=== PATIENT | male | born 1975 | race Two or more races ===

== ENCOUNTER 2020-03-19 12:18 | Emergency (ER) | payer MEDICAID, SELFPAY ==
[2020-03-19 14:01] VITALS: BP 108/83; PULSE 63; RESP 18; TEMP 36.8; O2SAT 96; BMI 20.9
--- NOTE | 2020-03-19 14:01 | ED_ITS ---
HPI - General Adult General Stated complaint: swollen legs Time Seen by Provider: 03/19/20 14:01 Related Data Allergies Allergy/AdvReac Type Severity Reaction Status Date / Time No Known Allergies Allergy Unverified 10/31/19 16:54 [No Known Allergies*] [facility] Past Medical History Medical History (Updated 03/19/20 @ 14:02 by Christa Hough, SARAHI) H/O opioid abuse Course Course Course Narrative: 1400-This is a rapid medical exam. 44 yo male with past medical history hepatitis C, IVDA, asthma here with bilateral lower leg swelling x 2 days. No SOB, cough, or CP, abdominal pain. Will need labs, UA. Deferred additional HPI, PE and ROS to primary provider.
== END 2020-03-19 20:22 | disposition left against medical advice (07) ==
PROVIDERS: Emergency Provider Internal Medicine
DX: R60.0 Localized edema (principal)
CPT/HCPCS: 99281; 99282

== ENCOUNTER 2020-06-24 14:15 | Emergency (ER) | payer MEDICAID, SELFPAY ==
[2020-06-24 14:25] VITALS: BP 106/69; PULSE 76; RESP 18; TEMP 36.1; O2SAT 96; BMI 22.3
--- NOTE | 2020-06-24 18:19 | ED.GENADULT ---
HPI - General Adult General Chief complaint: General Medical Stated complaint: SWELLING IN LEGS Time Seen by Provider: 06/24/20 18:19 Source: patient Mode of arrival: ambulatory Limitations: no limitations History of Present Illness HPI narrative: Patient with significant cardiac or hepatic disease notice bilateral lower leg swelling for last 2 weeks no shortness of breath no chest pain no abdominal distension patient does complain of mild epigastric pain Related Data Previous Rx's Medication Instructions Recorded spironolactone 50 mg PO QAM #30 tab 06/24/20 Allergies Allergy/AdvReac Type Severity Reaction Status Date / Time No Known Allergies Allergy Verified 03/19/20 14:05 [No Known Allergies*] Review of Systems Review of Systems: Yes all other systems are reviewed and are negative [facility] Past Medical History Medical History H/O opioid abuse Hepatitis C Social History Social History Advance Directives: No Advance Directives Information Provided: No Physical Exam Vital Signs: Vital Signs: Last Vital Signs Temp 98.8 F 06/24/20 18:44 Pulse 61 06/24/20 18:44 Resp 18 06/24/20 18:44 BP 105/61 06/24/20 18:44 Pulse Ox 98 06/24/20 18:44 Body Mass Index 22.3 Appearance: Alert. Oriented X3. No acute distress. Eyes: PERRLA, No Nystagmus ENT: Pharynx normal. Oral Mucosa moist Neck: Normal inspection. Neck supple. CVS: Normal heart rate and rhythm. Pulses normal. Respiratory: No respiratory distress. Equal air entry bilateral, no wheezing/rales/rhonchi Abdomen: Soft and nontender. Bowel sounds are present, no mass palpable, no CVA tenderness Skin: Skin warm and dry. Normal skin color. Normal skin turgor. Extremities: 1+ lower extremity edema. No calf tenderness Neuro: Oriented X 3. No motor deficit. No sensory deficit.No cerebellar signs , cranial nerves II-XII intact Medical Decision Making Lab Data Result diagrams: 06/24/20 19:32 06/24/20 19:32 Labs: Lab Results 06/24/20 06/24/20 06/24/20 Range/Units 19:32 19:32 19:32 WBC 6.8 (4.8-10.8) X10*3/uL RBC 4.49 L (4.60-5.80) X10*6/uL Hgb 13.6 L (14.0-18.0) g/dl Hct 42.1 (42-52) % MCV 93.8 (80-98) fL MCH 30.3 (27.0-33.0) pg MCHC 32.3 (31.0-36.0) g/dl RDW 11.7 (11.0-16.0) % Plt Count 142 L (160-400) X10*3/uL MPV 11.0 (9.4-12.4) fL Immature Gran % (Auto) 0.4 (0.0-0.4) % Neut % (Auto) 45.2 (45-73) % Lymph % (Auto) 39.5 (20-40) % [place] % (Auto) 10.2 (2-11) % Eos % (Auto) 4.3 H (0-4) % Baso % (Auto) 0.4 (0-2) % Lymph # (Auto) 2.7 (1.2-4.9) X10*3/uL [place] # (Auto) 0.7 (0.1-1.2) X10*3/uL Eos # (Auto) 0.3 (0.0-0.4) X10*3/uL Baso # (Auto) 0.0 (0.0-0.2) X10*3/uL Abs Immat Gran (auto) 0.03 (0.00-0.03) X10*3/uL Absolute Neuts (auto) 3.1 (2.0-8.3) X10*3/uL Absolute Nucleated RBC 0.000 (0.0-0.012) X10*3/uL Nucleated RBC % (auto) 0.0 (0.0-0.2) /100WBC Sodium 137 (135-145) mmol/L Potassium 4.5 (3.3-5.1) mmol/L Chloride 104 (96-108) mmol/L Carbon Dioxide 25 (22-29) mmol/L Anion Gap 13 (12-20) BUN 16 (9-16) mg/dL Creatinine 0.70 (0.5-1.4) mg/dL Estim Creat Clear Calc 138.2 Estimated GFR > 60 Random Glucose 100 (60-115) mg/dL Calcium 9.0 (8.4-10.2) mg/dL Total Bilirubin 0.4 (0.0-1.0) mg/dL Direct Bilirubin 0.2 (0.0-0.5) mg/dL AST 47 H (5-37) U/L ALT 45 H (0-40) U/L Alkaline Phosphatase 123 H (39-117) U/L B-Natriuretic Peptide 18 (<100) pg/mL Total Protein 7.2 (6.5-8.0) g/dL Albumin 3.6 (3.5-5.0) g/dL Discharge Plan Discharge Clinical Impression: Leg edema Patient Disposition: Home, Self-Care Instructions: Edema (ED) Additional Instructions: Keep leg elevated. Take medication for increased swelling. Follow-up with energy efficiency specialist for elevated liver enzymes Prescriptions: New spironolactone 50 mg tablet 50 mg PO QAM Qty: 30 RF: 0 Referrals: Ysabel Ahn MD [Physician] - 1 week Interventions: ED Discharge Assessment Last Done: 06/24/20 21:06 Discharge Date/Time: 06/24/20 21:07
[2020-06-24 18:44] VITALS: BP 105/61; PULSE 61; RESP 18; TEMP 37.1; O2SAT 98
--- NOTE | 2020-06-24 19:03 | PC.NURSE ---
This rn unable to obtain lab work, difficult stick r/t IVDA. Meryl at bedside to attempt labs.
[2020-06-24 19:38] LABS: MANUAL DIFF FLAG NO
[2020-06-24 19:47] LABS: Basophils Percent Auto 0.4 % (0-2); Eosinophils Absolute Auto 0.3 X10*3/uL (0.0-0.4); Eosinophils Percent Auto 4.3 % (0-4); Hematocrit 42.1 % (42-52); Hemoglobin 13.6 g/dl (14.0-18.0); Imm Gran Abs Auto 0.03 X10*3/uL (0.00-0.03); Imm Gran Pct Auto 0.4 % (0.0-0.4); Lymphocytes Absolute Auto 2.7 X10*3/uL (1.2-4.9); Lymphocytes Percent Auto 39.5 % (20-40); Mean Corpuscular HGB Conc 32.3 g/dl (31.0-36.0); Mean Corpuscular Hemoglobin 30.3 pg (27.0-33.0); Mean Corpuscular Volume 93.8 fL (80-98); Monocytes Absolute Auto 0.7 X10*3/uL (0.1-1.2); Monocytes Percent Auto 10.2 % (2-11); Neutrophils Absolute Auto 3.1 X10*3/uL (2.0-8.3); Neutrophils Percent Auto 45.2 % (45-73); Platelet Count 142 X10*3/uL (160-400); Red Blood Count 4.49 X10*6/uL (4.60-5.80); Red Cell Distribution Width 11.7 % (11.0-16.0); White Blood Count 6.8 X10*3/uL (4.8-10.8)
[2020-06-24 20:04] LABS: Alanine Aminotransferase 45 U/L (0-40); Albumin Level 3.6 g/dL (3.5-5.0); Alkaline Phosphatase 123 U/L (39-117); Anion Gap 13 (12-20); Aspartate Amino Transferase 47 U/L (5-37); Bilirubin Direct 0.2 mg/dL (0.0-0.5); Bilirubin Total 0.4 mg/dL (0.0-1.0); Blood Urea Nitrogen 16 mg/dL (9-16); Carbon Dioxide 25 mmol/L (22-29); Chloride 104 mmol/L (96-108); Creatinine Clr Calc Pharmacy 138.2; Estimated Glomerular Filt Rate > 60; Glucose Random 100 mg/dL (60-115); Potassium 4.5 mmol/L (3.3-5.1); Sodium 137 mmol/L (135-145); Total Protein 7.2 g/dL (6.5-8.0)
[2020-06-24 20:10] LABS: B Type Natriuretic Peptide 18 pg/mL (<100)
== END 2020-06-24 21:07 | disposition home or self-care (01) ==
PROVIDERS: Emergency Provider Internal Medicine
DX: R60.0 Localized edema (principal); R10.13 Epigastric pain
CPT/HCPCS: 36415; 80048; 80076; 83880; 85025; 99284

== ENCOUNTER 2023-06-17 20:35 | Emergency (ER) | payer MEDICAID, SELFPAY ==
--- NOTE | 2023-06-17 | ECG_ITS ---
Test Reason : MENTAL STATUS Blood Pressure : / mmHG Vent. Rate : 082 BPM Atrial Rate : 082 BPM P-R Int : 156 ms QRS Dur : 100 ms QT Int : 440 ms P-R-T Axes : 065 031 026 degrees QTc Int : 514 ms Normal sinus rhythm Prolonged QT Abnormal ECG When compared with ECG of 06-JAN-2018 13:42, QT has lengthened Referred By: Generic ED Physician Electronically Signed By:CARLOS ELLSWORTH
--- NOTE | ~2023-06-17 | XR_ITS ---
EXAMINATION: XR FOREARM, RIGHT XR FOREARM, LEFT CLINICAL INFORMATION: Wound COMPARISON: None TECHNIQUE: AP and lateral views of each forearm. FINDINGS: RIGHT FOREARM: Soft tissues are swollen with a dorsal lunate the mid forearm. No subcutaneous gas. No fracture or malalignment. Joints are normal in appearance at the wrist and elbow. LEFT FOREARM: Soft tissues are swollen in the forearm with dorsal skin wound proximally. No radiodense foreign bodies are identified. Bone mineralization is normal. No fracture or malalignment. Joints appear normal. XR/XR forearm RT 2V IMPRESSION: Soft tissue swelling in the forearms with a dorsal skin wounds proximally. No radiodense foreign bodies. No acute osseous findings.
--- NOTE | ~2023-06-17 | XR_ITS ---
EXAMINATION: XR FOREARM, RIGHT XR FOREARM, LEFT CLINICAL INFORMATION: Wound COMPARISON: None TECHNIQUE: AP and lateral views of each forearm. FINDINGS: RIGHT FOREARM: Soft tissues are swollen with a dorsal lunate the mid forearm. No subcutaneous gas. No fracture or malalignment. Joints are normal in appearance at the wrist and elbow. LEFT FOREARM: Soft tissues are swollen in the forearm with dorsal skin wound proximally. No radiodense foreign bodies are identified. Bone mineralization is normal. No fracture or malalignment. Joints appear normal. XR/XR forearm LT 2V IMPRESSION: Soft tissue swelling in the forearms with a dorsal skin wounds proximally. No radiodense foreign bodies. No acute osseous findings.
[2023-06-17 20:43] VITALS: BP 152/80; PULSE 80; O2SAT 99
[2023-06-17 20:44] VITALS: BP 131/77; PULSE 82; RESP 15; TEMP 37.3; O2SAT 98; BMI 25.5
[2023-06-17 20:52] VITALS: BP 131/77; PULSE 79; RESP 16; TEMP 37.3; O2SAT 98
[2023-06-17 21:14] LABS: Appearance Urine Clear; Color Urine Yellow; Glucose Urine UA Negative (Negative); Leukocyte Esterase Urine Negative (Negative); Nitrite Urine Negative (Negative); Specific Gravity - Urine <= 1.005 (1.005-1.025); Urine Blood Negative (Negative); Urine Ketones Negative (Negative); Urine Protein Negative (Neg-Trace)
[2023-06-17 21:19] LABS: MANUAL DIFF FLAG NO
[2023-06-17 21:21] LABS: Basophils Percent Auto 0.6 % (0-2); Eosinophils Absolute Auto 0.1 X10*3/uL (0.0-0.4); Eosinophils Percent Auto 2.5 % (0-4); Hematocrit 33.5 % (42.0-52.0); Hemoglobin 11.2 g/dl (14.0-18.0); Imm Gran Abs Auto 0.01 X10*3/uL (0.00-0.03); Imm Gran Pct Auto 0.2 % (0.0-0.4); Lymphocytes Absolute Auto 1.5 X10*3/uL (1.2-4.9); Mean Corpuscular HGB Conc 33.4 g/dl (31.0-36.0); Mean Corpuscular Hemoglobin 32.5 pg (27.0-33.0); Mean Corpuscular Volume 97.1 fL (80.0-98.0); Mean Platelet Volume 11.6 fL (9.4-12.4); Monocytes Absolute Auto 0.5 X10*3/uL (0.1-1.2); Monocytes Percent Auto 10.9 % (2-11); Neutrophils Absolute Auto 2.6 x10*3/uL (2.0-8.3); Neutrophils Percent Auto 54.8 % (45-73); Platelet Count 100 X10*3/uL (160-400); Red Blood Count 3.45 X10*6/uL (4.60-5.80); Red Cell Distribution Width 14.1 % (11.0-16.0); White Blood Count 4.8 X10*3/uL (4.8-10.8)
[2023-06-17 21:33] LABS: Lactic Acid 1.5 mmol/L (0.5-2.0)
--- NOTE | 2023-06-17 21:38 | ED_ITS ---
HPI - General Adult General Chief complaint: Altered Mental Status Stated complaint: AMS IVDA, abscess, fever Time Seen by Provider: 06/17/23 21:36 Source: patient and family Mode of arrival: ambulatory Limitations: no limitations History of Present Illness HPI narrative: Patient with history of IVDA user uses cocaine and heroin been shooting left forearm for a while along with taking methadone comes here for wounds in the left forearm and decreased sensorium after using drugs last night patient has been shooting in the left forearm wounds no cough no shortness of breath Related Data Previous Rx's ?Medication ?Instructions ?Recorded spironolactone 50 mg tablet 50 mg PO QAM #30 tabs 06/24/20 cephalexin 500 mg capsule 500 mg PO QID 10 days #40 caps 06/17/23 citalopram 20 mg tablet (Celexa) 20 mg PO DAILY #30 tabs 06/17/23 doxycycline hyclate 100 mg tablet 100 mg PO BID #20 tabs 06/17/23 olanzapine 10 mg tablet (Zyprexa) 10 mg PO BEDTIME #30 tabs 06/17/23 trazodone 50 mg tablet 50 mg PO BEDTIME PRN sleep #30 tabs 06/17/23 Allergies Allergy/AdvReac Type Severity Reaction Status Date / Time No Known Allergies Allergy Verified 06/17/23 20:48 [No Known Allergies*] Review of Systems 2 Review of Systems: Yes all other systems are reviewed and are negative PMFSH Past Medical History Medical History Hepatitis C H/O opioid abuse Social History Social History Smoked in Last 30 Days: Yes Use of substances other than those prescribed or required for medical reasons: Yes Substance Use Type: Crack/Cocaine, Heroin and IV Drugs Substance Use Frequency: Chronic Longstanding Advance Directives: No Advance Directives Information Provided: No Do you have a plan to hurt others: No Plan Physical Exam ED Vital Signs: Vital Signs - 24 hr 06/17/23 20:44 06/17/23 20:52 06/17/23 22:00 Temperature 99.1 F 99.2 F Pulse Rate 82 79 80 Respiratory Rate 15 16 15 Blood Pressure 131/77 131/77 118/67 Pulse Oximetry 98 98 95 Oxygen Delivery Method Room Air Room Air Room Air 06/17/23 23:44 Temperature 98.7 F Pulse Rate 78 Respiratory Rate 16 Blood Pressure 122/72 Pulse Oximetry 96 Oxygen Delivery Method Room Air BMI result Body Mass Index 25.5 Appearance: Alert. Oriented X3. No acute distress. Eyes: PERRLA, No Nystagmus ENT: Pharynx normal. Oral Mucosa moist Neck: Normal inspection. Neck supple. CVS: Normal heart rate and rhythm. Pulses normal. Respiratory: No respiratory distress. Equal air entry bilateral, no wheezing/rales/rhonchi Abdomen: Soft and nontender. Bowel sounds are present, no mass palpable, no CVA tenderness Skin: Skin warm and dry. Normal skin color. Normal skin turgor. Extremities: yrace lower extremity edema. No calf tenderness left forearm IVDA patel with open wounds and surrounding cellulitis, right forearm chronic inflammatory change Neuro: Oriented X 3. No motor deficit. No sensory deficit.No cerebellar signs , cranial nerves II-XII intact Medications Administered Discontinued Medications Generic Name Dose Route Start Last Admin Trade Name Freq PRN Reason Stop Dose Admin Doxycycline Monohydrate 100 mg 06/17/23 21:57 06/17/23 22:27 Doxycycline Monohydrate 100 Mg Capsule PO 06/17/23 21:58 100 mg ONCE ONE Administration Piperacillin Sod/Tazobactam 50 mls @ 100 mls/hr 06/17/23 21:57 06/17/23 22:58 Sod 3.375 gm/ Sodium Chloride IV 06/17/23 22:26 Infused ONCE ONE Infusion Medical Decision Making Medical Decision Making [facility] Narrative: Patient with chronic forearm wounds injecting cocaine and heroin in the wounds to get have on methadone does not want to go to detox patient advised to follow with psychiatrist and detox team. Patient used to take Zyprexa trazodone and Celexa in 2017 after that could not get the prescription feel requesting dose medication at that keep him calm and will follow with psychiatrist get the refills. Will give doxycycline cephalexin for chronic wounds forearm, x-ray negative for any bone involvement Lab Data [facility] Lab Attestation statement: I reviewed the patient's lab results. 06/17/23 21:09 06/17/23 21:09 Labs: Lab Results 06/17/23 06/17/23 Range/Units 21:05 21:09 WBC 4.8 (4.8-10.8) X10*3/uL RBC 3.45 L (4.60-5.80) X10*6/uL Hgb 11.2 L (14.0-18.0) g/dl Hct 33.5 L (42.0-52.0) % MCV 97.1 (80.0-98.0) fL MCH 32.5 (27.0-33.0) pg MCHC 33.4 (31.0-36.0) g/dl RDW 14.1 (11.0-16.0) % Plt Count 100 L (160-400) X10*3/uL MPV 11.6 (9.4-12.4) fL Immature Gran % (Auto) 0.2 (0.0-0.4) % Neut % (Auto) 54.8 (45-73) % Lymph % (Auto) 31.0 (20-40) % [place] % (Auto) 10.9 (2-11) % Eos % (Auto) 2.5 (0-4) % Baso % (Auto) 0.6 (0-2) % Lymph # (Auto) 1.5 (1.2-4.9) X10*3/uL [place] # (Auto) 0.5 (0.1-1.2) X10*3/uL Eos # (Auto) 0.1 (0.0-0.4) X10*3/uL Baso # (Auto) 0.0 (0.0-0.2) X10*3/uL Abs Immat Gran (auto) 0.01 (0.00-0.03) X10*3/uL Absolute Neuts (auto) 2.6 (2.0-8.3) x10*3/uL Absolute Nucleated RBC 0.000 (0.0-0.012) X10*3/uL Nucleated RBC % (auto) 0.0 (0.0-0.2) /100WBC ESR 87 H (0-15) MM/HR Sodium 139 (135-145) mmol/L Potassium 3.5 (3.3-5.1) mmol/L Chloride 104 (96-108) mmol/L Carbon Dioxide 24 (22-29) mmol/L Anion Gap 15 (12-20) BUN 7 L (9-16) mg/dL Creatinine 0.71 (0.5-1.4) mg/dL Estim Creat Clear Calc 132.8 Estimated GFR > 60 Random Glucose 116 H (60-115) mg/dL Lactic Acid 1.5 (0.5-2.0) mmol/L Calcium 9.3 (8.4-10.2) mg/dL Magnesium 1.8 (1.6-2.6) mg/dL Total Bilirubin 3.8 H (0.0-1.0) mg/dL AST 157 H (5-37) U/L ALT 85 H (0-40) U/L Alkaline Phosphatase 153 H (39-117) U/L C-Reactive Protein 0.89 H (< or = 0.50) mg/dL B-Natriuretic Peptide 56 (<100) pg/mL Total Protein 8.2 H (6.5-8.0) g/dL Albumin 2.5 L (3.5-5.0) g/dL Urine Color Yellow Urine Appearance Clear Urine pH 6.0 (5.0-9.0) Ur Specific [place] <= 1.005 (1.005-1.025) Urine Protein Negative (Neg-Trace) mg/dL Urine Glucose (UA) Negative (Negative) mg/dL Urine Ketones Negative (Negative) mg/dL Urine Blood Negative (Negative) Urine Nitrite Negative (Negative) Ur Leukocyte Esterase Negative (Negative) Urine Opiates Screen Not Detected (Not Detect) Ur Buprenorphine Scrn Not Detected (Not Detect) ng/mL Ur Oxycodone Screen Not Detected (Not Detect) ng/mL Urine Methadone Screen Not Detected (Not Detect) ng/mL Urine Fentanyl Screen Not Detected (Not Detect) Ur Barbiturates Screen Not Detected (Not Detect) Ur Phencyclidine Scrn Not Detected (Not Detect) Ur Amphetamines Screen Not Detected (Not Detect) U Benzodiazepines Scrn Not Detected (Not Detect) Urine Cocaine Screen Not Detected (Not Detect) U Marijuana (THC) Screen POSITIVE H (Not Detect) Ethyl Alcohol < 10 mg/dL Influenza Type A (PCR) NEGATIVE (Negative) Influenza Type B (PCR) NEGATIVE (Negative) RSV RNA Qual (PCR) NEGATIVE (Negative) SARS-CoV-2 RNA (RT-PCR) NEGATIVE (Negative) Independent Interpretation I performed an independent interpretation of an: Plain X-Ray Radiology Impression Discussion of test interpretation with radiology: I have reviewed the radiologist's reading. Discharge Plan Discharge Clinical Impression: Polysubstance abuse, Chronic wound Patient Disposition: Home, Self-Care Instructions: Polysubstance Abuse (ED), Chronic Wounds (ED) Additional Instructions: Take antibiotic as prescribed for infection your forearm Stop using cocaine and heroin Take your methadone as prescribed Medication for your depression and psychotic disorder as prescribed Follow up with Psychiatry Prescriptions: New olanzapine [Zyprexa] 10 mg tablet 10 mg PO BEDTIME Qty: 30 0RF citalopram [Celexa] 20 mg tablet 20 mg PO DAILY Qty: 30 0RF trazodone 50 mg tablet 50 mg PO BEDTIME PRN (Reason: sleep) Qty: 30 0RF cephalexin 500 mg capsule 500 mg PO QID 10 Days Qty: 40 0RF doxycycline hyclate 100 mg tablet 100 mg PO BID Qty: 20 0RF No Action spironolactone 50 mg tablet 50 mg PO QAM Qty: 30 0RF Referrals: Francisco Swan MD [Physician] - 2 weeks Mary Jensen CNP [Nurse Practitioner] - 2 weeks Interventions: ED Discharge Assessment Last Done: 06/17/23 23:44 Discharge Date/Time: 06/17/23 23:45 Print Language: Hungarian
[2023-06-17 21:42] LABS: Amphetamine Screen Urine Not Detected (Not Detect); Barbiturates, Urine Not Detected (Not Detect); Benzodiazepines Screen Urine Not Detected (Not Detect); Buprenorphine Scr Not Detected (Not Detect); Cannabinoid Screen Urine POSITIVE (Not Detect); Cocaine Screen Urine Not Detected (Not Detect); Fentanyl, urine Not Detected (Not Detect); Methadone Screen, Urine Not Detected (Not Detect); Opiate Screen Urine Not Detected (Not Detect); Oxycodone Screen Urine Not Detected (Not Detect); Phencyclidine Screen Urine Not Detected (Not Detect)
[2023-06-17 21:49] LABS: B Type Natriuretic Peptide 56 pg/mL (<100)
[2023-06-17 21:49] LABS: Influenza A PCR NEGATIVE (Negative); Influenza B PCR NEGATIVE (Negative); Resp Syncy Virus RNA Qual PCR NEGATIVE (Negative); SARS COV2 PCR INHOUSE NEGATIVE (Negative)
[2023-06-17 22:00] VITALS: BP 118/67; PULSE 80; RESP 15; O2SAT 95
[2023-06-17 22:02] LABS: Erythrocyte Sedimentation Rate 87 MM/HR (0-15)
[2023-06-17 22:16] LABS: Alanine Aminotransferase 85 U/L (0-40); Albumin Level 2.5 g/dL (3.5-5.0); Alkaline Phosphatase 153 U/L (39-117); Anion Gap 15 (12-20); Aspartate Amino Transferase 157 U/L (5-37); Bilirubin Total 3.8 mg/dL (0.0-1.0); Blood Urea Nitrogen 7 mg/dL (9-16); C Reactive Protein 0.89 mg/dL (< or = 0.50); Calcium 9.3 mg/dL (8.4-10.2); Carbon Dioxide 24 mmol/L (22-29); Chloride 104 mmol/L (96-108); Creatinine Clr Calc Pharmacy 132.8; Estimated Glomerular Filt Rate > 60; Ethanol < 10 mg/dL; Glucose Random 116 mg/dL (60-115); Magnesium 1.8 mg/dL (1.6-2.6); Potassium 3.5 mmol/L (3.3-5.1); Sodium 139 mmol/L (135-145); Total Protein 8.2 g/dL (6.5-8.0)
[2023-06-17] MEDS: Doxycycline Monohydrate 100 MG CAPSULE PO (22:27)
[2023-06-17] MEDS: Piperacillin Sodium/Tazobactam 3.375 GM in 0.9 % Sodium Chloride 50 ML IV (22:27)
--- NOTE | 2023-06-17 23:31 | PC.NURSE ---
BUE wrapped with 4x4 and gauze wrap. Family present educated on application of dressings and care of wounds.
[2023-06-17 23:44] VITALS: BP 122/72; PULSE 78; RESP 16; TEMP 37.1; O2SAT 96
== END 2023-06-17 23:45 | disposition home or self-care (01) ==
PROVIDERS: Physician Assistant Medical; Emergency Provider Internal Medicine
DX: L98.499 Non-pressure chronic ulcer of skin of other sites with unspecified severity (principal); L03.114 Cellulitis of left upper limb; L03.113 Cellulitis of right upper limb; F19.10 Other psychoactive substance abuse, uncomplicated; F11.20 Opioid dependence, uncomplicated; B19.20 Unspecified viral hepatitis C without hepatic coma; Z79.899 Other long term (current) drug therapy; Z03.818 Encounter for observation for suspected exposure to other biological agents ruled out
CPT/HCPCS: 0241U; 73090; 80053; 80307; 81003; 83605; 83735; 83880; 85025; 85652; 86140; 87040; 93005; 96365; 99284; 99285; J2543

== ENCOUNTER → 2023-06-17 20:45 | Outpatient (BNV) | payer MEDICAID, SELFPAY | PROVIDERS: Emergency Provider Internal Medicine; Visit Provider Internal Medicine | DX: I45.81 Long QT syndrome (principal) | CPT/HCPCS: 93010 ==

== ENCOUNTER 2023-10-25 11:31 | Inpatient (IN) | payer MEDICAID, SELFPAY ==
[2023-10-25] VITALS (8 sets, daily range): BP systolic 102–124; BP diastolic 63–80; PULSE 62–84; RESP 11–18; TEMP 36.7–37.4; O2SAT 96–100; BMI 29.3
--- NOTE | ~2023-10-25 | XR_ITS ---
EXAMINATION: XR CHEST CLINICAL INFORMATION: Anasarca. COMPARISON: Chest x-ray January 01, 2018 TECHNIQUE: 2 views of the chest were obtained. FINDINGS: No significant abnormality is noted involving the heart, lungs, mediastinum, bony thorax or soft tissues. XR/XR chest 2V IMPRESSION: Unremarkable examination. Electronically signed by: Roe Hernandez MD 10/25/2023 03:10 PM EDT RP
--- NOTE | ~2023-10-25 | US_ITS ---
EXAMINATION: US ABDOMEN LIMITED CLINICAL INFORMATION: Diffuse edema, suspected cirrhosis. Liver/ascites check only per . COMPARISON: CT abdomen and pelvis 01/01/2018. TECHNIQUE: Real-time imaging of the liver region. FINDINGS: LIVER: Liver demonstrates a nodular contour with coarsened hepatic echotexture suggesting cirrhotic morphology. No focal hepatic lesion identified. No intrahepatic ductal dilatation. Main portal vein demonstrates hepatopedal flow. Trace amount of perihepatic fluid noted. GALLBLADDER: Gallbladder is physiologically distended with borderline wall thickening. Pericholecystic fluid evaluation is limited in the setting of ascites. No cholelithiasis. Sonographic Key sign is negative. COMMON BILE DUCT: Common bile duct is normal in diameter measuring 0.5 cm. US/US abdomen limited IMPRESSION: 1. Liver demonstrates a nodular contour with coarsened hepatic echotexture suggesting cirrhotic morphology. No focal hepatic lesion identified. 2. Main portal vein demonstrates hepatopedal flow. 3. Trace amount of perihepatic fluid noted. 4. Gallbladder is physiologically distended with borderline wall thickening. Pericholecystic fluid evaluation is limited in the setting of ascites. No cholelithiasis. Sonographic Key sign is negative. Electronically signed by: Eun Martinez MD 10/26/2023 09:21 AM EDT
--- NOTE | ~2023-10-25 | XR_ITS ---
EXAMINATION: XR CHEST CLINICAL INFORMATION: Central line placement COMPARISON: Chest radiograph performed earlier on the same date TECHNIQUE: Frontal view of the chest was obtained. FINDINGS: Right IJ central venous catheter with its tip projecting over the expected location of the cavoatrial junction. The lungs are mildly hypoexpanded. Mild interstitial prominence bilaterally. No pleural effusions or pneumothorax. The cardiac silhouette is within normal limits for technique. No acute osseous abnormality. XR/XR chest 1V IMPRESSION: Right IJ central venous catheter its tip projecting over the expected location of the cavoatrial junction. Mild bilateral interstitial prominence may reflect mild edema. Electronically signed by: Tony Reynaga MD 10/25/2023 05:06 PM EDT
--- NOTE | 2023-10-25 12:02 | ED.GENADULT ---
HPI - General Adult General Chief complaint: Extremity Injury, Lower Stated complaint: LEG/ABD SWELLING,ABD PAIN,IVDA PER EMS Time Seen by Provider: 10/25/23 12:01 History of Present Illness ED Provider: Artur QUIROS narrative: The patient is a 48-year-old male with a history of substance use disorder. He is on methadone although he still sometimes uses intravenous drugs. He says that he has had hepatitis-C in the past although he says he has been treated for this. The patient says he has had problems with swelling of his legs for a long time. He feels that his swelling has gotten worse over the last several weeks and for the 1st time today he noticed that his scrotum and penis were also swollen. He was concerned about this and called an ambulance and was brought to the hospital. The patient has several wounds on his upper extremities. He says that he used IV drugs few weeks ago and that this is why he has these wounds. He says he has not had any fevers, sweats, chills. No chest pain or shortness of breath. He says that he has limited ability to walk. He says he gets transportation to his methadone clinic every day. For other purposes he has to contact his daughter or brother for a ride. He says he is able to walk a little bit but not much. He says that he lives in a rented room. Related Data Home Medications ?Medication ?Instructions ?Recorded ?Confirmed olanzapine 10 mg tablet (Zyprexa) 5 mg PO BEDTIME 10/25/23 10/25/23 prazosin 1 mg capsule 1 mg PO BEDTIME 10/25/23 10/25/23 sertraline 50 mg tablet 50 mg PO DAILY 10/25/23 10/25/23 Previous Rx's ?Medication ?Instructions ?Recorded citalopram 20 mg tablet (Celexa) 20 mg PO DAILY #30 tabs 06/17/23 trazodone 50 mg tablet 50 mg PO BEDTIME PRN sleep #30 tabs 06/17/23 Allergies Allergy/AdvReac Type Severity Reaction Status Date / Time No Known Allergies Allergy Verified 10/25/23 11:47 [No Known Allergies*] Review of Systems Review of Systems: Yes all other systems are reviewed and are negative PMFSH Past Medical History Medical History Hepatitis C H/O opioid abuse Social History Social History Smoked in Last 30 Days: Yes Use of substances other than those prescribed or required for medical reasons: No Substance Use Type: Crack/Cocaine, Heroin and IV Drugs Advance Directives: No Do you have a plan to hurt others: No Plan Physical Exam ED Vital Signs: Vital Signs - 24 hr 10/25/23 11:45 10/25/23 11:49 10/25/23 12:15 Temperature 98.2 F 98.2 F 98.1 F Pulse Rate 76 76 73 Respiratory Rate 16 16 18 Blood Pressure 118/68 118/68 102/63 Pulse Oximetry 98 98 Oxygen Delivery Method Room Air Room Air Room Air 10/25/23 14:00 10/25/23 16:00 10/25/23 17:15 Temperature 99.4 F Pulse Rate 62 68 Respiratory Rate 18 16 Blood Pressure 111/78 119/78 124/80 Pulse Oximetry 98 100 Oxygen Delivery Method Room Air 10/25/23 17:15 Temperature Pulse Rate Respiratory Rate Blood Pressure 124/80 Pulse Oximetry Oxygen Delivery Method BMI result Body Mass Index 29.3 Const Other: The patient is a chronically ill-appearing 48-year-old. He looks older than his age. He does not seem in acute distress however. HENMT Other: Face is symmetrical. The patient has poor dentition. Mucous membranes are moist. Eyes Other: Pupils are round equal, conjunctivae are clear, no scleral icterus. Neck Other: No apparent JVD Resp Effort & Inspection: normal respiratory effort and prolonged expiratory phase Cardio Other: The patient has a regular rate and rhythm. There may be a subtle murmur. GI Other: The abdomen is mildly protuberant but not tense. Other: The patient has moderate scrotal and penile edema. Back/Spine/Pelvis Other: There is some mild pitting edema in the sacral area. Skin Other: The patient has 3 to 4+ edema of the lower extremities. He has what looks like subacute wounds to his forearms. Neuro Other: The patient is awake and alert. He speaks very quietly. He is primarily Latvian speaking and was interviewed with a dialysis technician. His face seems symmetrical. His speech seems clear. He seems to be generally deconditioned but has no focal findings. Extrem Other: The patient has 3 to 4+ edema of the lower extremities. This is pitting edema. Both legs are warm and seem well-perfused. Medications Administered Generic Name Dose Route Start Last Admin Trade Name Talon PRN Reason Stop Dose Admin Spironolactone 25 mg 10/25/23 18:00 10/25/23 17:15 Spironolactone 25 Mg Tablet PO 25 mg BID@0900,1800 SHILOH Administration Protocol Discontinued Medications Generic Name Dose Route Start Last Admin Trade Name Talon PRN Reason Stop Dose Admin Furosemide 40 mg 10/25/23 16:46 10/25/23 17:15 Furosemide 40 Mg/4 Ml Vial IVPUSH 10/25/23 16:47 40 mg ONCE ONE Administration Protocol Phytonadione 10 mg 10/25/23 17:19 10/25/23 18:00 Phytonadione (Vit K1) Oral 10 Mg/Ml Ampul PO 10/25/23 17:20 10 mg ONCE ONE Administration Procedures Central Line Placement Right IJ: Time Out Performed: Yes Patient Placed on Monitor/Pulse Ox: Yes MD Prep: mask, gown and gloves Central Line Prep: Chlorhexidine scrub Local Anesthetic: lidocaine 1% Amount of anesthesia used (mL): 10 Ultrasound Used for Placement: Yes Central Line Lumen Inserted: triple Post Procedure: sutured in place, good blood return, all ports aspirated, flushed, capped and sterile dressing applied Post Procedure X-Ray: tip of catheter in good position and no pneumothorax seen Patient Tolerated Procedure: well Complications: none Additional Comments: For reasons that were not entirely clear I had difficulty passing the wire through the needle and therefore I made several passes with the needle before being able to successfully pass the wire through the needle. Medical Decision Making Medical Decision Making [facility] Narrative: The patient is a 48-year-old male with a history of long-term substance abuse. He is on methadone and also uses IV drugs. He presents with worsening edema of his lower legs as well as his scrotum and penis and also has sacral edema. Bedside ultrasound shows no significant ascites. He has a history of chronic liver disease. The patient's primary complaint today seems to be his edema. I think it would be reasonable to describe him as having anasarca. The patient has very poor peripheral veins which made peripheral phlebotomy and peripheral IV access impossible. I attempted an external jugular vein IV but was unsuccessful. Ultimately I explained to the patient that he would need a central line. He consented to the central line. The central line was placed in the right internal jugular vein. Procedure was more difficult than I anticipated because of difficulty passing the wire for unclear reasons. However ultimately the procedure was completed and the x-ray showed good placement. He was then given IV furosemide. He will be admitted to the hospitalist service for further care. Lab Data 10/25/23 16:09 10/25/23 16:09 Labs: Lab Results 10/25/23 Range/Units 16:09 WBC 3.7 L (4.8-10.8) X10*3/uL RBC 2.57 L D (4.60-5.80) X10*6/uL Hgb 8.7 L D (14.0-18.0) g/dl Hct 25.6 L D (42.0-52.0) % MCV 99.6 H (80.0-98.0) fL MCH 33.9 H (27.0-33.0) pg MCHC 34.0 (31.0-36.0) g/dl RDW 14.9 (11.0-16.0) % Plt Count 70 L D (160-400) X10*3/uL MPV 11.1 (9.4-12.4) fL Immature Gran % (Auto) 0.3 (0.0-0.4) % Neut % (Auto) 46.7 (45-73) % Lymph % (Auto) 37.6 (20-40) % [place] % (Auto) 11.9 H (2-11) % Eos % (Auto) 2.7 (0-4) % Baso % (Auto) 0.8 (0-2) % Lymph # (Auto) 1.4 (1.2-4.9) X10*3/uL [place] # (Auto) 0.4 (0.1-1.2) X10*3/uL Eos # (Auto) 0.1 (0.0-0.4) X10*3/uL Baso # (Auto) 0.0 (0.0-0.2) X10*3/uL Abs Immat Gran (auto) 0.01 (0.00-0.03) X10*3/uL Absolute Neuts (auto) 1.7 L (2.0-8.3) x10*3/uL Absolute Nucleated RBC 0.000 (0.0-0.012) X10*3/uL Nucleated RBC % (auto) 0.0 (0.0-0.2) /100WBC PT 24.8 H (11.1-13.3) SEC INR 2.0 H (0.9-1.1) Sodium 136 (135-145) mmol/L Potassium 3.7 (3.3-5.1) mmol/L Chloride 107 (96-108) mmol/L Carbon Dioxide 29 (22-29) mmol/L Anion Gap 4 L (12-20) BUN 7 L (9-16) mg/dL Creatinine 0.72 (0.5-1.4) mg/dL Estim Creat Clear Calc 139.1 Estimated GFR > 60 Random Glucose 100 (60-115) mg/dL Calcium 7.9 L D (8.4-10.2) mg/dL Magnesium 1.7 (1.6-2.6) mg/dL Total Bilirubin 3.9 H (0.0-1.0) mg/dL Direct Bilirubin 2.6 H (0.0-0.5) mg/dL AST 111 H (5-37) U/L ALT 52 H (0-40) U/L Alkaline Phosphatase 183 H (39-117) U/L Troponin I High Sens 2.9 (<3.5-35.0) ng/L C-Reactive Protein 0.96 H (< or = 0.50) mg/dL B-Natriuretic Peptide 302 H (<100) pg/mL Total Protein 7.0 (6.5-8.0) g/dL Albumin 1.7 L (3.5-5.0) g/dL Urine Color Dark Yellow Urine Appearance Clear Urine pH 6.0 (5.0-9.0) Ur Specific [place] 1.015 (1.005-1.025) Urine Protein Negative (Neg-Trace) mg/dL Urine Glucose (UA) Negative (Negative) mg/dL Urine Ketones Negative (Negative) mg/dL Urine Blood Negative (Negative) Urine Nitrite Negative (Negative) Ur Leukocyte Esterase Negative (Negative) Urine Opiates Screen Not Detected (Not Detect) Ur Buprenorphine Scrn Not Detected (Not Detect) ng/mL Ur Oxycodone Screen Not Detected (Not Detect) ng/mL Urine Methadone Screen Positive H (Not Detect) ng/mL Urine Fentanyl Screen POSITIVE H (Not Detect) Ur Barbiturates Screen Not Detected (Not Detect) Ur Phencyclidine Scrn Not Detected (Not Detect) Ur Amphetamines Screen Not Detected (Not Detect) U Benzodiazepines Scrn Not Detected (Not Detect) Urine Cocaine Screen POSITIVE H (Not Detect) U Marijuana (THC) Screen Not Detected (Not Detect) Ethyl Alcohol < 10 mg/dL Discharge Plan Discharge Clinical Impression: Anasarca Patient Disposition: Admitted As Inpatient
--- NOTE | 2023-10-25 12:15 | ECG_ITS ---
Test Reason : weakness Blood Pressure : / mmHG Vent. Rate : 069 BPM Atrial Rate : 069 BPM P-R Int : 174 ms QRS Dur : 096 ms QT Int : 460 ms P-R-T Axes : 051 029 023 degrees QTc Int : 492 ms Normal sinus rhythm Prolonged QT Abnormal ECG When compared with ECG of 17-JUN-2023 20:45, No significant change was found Referred By: Anthony Siddiqui Electronically Signed By:HUBERT GODINEZ
--- NOTE | 2023-10-25 14:50 | PC.NURSE ---
Multiple attempts made for IV access including EJ x 2 by provider, unsuccessful. Plan for central line placement, awaiting medical illustrator to discuss with pt.
--- NOTE | 2023-10-25 15:45 | PC.NURSE ---
Dr Siddiqui to bedside completing central line placement
[2023-10-25 16:15] LABS: MANUAL DIFF FLAG NO
[2023-10-25 16:16] LABS: Basophils Percent Auto 0.8 % (0-2); Eosinophils Absolute Auto 0.1 X10*3/uL (0.0-0.4); Eosinophils Percent Auto 2.7 % (0-4); Hematocrit 25.6 % (42.0-52.0); Hemoglobin 8.7 g/dl (14.0-18.0); Imm Gran Abs Auto 0.01 X10*3/uL (0.00-0.03); Imm Gran Pct Auto 0.3 % (0.0-0.4); Lymphocytes Absolute Auto 1.4 X10*3/uL (1.2-4.9); Lymphocytes Percent Auto 37.6 % (20-40); Mean Corpuscular Hemoglobin 33.9 pg (27.0-33.0); Mean Corpuscular Volume 99.6 fL (80.0-98.0); Monocytes Absolute Auto 0.4 X10*3/uL (0.1-1.2); Monocytes Percent Auto 11.9 % (2-11); Neutrophils Absolute Auto 1.7 x10*3/uL (2.0-8.3); Neutrophils Percent Auto 46.7 % (45-73); Red Blood Count 2.57 X10*6/uL (4.60-5.80); Red Cell Distribution Width 14.9 % (11.0-16.0); White Blood Count 3.7 X10*3/uL (4.8-10.8)
--- NOTE | 2023-10-25 16:21 | PC.NURSE ---
Provider at bed side for central line placement. Right IJ placed; CXR confirmed placement, and blood labs drawn from line. All ports with good blood return and flushed without complication.
[2023-10-25 16:23] LABS: Appearance Urine Clear; Color Urine Dark Yellow; Glucose Urine UA Negative (Negative); Leukocyte Esterase Urine Negative (Negative); Nitrite Urine Negative (Negative); Specific Gravity - Urine 1.015 (1.005-1.025); Urine Blood Negative (Negative); Urine Ketones Negative (Negative); Urine Protein Negative (Neg-Trace)
[2023-10-25 16:24] LABS: Prothrombin Time 24.8 SEC (11.1-13.3)
[2023-10-25 16:29] LABS: Amphetamine Screen Urine Not Detected (Not Detect); Barbiturates, Urine Not Detected (Not Detect); Benzodiazepines Screen Urine Not Detected (Not Detect); Buprenorphine Scr Not Detected (Not Detect); Cannabinoid Screen Urine Not Detected (Not Detect); Cocaine Screen Urine POSITIVE (Not Detect); Fentanyl, urine POSITIVE (Not Detect); Methadone Screen, Urine Positive (Not Detect); Opiate Screen Urine Not Detected (Not Detect); Oxycodone Screen Urine Not Detected (Not Detect); Phencyclidine Screen Urine Not Detected (Not Detect)
[2023-10-25 16:32] LABS: Mean Platelet Volume 11.1 fL (9.4-12.4); Platelet Count 70 X10*3/uL (160-400)
[2023-10-25 16:38] LABS: Alanine Aminotransferase 52 U/L (0-40); Albumin Level 1.7 g/dL (3.5-5.0); Alkaline Phosphatase 183 U/L (39-117); Anion Gap 4 (12-20); Aspartate Amino Transferase 111 U/L (5-37); Bilirubin Direct 2.6 mg/dL (0.0-0.5); Bilirubin Total 3.9 mg/dL (0.0-1.0); Blood Urea Nitrogen 7 mg/dL (9-16); C Reactive Protein 0.96 mg/dL (< or = 0.50); Calcium 7.9 mg/dL (8.4-10.2); Carbon Dioxide 29 mmol/L (22-29); Chloride 107 mmol/L (96-108); Creatinine Clr Calc Pharmacy 139.1; Estimated Glomerular Filt Rate > 60; Glucose Random 100 mg/dL (60-115); Magnesium 1.7 mg/dL (1.6-2.6); Potassium 3.7 mmol/L (3.3-5.1); Sodium 136 mmol/L (135-145)
[2023-10-25 16:40] LABS: Ethanol < 10 mg/dL
[2023-10-25 16:42] LABS: B Type Natriuretic Peptide 302 pg/mL (<100)
[2023-10-25 16:44] LABS: Troponin-I High Sensitivity 2.9 ng/L (<3.5-35.0)
[2023-10-25] MEDS: Spironolactone 25 MG TABLET PO (17:15)
[2023-10-25] MEDS: Furosemide 40 MG/4 ML VIAL IVPUSH (17:15)
--- NOTE | 2023-10-25 17:20 | P.HPHOSP_ITS ---
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, and depression who presents with at least 1 week of worsening generalized edema of the legs, arms, and scrotum. No abdominal discomfort. No known history of cirrhosis. No hematemesis, hematochezia, or melena. No primary care doctor. He came in by ambulance due to difficulty ambulating from the edema. He has extremely difficult venous access with multiple needle tracks on his arms, so the ED physician placed a left IJ CVC for venous access. He was given 40 mg of IV furosemide. He was noted to have coagulopathy, pancytopenia, and liver disease with AST 111/ALT 52 and total bilirubin of 3.9. No fever or chills. No dyspnea. No chest pain. This history was taken in Eritrean from the patient. Review of Systems 2 Review of Systems: Yes all other systems are reviewed and are negative [facility] Medical History Hepatitis C H/O opioid abuse Social History Smoked in Last 30 Days: Yes Use of substances other than those prescribed or required for medical reasons: No Substance Use Type: Crack/Cocaine, Heroin and IV Drugs Advance Directives: No Do you have a plan to hurt others: No Plan Meds Allergies Allergy/AdvReac Type Severity Reaction Status Date / Time No Known Allergies Allergy Verified 10/25/23 11:47 [No Known Allergies*] Active Medications: Current Medications Furosemide (Furosemide 20 Mg/2 Ml Vial) 20 mg IVPUSH BID@0900,1800 SHILOH; Protocol Spironolactone (Spironolactone 25 Mg Tablet) 25 mg PO BID@0900,1800 SHILOH; Protocol Last Admin: 10/25/23 17:15 Dose: 25 mg Physical Exam 2 Vital Signs and Narrative: Vital Signs: Last Vital Signs Temp 99.4 F 10/25/23 14:00 Pulse 68 10/25/23 16:00 Resp 16 10/25/23 16:00 BP 124/80 10/25/23 17:15 Pulse Ox 100 10/25/23 16:00 O2 Del Method Room Air 10/25/23 14:00 BMI result Body Mass Index 29.3 Gen: chronically ill-appearing HEENT: sclera icteric, moist mucus membranes Neck: supple, RIJ CVC Lungs: clear to auscultation bilaterally Heart: regular rate and rhythm, no murmurs Abd: soft, non-tender, non-distended Ext: generalized 3+ edema of legs, arms, scrotum Skin: warm/well-perfused, multiple track patel Neuro: alert and oriented x3, no focal findings Psych: appropriate affect Results Labs 10/25/23 16:09 10/25/23 16:09 Labs: Laboratory Results - last 24 hr 10/25/23 16:09 MCV 99.6 H MCH 33.9 H MCHC 34.0 RDW 14.9 Plt Count 70 L D MPV 11.1 Immature Gran % (Auto) 0.3 Neut % (Auto) 46.7 Lymph % (Auto) 37.6 [place] % (Auto) 11.9 H Eos % (Auto) 2.7 Baso % (Auto) 0.8 Lymph # (Auto) 1.4 [place] # (Auto) 0.4 Eos # (Auto) 0.1 Baso # (Auto) 0.0 Abs Immat Gran (auto) 0.01 Absolute Neuts (auto) 1.7 L Absolute Nucleated RBC 0.000 Nucleated RBC % (auto) 0.0 PT 24.8 H INR 2.0 H Anion Gap 4 L Estim Creat Clear Calc 139.1 Estimated GFR > 60 Random Glucose 100 Calcium 7.9 L D Magnesium 1.7 Total Bilirubin 3.9 H Direct Bilirubin 2.6 H AST 111 H ALT 52 H Alkaline Phosphatase 183 H Troponin I High Sens 2.9 C-Reactive Protein 0.96 H B-Natriuretic Peptide 302 H Total Protein 7.0 Albumin 1.7 L Urine Color Dark Yellow Urine Appearance Clear Urine pH 6.0 Ur Specific [place] 1.015 Urine Protein Negative Urine Glucose (UA) Negative Urine Ketones Negative Urine Blood Negative Urine Nitrite Negative Ur Leukocyte Esterase Negative Urine Opiates Screen Not Detected Ur Buprenorphine Scrn Not Detected Ur Oxycodone Screen Not Detected Urine Methadone Screen Positive H Urine Fentanyl Screen POSITIVE H Ur Barbiturates Screen Not Detected Ur Phencyclidine Scrn Not Detected Ur Amphetamines Screen Not Detected U Benzodiazepines Scrn Not Detected Urine Cocaine Screen POSITIVE H U Marijuana (THC) Screen Not Detected Ethyl Alcohol < 10 Imaging Radiologist's Impressions: Impressions Chest X-Ray 10/25/23 12:15 IMPRESSION: Unremarkable examination. Electronically signed by: Roe Hernandez MD 10/25/2023 03:10 PM EDT RP Chest X-Ray 10/25/23 15:50 IMPRESSION: Right IJ central venous catheter its tip projecting over the expected location of the cavoatrial junction. Mild bilateral interstitial prominence may reflect mild edema. Electronically signed by: Tony Reynaga MD 10/25/2023 05:06 PM EDT RP Assessment and Plan (1) Anasarca: Status: Acute Plan 48yo M with hx HCV polysubstance injection drug abuse and depression presenting with progressive edema/ansarca to the point where he cannot ambulate. Found to have pancytopenia and coagulopathy. Suspect decompensated cirrhosis. anasarca, likely due to cirrhosis - admit to medical-surgical unit and give IV furosemide + PO spironolactone; check electrolytes daily; low-Na diet with protein supplementation; abd US to check liver contour and check for ascites. pancytopenia - likely due to cirrhosis; monitor CBC; check FOBT, B12, folate. if H+H drop and/or FOBT positive, may need GI consultation to check for varices by EGD. coagulopathy - also likely due to cirrhosis; give PO vitamin K and recheck INR in AM polysubstance injection drug abuse - addiction medicine consultation; confirm methadone dose; check HCV viral load and screen for HIV [he is HBV immune from prior infection per prior serologies] mood disorder - resume psychiatric medications at home doses once confirmed VTE ppx - SCDs; avoid heparin given thrombocytopenia dispo - TBD code status - full I anticipate that the patient will stay at least 2 midnights as an inpatient in the hospital due to the above reasons. It is neither reasonable nor safe to care for them in a less acute setting. Quality Stroke Does the patient have a stroke diagnosis?: No VTE Prior VTE?: No VTE Risk Level:: Medical - moderate - high VTE Device Contraindication: N/A - Device Ordered VTE Drug Contraindication: Treatment Not Tolerated
[2023-10-25] MEDS: Phytonadione (Vit K1) Oral 10 MG/ML AMPUL PO (18:00)
--- NOTE | 2023-10-25 18:01 | MHC.EDTECH ---
Empty patient urinal he had 2 of them, out put one had 900 and the other had 600
--- NOTE | 2023-10-25 18:49 | MHC.EDTECH ---
I empty his urinal his out put was 800
--- NOTE | 2023-10-25 19:21 | PHA.MEDREC ---
Addendum entered by Miky Zhang RPh 10/25/23 19:41: Med rec was reviewed by [facility]. Tried to call patient's sister but the voicemail greeting was of another person. Original Note: Pharmacy Consult ? Medication Reconciliation Pharmacy has completed the medication reconciliation. Spoke to patient through roofer helper service (Toni) to confirm medications. Patient was a poor historian. Patient said yes to every medications, however he doesn't know when the last time he took his medication. Trazodone 50 mg last filled 09/13/23 for 30 days, Parzosin 1 mg last filled 09/13/23 for 60 days, Olanzapine 5 mg last filled 09/13/23 for 30 days, Sertraline 50 mg last filled 09/13/23 for 30 days, Citalopram 20 mg last filled 06/18/23 for 30 days.
[2023-10-26] VITALS (7 sets, daily range): BP systolic 104–134; BP diastolic 59–84; PULSE 72–81; RESP 16–20; TEMP 36.4–37.1; O2SAT 95–98; BMI 27.4
[2023-10-26 04:53] LABS: Hematocrit 26.3 % (42.0-52.0); Hemoglobin 8.7 g/dl (14.0-18.0); Mean Corpuscular HGB Conc 33.1 g/dl (31.0-36.0); Mean Corpuscular Hemoglobin 33.2 pg (27.0-33.0); Mean Corpuscular Volume 100.4 fL (80.0-98.0); Mean Platelet Volume 11.4 fL (9.4-12.4); Red Blood Count 2.62 X10*6/uL (4.60-5.80); Red Cell Distribution Width 14.9 % (11.0-16.0); White Blood Count 3.8 X10*3/uL (4.8-10.8)
[2023-10-26 04:57] LABS: Platelet Count 71 X10*3/uL (160-400)
[2023-10-26 05:02] LABS: Ammonia 60 umol/L (13-55)
[2023-10-26 05:13] LABS: Alanine Aminotransferase 47 U/L (0-40); Albumin Level 1.6 g/dL (3.5-5.0); Alkaline Phosphatase 168 U/L (39-117); Anion Gap 9 (12-20); Aspartate Amino Transferase 107 U/L (5-37); Bilirubin Total 4.1 mg/dL (0.0-1.0); Blood Urea Nitrogen 8 mg/dL (9-16); Carbon Dioxide 26 mmol/L (22-29); Chloride 109 mmol/L (96-108); Estimated Glomerular Filt Rate > 60; Glucose Random 84 mg/dL (60-115); Magnesium 1.7 mg/dL (1.6-2.6); Potassium 3.6 mmol/L (3.3-5.1); Sodium 140 mmol/L (135-145); Total Protein 6.8 g/dL (6.5-8.0)
[2023-10-26 05:31] LABS: HIV AB/AG Nonreactive (Nonreactive); HIV Num 1 0.07 S/CO (0.00-0.99)
[2023-10-26 05:39] LABS: Prothrombin Time 24.2 SEC (11.1-13.3)
[2023-10-26 05:46] LABS: Folate 9.3 ng/mL (> or = 4.0); Vitamin B12 1932 pg/mL (200-900)
--- NOTE | 2023-10-26 08:16 | PC.NURSE ---
Methadone verification: Anita Mendez, FLIP 65mg given at window on at 0623 along w take home bottles for 10/20-10/25. verification for faxed to pharmacy.
--- NOTE | 2023-10-26 08:57 | HE.PHANOTE ---
RE: methadone Received verification form; last dose 65mg at [facility] on 10/19 @0623 with take home bottles for 10/20-10/25
--- NOTE | 2023-10-26 09:10 | HO.PM.IMPN ---
Subjective Subjective Date of Service: 10/26/23 Interval History: generalized swelling No hematemesis, hematochezia, or melena. This history was taken in [place] from the patient. Review of Systems Review of Systems: Yes all other systems are reviewed and are negative Physical Exam Vital Signs: Vital Signs: Last Vital Signs Temp 98.8 F 10/26/23 06:33 Pulse 81 10/26/23 06:33 Resp 17 10/26/23 06:33 BP 112/76 10/26/23 06:33 Pulse Ox 95 10/26/23 06:33 O2 Del Method Room Air 10/26/23 06:33 BMI result Body Mass Index 29.3 Gen: chronically ill-appearing HEENT: sclera icteric, moist mucus membranes Neck: supple, RIJ CVC Lungs: clear to auscultation bilaterally Heart: regular rate and rhythm, no murmurs Abd: soft, non-tender, non-distended Ext: generalized 3+ edema of legs, arms, scrotum Skin: warm/well-perfused, multiple track patel Neuro: alert and oriented x3, asterixis present Psych: appropriate affect Objective Data Active Medications Acetaminophen (Acetaminophen 325 Mg Tablet) 650 mg PO Q6H PRN PRN Reason: Pain, Mild (Pain Scale 1-3), fever or headache Calcium Carbonate (Calcium Carbonate 750 Mg Tab.Chew) 750 mg PO Q4H PRN PRN Reason: Heartburn Furosemide (Furosemide 20 Mg/2 Ml Vial) 20 mg IVPUSH BID@0900,1800 [facility]; Protocol Magnesium Hydroxide (Milk Of Magnesia 30 Ml Oral.Susp) 30 ml PO DAILY PRN PRN Reason: Constipation Melatonin (Melatonin 3 Mg Tablet) 6 mg PO BEDTIME PRN PRN Reason: Insomnia Olanzapine (Olanzapine 5 Mg Tablet) 5 mg PO BEDTIME [facility] Ondansetron HCl (Ondansetron Hcl 4 Mg/2 Ml Vial) 4 mg IVPUSH Q8H PRN PRN Reason: Nausea and Vomiting Prazosin HCl (Prazosin Hcl 1 Mg Capsule) 1 mg PO BEDTIME [facility]; Protocol Sertraline HCl (Sertraline Hcl 50 Mg Tablet) 50 mg PO DAILY [facility] Sodium Chloride (0.9 % Sodium Chloride Flush 3 Ml Syringe) 3 ml IVFLUSH QSHIFT [facility] Last Admin: 10/26/23 00:49 Dose: Not Given Documented By: ERIK Non-Admin Reason: Previously Administered Spironolactone (Spironolactone 25 Mg Tablet) 25 mg PO BID@0900,1800 [facility]; Protocol Last Admin: 10/25/23 17:15 Dose: 25 mg Documented By: MOY Trazodone HCl (Trazodone Hcl 50 Mg Tablet) 50 mg PO BEDTIME PRN PRN Reason: sleep Labs 10/26/23 04:36 10/26/23 04:36 Labs: Laboratory Results - last 24 hr 10/25/23 10/26/23 16:09 04:36 MCV 99.6 H 100.4 H MCH 33.9 H 33.2 H MCHC 34.0 33.1 RDW 14.9 14.9 Plt Count 70 L D 71 L MPV 11.1 11.4 Immature Gran % (Auto) 0.3 Neut % (Auto) 46.7 Lymph % (Auto) 37.6 [place] % (Auto) 11.9 H Eos % (Auto) 2.7 Baso % (Auto) 0.8 Lymph # (Auto) 1.4 [place] # (Auto) 0.4 Eos # (Auto) 0.1 Baso # (Auto) 0.0 Abs Immat Gran (auto) 0.01 Absolute Neuts (auto) 1.7 L Absolute Nucleated RBC 0.000 0.000 Nucleated RBC % (auto) 0.0 0.0 PT 24.8 H 24.2 H INR 2.0 H 2.0 H Anion Gap 4 L 9 L Estim Creat Clear Calc 139.1 143.0 Estimated GFR > 60 > 60 Random Glucose 100 84 Calcium 7.9 L D 8.0 L Magnesium 1.7 1.7 Total Bilirubin 3.9 H 4.1 H Direct Bilirubin 2.6 H AST 111 H 107 H ALT 52 H 47 H Alkaline Phosphatase 183 H 168 H Ammonia 60 H Troponin I High Sens 2.9 C-Reactive Protein 0.96 H B-Natriuretic Peptide 302 H Total Protein 7.0 6.8 Albumin 1.7 L 1.6 L Vitamin B12 1932 H Folate 9.3 Urine Color Dark Yellow Urine Appearance Clear Urine pH 6.0 Ur Specific [place] 1.015 Urine Protein Negative Urine Glucose (UA) Negative Urine Ketones Negative Urine Blood Negative Urine Nitrite Negative Ur Leukocyte Esterase Negative Urine Opiates Screen Not Detected Ur Buprenorphine Scrn Not Detected Ur Oxycodone Screen Not Detected Urine Methadone Screen Positive H Urine Fentanyl Screen POSITIVE H Ur Barbiturates Screen Not Detected Ur Phencyclidine Scrn Not Detected Ur Amphetamines Screen Not Detected U Benzodiazepines Scrn Not Detected Urine Cocaine Screen POSITIVE H U Marijuana (THC) Screen Not Detected Ethyl Alcohol < 10 HIV 1&2 Ab/P24 Ag 4thGn Nonreactive Assessment and Plan (1) Anasarca: Status: Acute Plan d2 48yo M with hx HCV polysubstance injection drug abuse and depression presenting with progressive edema/ansarca to the point where he cannot ambulate. Found to have pancytopenia and coagulopathy. Suspect decompensated cirrhosis. anasarca, likely due to cirrhosis - continue e IV furosemide + PO spironolactone; check electrolytes daily; low-Na diet with protein supplementation; abd US to check liver contour and check for ascites pending hepatic encephalopathy - start lactulose pancytopenia - likely due to cirrhosis; monitor CBC; check FOBT; f H+H drops and/or FOBT positive, may need GI consultation to check for varices by EGD. coagulopathy - also likely due to cirrhosis and uncorrectable by vitamin K polysubstance injection drug abuse - addiction medicine consultation pending; confirm methadone dose; HIV negative, HCV viral load pending [he is HBV immune from prior infection per prior serologies] mood disorder - resume sertraline, trazodone, olanzapine, prazosin VTE ppx - SCDs; avoid heparin given thrombocytopenia dispo - PT eval pending In my clinical judgment, the patient requires continued inpatient hospitalization for the following reasons: decompensated cirrhosis, IV diuresis, PT eval Total time managing care of this patient today: 40 minutes. Quality Stroke Does the patient have a stroke diagnosis?: No VTE Prior VTE?: No VTE Risk Level:: Medical - moderate - high VTE Device Contraindication: N/A - Device Ordered VTE Drug Contraindication: Treatment Not Tolerated
[2023-10-26] MEDS: Spironolactone 25 MG TABLET PO ×2 (10:17→16:39)
[2023-10-26] MEDS: Sertraline HCL 50 MG TABLET PO (10:17)
[2023-10-26] MEDS: Furosemide 20 MG/2 ML VIAL IVPUSH ×2 (10:18→16:39)
[2023-10-26] MEDS: Lactulose 20 GM/30 ML SOLUTION PO ×2 (10:18→20:04)
[2023-10-26] MEDS: 0.9 % Sodium Chloride Flush 3 ML SYRINGE IVFLUSH ×3 (10:24→23:28)
[2023-10-26] MEDS: methADONE HCl 20 MG/2 ML ORAL.CONC 65 MG PO (10:38)
--- NOTE | 2023-10-26 14:56 | HO.ADDICT_ITS ---
History of Present Illness Date of Service: 10/26/23 Chief Complaint: Anasarca,pancytopenia Reason for Consult: substance use Sources of Information: patient interviewed and chart reviewed HPI Narrative: Patient is a 48 year old Belgian speaking male medically admitted with anasarca At time of admission reported occasional susbtance use so consult was requested Patient seen in room 467. He was awake, alert, pleasant and engaged in interview. He reports he has been engaged in treatment for OUD for about 3 years via [facility] and current methadone dose is 65mg. He feels current dose is effective and proudly shares that he gets weeks take home bottles. He states that he does not use cocaine or fentanyl very often, but his birthday was one week ago and he used a bit more than normal to celebrate He denies any alcohol use He states that he uses new supplies and is aware of where to obtain them --then again stresses that he does not use very often Review of Systems Constitutional: Reports as per HPI and Reports no additional constitutional complaints Diagnostics Vital Signs (24Hr): Vital Signs - 24 hr 10/25/23 16:00 10/25/23 17:15 10/25/23 17:15 Temperature Pulse Rate 68 Respiratory Rate 16 Blood Pressure 119/78 124/80 124/80 Pulse Oximetry 100 Oxygen Delivery Method 10/25/23 17:59 10/25/23 20:07 10/26/23 06:33 Temperature 98.3 F 98.8 F Pulse Rate 64 70 81 Respiratory Rate 11 L 17 17 Blood Pressure 120/79 119/72 112/76 Pulse Oximetry 96 98 95 Oxygen Delivery Method Room Air Room Air Room Air 10/26/23 10:18 10/26/23 12:14 10/26/23 14:10 Temperature 98.3 F Pulse Rate 72 75 Respiratory Rate 16 16 Blood Pressure 134/84 124/82 124/71 Pulse Oximetry 97 98 Oxygen Delivery Method Room Air Room Air BMI result Body Mass Index 27.4 Labs 10/26/23 04:36 10/26/23 04:36 Labs: Laboratory Results - last 48 hr 10/25/23 10/26/23 16:09 04:36 WBC 3.7 L 3.8 L RBC 2.57 L D 2.62 L Hgb 8.7 L D 8.7 L Hct 25.6 L D 26.3 L MCV 99.6 H 100.4 H MCH 33.9 H 33.2 H MCHC 34.0 33.1 RDW 14.9 14.9 Plt Count 70 L D 71 L MPV 11.1 11.4 Immature Gran % (Auto) 0.3 Neut % (Auto) 46.7 Lymph % (Auto) 37.6 [place] % (Auto) 11.9 H Eos % (Auto) 2.7 Baso % (Auto) 0.8 Lymph # (Auto) 1.4 [place] # (Auto) 0.4 Eos # (Auto) 0.1 Baso # (Auto) 0.0 Abs Immat Gran (auto) 0.01 Absolute Neuts (auto) 1.7 L Absolute Nucleated RBC 0.000 0.000 Nucleated RBC % (auto) 0.0 0.0 PT 24.8 H 24.2 H INR 2.0 H 2.0 H Sodium 136 140 Potassium 3.7 3.6 Chloride 107 109 H Carbon Dioxide 29 26 Anion Gap 4 L 9 L BUN 7 L 8 L Creatinine 0.72 0.70 Estim Creat Clear Calc 139.1 143.0 Estimated GFR > 60 > 60 Random Glucose 100 84 Calcium 7.9 L D 8.0 L Magnesium 1.7 1.7 Total Bilirubin 3.9 H 4.1 H Direct Bilirubin 2.6 H AST 111 H 107 H ALT 52 H 47 H Alkaline Phosphatase 183 H 168 H Ammonia 60 H Troponin I High Sens 2.9 C-Reactive Protein 0.96 H B-Natriuretic Peptide 302 H Total Protein 7.0 6.8 Albumin 1.7 L 1.6 L Vitamin B12 1932 H Folate 9.3 Urine Color Dark Yellow Urine Appearance Clear Urine pH 6.0 Ur Specific [place] 1.015 Urine Protein Negative Urine Glucose (UA) Negative Urine Ketones Negative Urine Blood Negative Urine Nitrite Negative Ur Leukocyte Esterase Negative Urine Opiates Screen Not Detected Ur Buprenorphine Scrn Not Detected Ur Oxycodone Screen Not Detected Urine Methadone Screen Positive H Urine Fentanyl Screen POSITIVE H Ur Barbiturates Screen Not Detected Ur Phencyclidine Scrn Not Detected Ur Amphetamines Screen Not Detected U Benzodiazepines Scrn Not Detected Urine Cocaine Screen POSITIVE H U Marijuana (THC) Screen Not Detected Ethyl Alcohol < 10 HIV 1&2 Ab/P24 Ag 4thGn Nonreactive Imaging Radiology Impressions: ITS Impressions Chest X-Ray 10/25/23 12:15 IMPRESSION: Unremarkable examination. Electronically signed by: Roe Hernandez MD 10/25/2023 03:10 PM EDT RP Abdomen Ultrasound 10/25/23 15:21 IMPRESSION: 1. Liver demonstrates a nodular contour with coarsened hepatic echotexture suggesting cirrhotic morphology. No focal hepatic lesion identified. 2. Main portal vein demonstrates hepatopedal flow. 3. Trace amount of perihepatic fluid noted. 4. Gallbladder is physiologically distended with borderline wall thickening. Pericholecystic fluid evaluation is limited in the setting of ascites. No cholelithiasis. Sonographic Key sign is negative. Electronically signed by: Eun Martinez MD 10/26/2023 09:21 AM EDT RP Chest X-Ray 10/25/23 15:50 IMPRESSION: Right IJ central venous catheter its tip projecting over the expected location of the cavoatrial junction. Mild bilateral interstitial prominence may reflect mild edema. Electronically signed by: Tony Reynaga MD 10/25/2023 05:06 PM EDT RP Mental Status Exam Mental Status Exam Patient Appearance: Well Grooomed and Appropriate Level of Consciousness: Awake, Appropriate and Alert Patient Behavior: Appropriate and Talkative Mood Description: Calm and Cheerful Medications Medications Current Medications Acetaminophen (Acetaminophen 325 Mg Tablet) 650 mg PO Q6H PRN PRN Reason: Pain, Mild (Pain Scale 1-3), fever or headache Calcium Carbonate (Calcium Carbonate 750 Mg Tab.Chew) 750 mg PO Q4H PRN PRN Reason: Heartburn Furosemide (Furosemide 20 Mg/2 Ml Vial) 20 mg IVPUSH BID@0900,1800 [facility]; Protocol Last Admin: 10/26/23 10:18 Dose: 20 mg Lactulose (Lactulose 20 Gm/30 Ml Solution) 20 gm PO BID [facility] Last Admin: 10/26/23 10:18 Dose: 20 gm Magnesium Hydroxide (Milk Of Magnesia 30 Ml Oral.Susp) 30 ml PO DAILY PRN PRN Reason: Constipation Melatonin (Melatonin 3 Mg Tablet) 6 mg PO BEDTIME PRN PRN Reason: Insomnia Methadone HCl (Methadone Hcl 20 Mg/2 Ml Oral.Conc) 65 mg PO DAILY [facility] Last Admin: 10/26/23 10:38 Dose: 65 mg Olanzapine (Olanzapine 5 Mg Tablet) 5 mg PO BEDTIME [facility] Ondansetron HCl (Ondansetron Hcl 4 Mg/2 Ml Vial) 4 mg IVPUSH Q8H PRN PRN Reason: Nausea and Vomiting Prazosin HCl (Prazosin Hcl 1 Mg Capsule) 1 mg PO BEDTIME [facility]; Protocol Sertraline HCl (Sertraline Hcl 50 Mg Tablet) 50 mg PO DAILY [facility] Last Admin: 10/26/23 10:17 Dose: 50 mg Sodium Chloride (0.9 % Sodium Chloride Flush 3 Ml Syringe) 3 ml IVFLUSH QSHIFT [facility] Last Admin: 10/26/23 10:24 Dose: 3 ml Spironolactone (Spironolactone 25 Mg Tablet) 25 mg PO BID@0900,1800 [facility]; Protocol Last Admin: 10/26/23 10:17 Dose: 25 mg Trazodone HCl (Trazodone Hcl 50 Mg Tablet) 50 mg PO BEDTIME PRN PRN Reason: sleep Allergies Allergies Allergy/AdvReac Type Severity Reaction Status Date / Time No Known Allergies Allergy Verified 10/25/23 11:47 [No Known Allergies*] Assessment & Plan Assessment & Plan (1) Opioid use disorder: Status: Acute Code(s): F11.90 - Opioid use, unspecified, uncomplicated Assessment and Plan: * methadone dose already ordered * risk reduction discussion * take home narcan at time of discharge * no additional follow up necessary unless requested by patient Total time managing care of this patient today __25__ minutes. PMFSH Past Medical History Medical History Hepatitis C H/O opioid abuse Social History Social History Household Members: Other Household Members Other:: friend's hose Housing: House Do you presently have visiting nurse or other home services: No Patient Tobacco Use Status: Tobacco use Unknown Tobacco use type: Cigarette Cigarette Packs Per Day: 0.5 Cigarettes Per Day: 10.0 e-Cigarette/Vaping Use: Currently Using Substance Use Type: Heroin and IV Drugs
--- NOTE | 2023-10-26 16:16 | MHC.CM.PN ---
CM ATTEMPTED TO MEET WITH PT WHO WAS SLEEPING AND DID NOT WAKE TO CM ATTEMPTS CM TO REVISIT
[2023-10-26] MEDS: OLANZapine 5 MG TABLET PO (20:05)
[2023-10-26] MEDS: Prazosin HCL 1 MG CAPSULE PO (20:05)
[2023-10-27 03:57] VITALS: BP 151/67; PULSE 96; RESP 16; TEMP 36.7; O2SAT 93
[2023-10-27 06:23] LABS: Hematocrit 27.1 % (42.0-52.0); Hemoglobin 9.1 g/dl (14.0-18.0); Mean Corpuscular HGB Conc 33.6 g/dl (31.0-36.0); Mean Corpuscular Hemoglobin 33.8 pg (27.0-33.0); Mean Corpuscular Volume 100.7 fL (80.0-98.0); Mean Platelet Volume 10.8 fL (9.4-12.4); Red Blood Count 2.69 X10*6/uL (4.60-5.80); White Blood Count 4.1 X10*3/uL (4.8-10.8)
[2023-10-27 06:24] LABS: Platelet Count 85 X10*3/uL (160-400)
[2023-10-27 06:31] LABS: INTERNATIONAL NORM RATIO 1.7 (0.9-1.1); Prothrombin Time 20.8 SEC (11.1-13.3)
[2023-10-27 06:38] LABS: Alanine Aminotransferase 48 U/L (0-40); Albumin Level 1.6 g/dL (3.5-5.0); Alkaline Phosphatase 163 U/L (39-117); Anion Gap 9 (12-20); Aspartate Amino Transferase 110 U/L (5-37); Bilirubin Total 3.8 mg/dL (0.0-1.0); Blood Urea Nitrogen 10 mg/dL (9-16); Calcium 7.9 mg/dL (8.4-10.2); Carbon Dioxide 27 mmol/L (22-29); Chloride 108 mmol/L (96-108); Creatinine Clr Calc Pharmacy 114.3; Estimated Glomerular Filt Rate > 60; Glucose Random 94 mg/dL (60-115); Magnesium 1.6 mg/dL (1.6-2.6); Potassium 3.3 mmol/L (3.3-5.1); Sodium 141 mmol/L (135-145); Total Protein 7.1 g/dL (6.5-8.0)
[2023-10-27 07:04] VITALS: BP 137/75; PULSE 98; RESP 20; TEMP 37.1; O2SAT 94
[2023-10-27] MEDS: methADONE HCl 20 MG/2 ML ORAL.CONC 65 MG PO (08:28)
[2023-10-27] MEDS: Lactulose 20 GM/30 ML SOLUTION PO ×2 (08:29→23:11)
[2023-10-27] MEDS: Spironolactone 25 MG TABLET PO ×2 (08:29→18:16)
[2023-10-27] MEDS: 0.9 % Sodium Chloride Flush 3 ML SYRINGE IVFLUSH ×3 (08:29→23:11)
[2023-10-27] MEDS: Sertraline HCL 50 MG TABLET PO (08:29)
[2023-10-27] MEDS: Furosemide 20 MG/2 ML VIAL IVPUSH ×2 (08:29→18:16)
--- NOTE | 2023-10-27 10:49 | MHC.CM.PN ---
EMR REVIEWED, PT W/ANASARCA/PANCYTOPENIA, PER HOSPITALIST PLAN FOR DC TODAY AND MADE AWARE HE WILL NEED CENTRAL/JUGULAR LINE REMOVED PRIOR TO DC, CM MET W/PT VIA SPORTS TEACHER, PT GEMA REPORTS HE IS STAYING W/A FRIEND AND WILL RETURN THERE, PT IS INDEP W/ALL CARE, DNIES USE OF DME/SERVICES AND HAS BEEN SEEN BY RECOVERY TEAM, CM OFFERED PT C SHUTTLE/LYFT/BUS PASSES AND PT REPORTS HE PREFERS A BUS PASS WHICH HAS BEEN PROVIDED. PT DOES NOT HAVE PCP AND CM HAS INSTRUCTED PT TO PRESENT TO [facility] AND THEY WILL SET HIM UP W/ONE HOWEVER PT'S MH INSURANCE IS NOT ACTIVE AND REFERRAL PLACED TO . PT EDUCATED ON AND COMPLETED A HCP NAMING HIS DTR [place] [phone] HIS [facility] AND HIS SISTER MADDY [phone] HIS ALTERNATE, PT PROVIDED W/[employer]GI[employer] EDUCATIONAL HANDOUT, ORIGINAL AND COPY UPLOADED TO [employer] AND PLACED IN CHART. ANTIC PT WILL DC LATER TODAT ONCE CENTRAL LINE REMOVED
[2023-10-27 11:00] VITALS: BP 138/77; PULSE 101; RESP 20; TEMP 37.1; O2SAT 95
--- NOTE | 2023-10-27 12:04 | P.DS_ITS ---
DS: Providers Provider Date of Service: 10/27/23 Date of admission: 10/25/23 17:17 Date of discharge: 10/27/23 Primary care physician: Aury Physician Consults: 10/25/23 17:00 Addiction Medicine Routine Consulting Provider: Addiction Covering Reason for consultation: polysubstance abuse DS: Diagnosis Discharge Diagnosis (1) Opioid use disorder: Status: Acute (2) Anasarca: Status: Acute (3) Decompensated cirrhosis: Status: Acute (4) Hepatic encephalopathy: Status: Acute (5) Pancytopenia: Status: Acute (6) Coagulopathy: Status: Acute DS: Summary Hospital Course Hospital Course: from my admission H+P, 10/25/23: 48yo M with hx HCV [unsure if treated], polysubstance injection drug abuse [fentanyl + cocaine] on maintenance methadone 65 mg/d at [facility], and depression who presents with at least 1 week of worsening generalized edema of the legs, arms, and scrotum. No abdominal discomfort. No known history of cirrhosis. No hematemesis, hematochezia, or melena. No primary care doctor. He came in by ambulance due to difficulty ambulating from the edema. He has extremely difficult venous access with multiple needle tracks on his arms, so the ED physician placed a left IJ CVC for venous access. He was given 40 mg of IV furosemide. He was noted to have coagulopathy, pancytopenia, and liver disease with AST 111/ALT 52 and total bilirubin of 3.9. No fever or chills. No dyspnea. No chest pain. This history was taken in Frisian from the patient. 48yo M with hx HCV polysubstance injection drug abuse and depression presenting with progressive edema/ansarca to the point where he cannot ambulate. Found to have pancytopenia and coagulopathy. Suspect decompensated cirrhosis and indeed abd US showed nodular liver, though with a minimum amount of ascites too little to tap. He was admitted to the hospitalist service and given IV furosemide and PO spironolactone with improvement in his swelling. He was found to have asterixis and thus started on lactulose for hepatic encephalopathy. He had pancytopenia and coagulopathy due to cirrhosis. He was discharged on PO furosemide, spironolactone, and lactulose and referred to [facility] for cirrhosis care to include screening for esophageal varices, screening for hepatocellular carcinoma, and evaluation for transplant. Hepatitis C viral load is pending at the time of discharge. The importance of abstinence from substance abuse was counseled. Methadone was continued as per prior dosing in consultation with Addiction Medicine. Time Attestation Discharge Coordination Time (in mins): 45 Quality: Safe Use of Opioids Does Pt have an Active Cancer Diagnosis on the Problem List?: No Quality: Stroke Does the patient have a stroke diagnosis?: No Physical Exam Vital Signs: Vital Signs: Last Vital Signs Temp 98.7 F 10/27/23 11:00 Pulse 101 H 10/27/23 11:00 Resp 20 10/27/23 11:00 BP 138/77 10/27/23 11:00 Pulse Ox 95 10/27/23 11:00 O2 Del Method Room Air 10/27/23 11:00 BMI result Body Mass Index 27.4 Gen: in no acute distress HEENT: sclera icteric, moist mucus membranes Neck: supple Lungs: clear to auscultation bilaterally Heart: regular rate and rhythm, no murmurs Abd: soft, non-tender, non-distended Ext: 1+ diffuse edema Skin: warm/well-perfused, mild jaundice, spider angiomata Neuro: alert and oriented x3, no focal findings Psych: appropriate affect DS: Data Data Completed and Pending Labs on day of discharge: Laboratory Results - last 24 hr 10/27/23 06:12 WBC 4.1 L RBC 2.69 L Hgb 9.1 L Hct 27.1 L MCV 100.7 H MCH 33.8 H MCHC 33.6 RDW 15.0 Plt Count 85 L MPV 10.8 Absolute Nucleated RBC 0.000 Nucleated RBC % (auto) 0.0 PT 20.8 H INR 1.7 H Sodium 141 Potassium 3.3 Chloride 108 Carbon Dioxide 27 Anion Gap 9 L BUN 10 Creatinine 0.79 Estim Creat Clear Calc 114.3 Estimated GFR > 60 Random Glucose 94 Calcium 7.9 L Magnesium 1.6 Total Bilirubin 3.8 H AST 110 H ALT 48 H Alkaline Phosphatase 163 H Total Protein 7.1 Albumin 1.6 L Discharge Plan Discharge Anticipated Discharge Date/Time: 10/27/23 11:50 Patient Disposition: Home, Self-Care Discharge Diagnosis: decompensated cirrhosis hepatic encephalopathy opioid use disorder Referrals: [facility] [Provider Group] - 1 Week Christianne Clark MD [Physician] - 2 Weeks Physician,None [Primary Care Provider] - 1 Week Discharge Medications: New lactulose 20 gram/30 mL Solution 20 g PO BID Qty: 1800 0RF spironolactone 50 mg tablet 50 mg PO DAILY Qty: 30 0RF furosemide 20 mg tablet 20 mg PO DAILY Qty: 30 0RF Continued trazodone 50 mg tablet 50 mg PO BEDTIME PRN (Reason: sleep) Qty: 30 0RF prazosin 1 mg capsule 1 mg PO BEDTIME sertraline 50 mg tablet 50 mg PO DAILY olanzapine [Zyprexa] 10 mg tablet 5 mg PO BEDTIME methadone [Methadone Intensol] 10 mg/mL Concentrate 65 mg PO DAILY Discontinued citalopram [Celexa] 20 mg tablet 20 mg PO DAILY Qty: 30 0RF Discharge Orders: Discharge Order (Routine); Ordered 10/27/23 Ordered By: Joe Shaw Diet: Low salt diet Activity on Discharge: As tolerated Stand Alone Forms: Patient Portal Discharge page Print Language: Frisian Other Ambulatory Orders: Complete Blood Count Auto Diff (Routine) Timeframe: 1 Week Facility: [facility] - Location: Laboratory Ordered By: Joe Shaw Comprehensive Met. Panel (Routine) Timeframe: 1 Week Facility: [facility] - Location: Laboratory Ordered By: Joe Shaw Magnesium (Routine) Timeframe: 1 Week Facility: [facility] - Location: Laboratory Ordered By: Joe Shaw Prothrombin Time INR (Routine) Timeframe: 1 Week Facility: [facility] - Location: Laboratory Ordered By: Joe Shaw Care Plan Goals: liver health sobriety Health Concerns: decompensated cirrhosis hepatic encephalopathy opioid use disorder Plan of Treatment: take furosemide 20 mg daily PLUS spironolactone 50 mg daily limit sodium to 1500 mg/d take lactulose 30 mL twice daily referral to [facility] avoid all substance of abuse including alcohol, fentanyl, and cocaine repeat labs in 1 week: CBCd, CMP, magnesium, PT/INR establish primary care as soon as possible Return to the hospital if you experience recurrent or worsening symptoms. Assessment: See Discharge Summary.
--- NOTE | 2023-10-27 13:58 | P.PNIM_ITS ---
Subjective Subjective Date of Service: 10/27/23 Interval History: This history was taken in [place] from the patient. Developed sharp abd pain, had large watery diarrhea + vomiting without blood Review of Systems Review of Systems: Yes all other systems are reviewed and are negative Physical Exam 2 Vital Signs: Vital Signs: Last Vital Signs Temp 98.7 F 10/27/23 11:00 Pulse 101 H 10/27/23 11:00 Resp 20 10/27/23 11:00 BP 138/77 10/27/23 11:00 Pulse Ox 95 10/27/23 11:00 O2 Del Method Room Air 10/27/23 11:00 BMI result Body Mass Index 27.4 Gen: in no acute distress HEENT: sclera icteric, moist mucus membranes Neck: supple Lungs: clear to auscultation bilaterally Heart: regular rate and rhythm, no murmurs Abd: soft, diffuse tenderness, non-distended Ext: 1+ diffuse edema Skin: warm/well-perfused, mild jaundice, spider angiomata Neuro: alert and oriented x3, no focal findings Psych: appropriate affect Objective Data Active Medications Acetaminophen (Acetaminophen 325 Mg Tablet) 650 mg PO Q6H PRN PRN Reason: Pain, Mild (Pain Scale 1-3), fever or headache Calcium Carbonate (Calcium Carbonate 750 Mg Tab.Chew) 750 mg PO Q4H PRN PRN Reason: Heartburn Furosemide (Furosemide 20 Mg/2 Ml Vial) 20 mg IVPUSH BID@0900,1800 [facility]; Protocol Last Admin: 10/27/23 08:29 Dose: 20 mg Documented By: MARILEE Lactulose (Lactulose 20 Gm/30 Ml Solution) 20 gm PO BID [facility] Last Admin: 10/27/23 08:29 Dose: 20 gm Documented By: MARILEE Magnesium Hydroxide (Milk Of Magnesia 30 Ml Oral.Susp) 30 ml PO DAILY PRN PRN Reason: Constipation Melatonin (Melatonin 3 Mg Tablet) 6 mg PO BEDTIME PRN PRN Reason: Insomnia Methadone HCl (Methadone Hcl 20 Mg/2 Ml Oral.Conc) 65 mg PO DAILY [facility] Last Admin: 10/27/23 08:28 Dose: 65 mg Documented By: MARILEE Co-signed By: NIKKI Olanzapine (Olanzapine 5 Mg Tablet) 5 mg PO BEDTIME [facility] Last Admin: 10/26/23 20:05 Dose: 5 mg Documented By: DEJAN Ondansetron HCl (Ondansetron Hcl 4 Mg/2 Ml Vial) 4 mg IVPUSH Q8H PRN PRN Reason: Nausea and Vomiting Prazosin HCl (Prazosin Hcl 1 Mg Capsule) 1 mg PO BEDTIME [facility]; Protocol Last Admin: 10/26/23 20:05 Dose: 1 mg Documented By: DEJAN Sertraline HCl (Sertraline Hcl 50 Mg Tablet) 50 mg PO DAILY [facility] Last Admin: 10/27/23 08:29 Dose: 50 mg Documented By: MARILEE Sodium Chloride (0.9 % Sodium Chloride Flush 3 Ml Syringe) 3 ml IVFLUSH QSHIFT [facility] Last Admin: 10/27/23 08:29 Dose: 3 ml Documented By: MARILEE Spironolactone (Spironolactone 25 Mg Tablet) 25 mg PO BID@0900,1800 [facility]; Protocol Last Admin: 10/27/23 08:29 Dose: 25 mg Documented By: MARILEE Trazodone HCl (Trazodone Hcl 50 Mg Tablet) 50 mg PO BEDTIME PRN PRN Reason: sleep Labs 10/27/23 06:12 10/27/23 06:12 Labs: Laboratory Results - last 24 hr 10/27/23 06:12 MCV 100.7 H MCH 33.8 H MCHC 33.6 RDW 15.0 Plt Count 85 L MPV 10.8 Absolute Nucleated RBC 0.000 Nucleated RBC % (auto) 0.0 PT 20.8 H INR 1.7 H Anion Gap 9 L Estim Creat Clear Calc 114.3 Estimated GFR > 60 Random Glucose 94 Calcium 7.9 L Magnesium 1.6 Total Bilirubin 3.8 H AST 110 H ALT 48 H Alkaline Phosphatase 163 H Total Protein 7.1 Albumin 1.6 L Assessment and Plan (1) Anasarca: Status: Acute Plan d3 48yo M with hx HCV polysubstance injection drug abuse and depression presenting with progressive edema/ansarca to the point where he cannot ambulate. Found to have pancytopenia and coagulopathy. found to have cirrhosis vomiting - prn Zofran; gastric occult blood decompensated cirrhosis - continue furosemide + spironolactone; check electrolytes daily; low-Na diet with protein supplementation hepatic encephalopathy - lactulose pancytopenia - likely due to cirrhosis; monitor CBC; check FOBT; f H+H drops and/or FOBT positive, may need GI consultation to check for varices by EGD. coagulopathy - also likely due to cirrhosis polysubstance injection drug abuse - addiction medicine consulted; confirm methadone dose; HIV negative, HCV viral load pending [he is HBV immune from prior infection per prior serologies] mood disorder - resumed sertraline, trazodone, olanzapine, prazosin VTE ppx - SCDs; avoid heparin given thrombocytopenia dispo - eventual home; no services needed In my clinical judgment, the patient requires continued inpatient hospitalization for the following reasons: decompensated cirrhosis, IV diuresis Total time managing care of this patient today: 40 minutes. Quality Stroke Does the patient have a stroke diagnosis?: No VTE Prior VTE?: No VTE Risk Level:: Medical - moderate - high VTE Device Contraindication: N/A - Device Ordered VTE Drug Contraindication: Treatment Not Tolerated
[2023-10-27] MEDS: ondansetron HCL 4 MG/2 ML VIAL IVPUSH (14:03)
[2023-10-27] MEDS: Acetaminophen 325 MG TABLET 650 MG PO (14:03)
[2023-10-27] MEDS: Pantoprazole Sodium 40 MG/10 ML VIAL IVPUSH (15:02)
[2023-10-27 16:00] VITALS: BP 133/63; PULSE 80; RESP 20; TEMP 37; O2SAT 96
[2023-10-27 19:39] VITALS: BP 122/71; PULSE 80; RESP 20; TEMP 37.1; O2SAT 96
[2023-10-27] MEDS: Prazosin HCL 1 MG CAPSULE PO (23:10)
[2023-10-27] MEDS: traZODone HCL 50 MG TABLET PO (23:11)
[2023-10-27] MEDS: OLANZapine 5 MG TABLET PO (23:11)
[2023-10-27 23:59] VITALS: BP 135/85; PULSE 81; RESP 20; TEMP 36.9; O2SAT 95
[2023-10-28] VITALS (13 sets, daily range): BP systolic 129–162; BP diastolic 71–92; PULSE 52–104; RESP 12–20; TEMP 36.4–37.7; O2SAT 93–96
--- NOTE | 2023-10-28 06:00 | PC.NURSE ---
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
[2023-10-28] MEDS: Pantoprazole Sodium 40 MG/10 ML VIAL IVPUSH ×2 (06:32→16:50)
[2023-10-28] MEDS: Lactulose 20 GM/30 ML SOLUTION PO ×2 (07:57→21:50)
[2023-10-28] MEDS: methADONE HCl 20 MG/2 ML ORAL.CONC 65 MG PO (07:57)
[2023-10-28] MEDS: Sertraline HCL 50 MG TABLET PO (07:57)
[2023-10-28] MEDS: Spironolactone 25 MG TABLET PO ×2 (07:57→16:51)
[2023-10-28] MEDS: Furosemide 20 MG/2 ML VIAL IVPUSH ×2 (07:58→16:51)
[2023-10-28] MEDS: 0.9 % Sodium Chloride Flush 3 ML SYRINGE IVFLUSH ×3 (07:58→21:51)
[2023-10-28] MEDS: Phytonadione (Vit K1) 10 MG in 0.9 % Sodium Chloride 50 ML 51 MG IV (08:20)
[2023-10-28 08:34] LABS: Hemoglobin 9.5 g/dl (14.0-18.0); Mean Corpuscular HGB Conc 32.8 g/dl (31.0-36.0); Mean Corpuscular Hemoglobin 33.3 pg (27.0-33.0); Mean Corpuscular Volume 101.8 fL (80.0-98.0); Mean Platelet Volume 11.4 fL (9.4-12.4); Red Blood Count 2.85 X10*6/uL (4.60-5.80); Red Cell Distribution Width 15.2 % (11.0-16.0); White Blood Count 3.9 X10*3/uL (4.8-10.8)
[2023-10-28 08:38] LABS: Platelet Count 74 X10*3/uL (160-400)
[2023-10-28 08:42] LABS: INTERNATIONAL NORM RATIO 1.6 (0.9-1.1); Prothrombin Time 19.8 SEC (11.1-13.3)
[2023-10-28 08:48] LABS: Alanine Aminotransferase 49 U/L (0-40); Albumin Level 1.7 g/dL (3.5-5.0); Alkaline Phosphatase 171 U/L (39-117); Anion Gap 10 (12-20); Aspartate Amino Transferase 112 U/L (5-37); Bilirubin Total 4.2 mg/dL (0.0-1.0); Blood Urea Nitrogen 10 mg/dL (9-16); Carbon Dioxide 26 mmol/L (22-29); Chloride 108 mmol/L (96-108); Creatinine Clr Calc Pharmacy 118.8; Estimated Glomerular Filt Rate > 60; Glucose Random 104 mg/dL (60-115); Potassium 3.1 mmol/L (3.3-5.1); Sodium 141 mmol/L (135-145); Total Protein 7.6 g/dL (6.5-8.0)
[2023-10-28 10:06] LABS: MANUAL DIFF FLAG NO
[2023-10-28 10:18] LABS: Basophils Percent Auto 0.5 % (0-2); Eosinophils Percent Auto 1.9 % (0-4); Imm Gran Pct Auto 0.3 % (0.0-0.4); Lymphocytes Percent Auto 29.6 % (20-40); Monocytes Percent Auto 10.2 % (2-11); Neutrophils Absolute Auto 2.1 x10*3/uL (2.0-8.3); Neutrophils Percent Auto 57.5 % (45-73)
[2023-10-28 10:19] LABS: Eosinophils Absolute Auto 0.1 X10*3/uL (0.0-0.4); Imm Gran Abs Auto 0.01 X10*3/uL (0.00-0.03); Lymphocytes Absolute Auto 1.1 X10*3/uL (1.2-4.9); Monocytes Absolute Auto 0.4 X10*3/uL (0.1-1.2)
[2023-10-28 14:13] LABS: HCV Log PCR 4.92 Log IU/mL (NOT DETECTED); HepC Viral Load 82400 IU/mL (NOT DETECTED)
--- NOTE | 2023-10-28 14:16 | PC.NURSE ---
received report that patient was active blleding from triple ij site, was notoified, vitamin k was notified and administered, 2 units fpp admininistered, dressing reinforced but not replaced, bleeding manged by abd pads but persists.
[2023-10-28 15:10] LABS: Magnesium 1.8 mg/dL (1.6-2.6)
--- NOTE | 2023-10-28 15:37 | HO.PM.IMPN ---
Subjective Subjective Date of Service: 10/28/23 Interval History: Noted to have bleeding from IJ site overnight. Clots noted around insertion site. Patient asymptomatic Review of Systems Denies chest pain Denies shortness of breath Denies fever chills Denies nausea vomiting diarrhea Physical Exam Vital Signs: Vital Signs: Last Vital Signs Temp 98.3 F 10/28/23 14:15 Pulse 90 10/28/23 14:15 Resp 15 10/28/23 14:15 BP 141/83 H 10/28/23 14:15 Pulse Ox 95 10/28/23 12:00 O2 Del Method Room Air 10/28/23 12:00 BMI result Body Mass Index 27.4 Const: Other: Awake alert no acute distress Neck: Other: Right IJ site oozing; clots noted Resp: Other: Clear to auscultation bilaterally no rales rhonchi or wheezes Cardio: Other: No S4; positive S1-S2; no S3 murmurs rubs or gallops GI: Other: Soft nontender nondistended normoactive bowel sounds Extrem: Other: No edema bilaterally Objective Data Active Medications Acetaminophen (Acetaminophen 325 Mg Tablet) 650 mg PO Q6H PRN PRN Reason: Pain, Mild (Pain Scale 1-3), fever or headache Last Admin: 10/27/23 14:03 Dose: 650 mg Documented By: MARILEE Calcium Carbonate (Calcium Carbonate 750 Mg Tab.Chew) 750 mg PO Q4H PRN PRN Reason: Heartburn Furosemide (Furosemide 20 Mg/2 Ml Vial) 20 mg IVPUSH BID@0900,1800 [facility]; Protocol Last Admin: 10/28/23 07:58 Dose: 20 mg Documented By: ROB Lactulose (Lactulose 20 Gm/30 Ml Solution) 20 gm PO BID [facility] Last Admin: 10/28/23 07:57 Dose: 20 gm Documented By: ROB Magnesium Hydroxide (Milk Of Magnesia 30 Ml Oral.Susp) 30 ml PO DAILY PRN PRN Reason: Constipation Melatonin (Melatonin 3 Mg Tablet) 6 mg PO BEDTIME PRN PRN Reason: Insomnia Methadone HCl (Methadone Hcl 20 Mg/2 Ml Oral.Conc) 65 mg PO DAILY [facility] Last Admin: 10/28/23 07:57 Dose: 65 mg Documented By: ROB Co-signed By: HELGA Olanzapine (Olanzapine 5 Mg Tablet) 5 mg PO BEDTIME [facility] Last Admin: 10/27/23 23:11 Dose: 5 mg Documented By: RADHA Ondansetron HCl (Ondansetron Hcl 4 Mg/2 Ml Vial) 4 mg IVPUSH Q8H PRN PRN Reason: Nausea and Vomiting Last Admin: 10/27/23 14:03 Dose: 4 mg Documented By: MARILEE Pantoprazole Sodium (Pantoprazole Sodium 40 Mg/10 Ml Vial) 40 mg IVPUSH BID@0630,1630 [facility] Last Admin: 10/28/23 06:32 Dose: 40 mg Documented By: YELENA Prazosin HCl (Prazosin Hcl 1 Mg Capsule) 1 mg PO BEDTIME [facility]; Protocol Last Admin: 10/27/23 23:10 Dose: 1 mg Documented By: RADHA Sertraline HCl (Sertraline Hcl 50 Mg Tablet) 50 mg PO DAILY [facility] Last Admin: 10/28/23 07:57 Dose: 50 mg Documented By: ROB Sodium Chloride (0.9 % Sodium Chloride Flush 3 Ml [facility]) [facility] Last Admin: 10/28/23 07:58 Dose: 3 ml Documented By: ROB Spironolactone (Spironolactone 25 Mg Tablet) 25 mg PO BID@0900,1800 [facility]; Protocol Last Admin: 10/28/23 07:57 Dose: 25 mg Documented By: ROB Trazodone HCl (Trazodone Hcl 50 Mg Tablet) 50 mg PO BEDTIME PRN PRN Reason: sleep Last Admin: 10/27/23 23:11 Dose: 50 mg Documented By: RADAH Labs 10/28/23 08:16 10/28/23 08:13 Labs: Laboratory Results - last 24 hr 10/26/23 10/28/23 10/28/23 04:36 08:13 08:13 MCV MCH MCHC RDW Plt Count MPV Immature Gran % (Auto) Neut % (Auto) Lymph % (Auto) [place] % (Auto) Eos % (Auto) Baso % (Auto) Lymph # (Auto) [place] # (Auto) Eos # (Auto) Baso # (Auto) Abs Immat Gran (auto) Absolute Neuts (auto) Absolute Nucleated RBC Nucleated RBC % (auto) PT Cancelled 19.8 H INR Cancelled Anion Gap Estim Creat Clear Calc Estimated GFR Random Glucose Calcium Magnesium Total Bilirubin AST ALT Alkaline Phosphatase Total Protein Albumin Hep C Viral Load 46430 H Hep C Viral Load Log 4.92 H Blood Type Antibody Screen 10/28/23 10/28/23 10/28/23 08:13 08:16 08:22 MCV 101.8 H MCH 33.3 H MCHC 32.8 RDW 15.2 Plt Count 74 L MPV 11.4 Immature Gran % (Auto) 0.3 Neut % (Auto) 57.5 Lymph % (Auto) 29.6 [place] % (Auto) 10.2 Eos % (Auto) 1.9 Baso % (Auto) 0.5 Lymph # (Auto) 1.1 L [place] # (Auto) 0.4 Eos # (Auto) 0.1 Baso # (Auto) 0.0 Abs Immat Gran (auto) 0.01 Absolute Neuts (auto) 2.1 Absolute Nucleated RBC 0.000 Nucleated RBC % (auto) 0.0 PT INR 1.6 H Anion Gap 10 L Estim Creat Clear Calc 118.8 Estimated GFR > 60 Random Glucose 104 Calcium 8.0 L Magnesium 1.8 Total Bilirubin 4.2 H AST 112 H ALT 49 H Alkaline Phosphatase 171 H Total Protein 7.6 Albumin 1.7 L Hep C Viral Load Hep C Viral Load Log Blood Type B Positive Antibody Screen NEGATIVE Assessment and Plan (1) Decompensated cirrhosis: Status: Acute (2) Coagulopathy: Status: Acute Plan d3 48yo M with hx HCV polysubstance injection drug abuse and depression presenting with progressive edema/ansarca to the point where he cannot ambulate. Found to have pancytopenia and coagulopathy in backdrop of hepatitis-C 1.Decompensated cirrhosis with encephalopathy -furosemide/spironolactone.. Lactulose -coagulopathic; follow hepatic synthetic function -vitamin K given 2. Right IJ site bleeding -repeat CBC pending -vitamin K 10 mg IV given x1; FFP x2 units -Surgicel and sandbag to site -discussed with vascular; no indication to pull triple-lumen 1.Polysubstance injection drug abuse -addiction medicine consulted -methadone as ordered SCDs Full code Requires ongoing hospitalization to treat decompensated liver cirrhosis with IV diuresis and right IJ bleeding secondary to coagulopathy Quality Stroke Does the patient have a stroke diagnosis?: No VTE Prior VTE?: No VTE Risk Level:: Medical - moderate - high VTE Device Contraindication: N/A - Device Ordered VTE Drug Contraindication: Treatment Not Tolerated
[2023-10-28 15:40] LABS: MANUAL DIFF FLAG NO
[2023-10-28 15:43] LABS: Basophils Percent Auto 0.7 % (0-2); Eosinophils Absolute Auto 0.1 X10*3/uL (0.0-0.4); Eosinophils Percent Auto 2.3 % (0-4); Hematocrit 25.5 % (42.0-52.0); Hemoglobin 8.5 g/dl (14.0-18.0); Imm Gran Abs Auto 0.02 X10*3/uL (0.00-0.03); Imm Gran Pct Auto 0.5 % (0.0-0.4); Lymphocytes Absolute Auto 1.3 X10*3/uL (1.2-4.9); Lymphocytes Percent Auto 30.4 % (20-40); Mean Corpuscular HGB Conc 33.3 g/dl (31.0-36.0); Mean Corpuscular Hemoglobin 33.9 pg (27.0-33.0); Mean Corpuscular Volume 101.6 fL (80.0-98.0); Mean Platelet Volume 10.7 fL (9.4-12.4); Monocytes Absolute Auto 0.3 X10*3/uL (0.1-1.2); Monocytes Percent Auto 7.7 % (2-11); Neutrophils Absolute Auto 2.5 x10*3/uL (2.0-8.3); Neutrophils Percent Auto 58.4 % (45-73); Red Blood Count 2.51 X10*6/uL (4.60-5.80); Red Cell Distribution Width 15.4 % (11.0-16.0); White Blood Count 4.3 X10*3/uL (4.8-10.8)
[2023-10-28 15:45] LABS: Platelet Count 78 X10*3/uL (160-400)
[2023-10-28] MEDS: Potassium Chloride Packet 20 MEQ PACKET 40 MEQ PO (18:13)
--- NOTE | 2023-10-28 19:15 | HO.SKINPHOTO ---
Location: left forearm Location: right forearm
[2023-10-28] MEDS: traZODone HCL 50 MG TABLET PO (21:50)
[2023-10-28] MEDS: Prazosin HCL 1 MG CAPSULE PO (21:50)
[2023-10-28] MEDS: OLANZapine 5 MG TABLET PO (21:50)
[2023-10-29] VITALS: BP 138/72; PULSE 100; RESP 20; TEMP 37.3; O2SAT 93
[2023-10-29 03:18] VITALS: BP 144/69; PULSE 99; RESP 20; TEMP 36.6; O2SAT 91
[2023-10-29] MEDS: Pantoprazole Sodium 40 MG/10 ML VIAL IVPUSH ×2 (05:45→17:31)
[2023-10-29 07:22] LABS: MANUAL DIFF FLAG NO
[2023-10-29 07:40] LABS: INTERNATIONAL NORM RATIO 1.5 (0.9-1.1); Prothrombin Time 17.8 SEC (11.1-13.3)
[2023-10-29 07:47] LABS: Eosinophils Absolute Auto 0.1 X10*3/uL (0.0-0.4); Eosinophils Percent Auto 3.2 % (0-4); Hemoglobin 8.3 g/dl (14.0-18.0); Imm Gran Abs Auto 0.02 X10*3/uL (0.00-0.03); Imm Gran Pct Auto 0.5 % (0.0-0.4); PLT CLUMP 1; Red Cell Distribution Width 15.3 % (11.0-16.0); SCAN SMEAR FLAG 1
[2023-10-29 07:49] LABS: Basophils Percent Auto 0.5 % (0-2); Hematocrit 24.9 % (42.0-52.0); Lymphocytes Absolute Auto 1.5 X10*3/uL (1.2-4.9); Lymphocytes Percent Auto 36.8 % (20-40); Mean Corpuscular HGB Conc 33.3 g/dl (31.0-36.0); Mean Corpuscular Hemoglobin 34.2 pg (27.0-33.0); Mean Corpuscular Volume 102.5 fL (80.0-98.0); Mean Platelet Volume 11.1 fL (9.4-12.4); Monocytes Absolute Auto 0.4 X10*3/uL (0.1-1.2); Neutrophils Absolute Auto 2.1 x10*3/uL (2.0-8.3); Red Blood Count 2.43 X10*6/uL (4.60-5.80)
[2023-10-29 08:00] VITALS: BP 125/69; PULSE 94; RESP 20; TEMP 36.5; O2SAT 93
[2023-10-29 08:00] LABS: White Blood Count 4.1 X10*3/uL (4.8-10.8)
[2023-10-29 08:01] LABS: Platelet Count 79 X10*3/uL (160-400)
[2023-10-29 08:09] LABS: Alanine Aminotransferase 43 U/L (0-40); Albumin Level 1.9 g/dL (3.5-5.0); Alkaline Phosphatase 149 U/L (39-117); Anion Gap 11 (12-20); Aspartate Amino Transferase 97 U/L (5-37); Bilirubin Total 4.3 mg/dL (0.0-1.0); Blood Urea Nitrogen 7 mg/dL (9-16); Carbon Dioxide 26 mmol/L (22-29); Chloride 109 mmol/L (96-108); Creatinine Clr Calc Pharmacy 134.8; Estimated Glomerular Filt Rate > 60; Glucose Fasting 77 mg/dL (60-99); Potassium 3.7 mmol/L (3.3-5.1); Sodium 142 mmol/L (135-145); Total Protein 7.4 g/dL (6.5-8.0)
[2023-10-29] MEDS: Spironolactone 25 MG TABLET PO ×2 (08:50→17:30)
[2023-10-29] MEDS: Lactulose 20 GM/30 ML SOLUTION PO ×2 (08:50→21:10)
[2023-10-29] MEDS: Sertraline HCL 50 MG TABLET PO (08:50)
[2023-10-29] MEDS: methADONE HCl 20 MG/2 ML ORAL.CONC 65 MG PO (08:50)
[2023-10-29] MEDS: Furosemide 20 MG/2 ML VIAL IVPUSH ×2 (08:51→17:30)
[2023-10-29] MEDS: 0.9 % Sodium Chloride Flush 3 ML SYRINGE IVFLUSH ×3 (08:56→21:11)
[2023-10-29 12:00] VITALS: BP 140/79; PULSE 91; RESP 20; TEMP 36.1; O2SAT 94
--- NOTE | 2023-10-29 12:57 | P.PNIM_ITS ---
Subjective Subjective Date of Service: 10/29/23 Interval History: Bleeding controlled at right IJ site. Patient resting comfortably. INR still elevated Review of Systems Denies chest pain Denies shortness of breath Denies fever chills Denies nausea vomiting diarrhea Physical Exam 2 Vital Signs: Vital Signs: Last Vital Signs Temp 97.0 F 10/29/23 12:00 Pulse 91 10/29/23 12:00 Resp 20 10/29/23 12:00 BP 140/79 H 10/29/23 12:00 Pulse Ox 94 10/29/23 12:00 O2 Del Method Room Air 10/29/23 12:00 BMI result Body Mass Index 27.4 Const: Other: Awake alert no acute distress Neck: Other: Right IJ site oozing; clots noted Resp: Other: Clear to auscultation bilaterally no rales rhonchi or wheezes Cardio: Other: No S4; positive S1-S2; no S3 murmurs rubs or gallops GI: Other: Soft nontender nondistended normoactive bowel sounds Extrem: Other: No edema bilaterally Objective Data Active Medications Acetaminophen (Acetaminophen 325 Mg Tablet) 650 mg PO Q6H PRN PRN Reason: Pain, Mild (Pain Scale 1-3), fever or headache Last Admin: 10/27/23 14:03 Dose: 650 mg Documented By: MARILEE Calcium Carbonate (Calcium Carbonate 750 Mg Tab.Chew) 750 mg PO Q4H PRN PRN Reason: Heartburn Furosemide (Furosemide 20 Mg/2 Ml Vial) 20 mg IVPUSH BID@0900,1800 [facility]; Protocol Last Admin: 10/29/23 08:51 Dose: 20 mg Documented By: AGUSTO Lactulose (Lactulose 20 Gm/30 Ml Solution) 20 gm PO BID [facility] Last Admin: 10/29/23 08:50 Dose: 20 gm Documented By: AGUSTO Magnesium Hydroxide (Milk Of Magnesia 30 Ml Oral.Susp) 30 ml PO DAILY PRN PRN Reason: Constipation Melatonin (Melatonin 3 Mg Tablet) 6 mg PO BEDTIME PRN PRN Reason: Insomnia Methadone HCl (Methadone Hcl 20 Mg/2 Ml Oral.Conc) 65 mg PO DAILY [facility] Last Admin: 10/29/23 08:50 Dose: 65 mg Documented By: AGUSTO Co-signed By: NIKKI Comments: Olanzapine (Olanzapine 5 Mg Tablet) 5 mg PO BEDTIME [facility] Last Admin: 10/28/23 21:50 Dose: 5 mg Documented By: RADHA Ondansetron HCl (Ondansetron Hcl 4 Mg/2 Ml Vial) 4 mg IVPUSH Q8H PRN PRN Reason: Nausea and Vomiting Last Admin: 10/27/23 14:03 Dose: 4 mg Documented By: MARILEE Pantoprazole Sodium (Pantoprazole Sodium 40 Mg/10 Ml Vial) 40 mg IVPUSH BID@0630,1630 [facility] Last Admin: 10/29/23 05:45 Dose: 40 mg Documented By: RADHA Prazosin HCl (Prazosin Hcl 1 Mg Capsule) 1 mg PO BEDTIME [facility]; Protocol Last Admin: 10/28/23 21:50 Dose: 1 mg Documented By: RADHA Sertraline HCl (Sertraline Hcl 50 Mg Tablet) 50 mg PO DAILY [facility] Last Admin: 10/29/23 08:50 Dose: 50 mg Documented By: AGUSTO Sodium Chloride (0.9 % Sodium Chloride Flush 3 Ml Syringe) [facility] Last Admin: 10/29/23 08:56 Dose: 3 ml Documented By: AGUSTO Spironolactone (Spironolactone 25 Mg Tablet) 25 mg PO BID@0900,1800 [facility]; Protocol Last Admin: 10/29/23 08:50 Dose: 25 mg Documented By: AGUSTO Trazodone HCl (Trazodone Hcl 50 Mg Tablet) 50 mg PO BEDTIME PRN PRN Reason: sleep Last Admin: 10/28/23 21:50 Dose: 50 mg Documented By: RADHA Labs 10/29/23 06:35 10/29/23 06:35 Labs: Laboratory Results - last 24 hr 10/26/23 10/28/23 10/28/23 04:36 08:13 08:22 MCV MCH MCHC RDW Plt Count MPV Immature Gran % (Auto) Neut % (Auto) Lymph % (Auto) [place] % (Auto) Eos % (Auto) Baso % (Auto) Lymph # (Auto) [place] # (Auto) Eos # (Auto) Baso # (Auto) Abs Immat Gran (auto) Absolute Neuts (auto) Absolute Nucleated RBC Nucleated RBC % (auto) PT INR Anion Gap Estim Creat Clear Calc Estimated GFR Fasting Glucose Calcium Magnesium 1.8 Total Bilirubin AST ALT Alkaline Phosphatase Total Protein Albumin Hep C Viral Load 47340 H Hep C Viral Load Log 4.92 H Blood Type B Positive Antibody Screen NEGATIVE 10/28/23 10/29/23 15:32 06:35 MCV 101.6 H 102.5 H MCH 33.9 H 34.2 H MCHC 33.3 33.3 RDW 15.4 15.3 Plt Count 78 L 79 L MPV 10.7 11.1 Immature Gran % (Auto) 0.5 H 0.5 H Neut % (Auto) 58.4 50.0 Lymph % (Auto) 30.4 36.8 [place] % (Auto) 7.7 9.0 Eos % (Auto) 2.3 3.2 Baso % (Auto) 0.7 0.5 Lymph # (Auto) 1.3 1.5 [place] # (Auto) 0.3 0.4 Eos # (Auto) 0.1 0.1 Baso # (Auto) 0.0 0.0 Abs Immat Gran (auto) 0.02 0.02 Absolute Neuts (auto) 2.5 2.1 Absolute Nucleated RBC 0.000 0.000 Nucleated RBC % (auto) 0.0 0.0 PT 17.8 H INR 1.5 H Anion Gap 11 L Estim Creat Clear Calc 134.8 Estimated GFR > 60 Fasting Glucose 77 Calcium 8.0 L Magnesium Total Bilirubin 4.3 H AST 97 H ALT 43 H Alkaline Phosphatase 149 H Total Protein 7.4 Albumin 1.9 L Hep C Viral Load Hep C Viral Load Log Blood Type Antibody Screen Assessment and Plan (1) Decompensated cirrhosis: Status: Acute (2) Hepatic encephalopathy: Status: Acute Plan d3 48yo M with hx HCV polysubstance injection drug abuse and depression presenting with progressive edema/ansarca to the point where he cannot ambulate. Found to have pancytopenia and coagulopathy in backdrop of hepatitis-C 1.Decompensated cirrhosis with encephalopathy -furosemide/spironolactone.. Lactulose -coagulopathy improved with vitamin K; will give additional 10 mg today and check INR in a.m. -hypoalbuminemic. . . We will replete 2. Right IJ site bleeding -resolved -repeat CBC stable -vitamin K 10 mg IV today -discussed with vascular; no indication to pull triple-lumen; will consult in a.m. 3.Polysubstance injection drug abuse -addiction medicine consulted -methadone as ordered SCDs Full code Requires ongoing hospitalization to treat decompensated liver cirrhosis with IV diuresis and right IJ bleeding secondary to coagulopathy Quality Stroke Does the patient have a stroke diagnosis?: No VTE Prior VTE?: No VTE Risk Level:: Medical - moderate - high VTE Device Contraindication: N/A - Device Ordered VTE Drug Contraindication: Treatment Not Tolerated
[2023-10-29] MEDS: Albumin Human 25 % 100 ML IV ×2 (13:36→17:31)
[2023-10-29] MEDS: Phytonadione (Vit K1) 10 MG in 0.9 % Sodium Chloride 50 ML 51 MG IV (13:59)
[2023-10-29 16:00] VITALS: BP 136/80; PULSE 92; RESP 18; TEMP 37.3; O2SAT 96
[2023-10-29 19:41] VITALS: BP 139/72; PULSE 90; RESP 20; TEMP 37.2; O2SAT 96
[2023-10-29] MEDS: traZODone HCL 50 MG TABLET PO (21:10)
[2023-10-29] MEDS: Prazosin HCL 1 MG CAPSULE PO (21:11)
[2023-10-29] MEDS: OLANZapine 5 MG TABLET PO (21:11)
[2023-10-30] VITALS (13 sets, daily range): BP systolic 123–142; BP diastolic 68–80; PULSE 73–97; RESP 16–18; TEMP 36.7–37.4; O2SAT 93–96
[2023-10-30] MEDS: Albumin Human 25 % 100 ML IV ×2 (00:57→05:55)
[2023-10-30] MEDS: Pantoprazole Sodium 40 MG/10 ML VIAL IVPUSH (05:51)
[2023-10-30 06:27] LABS: MANUAL DIFF FLAG NO
[2023-10-30 06:35] LABS: Basophils Percent Auto 0.5 % (0-2); Eosinophils Absolute Auto 0.1 X10*3/uL (0.0-0.4); Eosinophils Percent Auto 3.1 % (0-4); Hematocrit 23.2 % (42.0-52.0); Hemoglobin 7.6 g/dl (14.0-18.0); Imm Gran Abs Auto 0.03 X10*3/uL (0.00-0.03); Imm Gran Pct Auto 0.8 % (0.0-0.4); Lymphocytes Absolute Auto 1.6 X10*3/uL (1.2-4.9); Lymphocytes Percent Auto 40.2 % (20-40); Mean Corpuscular HGB Conc 32.8 g/dl (31.0-36.0); Mean Corpuscular Hemoglobin 34.1 pg (27.0-33.0); Monocytes Absolute Auto 0.3 X10*3/uL (0.1-1.2); Monocytes Percent Auto 8.1 % (2-11); Neutrophils Absolute Auto 1.9 x10*3/uL (2.0-8.3); Neutrophils Percent Auto 47.3 % (45-73); Platelet Count 70 X10*3/uL (160-400); Red Blood Count 2.23 X10*6/uL (4.60-5.80); Red Cell Distribution Width 15.1 % (11.0-16.0); White Blood Count 3.9 X10*3/uL (4.8-10.8)
[2023-10-30 06:40] LABS: INTERNATIONAL NORM RATIO 1.7 (0.9-1.1); Prothrombin Time 20.2 SEC (11.1-13.3)
[2023-10-30 06:52] LABS: Alanine Aminotransferase 36 U/L (0-40); Albumin Level 2.5 g/dL (3.5-5.0); Alkaline Phosphatase 129 U/L (39-117); Anion Gap 9 (12-20); Aspartate Amino Transferase 71 U/L (5-37); Blood Urea Nitrogen 6 mg/dL (9-16); Calcium 8.6 mg/dL (8.4-10.2); Carbon Dioxide 29 mmol/L (22-29); Chloride 107 mmol/L (96-108); Creatinine Clr Calc Pharmacy 120.4; Estimated Glomerular Filt Rate > 60; Glucose Fasting 82 mg/dL (60-99); Potassium 3.5 mmol/L (3.3-5.1); Sodium 141 mmol/L (135-145); Total Protein 7.1 g/dL (6.5-8.0)
[2023-10-30] MEDS: Sertraline HCL 50 MG TABLET PO (08:38)
[2023-10-30] MEDS: 0.9 % Sodium Chloride Flush 3 ML SYRINGE IVFLUSH ×2 (08:38→17:35)
[2023-10-30] MEDS: Spironolactone 25 MG TABLET PO ×2 (08:38→17:35)
[2023-10-30] MEDS: methADONE HCl 20 MG/2 ML ORAL.CONC 65 MG PO (08:38)
[2023-10-30] MEDS: Furosemide 20 MG/2 ML VIAL IVPUSH ×2 (08:38→17:35)
[2023-10-30 08:40] LABS: Ammonia 57 umol/L (13-55)
[2023-10-30] MEDS: Lactulose 20 GM/30 ML SOLUTION PO ×2 (08:40→19:27)
[2023-10-30] MEDS: Phytonadione (Vit K1) 10 MG in 0.9 % Sodium Chloride 50 ML 51 MG IV (09:40)
--- NOTE | 2023-10-30 13:44 | HO.PM.IMPN ---
Subjective Subjective Date of Service: 10/30/23 Interval History: No further bleeding from IJ site. Hemoglobin drifting downward. Review of Systems Denies chest pain Denies shortness of breath Denies fever chills Denies nausea vomiting diarrhea Physical Exam Vital Signs: Vital Signs: Last Vital Signs Temp 98.4 F 10/30/23 12:00 Pulse 85 10/30/23 12:00 Resp 18 10/30/23 12:00 BP 132/79 10/30/23 12:00 Pulse Ox 95 10/30/23 12:00 O2 Del Method Room Air 10/30/23 12:00 BMI result Body Mass Index 27.4 Const: Other: Awake alert no acute distress Neck: Other: Right IJ site oozing; clots noted Resp: Other: Clear to auscultation bilaterally no rales rhonchi or wheezes Cardio: Other: No S4; positive S1-S2; no S3 murmurs rubs or gallops GI: Other: Soft nontender nondistended normoactive bowel sounds Extrem: Other: No edema bilaterally Objective Data Active Medications Acetaminophen (Acetaminophen 325 Mg Tablet) 650 mg PO Q6H PRN PRN Reason: Pain, Mild (Pain Scale 1-3), fever or headache Last Admin: 10/27/23 14:03 Dose: 650 mg Documented By: MARILEE Calcium Carbonate (Calcium Carbonate 750 Mg Tab.Chew) 750 mg PO Q4H PRN PRN Reason: Heartburn Furosemide (Furosemide 20 Mg/2 Ml Vial) 20 mg IVPUSH BID@0900,1800 [facility]; Protocol Last Admin: 10/30/23 08:38 Dose: 20 mg Documented By: HENNY Lactulose (Lactulose 20 Gm/30 Ml Solution) 20 gm PO BID [facility] Last Admin: 10/30/23 08:40 Dose: 20 gm Documented By: HENNY Magnesium Hydroxide (Milk Of Magnesia 30 Ml Oral.Susp) 30 ml PO DAILY PRN PRN Reason: Constipation Melatonin (Melatonin 3 Mg Tablet) 6 mg PO BEDTIME PRN PRN Reason: Insomnia Methadone HCl (Methadone Hcl 20 Mg/2 Ml Oral.Conc) 65 mg PO DAILY [facility] Last Admin: 10/30/23 08:38 Dose: 65 mg Documented By: HENNY Co-signed By: KATELIN Olanzapine (Olanzapine 5 Mg Tablet) 5 mg PO BEDTIME [facility] Last Admin: 10/29/23 21:11 Dose: 5 mg Documented By: ALVINO Ondansetron HCl (Ondansetron Hcl 4 Mg/2 Ml Vial) 4 mg IVPUSH Q8H PRN PRN Reason: Nausea and Vomiting Last Admin: 10/27/23 14:03 Dose: 4 mg Documented By: MARILEE Pantoprazole Sodium (Pantoprazole Sodium 40 Mg/10 Ml Vial) 40 mg IVPUSH BID@0630,1630 [facility] Last Admin: 10/30/23 05:51 Dose: 40 mg Documented By: ALVINO Prazosin HCl (Prazosin Hcl 1 Mg Capsule) 1 mg PO BEDTIME [facility]; Protocol Last Admin: 10/29/23 21:11 Dose: 1 mg Documented By: ALVINO Sertraline HCl (Sertraline Hcl 50 Mg Tablet) 50 mg PO DAILY [facility] Last Admin: 10/30/23 08:38 Dose: 50 mg Documented By: HENNY Sodium Chloride (0.9 % Sodium Chloride Flush 3 Ml Syringe) 3 ml IVFLUSH QSHIFT [facility] Last Admin: 10/30/23 08:38 Dose: 3 ml Documented By: HENNY Spironolactone (Spironolactone 25 Mg Tablet) 25 mg PO BID@0900,1800 [facility]; Protocol Last Admin: 10/30/23 08:38 Dose: 25 mg Documented By: HENNY Trazodone HCl (Trazodone Hcl 50 Mg Tablet) 50 mg PO BEDTIME PRN PRN Reason: sleep Last Admin: 10/29/23 21:10 Dose: 50 mg Documented By: ALVINO Labs 10/30/23 05:49 10/30/23 05:49 Labs: Laboratory Results - last 24 hr 10/28/23 10/30/23 10/30/23 08:22 05:49 08:24 MCV 104.0 H MCH 34.1 H MCHC 32.8 RDW 15.1 Plt Count 70 L MPV 11.0 Immature Gran % (Auto) 0.8 H Neut % (Auto) 47.3 Lymph % (Auto) 40.2 H [place] % (Auto) 8.1 Eos % (Auto) 3.1 Baso % (Auto) 0.5 Lymph # (Auto) 1.6 [place] # (Auto) 0.3 Eos # (Auto) 0.1 Baso # (Auto) 0.0 Abs Immat Gran (auto) 0.03 Absolute Neuts (auto) 1.9 L Absolute Nucleated RBC 0.000 Nucleated RBC % (auto) 0.0 PT 20.2 H INR 1.7 H Anion Gap 9 L Estim Creat Clear Calc 120.4 Estimated GFR > 60 Fasting Glucose 82 Calcium 8.6 D Total Bilirubin 5.0 H AST 71 H ALT 36 Alkaline Phosphatase 129 H Ammonia 57 H Total Protein 7.1 Albumin 2.5 L Blood Type B Positive Antibody Screen NEGATIVE Crossmatch See Detail Assessment and Plan (1) Decompensated cirrhosis: Status: Acute Plan d3 48yo M with hx HCV polysubstance injection drug abuse and depression presenting with progressive edema/ansarca to the point where he cannot ambulate. Found to have pancytopenia and coagulopathy in backdrop of hepatitis-C 1.Decompensated cirrhosis with encephalopathy -furosemide/spironolactone.. Lactulose -coagulopathy improved with vitamin K; will give additional 10 mg today and check INR in a.m. -good response to albumin -transfuse 1 unit of cells today... Follow CBC in a.m. -remove IJ in a.m. 2. Right IJ site bleeding -resolved -1 unit PRBC today -vitamin K 10 mg IV today -discussed with vascular; check INR in pull line in a.m. 3.Polysubstance injection drug abuse -addiction medicine consulted -methadone as ordered SCDs Full code Requires ongoing hospitalization to treat decompensated liver cirrhosis with IV diuresis and right IJ bleeding secondary to coagulopathy Quality Stroke Does the patient have a stroke diagnosis?: No VTE Prior VTE?: No VTE Risk Level:: Medical - moderate - high VTE Device Contraindication: N/A - Device Ordered VTE Drug Contraindication: Treatment Not Tolerated
--- NOTE | 2023-10-30 13:54 | HO.WOUND ---
Wound Consult: Initial 48yr old?Male admitted to [facility] on 10/25/23 - See progress notes and H&P for detailed history.? Wound consult placed for Left Forearm and Right forearm wounds.? Patient agreeable to assessment and photo documentation.? Right Forearm Left forearm Etiology: ??Secondary to injection sites per patient statements Wound Bed: Right forearm: red pink moist wound bed with full thickness tissue loss Left Forearm : black soft necrotic tissue with adherent yellow hester slough noted - full thickness tissue loss Drainage / Odor: hester drainage noted on both dressings when removed - no odor noted Edges: ? irregular and unattached Daniella wound: ? Macerated to the left forearm - dark hyperpigmentation noted - No Induration, Fluctuance or Warmth noted Pain: pain reported by patient Goals of Treatment: ? Left forearm santly for enzymatic debridement and right forearm autolytic debridement with Durafiber AG Recommendations: 1. Provide adequate and supplemental nutrition.? 2. When applicable maintain blood glucose levels per Providers order. 3. Right Forearm - Cleanse and irrigate with NS, Pat dry.? Apply barrier to periwound, lightly pack with Durafiber AG, be sure to leave a wick to easy removal.? Cover with Foam dressing.? Change every 3 days. 4. Left Forearm - Cleanse with normal saline, pat dry. ?Apply barrier to the immediate daniella wound, apply thick layer of Santyl to entire wound bed, cover with saline moist gauze, secure foam dressing, change Daily. Recommend follow up out patient Wound Clinic at [address] [place] [address] and to call for an appointment at time of discharge. [phone].? Re-consult wound care Nurse for wound deterioration or wound changes.
--- NOTE | 2023-10-30 16:13 | P.CDIM_ITS ---
PROVIDER RESPONSE TEXT: To clarify, the appropriate diagnosis supported by the clinical indicators: Hypoalbuminemia: suspected QUERY TEXT: PHYSICIAN'S DOCUMENTATION REQUEST Date of Query: 10/30/2023 11:59 AM EDT Patient Name: DAYDAY VORA Admit Date: 10/25/2023 Dear Teddy Butler DO, A review of the medical record indicates additional documentation may be needed. Please review below and update the documentation accordingly. Clinical Indicators: LABS: albumin 1.6 IV Albumin Human Based on the above, is there a diagnosis that correlates with these lab findings? Hypoalbuminemia possible, probable, suspected Labs indicate a diagnosis of (please specify) Other (explain) Clinically unable to determine (explain) Thank you, Amada Quiroz, CCS, CDIS Use of terms such as suspected, likely, concern for, or probable (associated with a specific diagnosi s that is being evaluated, monitored, or treated as if it exists) are acceptable and can be coded in the inpatient se tting, when documented at the time of discharge. Please use your independent medical judgment in providing your response. THIS QUERY IS PART OF THE PERMANENT MEDICAL RECORD
[2023-10-30] MEDS: Prazosin HCL 1 MG CAPSULE PO (19:27)
[2023-10-30] MEDS: OLANZapine 5 MG TABLET PO (19:27)
[2023-10-31 03:47] VITALS: BP 131/66; PULSE 92; RESP 16; TEMP 37.1; O2SAT 94
[2023-10-31 07:02] LABS: Hemoglobin 9.5 g/dl (14.0-18.0); Red Cell Distribution Width 15.5 % (11.0-16.0)
[2023-10-31 07:05] LABS: INTERNATIONAL NORM RATIO 1.7 (0.9-1.1); Prothrombin Time 20.4 SEC (11.1-13.3)
[2023-10-31 07:07] LABS: Eosinophils Absolute Auto 0.2 X10*3/uL (0.0-0.4); Mean Corpuscular Volume 101.4 fL (80.0-98.0)
[2023-10-31 07:08] LABS: Basophils Percent Auto 0.4 % (0-2); Eosinophils Percent Auto 3.1 % (0-4); Hematocrit 28.1 % (42.0-52.0); Imm Gran Abs Auto 0.02 X10*3/uL (0.00-0.03); Imm Gran Pct Auto 0.4 % (0.0-0.4); Lymphocytes Absolute Auto 1.7 X10*3/uL (1.2-4.9); Mean Corpuscular HGB Conc 33.8 g/dl (31.0-36.0); Mean Corpuscular Hemoglobin 34.3 pg (27.0-33.0); Monocytes Absolute Auto 0.3 X10*3/uL (0.1-1.2); Neutrophils Absolute Auto 2.7 x10*3/uL (2.0-8.3); Neutrophils Percent Auto 54.1 % (45-73); Red Blood Count 2.77 X10*6/uL (4.60-5.80)
[2023-10-31 07:10] LABS: Platelet Count 73 X10*3/uL (160-400); White Blood Count 4.9 X10*3/uL (4.8-10.8)
[2023-10-31 07:29] VITALS: BP 130/69; PULSE 83; RESP 16; TEMP 36.9; O2SAT 95
[2023-10-31 07:48] LABS: Alanine Aminotransferase 36 U/L (0-40); Albumin Level 2.8 g/dL (3.5-5.0); Alkaline Phosphatase 132 U/L (39-117); Anion Gap 11 (12-20); Aspartate Amino Transferase 74 U/L (5-37); Bilirubin Total 5.4 mg/dL (0.0-1.0); Blood Urea Nitrogen 8 mg/dL (9-16); Calcium 9.1 mg/dL (8.4-10.2); Carbon Dioxide 27 mmol/L (22-29); Chloride 105 mmol/L (96-108); Creatinine Clr Calc Pharmacy 123.7; Estimated Glomerular Filt Rate > 60; Glucose Fasting 113 mg/dL (60-99); Potassium 3.9 mmol/L (3.3-5.1); Sodium 139 mmol/L (135-145); Total Protein 8.3 g/dL (6.5-8.0)
--- NOTE | 2023-10-31 08:33 | P.CNGI_ITS ---
History of Present Illness Data of Consult Service Date: 10/31/23 Requesting physician: Teddy Butler Primary Care Provider: None Physician HPI Reason for consult: cirrhosis 48yo M with hx HCV (known since 1999, treated unsuccessfully with interferon and ribavarin in past) , polysubstance injection drug abuse [fentanyl + cocaine] on maintenance methadone 65 mg/d at [facility], and depression who I am seeing for assessement for cirrhosis, new diagnosis. Patient initially presented with generalized edema of the legs, arms, and scrotum for few weeks. He was noted to have coagulopathy, pancytopenia, and liver disease with AST 111/ALT 52 and total bilirubin of 3.9. he denied fever or chills. No dyspnea. No chest pain or abdominal pain. Denies melena, or rectal bleeding. He has been commenced on lasix 20 mg and aldactone 50 mg daily and feels this has helped a lot with offloading fluid. US with cirrhotic liver- no major ascites or liver mass Review of Systems 2 Review of Systems: Constitutional : No Weight loss, No Fever, No Chills ENT/Mouth : No sore throat, No Rhinorrhea Eyes: No Swelling, No Redness Cardiovascular : No Chest Pain, No SOB, No Edema Respiratory : No Cough, No Sputum, No Wheezing Gastrointestinal : see HPI Genitourinary : NO Dysuria, No Urinary Frequency, No Hematuria, No Urgency Musculoskeletal : no joint pain, No Myalgias, No Joint Swelling Skin : No Skin Lesions, No rash Neuro : No Weakness, No Numbness, No Dizziness, No Headache Psych : No Anxiety/Panic, No Depression Heme/Lymph: No Bruising, No Lymphadenopathy Endocrine : No Polyuria, No Polydipsia All other systems reviewed and are negative. [facility] Past Medical History Medical History Hepatitis C H/O opioid abuse Social History Social History Household Members: Other Household Members Other:: friend's hose Housing: House Do you presently have visiting nurse or other home services: No Comment: Low fall risk Patient Tobacco Use Status: Tobacco use Unknown Tobacco use type: Cigarette Cigarette Packs Per Day: 0.5 Cigarettes Per Day: 10.0 e-Cigarette/Vaping Use: Currently Using Substance Use Type: Heroin and IV Drugs service: No Meds Allergies Allergy/AdvReac Type Severity Reaction Status Date / Time No Known Allergies Allergy Verified 10/25/23 11:47 [No Known Allergies*] Active Medications: Current Medications Acetaminophen (Acetaminophen 325 Mg Tablet) 650 mg PO Q6H PRN PRN Reason: Pain, Mild (Pain Scale 1-3), fever or headache Last Admin: 10/27/23 14:03 Dose: 650 mg Calcium Carbonate (Calcium Carbonate 750 Mg Tab.Chew) 750 mg PO Q4H PRN PRN Reason: Heartburn Furosemide (Furosemide 20 Mg/2 Ml Vial) 20 mg IVPUSH BID@0900,1800 [facility]; Protocol Last Admin: 10/30/23 17:35 Dose: 20 mg Lactulose (Lactulose 20 Gm/30 Ml Solution) 20 gm PO BID [facility] Last Admin: 10/30/23 19:27 Dose: 20 gm Magnesium Hydroxide (Milk Of Magnesia 30 Ml Oral.Susp) 30 ml PO DAILY PRN PRN Reason: Constipation Melatonin (Melatonin 3 Mg Tablet) 6 mg PO BEDTIME PRN PRN Reason: Insomnia Methadone HCl (Methadone Hcl 20 Mg/2 Ml Oral.Conc) 65 mg PO DAILY [facility] Last Admin: 10/30/23 08:38 Dose: 65 mg Olanzapine (Olanzapine 5 Mg Tablet) 5 mg PO BEDTIME [facility] Last Admin: 10/30/23 19:27 Dose: 5 mg Ondansetron HCl (Ondansetron Hcl 4 Mg/2 Ml Vial) 4 mg IVPUSH Q8H PRN PRN Reason: Nausea and Vomiting Last Admin: 10/27/23 14:03 Dose: 4 mg Prazosin HCl (Prazosin Hcl 1 Mg Capsule) 1 mg PO BEDTIME [facility]; Protocol Last Admin: 10/30/23 19:27 Dose: 1 mg Sertraline HCl (Sertraline Hcl 50 Mg Tablet) 50 mg PO DAILY [facility] Last Admin: 10/30/23 08:38 Dose: 50 mg Sodium Chloride (0.9 % Sodium Chloride Flush 3 Ml Syringe) [facility] Last Admin: 10/31/23 05:23 Dose: Not Given Spironolactone (Spironolactone 25 Mg Tablet) 25 mg PO BID@0900,1800 [facility]; Protocol Last Admin: 10/30/23 17:35 Dose: 25 mg Trazodone HCl (Trazodone Hcl 50 Mg Tablet) 50 mg PO BEDTIME PRN PRN Reason: sleep Last Admin: 10/29/23 21:10 Dose: 50 mg Home Medications ?Medication ?Instructions ?Recorded ?Confirmed ?Last Taken ?Type olanzapine 10 mg tablet (Zyprexa) 5 mg PO BEDTIME 10/25/23 10/25/23 Unknown History prazosin 1 mg capsule 1 mg PO BEDTIME 10/25/23 10/25/23 Unknown History sertraline 50 mg tablet 50 mg PO DAILY 10/25/23 10/25/23 Unknown History methadone 10 mg/mL oral 65 mg PO DAILY 10/26/23 10/26/23 10/25/23 History concentrate (Methadone Intensol) Physical Exam 2 Vital Signs: Vital Signs: Last Vital Signs Temp 98.5 F 10/31/23 07:29 Pulse 83 10/31/23 07:29 Resp 16 10/31/23 07:29 BP 130/69 10/31/23 07:29 Pulse Ox 95 10/31/23 07:29 O2 Del Method Room Air 10/31/23 07:29 BMI result Body Mass Index 27.4 EXAM: GENERAL: The patient is relaxed VITAL SIGNS:see workflow HEENT: Nonicteric sclerae, PERRLA, EOMI. Oropharynx clear. Moist mucous membranes. Conjunctivae appear pale. No thyroid mass. CHEST: Chest wall is nontender. HEART: Regular rate and rhythm without murmurs. LUNGS: Clear to auscultation bilaterally. ABDOMEN: Soft, positive bowel sounds, nontender, no organomegaly.no flank tenderness SKIN: No rash, no excessive bruising, petechiae, or purpura. pitting edema NEUROLOGIC: Cranial nerves II-XII intact without motor/sensory deficit. Psych: normal affect Results Labs 10/31/23 06:43 10/31/23 06:43 Labs: Short CBC 10/31/23 Range/Units 06:43 WBC 4.9 (4.8-10.8) X10*3/uL Hgb 9.5 L D (14.0-18.0) g/dl Hct 28.1 L D (42.0-52.0) % Plt Count 73 L (160-400) X10*3/uL BMP 10/31/23 06:43 Sodium 139 Potassium 3.9 Chloride 105 Carbon Dioxide 27 BUN 8 L Creatinine 0.73 Calcium 9.1 Liver Function 10/31/23 Range/Units 06:43 Total Bilirubin 5.4 H (0.0-1.0) mg/dL AST 74 H (5-37) U/L ALT 36 (0-40) U/L Alkaline Phosphatase 132 H (39-117) U/L Albumin 2.8 L (3.5-5.0) g/dL Assessment and Plan (1) Cirrhosis: Status: Acute Plan 1/ Cirrhosis 2/2 HCV with low albumin and fluid overload, better with diuretics. No major decompensation at this time, MELD 3.0- 20 PLAN: 1/ Cont with aldactone, lasix and monitor weight loss 2/ low salt diet <2 g day 3/ lactulose for 2-3 soft stools/day 4/ o/p EGD for variceal assessment 5/ High protein diet, 1.1.g/kg/day 6/ can consider o/p rx for HCV vs referral to liver center for transplant Procedures Date of Service Date of Service: 10/31/23
[2023-10-31 09:21] VITALS: BP 130/69
[2023-10-31] MEDS: Spironolactone 25 MG TABLET PO (09:21)
[2023-10-31] MEDS: Furosemide 20 MG/2 ML VIAL IVPUSH (09:21)
[2023-10-31] MEDS: Lactulose 20 GM/30 ML SOLUTION PO (09:21)
[2023-10-31] MEDS: 0.9 % Sodium Chloride Flush 3 ML SYRINGE IVFLUSH (09:22)
[2023-10-31] MEDS: methADONE HCl 20 MG/2 ML ORAL.CONC 65 MG PO (09:22)
[2023-10-31] MEDS: Sertraline HCL 50 MG TABLET PO (09:22)
[2023-10-31 11:50] VITALS: BP 137/79; PULSE 89; RESP 17; TEMP 36.8; O2SAT 96
--- NOTE | 2023-10-31 14:34 | PM.DS ---
DS: Providers Provider Date of Service: 10/31/23 Date of admission: 10/25/23 17:17 Date of discharge: 10/31/23 Primary care physician: Aury Physician Consults: 10/25/23 17:00 Addiction Medicine Routine Consulting Provider: Addiction Covering Reason for consultation: polysubstance abuse 10/28/23 01:05 Consult to Wound Care Routine Reason for consultation: abraison to left arm 10/29/23 22:48 Consult to Wound Care Routine Reason for consultation: wound left arm, necrotic parts 10/31/23 07:39 Consult to Gastroenterology Routine Consulting Provider: Christianne Clark Reason for consultation: decompensated cirrhosis Has provider been notified: Yes DS: Diagnosis Discharge Diagnosis (1) Decompensated cirrhosis: Status: Acute DS: Summary Hospital Course Hospital Course: from my admission H+P, 10/25/23: 48yo M with hx HCV [unsure if treated], polysubstance injection drug abuse [fentanyl + cocaine] on maintenance methadone 65 mg/d at [facility], and depression who presents with at least 1 week of worsening generalized edema of the legs, arms, and scrotum. No abdominal discomfort. No known history of cirrhosis. No hematemesis, hematochezia, or melena. No primary care doctor. He came in by ambulance due to difficulty ambulating from the edema. He has extremely difficult venous access with multiple needle tracks on his arms, so the ED physician placed a left IJ CVC for venous access. He was given 40 mg of IV furosemide. He was noted to have coagulopathy, pancytopenia, and liver disease with AST 111/ALT 52 and total bilirubin of 3.9. No fever or chills. No dyspnea. No chest pain. This history was taken in [place]alan from the patient. 48yo M with hx HCV polysubstance injection drug abuse and depression presenting with progressive edema/ansarca to the point where he cannot ambulate. Found to have pancytopenia and coagulopathy. Suspect decompensated cirrhosis and indeed abd US showed nodular liver, though with a minimum amount of ascites too little to tap. He was admitted to the hospitalist service and given IV furosemide and PO spironolactone with improvement in his swelling. He was found to have asterixis and thus started on lactulose for hepatic encephalopathy. He had pancytopenia and coagulopathy due to cirrhosis. He was discharged on PO furosemide, spironolactone, and lactulose and referred to [facility] for cirrhosis care to include screening for esophageal varices, screening for hepatocellular carcinoma, and evaluation for transplant. Hepatitis C viral load is pending at the time of discharge. The importance of abstinence from substance abuse was counseled. Methadone was continued as per prior dosing in consultation with Addiction Medicine. Time Attestation Discharge Coordination Time (in mins): 35 Quality: Safe Use of Opioids Does Pt have an Active Cancer Diagnosis on the Problem List?: No Quality: Stroke Does the patient have a stroke diagnosis?: No Physical Exam Vital Signs: Vital Signs: Last Vital Signs Temp 98.2 F 10/31/23 11:50 Pulse 89 10/31/23 11:50 Resp 17 10/31/23 11:50 BP 137/79 10/31/23 11:50 Pulse Ox 96 10/31/23 11:50 O2 Del Method Room Air 10/31/23 11:50 BMI result Body Mass Index 27.4 Const: Other: Awake alert no acute distress Neck: Other: Right IJ site oozing; clots noted Resp: Other: Clear to auscultation bilaterally no rales rhonchi or wheezes Cardio: Other: No S4; positive S1-S2; no S3 murmurs rubs or gallops GI: Other: Soft nontender nondistended normoactive bowel sounds Extrem: Other: No edema bilaterally DS: Data Data Completed and Pending Labs on day of discharge: Laboratory Results - last 24 hr 10/31/23 06:43 WBC 4.9 RBC 2.77 L D Hgb 9.5 L D Hct 28.1 L D MCV 101.4 H MCH 34.3 H MCHC 33.8 RDW 15.5 Plt Count 73 L MPV 11.0 Immature Gran % (Auto) 0.4 Neut % (Auto) 54.1 Lymph % (Auto) 35.0 [place] % (Auto) 7.0 Eos % (Auto) 3.1 Baso % (Auto) 0.4 Lymph # (Auto) 1.7 [place] # (Auto) 0.3 Eos # (Auto) 0.2 Baso # (Auto) 0.0 Abs Immat Gran (auto) 0.02 Absolute Neuts (auto) 2.7 Absolute Nucleated RBC 0.000 Nucleated RBC % (auto) 0.0 PT 20.4 H INR 1.7 H Sodium 139 Potassium 3.9 Chloride 105 Carbon Dioxide 27 Anion Gap 11 L BUN 8 L Creatinine 0.73 Estim Creat Clear Calc 123.7 Estimated GFR > 60 Fasting Glucose 113 H Calcium 9.1 Total Bilirubin 5.4 H AST 74 H ALT 36 Alkaline Phosphatase 132 H Total Protein 8.3 H Albumin 2.8 L Discharge Plan Discharge Anticipated Discharge Date/Time: 10/31/23 14:34 Patient Disposition: Home, Self-Care Discharge Diagnosis: decompensated cirrhosis hepatic encephalopathy opioid use disorder Referrals: [facility] [Other] - 1 Week (When you have your appointment on Thursday 11/02 at [facility] they will send a referral to the [facility] and they will call you to set up your first appt. ) Christianne Clark MD [Physician] - 2 Weeks Monica Ernst PA-C [Physician Aoc Director Combat Plans Officer] - 11/03/23 3:00 pm (YOU HAVE A HOSPITAL FOLLOW-UP APPT ON Monday AT 3PM AND THE PA WILL REF YOU TO [facility], YOU HAVE ANOTHER APPT ON AT 2PM TO SEE MONICA ERNST WHO WILL BE YOUR NEW PRIMARY CARE DOCTOR. ) Discharge Medications: New lactulose 20 gram/30 mL Solution 20 g PO BID Qty: 1800 0RF spironolactone 50 mg tablet 50 mg PO DAILY Qty: 30 0RF furosemide 20 mg tablet 20 mg PO DAILY Qty: 30 0RF Continued trazodone 50 mg tablet 50 mg PO BEDTIME PRN (Reason: sleep) Qty: 30 0RF prazosin 1 mg capsule 1 mg PO BEDTIME sertraline 50 mg tablet 50 mg PO DAILY olanzapine [Zyprexa] 10 mg tablet 5 mg PO BEDTIME methadone [Methadone Intensol] 10 mg/mL Concentrate 65 mg PO DAILY Discontinued citalopram [Celexa] 20 mg tablet 20 mg PO DAILY Qty: 30 0RF Discharge Orders: Discharge Order (Routine); Ordered 10/31/23 Ordered By: Teddy Butler Diet: Low salt diet Activity on Discharge: As tolerated Stand Alone Forms: Patient Portal Discharge page Print Language: Guatemalan Other Ambulatory Orders: Complete Blood Count Auto Diff (Routine) Timeframe: 1 Week Facility: [facility] - Location: Laboratory Ordered By: Joe Shaw Comprehensive Met. Panel (Routine) Timeframe: 1 Week Facility: [facility] - Location: Laboratory Ordered By: Joe Shaw Magnesium (Routine) Timeframe: 1 Week Facility: [facility] - Location: Laboratory Ordered By: Joe Shaw Prothrombin Time INR (Routine) Timeframe: 1 Week Facility: [facility] - Location: Laboratory Ordered By: Joe Shaw Activity Restrictions/Additional Instructions: Topical wound care recommendations: Right Forearm - Cleanse and irrigate with NS, Pat dry.? Apply barrier to periwound, lightly pack with Durafiber AG, be sure to leave a wick to easy removal.? Cover with Foam dressing.? Change every 3 days. Left Forearm - Cleanse with normal saline, pat dry. ?Apply barrier to the immediate daniella wound, apply thick layer of Santyl to entire wound bed, cover with saline moist gauze, secure foam dressing, change Daily. Recommend follow up out patient Wound Clinic at [address] [place] [id number] and to call for an appointment at time of discharge. [phone].? Care Plan Goals: liver health sobriety Health Concerns: decompensated cirrhosis hepatic encephalopathy opioid use disorder Plan of Treatment: take furosemide 20 mg daily PLUS spironolactone 50 mg daily limit sodium to 1500 mg/d take lactulose 30 mL twice daily referral to [facility] avoid all substance of abuse including alcohol, fentanyl, and cocaine repeat labs in 1 week: CBCd, CMP, magnesium, PT/INR establish primary care as soon as possible Return to the hospital if you experience recurrent or worsening symptoms. Assessment: See Discharge Summary.
--- NOTE | 2023-10-31 15:14 | MHC.CM.PN ---
PT MEDICALLY CLEARED FOR DC HOME SELF CARE W/NEW HOSPITAL FOLLOW-UP 11/02 AT 3PM AT [address] AND A NEW PT APPT ON 11/07 AT 2PM W/JESUSITA LAYTON., PT REPORTS HIS DTR WHO WORKS IN A ALF CAN ASSIST W/DRESSING, RN TO SEND HOME DRESSING SUPPLIES AND RN TO TEACH DTR/PT DRESSING CHANGE, ANTIC DTR WILL TRANSPORT NEW MEDS WILL BE FILLED AT [facility] PRIOR TO DC
[2023-10-31 16:00] VITALS: BP 136/84; PULSE 80; TEMP 37.2; O2SAT 96
== END 2023-10-31 16:46 | disposition home or self-care (01) ==
LOC: HO.ED 17:14 → HO.EDOVER 17:22 → HO.IMC 10-26 12:38
PROVIDERS: Admitting Provider Family Medicine; Emergency Provider Emergency Medicine; Visit Provider Hospitalist
DX: K74.60 Unspecified cirrhosis of liver (principal); D61.818 Other pancytopenia; D68.4 Acquired coagulation factor deficiency; E88.09 Other disorders of plasma-protein metabolism, not elsewhere classified; R18.8 Other ascites; F17.210 Nicotine dependence, cigarettes, uncomplicated; K76.82 Hepatic encephalopathy; F11.20 Opioid dependence, uncomplicated; Z86.19 Personal history of other infectious and parasitic diseases; F32.A Depression, unspecified; Z71.6 Tobacco abuse counseling; Z79.899 Other long term (current) drug therapy
CPT/HCPCS: 36415; 71045; 71046; 76705; 80048; 80053; 80076; 80307; 81003; 82140; 82607; 82746; 83735; 83880; 84484; 85025; 85027; 85610; 86140; 86850; 86900; 86901; 86923; 87389; 87522; 93005; 97161; 99285; J1940; J2405; J2470; J3430; P9016; P9017; P9047

== ENCOUNTER → 2023-10-25 17:17 | Outpatient (BNV) | payer OTHER, SELFPAY | PROVIDERS: Admitting Provider Family Medicine; Emergency Provider Emergency Medicine; Visit Provider Internal Medicine Gastroenterology | DX: K74.60 Unspecified cirrhosis of liver (principal) | CPT/HCPCS: 99223 ==

== ENCOUNTER → 2023-10-25 17:17 | Outpatient (BNV) | payer MEDICAID, SELFPAY | PROVIDERS: Admitting Provider Family Medicine; Emergency Provider Emergency Medicine; Visit Provider Nurse Practitioner Psychiatric/Mental Health | DX: F11.90 Opioid use, unspecified, uncomplicated (principal) | CPT/HCPCS: 99221 ==

== ENCOUNTER → 2023-10-25 17:17 | Outpatient (BNV) | payer MEDICAID, SELFPAY | PROVIDERS: Admitting Provider Family Medicine; Emergency Provider Emergency Medicine; Visit Provider Family Medicine | DX: K72.90 Hepatic failure, unspecified without coma (principal); K74.60 Unspecified cirrhosis of liver; D68.9 Coagulation defect, unspecified | CPT/HCPCS: 99223; 99232; 99239 ==

== ENCOUNTER 2023-11-03 14:57 | Outpatient (AMB) | payer MEDICAID, SELFPAY ==
--- NOTE | 2023-11-03 14:58 | A.OFFPC_ITS ---
Vital Signs 11/03/23 14:59 Height 5 ft 10 in Weight 160 lb BMI 23.0 BP 142/70 H Blood Pressure Location Lt brachial Position Sitting Pulse 89 Pulse Source Pulse Oximeter Pulse Oximetry (%) 96 Oxygen Delivery Method Room Air Intake Visit Reasons: [facility] 10/30 cirrhosis of the liver Fac Engineer Required: No Accompanied by: Self / Same As Patient Allergies No Known Allergies [No Known Allergies*] Allergy (Verified 11/03/23 15:24) Medication List - Last Reconciled 11/03/23 by Diann Ernst PA-C furosemide 20 mg PO DAILY lactulose 20 grams (30 mL) PO BID methadone (Methadone Intensol) 65 mg PO DAILY olanzapine (Zyprexa) 5 mg PO BEDTIME prazosin 1 mg PO BEDTIME sertraline 50 mg PO DAILY spironolactone 50 mg PO DAILY trazodone 50 mg PO BEDTIME PRN Tobacco use date assessed: 11/03/23 Dental Screening Dental Screen Date: 11/03/23 Did you have a dental visit in the last 12 months?: Yes Did you have a dental problem in the last 6 months where you did not have access to dental care?: No Was dental information given to patient?: Patient has dentist HPI [facility] 10/30 cirrhosis of the liver HPI Details 48-year-old male with past medical histo ry of HCV, polysubstance injection drug use on maintenance methadone, depression coming to the office for the 1st time. In review of the notes, patient was seen in [facility] ED 10/25/2023 with progressive edema/ansarca found to have pancytopenia and coagulopathy and ultrasound showing nodular liver patient was admitted for suspected decompensated cirrhosis. Patient was given IV furosemide and spironolactone with improvement in his swelling and given lactulose for suspected hepatic encephalopathy. Patient was discharged home 10/31/2023 on oral furosemide, spironolactone, and lactulose and referred to [facility] Gastroenterology for further management of cirrhosis and screening for esophageal varices. Also advised to repeat labs in 1 week. Patient states he is unsure of the medications he is taking but believes that he is taking the medications given to him by the ER. He has not yet reached out to GI and is unclear if they will be calling him or if he should call to schedule. He has no acute concerns today. [facility] Medical History Hepatitis C H/O opioid abuse Social History Household Members: Other Household Members Other:: friend's hose Housing: Apartment Do you presently have visiting nurse or other home services: No Comment: Low fall risk Patient Tobacco Use Status: Current everyday Tobacco user Tobacco use type: Cigarette Cigarette Packs Per Day: 0.5 Cigarettes Per Day: 2 e-Cigarette/Vaping Use: Never Used Substance Use Type: Heroin and IV Drugs service: No Current occupational status: unemployed Cognitive needs: No Hearing needs: No Vision needs: Yes Questionnaire PHQ-9 Over the last 2 weeks, how often have you been bothered by any of the following problems? 1. Little interest or pleasure in doing things: not at all 2. Feeling down, depressed, or hopeless: nearly every day 3. Trouble falling or staying asleep, or sleeping too much: nearly every day (Doesn't sleep at night because he feels scared) 4. Feeling tired or having little energy: more than half the days 5. Poor appetite or overeating: several days (Poor appetite) 6. Feeling bad about yourself - or that you are a failure or have let yourself or your family down: several days 7. Trouble concentrating on things, such as reading the newspaper or watching television: nearly every day 8. Moving or speaking so slowly that other people could have noticed. Or the opposite - being so fidgety or restless that you have been moving around a lot more than usual: several days 9. Thoughts that you would be better off or of hurting yourself in some way: several days (Has felt this way 2-3 times in the last 6 months) Total score: 15 Depression Screening Interpretation: Positive Depression Screening Done: Yes 88182 - PHQ-9 Billing: Yes Source: Developed by Drs. Joe Mata, Saima Johnson, Ephraim Armando and colleagues, with an educational kathryn from [employer]. Thrive Questionnaire Date Thrive assessed: 10/27/23 I am a: Patient What is your living situation today?: I do not have a steady places to live Are you currently unemployed and looking for a job?: Yes THRIVE Score: 1 ANTOINETTE-7 AMB Questionnaire ANTOINETTE-7 Date ANTOINETTE - 7 assessed: 11/03/23 Feeling nervous, anxious, or on edge: 3 = Nearly every day Not being able to stop or control worryin = Nearly every day (When the film color tester of apartment wakes up in a bad mood, will tell people to pack up immediately) Worrying too much about different things: 3 = Nearly every day Trouble relaxin = Several days Being so restless that it is hard to sit still: 3 = Nearly every day Becoming easily annoyed or irritable: 1 = Several days Feeling afraid as if something awful might happen: 3 = Nearly every day Total ANTOINETTE-7 score (0-4 normal; 5-9 mild; 10-14 moderate; 15-21 severe): 17 Source: Developed by Drs. Joe Mata, Saima Johnson, Ephraim Armando and colleagues, with an educational kathryn from [employer]. ANTOINETTE-7 Assessment Billing ANTOINETTE-7 Assessment Tool: ANTOINETTE-7 Assessment 05268 Review of Systems Const Denies body aches, Denies fatigue, Denies fever(s), Denies frequent falls, Denies headache(s) and Denies weakness Eyes Reports no additional complaints and Denies change in vision ENT Denies dysphagia, Denies dizziness, Denies facial pain, Denies headache(s), Denies nasal congestion and Denies odynophagia Card Denies chest pain, Denies syncope, Denies irregular heart rhythm, Denies leg edema, Denies lightheadedness and Denies dyspnea Resp Denies cough and Denies dyspnea GI Denies constipation, Denies dysphagia, Denies dyspepsia, Reports diarrhea (occasional), Denies nausea, Denies odynophagia and Denies vomiting Denies dysuria, Denies urinary frequency, Denies urinary hesitancy and Denies urinary urgency Musc Denies back pain and Denies myalgias Skin/Breast Reports system reviewed and no additional complaints, except as documented Neuro Denies dizziness, Denies syncope, Denies frequent falls, Denies headache(s) and Denies weakness Psych Reports no additional complaints Endo Denies fatigue Physical exam (Primary Care) Vital Signs: Last Vital Signs Pulse 89 11/03/23 14:59 BP 142/70 H 11/03/23 14:59 Pulse Ox 96 11/03/23 14:59 Oxygen Delivery Method Room Air 11/03/23 14:59 BMI result Body Mass Index 23.0 Tobacco/Smoking Status: Tobacco use Status Tobacco use date assessed 11/03/23 11/03/23 15:16 Patient Tobacco Use Status Current everyday Tobacco 11/03/23 15:16 Tobacco use type Cigarette 11/03/23 15:16 e-Cigarette/Vaping Use Never Used 11/03/23 15:16 PHQ-9: PHQ-9 Score PHQ-9: Total score 15 11/03/23 15:17 Depression Screening Interpretation: Positive Thrive Assessment: Date of Thrive Assessment Date Thrive assessed 10/27/23 11/03/23 15:16 Const General: cooperative, healthy appearing, comfortable and no acute distress Orientation/consciousness: patient oriented x3 HENMT Head: Yes normocephalic Ears: hearing grossly normal bilaterally General nose exam: Normal external nose present Eyes General: appearance normal, both eyes and all related structures Conjunctivae: conjunctivae normal Neck Neck: Yes full ROM and Yes no lymphadenopathy Resp Effort & Inspection: normal respiratory effort Auscultation: clear to auscultation bilaterally, no crackles, no rales, no rhonchi and no wheezes Cardio Rate: regular rate Rhythm: regular rhythm GI Inspection: Yes normal to inspection Palpation (GI): Soft to palpation, not firm, nontender, no guarding and not rigid Skin General skin exam: no rashes or lesions noted Neuro General: patient oriented x3 Gait exam (Neuro): Normal gait present Extrem General: Yes normal to inspection, Yes full ROM and No edema Psych Affect: normal affect Attitude: cooperative Insight: Good insight present (Psych) Judgement: Good judgement present (Psych) Assessment and Plan Assessment & Plan (1) Cirrhosis: Code(s): K74.60 - Unspecified cirrhosis of liver Plan: Advised patient to take his medications as prescribed from the ER furosemide, lactulose, spironolactone. Patient will check his medications at home and get back to us if he has a medications and advised him to reach out if he does not so we can prescribe them to him. Reached out to GI office in regards to appointment and advised patient to follow up with GI as well. Patient denies any symptoms at this time and is feeling generally well. Advised patient to avoid hepatotoxic agents. (2) Coagulopathy: Code(s): D68.9 - Coagulation defect, unspecified Plan: Repeat blood work ordered and advised patient to have the blood work done today as recommended from the ER. (3) Pancytopenia: Code(s): D61.818 - Other pancytopenia Plan: Repeat blood work ordered and advised patient to have the blood work done today as recommended from the ER. (4) Hepatic encephalopathy: Code(s): K76.82 - Hepatic encephalopathy Plan: Continue on lactulose. No signs of confusion or memory impairment at this time. Patient denies any symptoms and is feeling generally well. (5) Opioid use disorder: Code(s): F11.90 - Opioid use, unspecified, uncomplicated Plan: Continue on methadone. Plan This note was constructed using voice recognition software. While every effort has been made to ensure accuracy and suspension cord tier, still areas may have been included sometimes these areas may affect the content or meeting of the given symptoms. Total time spent caring for the patient today was 30 minutes. This includes time spent before the visit reviewing the chart, time spent during the visit, and time spent after the visit and documentation. Coding Level of Care Code New Pt Level 4 (81933) Diagnoses Cirrhosis K74.60 Coagulopathy D68.9 Pancytopenia D61.818 Hepatic encephalopathy K76.82 Opioid use disorder F11.90 Additional Codes ANTOINETTE-7 Assessment Billing - ANTOINETTE-7 Assessment Tool: ANTOINETTE-7 Assessment 43270 ([id number])
[2023-11-03 14:59] VITALS: BP 142/70; PULSE 89; O2SAT 96; BMI 23.0
== END 2023-11-03 15:43 | disposition home or self-care (01) ==
DX: K74.60 Unspecified cirrhosis of liver (principal); D68.9 Coagulation defect, unspecified; D61.818 Other pancytopenia; K76.82 Hepatic encephalopathy; F11.90 Opioid use, unspecified, uncomplicated

== ENCOUNTER → 2023-11-03 14:57 | Outpatient (BNVA) | payer OTHER, SELFPAY | DX: K74.60 Unspecified cirrhosis of liver (principal); D68.9 Coagulation defect, unspecified; D61.818 Other pancytopenia; K76.82 Hepatic encephalopathy; F11.90 Opioid use, unspecified, uncomplicated | CPT/HCPCS: 96127; 99202 ==

== ENCOUNTER 2023-12-04 15:47 | Inpatient (IN) | payer OTHER, SELFPAY ==
--- NOTE | ~2023-12-04 | US_ITS ---
EXAMINATION: US ABDOMEN LIMITED CLINICAL INFORMATION: Rule out portal vein thrombosis. COMPARISON: CT scan obtained earlier the same day. TECHNIQUE: Real-time imaging of the right upper quadrant abdominal viscera. FINDINGS: Limited, directed ultrasound examination of the main portal vein was performed. No thrombus is identified within the main portal vein. Hepatopedal portal flow. Incidentally visualized heterogeneous hepatic echotexture and nodular contour, consistent with cirrhosis. Incidentally visualized ascites. US/US abdomen limited IMPRESSION: Findings as above. Electronically signed by: Robin Constantino MD 12/06/2023 04:42 PM EDT
--- NOTE | ~2023-12-04 | CT_ITS ---
EXAMINATION: CT ABDOMEN AND PELVIS WITHOUT CONTRAST CLINICAL INFORMATION: Elevated lipase. Concern for pancreatitis. COMPARISON: None available. TECHNIQUE: Multidetector volumetric imaging was performed from the superior aspect of the liver through the pubic symphysis. Sagittal and coronal reformatted images were obtained on the technologist's workstation. This CT examination was performed using dose optimization techniques as appropriate, variously including the following: *Automated exposure control *Adjustment of mA and/or kV according to patient size (this includes techniques or standardized protocols for targeted exams where dose is matched to indication/reason for exam; i.e. extremities or head) *Use of iterative reconstruction technique DLP: January 01, 2018 mGy-cm FINDINGS: LUNG BASES: There is bilateral basilar atelectatic change. LIVER, GALLBLADDER, AND BILIARY TREE: The liver is small and irregular in contour. No focal liver lesions are seen. There is no intrahepatic biliary duct dilatation The gallbladder is unremarkable with no evidence of radiopaque gallstones, gallbladder wall thickening, or obvious pericholecystic inflammatory changes. PANCREAS: Unremarkable. SPLEEN: The spleen is enlarged measuring up to 18 cm. ADRENAL GLANDS: Unremarkable. KIDNEYS AND URETERS: The kidneys are normal in size, shape, and attenuation. No hydronephrosis, hydroureter, or calculi seen. No perinephric stranding. BLADDER: Unremarkable. GASTROINTESTINAL TRACT: There is diffuse colonic thickening. The appendix is not identified. ABDOMINAL WALL: There is soft tissue anasarca. LYMPH NODES: Normal. VASCULAR: Unremarkable. PELVIC VISCERA: Unremarkable. OSSEOUS STRUCTURES: There is diffuse thoracolumbar degenerative change. CT/CT abdomen pelvis wo IV con IMPRESSION: 1. Diffuse colonic wall thickening consistent with colitis. Consider portal colopathy. 2. The pancreas is normal in appearance. 3. There is evidence of cirrhosis and portal hypertension with splenomegaly. 4. There is soft tissue anasarca. Fleischner guidelines were followed. Electronically signed by: Rudy Sousa MD 12/05/2023 03:49 AM EDT
--- NOTE | ~2023-12-04 | US_ITS ---
ULTRASOUND GUIDED DIAGNOSTIC PARACENTESIS HISTORY: Ascites. Acute kidney injury. Diagnostic. TECHNIQUE: Risks and benefits and possible complications were discussed with the patient and consent form was signed. A safe pocket of ascitic fluid was identified using ultrasound guidance, and the overlying skin was marked. The abdomen prepped and draped in sterile fashion. 1% lidocaine was used as a local anesthetic. Using ultrasound guidance, a 22-gauge spinal needle was placed into the ascitic pocket. 60 mL of yellow fluid was aspirated. The needle was removed and a dry sterile dressing was applied. A few customer assistance representative images from before and after the examination were obtained. The procedure was performed by Juan Dobbs PA-C and supervised by Dr. Polanco. US/US paracentesis abd w/image IMPRESSION: Ultrasound-guided diagnostic paracentesis as described above. No immediate complications Electronically signed by: Hussein Polanco MD 12/08/2023 01:49 PM EDT
--- NOTE | ~2023-12-04 | US_ITS ---
ULTRASOUND GUIDED PARACENTESIS HISTORY: Ascites. Therapeutic and diagnostic. TECHNIQUE: Risks and benefits and possible complications were discussed with the patient and consent form was signed. A safe pocket of ascitic fluid was identified using ultrasound guidance, and the overlying skin was marked. The abdomen prepped and draped in sterile fashion. 1% lidocaine was used as a local anesthetic. Using ultrasound guidance, a 5 fr catheter was placed into the ascitic pocket. 2.0 liters of yellow fluid was removed passively. The catheter was then removed. A few regional sales representative images from before and after the examination were obtained. The procedure was performed by Juan Dobbs PA-C and supervised by Dr. Polanco. US/US paracentesis abd w/image IMPRESSION: Ultrasound-guided paracentesis as described above. No immediate complications Electronically signed by: Hussein Polanco MD 12/11/2023 04:01 PM EDT
--- NOTE | ~2023-12-04 | XR_ITS ---
EXAMINATION: XR CHEST CLINICAL INFORMATION: Line placement. COMPARISON: October 25, 2023. TECHNIQUE: Frontal view of the chest was obtained. FINDINGS: The lung volumes are low. The cardiomediastinal silhouette is within normal limits. A right central line extends to the lower SVC/right atrial junction. There is a faint left lung base opacity. The lungs are otherwise clear. There are no significant pleural effusions. Bony structures and soft tissues are unremarkable XR/XR chest 1V IMPRESSION: 1. Right central line extending to the lower SVC/right atrial junction. 2. Low lung volumes. 3. Left lung base opacity, likely atelectasis. Electronically signed by: Rudy Sousa MD 12/05/2023 03:40 AM EDT
--- NOTE | ~2023-12-04 | US_ITS ---
EXAMINATION: US TRIPLEX LOWER EXTREMITY, LEFT CLINICAL INFORMATION: Left lower extremity swelling and pain COMPARISON: None available. TECHNIQUE: Color-flow triplex imaging with spectral analysis and compression Doppler were performed on the left lower extremity. FINDINGS: Respiratory variation, normal compression and augmented flow are noted throughout the left lower extremity. The visualized common femoral vein, superficial femoral vein, profunda femoral vein, popliteal vein and midcalf peroneal and posterior tibial venous segments show no evidence of deep venous thrombosis. There is no Maciel's cyst. US/US venous duplex LE LT IMPRESSION: No evidence of deep venous thrombosis involving the left lower extremity. Electronically signed by: Henry Parkinson MD 12/04/2023 09:42 PM EDT
--- NOTE | ~2023-12-04 | US_ITS ---
EXAMINATION: US ABDOMEN LIMITED CLINICAL INFORMATION: Elevated bilirubin. Abdominal pain. COMPARISON: CT scan of the abdomen and pelvis dated 12/05/2023. TECHNIQUE: Real-time imaging of the right upper quadrant abdominal viscera. FINDINGS: PANCREAS: The pancreatic body and portions of the head and tail are visualized and appear unremarkable. Remainder of the pancreas is obscured by overlying bowel gas. LIVER: Atrophic and nodular liver is seen with heterogeneous echotexture and surrounding small volume ascites. Findings are consistent with liver cirrhosis. No focal hepatic lesion. There is no intrahepatic biliary duct dilatation seen. GALLBLADDER: The gallbladder is hydropic as seen on the recent CT scan, measuring 11.5 cm longitudinally. There is diffuse gallbladder wall edema and thickening of up to 0.6 cm. Low level internal echoes are seen within the gallbladder, consistent with thickened bile or sludge. No formed gallstones are appreciated. No sonographic Key's sign is elicited while scanning over the gallbladder. COMMON BILE DUCT: Mildly dilated, measuring 0.8 cm in diameter. RIGHT KIDNEY: Normal. No hydronephrosis. No renal calculi or focal parenchymal lesions. The kidney measures 12.3 cm in maximum dimension. FREE FLUID: There is a moderate volume ascites seen throughout the right upper quadrant and right lower quadrant. US/US abdomen limited IMPRESSION: 1. Hydropic gallbladder with sludge or thickened bile seen. Findings may be related to gallbladder dyskinesia. The gallbladder wall edema and thickening seen is nonspecific in the setting of liver disease and ascites. Close clinical correlation is requested to exclude acute inflammation. 2. Common bile duct is mildly dilated. No choledocholithiasis in the visualized portions of the CBD. 3. Nodular cirrhotic liver with small volume ascites in the right side of the abdomen. 4. Incompletely visualized pancreas as discussed above. Electronically signed by: Macie Reese MD 12/05/2023 11:22 AM EDT
[2023-12-04 15:55] VITALS: BP 132/72; PULSE 101; O2SAT 96
[2023-12-04 16:08] VITALS: BP 134/67; PULSE 97; RESP 18; TEMP 37.1; O2SAT 99; BMI 27.1
--- NOTE | 2023-12-04 16:52 | PC.NURSE ---
difficult IV stick, attempted x2 - bilateral upper extremities covered in scars d/t iv drug use. states he last used Monday d/t the pain. did not take methadone today.
[2023-12-04 19:30] VITALS: BP 125/60; PULSE 94; RESP 20; TEMP 36.9; O2SAT 98
--- NOTE | 2023-12-04 19:58 | ED_ITS ---
HPI - General Adult General Chief complaint: General Medical Stated complaint: leg pain Time Seen by Provider: 12/04/23 19:31 Source: patient and EMS Mode of arrival: EMS Limitations: other History of Present Illness ED Provider: Dr. Effie Webster HPI narrative: patient comes to the emergency room via ambulance complaining of worsening lower extremity edema. Patient states that he was discharged from the hospital One month ago for anasarca. Patient states that he has noted that his left leg is gradually getting more swollen and now it is more painful. according to the patient, he lives with a roommate, states that his brother called 911, unclear why. However, I would suspect that they called because the patient looks weak, very jaundiced, patient's seems confused, difficult to get history from the patient Related Data Home Medications ?Medication ?Instructions ?Recorded ?Confirmed olanzapine 10 mg tablet (Zyprexa) 5 mg PO BEDTIME 10/25/23 11/03/23 prazosin 1 mg capsule 1 mg PO BEDTIME 10/25/23 11/03/23 sertraline 50 mg tablet 50 mg PO DAILY 10/25/23 11/03/23 methadone 10 mg/mL oral 65 mg PO DAILY 10/26/23 11/03/23 concentrate (Methadone Intensol) Previous Rx's ?Medication ?Instructions ?Recorded trazodone 50 mg tablet 50 mg PO BEDTIME PRN sleep #30 tabs 06/17/23 furosemide 20 mg tablet 20 mg PO DAILY #30 tabs 10/27/23 lactulose 20 gram/30 mL oral 20 g (30 mL) PO BID #1,800 mL 10/27/23 solution spironolactone 50 mg tablet 50 mg PO DAILY #30 tabs 10/27/23 Allergies Allergy/AdvReac Type Severity Reaction Status Date / Time No Known Allergies Allergy Verified 12/04/23 16:08 [No Known Allergies*] Review of Systems 2 Review of Systems: Yes Unobtainable due to mental status and Other PMFSH Past Medical History Medical History (Updated 12/05/23 @ 03:47 by Effie Webster MD) Hepatic encephalopathy Cirrhosis Hepatitis C H/O opioid abuse Social History Social History Household Members: Other Household Members Other:: friend's hose Housing: Apartment Do you presently have visiting nurse or other home services: No Comment: Low fall risk Patient Tobacco Use Status: Current everyday Tobacco user Tobacco use type: Cigarette Cigarette Packs Per Day: 0.5 Cigarettes Per Day: 2 e-Cigarette/Vaping Use: Never Used Substance Use Type: IV Drugs Last Used Substance: Days (ago) Advance Directives: No Advance Directives Information Provided: No Do you have a plan to hurt others: No Plan service: No Current occupational status: unemployed Cognitive needs: No Hearing needs: No Vision needs: Yes Physical Exam ED Vital Signs: Vital Signs - 24 hr 12/04/23 16:08 12/04/23 19:30 12/05/23 00:00 Temperature 98.7 F 98.4 F 98.0 F Pulse Rate 97 94 91 Respiratory Rate 18 20 15 Blood Pressure 134/67 125/60 128/65 Pulse Oximetry 99 98 95 Oxygen Delivery Method Room Air Room Air Room Air 12/05/23 02:26 Temperature Pulse Rate 93 Respiratory Rate 18 Blood Pressure Pulse Oximetry Oxygen Delivery Method BMI result Body Mass Index 27.1 Const Other: Appearance: Alert. confused, ill-appearing Eyes: Pupils equal, round and reactive to light. scleral icterus ENT: Pharynx normal. Neck: Normal inspection. Neck supple. No lymph nodes noted. No crepitus CVS: Normal heart rate and rhythm. Pulses normal. Normal S1 and S2 Respiratory: No respiratory distress. Breath sounds normal. No Wheezing. No rales Abdomen: Soft distended, nontender Skin: Skin warm and dry. diffusely jaundiced Extremities: left leg significantly more swollen than the right. Pain to palpation in the calf and upper thigh Neuro: patient is very confused, trying to follow commands. Psych: Calm, cooperative, confused Course Course Course Narrative: patient is ill-appearing - I was informed that multiple nurses attempted getting labs and inserting a line. However, patient is a very hard stick - a central line was inserted, right IJ Medications Administered Generic Name Dose Route Start Last Admin Trade Name Freq PRN Reason Stop Dose Admin Albumin Human 100 mls @ 100 mls/hr 12/05/23 02:00 12/05/23 02:40 Kedbumin 25 % IV 12/05/23 03:59 100 mls/hr Q1H SHILOH Administration Dextrose 250 mls @ 750 mls/hr 12/05/23 02:16 12/05/23 02:53 D10 IV 750 mls/hr Q15M PRN Administration per Hypoglycemia Standing Ord. Discontinued Medications Generic Name Dose Route Start Last Admin Trade Name Nickq PRN Reason Stop Dose Admin Albuterol Sulfate 7.5 mg/ 10 mg 12/05/23 02:05 12/05/23 02:25 Albuterol Sulfate 2.5 mg INHALE 12/05/23 02:06 10 mg ONCE ONE Administration Sodium Chloride 1,000 mls @ 999 mls/hr 12/05/23 01:50 12/05/23 02:40 Ns IVCONT 12/05/23 02:50 999 mls/hr .Q1H1M ONE Administration Insulin Human Regular 5 unit 12/05/23 02:16 12/05/23 03:11 Insulin Regular, Human 100 Unit/Ml 10 Ml Vial IVPUSH 12/05/23 02:17 Not Given ONCE ONE Lactulose 30 gm 12/05/23 02:08 12/05/23 02:50 Lactulose 20 Gm/30 Ml Solution PO 12/05/23 02:09 30 gm ONCE ONE Administration Sodium Bicarbonate 50 meq 12/05/23 02:05 12/05/23 02:41 Sodium Bicarbonate 8.4% 50 Meq/50 Ml Syringe IVPUSH 12/05/23 02:06 50 meq ONCE ONE Administration Sodium Bicarbonate 50 meq 12/05/23 02:16 12/05/23 02:50 Sodium Bicarbonate 8.4% 50 Meq/50 Ml Syringe IVPUSH 12/05/23 02:17 50 meq ONCE ONE Administration Procedures Central Line Placement Right IJ: Time Out Performed: Yes Patient Placed on Monitor/Pulse Ox: Yes MD Prep: mask, gown and gloves Central Line Prep: Chlorhexidine scrub Local Anesthetic: lidocaine 1% Amount of anesthesia used (mL): 5 Ultrasound Used for Placement: Yes Central Line Lumen Inserted: triple Post Procedure: sutured in place, good blood return, all ports aspirated, flushed, capped and sterile dressing applied Post Procedure X-Ray: tip of catheter in good position and no pneumothorax seen Patient Tolerated Procedure: well and no complications Complications: none Medical Decision Making Medical Decision Making MDM Narrative: - my interpretation of labs: Patient has an elevated white blood cell count which is unusual for the patient, chronic anemia. INR is significantly more elevated at patient's baseline, today 2.7. Patient is not on blood thinners. Patient has hyponatremia, hyperkalemia, acute renal failure, elevated LFTs. Overall, patient seems that he is in hepatorenal syndrome. Lipase 1481, indicating pancreatitis but patient has no abdominal pain.. Stool occult blood negative . Patient's blood gases show a pH of 7.4, pCO2 27, bicarb 19 - CT scan of the abdomen pending. My interpretation of CT scan: Moderate amount of ascites, cirrhotic liver. On physical exam, patient does not have significant abdominal pain, spontaneous bacterial peritonitis is not suspected. I discussed with Dr. Barragan the patient is altered, unreliable historian. There is enough fluid to do a paracentesis, however patient's platelets are low an INR is elevated. We agreed to treat the patient with cefepime and tomorrow if needed, IR can do a paracentesis. - Patient receiving IV fluids, D50 equivalent with 5 units of insulin, albuterol, bicarb to treat hyperkalemia. - patient also receiving p.o. lactulose for an elevated ammonia of 119 - IV fluids, tried to help with the MAI. Patient does not seem to be fluid overloaded actually, patient seems dehydrated, dry mucous membranes. Seems that patient has not been eating and drinking well in the last few days. - my interpretation of EKG: Normal sinus rhythm, heart rate 93, no ST segment depression or elevation, no T-wave inversion, QTC 499 - I discussed the patient with Dr. Barragan from the medicine team. At this time, patient is starting to received the above-mentioned medications. We will repeat labs. Then, if there is an improvement, patient may be able to go to the floor. unfortunately, patient is very sick, I also discussed the patient with JESUSITA Sanford as pt might eventually need ICU care, but at this time, he is not meeting criteria for intensive care unit, and patient's current level of care can be taking care of on the floor - Current blood pressure 128/65, heart rate 91, oxygen saturation 95% on room air. - my interpretation of chest x-ray after central line placement, in good place, no pneumothorax seen. - CT scan of the abdomen/ pelvis pending - I discussed the patient with Dr. Alberto. labs to be repeated at 4am, and then we will have a better idea if patient needs to go to the intensive care unit or the floor. Differential Diagnosis Differential Diagnoses: The differential diagnosis associated with the presentation includes ( hepatitis,hepatic and renal failure, hepatorenal syndrome, pancreatitis) Admission/Observation Consideration of admission/observation: Escalation of care including admission/observation considered Consult Healthcare Provider Management of the patient was discussed with: Hospitalist Lab Data 12/05/23 01:14 12/05/23 01:14 Labs: Lab Results 12/05/23 12/05/23 12/05/23 Range/Units 01:14 02:08 02:52 WBC 15.6 H (4.8-10.8) X10*3/uL RBC 2.50 L (4.60-5.80) X10*6/uL Hgb 8.9 L (14.0-18.0) g/dl Hct 24.8 L (42.0-52.0) % MCV 99.2 H (80.0-98.0) fL MCH 35.6 H (27.0-33.0) pg MCHC 35.9 (31.0-36.0) g/dl RDW 13.6 (11.0-16.0) % Plt Count 115 L D (160-400) X10*3/uL MPV 11.8 (9.4-12.4) fL Immature Gran % (Auto) 1.7 H (0.0-0.4) % Neut % (Auto) 84.3 H (45-73) % Lymph % (Auto) 6.4 L (20-40) % [place] % (Auto) 7.2 (2-11) % Eos % (Auto) 0.1 (0-4) % Baso % (Auto) 0.3 (0-2) % Lymph # (Auto) 1.0 L (1.2-4.9) X10*3/uL [place] # (Auto) 1.1 (0.1-1.2) X10*3/uL Eos # (Auto) 0.0 (0.0-0.4) X10*3/uL Baso # (Auto) 0.0 (0.0-0.2) X10*3/uL Abs Immat Gran (auto) 0.26 H (0.00-0.03) X10*3/uL Absolute Neuts (auto) 13.2 H (2.0-8.3) x10*3/uL Absolute Nucleated RBC 0.000 (0.0-0.012) X10*3/uL Nucleated RBC % (auto) 0.0 (0.0-0.2) /100WBC PT 31.6 H (10.9-12.4) SEC INR 2.7 H (0.9-1.1) VBG pH (7.32-7.43) VBG pCO2 mmHg VBG pO2 mmHg VBG HCO3 (22-26) mmol/L VBG O2 Saturation % VBG Base Excess mmol/L Sodium 129 L (135-145) mmol/L Potassium 6.0 H* D (3.3-5.1) mmol/L Chloride 102 (96-108) mmol/L Carbon Dioxide 15 L (22-29) mmol/L Anion Gap 18 (12-20) BUN 78 H (9-16) mg/dL Creatinine 6.59 H* (0.5-1.4) mg/dL Estim Creat Clear Calc 14.1 Estimated GFR 9 POC Glucose 53 L* (60-115) mg/dL Random Glucose 67 (60-115) mg/dL Calcium 7.8 L D (8.4-10.2) mg/dL Total Bilirubin 12.1 H (0.0-1.0) mg/dL Direct Bilirubin 9.3 H (0.0-0.5) mg/dL AST 156 H (5-37) U/L ALT 52 H (0-40) U/L Alkaline Phosphatase 134 H (39-117) U/L Ammonia 119 H (13-55) umol/L B-Natriuretic Peptide 103 H (<100) pg/mL Total Protein 7.4 (6.5-8.0) g/dL Albumin 1.7 L (3.5-5.0) g/dL Lipase 1481 H (8-78) U/L Stool Occult Blood NEGATIVE (NEGATIVE) Ethyl Alcohol < 10 mg/dL 12/05/23 Range/Units 03:09 WBC (4.8-10.8) X10*3/uL RBC (4.60-5.80) X10*6/uL Hgb (14.0-18.0) g/dl Hct (42.0-52.0) % MCV (80.0-98.0) fL MCH (27.0-33.0) pg MCHC (31.0-36.0) g/dl RDW (11.0-16.0) % Plt Count (160-400) X10*3/uL MPV (9.4-12.4) fL Immature Gran % (Auto) (0.0-0.4) % Neut % (Auto) (45-73) % Lymph % (Auto) (20-40) % Huntington % (Auto) (2-11) % Eos % (Auto) (0-4) % Baso % (Auto) (0-2) % Lymph # (Auto) (1.2-4.9) X10*3/uL Huntington # (Auto) (0.1-1.2) X10*3/uL Eos # (Auto) (0.0-0.4) X10*3/uL Baso # (Auto) (0.0-0.2) X10*3/uL Abs Immat Gran (auto) (0.00-0.03) X10*3/uL Absolute Neuts (auto) (2.0-8.3) x10*3/uL Absolute Nucleated RBC (0.0-0.012) X10*3/uL Nucleated RBC % (auto) (0.0-0.2) /100WBC PT (10.9-12.4) SEC INR (0.9-1.1) VBG pH 7.44 H (7.32-7.43) VBG pCO2 27 mmHg VBG pO2 94 mmHg VBG HCO3 19 L (22-26) mmol/L VBG O2 Saturation 98.0 % VBG Base Excess -4.0 mmol/L Sodium (135-145) mmol/L Potassium (3.3-5.1) mmol/L Chloride (96-108) mmol/L Carbon Dioxide (22-29) mmol/L Anion Gap (12-20) BUN (9-16) mg/dL Creatinine (0.5-1.4) mg/dL Estim Creat Clear Calc Estimated GFR POC Glucose (60-115) mg/dL Random Glucose (60-115) mg/dL Calcium (8.4-10.2) mg/dL Total Bilirubin (0.0-1.0) mg/dL Direct Bilirubin (0.0-0.5) mg/dL AST (5-37) U/L ALT (0-40) U/L Alkaline Phosphatase (39-117) U/L Ammonia (13-55) umol/L B-Natriuretic Peptide (<100) pg/mL Total Protein (6.5-8.0) g/dL Albumin (3.5-5.0) g/dL Lipase (8-78) U/L Stool Occult Blood (NEGATIVE) Ethyl Alcohol mg/dL Independent Interpretation I performed an independent interpretation of an: Ultrasound Radiology Impression Discussion of test interpretation with radiology: I have reviewed the radiologist's reading. Radiologist Impression: Respiratory variation, normal compression and augmented flow are noted throughout the left lower extremity. The visualized common femoral vein, superficial femoral vein, profunda femoral vein, popliteal vein and midcalf peroneal and posterior tibial venous segments show no evidence of deep venous thrombosis. There is no Maciel's cyst. US/US venous duplex LE LT IMPRESSION: No evidence of deep venous thrombosis involving the left lower extremity. Critical Care Time Critical Care Time Critical Care Time: Yes Total Critical Care Time: 120 Attestation: I have personally provided critical care time. Time includes review of lab data, radiology results, discussion with consultants, and monitoring for potential decompensation. Intervention performed as documented. Discharge Plan Discharge Clinical Impression: Hepatorenal syndrome, Acute hyponatremia, Acute hyperkalemia, Hypoglycemia, Pancreatitis, Acute hepatic encephalopathy Patient Disposition: Admitted As Inpatient Prescriptions: No Action trazodone 50 mg tablet 50 mg PO BEDTIME PRN (Reason: sleep) Qty: 30 0RF prazosin 1 mg capsule 1 mg PO BEDTIME sertraline 50 mg tablet 50 mg PO DAILY olanzapine [Zyprexa] 10 mg tablet 5 mg PO BEDTIME methadone [Methadone Intensol] 10 mg/mL Concentrate 65 mg PO DAILY lactulose 20 gram/30 mL Solution 20 g PO BID Qty: 1800 0RF spironolactone 50 mg tablet 50 mg PO DAILY Qty: 30 0RF furosemide 20 mg tablet 20 mg PO DAILY Qty: 30 0RF Print Language: Australian
[2023-12-05] VITALS (9 sets, daily range): BP systolic 112–129; BP diastolic 65–75; PULSE 83–93; RESP 11–20; TEMP 36–36.9; O2SAT 94–98; BMI 27.5; BMI 28.0
--- NOTE | 2023-12-05 01:20 | PC.NURSE ---
Dr. Webster at bedside, 7 Fr 16 cm central line inserted to R neck by .
[2023-12-05 01:21] LABS: Basophils Percent Auto 0.3 % (0-2); Eosinophils Percent Auto 0.1 % (0-4); Hematocrit 24.8 % (42.0-52.0); Hemoglobin 8.9 g/dl (14.0-18.0); Imm Gran Abs Auto 0.26 X10*3/uL (0.00-0.03); Imm Gran Pct Auto 1.7 % (0.0-0.4); Lymphocytes Percent Auto 6.4 % (20-40); MANUAL DIFF FLAG NO; Mean Corpuscular HGB Conc 35.9 g/dl (31.0-36.0); Mean Corpuscular Hemoglobin 35.6 pg (27.0-33.0); Mean Corpuscular Volume 99.2 fL (80.0-98.0); Mean Platelet Volume 11.8 fL (9.4-12.4); Monocytes Absolute Auto 1.1 X10*3/uL (0.1-1.2); Monocytes Percent Auto 7.2 % (2-11); Neutrophils Absolute Auto 13.2 x10*3/uL (2.0-8.3); Neutrophils Percent Auto 84.3 % (45-73); Platelet Count 115 X10*3/uL (160-400); Red Cell Distribution Width 13.6 % (11.0-16.0); White Blood Count 15.6 X10*3/uL (4.8-10.8)
[2023-12-05 01:32] LABS: INTERNATIONAL NORM RATIO 2.7 (0.9-1.1); Prothrombin Time 31.6 SEC (10.9-12.4)
[2023-12-05 01:43] LABS: Alanine Aminotransferase 52 U/L (0-40); Albumin Level 1.7 g/dL (3.5-5.0); Alkaline Phosphatase 134 U/L (39-117); Anion Gap 18 (12-20); Aspartate Amino Transferase 156 U/L (5-37); B Type Natriuretic Peptide 103 pg/mL (<100); Bilirubin Direct 9.3 mg/dL (0.0-0.5); Bilirubin Total 12.1 mg/dL (0.0-1.0); Blood Urea Nitrogen 78 mg/dL (9-16); Calcium 7.8 mg/dL (8.4-10.2); Carbon Dioxide 15 mmol/L (22-29); Chloride 102 mmol/L (96-108); Creatinine Clr Calc Pharmacy 14.1; Estimated Glomerular Filt Rate 9; Glucose Random 67 mg/dL (60-115); Sodium 129 mmol/L (135-145); Total Protein 7.4 g/dL (6.5-8.0)
--- NOTE | 2023-12-05 01:46 | ECG_ITS ---
Test Reason : CRITICAL K LEVEL Blood Pressure : / mmHG Vent. Rate : 093 BPM Atrial Rate : 093 BPM P-R Int : 172 ms QRS Dur : 120 ms QT Int : 402 ms P-R-T Axes : 062 026 041 degrees QTc Int : 499 ms Normal sinus rhythm Non-specific intra-ventricular conduction delay Borderline ECG When compared with ECG of 25-OCT-2023 12:25, QRS duration has increased T wave amplitude has increased in Anterior leads Referred By: Effie Webster Electronically Signed By:Raf Lang
[2023-12-05 01:50] LABS: Ammonia 119 umol/L (13-55)
[2023-12-05 01:52] LABS: Lipase 1481 U/L (8-78)
[2023-12-05 02:19] LABS: OBS Int Ctl Valid YES; OBS1 NEGATIVE (NEGATIVE)
[2023-12-05 02:25] LABS: Ethanol < 10 mg/dL
[2023-12-05] MEDS: Albuterol Sulfate 7.5 MG, Albuterol Sulfate (0.083%) 2.5 MG 10 MG INHALE (02:25)
[2023-12-05] MEDS: Albumin Human 25 % 100 ML IV ×5 (02:40→17:55)
[2023-12-05] MEDS: 0.9 % Sodium Chloride 1,000 ML 999 ML IVCONT (02:40)
[2023-12-05] MEDS: Sodium Bicarbonate 8.4% 50 MEQ/50 ML SYRINGE IVPUSH ×2 (02:41→02:50)
[2023-12-05] MEDS: Lactulose 20 GM/30 ML SOLUTION 30 GM PO ×4 (02:50→20:33)
[2023-12-05] MEDS: Dextrose 10 % 250 ML 750 ML IV (02:53)
[2023-12-05 03:05] LABS: Glucose, Whole Blood 53 mg/dL (60-115)
[2023-12-05 03:10] LABS: Venous Blood Gas Refer to POC result
--- NOTE | 2023-12-05 03:11 | PC.NURSE ---
POC 53, Dr. Webster made aware. D10 in 250 mL infusing, regular insulin 5 units IV push on hold per Dr. Webster order.
[2023-12-05 03:13] LABS: VBG HCO3 19 mmol/L (22-26); VBG pCO2 27 mmHg; VBG pH 7.44 (7.32-7.43); VBG pO2 94 mmHg
[2023-12-05 03:38] LABS: Appearance Urine Cloudy; Color Urine Dark Yellow; Glucose Urine UA Negative (Negative); Leukocyte Esterase Urine Small (1+) (Negative); Nitrite Urine Negative (Negative); Specific Gravity - Urine 1.015 (1.005-1.025); UMIC TRIGGER UACC YES; Urine Blood Large (3+) (Negative); Urine Ketones Trace mg/dL (Negative); Urine Protein 30 (1+) mg/dL (Neg-Trace)
[2023-12-05] MEDS: Calcium Gluconate/NaCl,Iso-Osm 2 GM/100 ML PLAST..BAG IV (03:44)
[2023-12-05 03:50] LABS: Glucose, Whole Blood 104 mg/dL (60-115)
[2023-12-05 03:57] LABS: Bacteria Urine Trace (None Seen); Granular Casts Urine Present; UACC Culture Trigger YES
[2023-12-05] MEDS: Dextrose 5 % and 0.9 % NaCl 1,000 ML 500 ML IVCONT (04:02)
[2023-12-05] MEDS: cefEPime HCl 1 GM in 0.9 % Sodium Chloride 50 ML IV (04:34)
[2023-12-05 04:38] LABS: Glucose, Whole Blood 110 mg/dL (60-115)
[2023-12-05 04:40] LABS: Anion Gap 17 (12-20); Blood Urea Nitrogen 76 mg/dL (9-16); Calcium 7.5 mg/dL (8.4-10.2); Carbon Dioxide 16 mmol/L (22-29); Chloride 103 mmol/L (96-108); Creatinine Clr Calc Pharmacy 14.8; Estimated Glomerular Filt Rate 10; Glucose Random 113 mg/dL (60-115); Potassium 5.1 mmol/L (3.3-5.1); Sodium 131 mmol/L (135-145)
--- NOTE | 2023-12-05 04:53 | PM.IMHP ---
History of Present Illness Date of Service: 12/05/23 Chief Complaint: Abdominal Pain This is a 48-year-old male with pertinent history of HCV, polysubstance use disorder on methadone, mood disorder, liver cirrhosis who presents to the emergency department for evaluation of abdominal pain and weakness. History was obtained with the help of high density talc coater operator. Patient is drowsy but awakens to verbal stimulus. Intermittently answering questions. States he has been having belly pain for the last few days. Also noticed pain and swelling of his lower extremities. Patient's brother called ambulance as he looked yellow and was weak. He was also noticed to be confused. Unable to obtain review of systems. In the emergency department, creatinine found to be 5.9, potassium 6, total bilirubin found to be 12.1 and imaging with anasarca. Patient was given IV crystalloids, IV antibiotics, calcium gluconate and IV serum bicarb in the ER. Review of Systems Review of Systems: Yes Unobtainable due to mental status [facility] Medical History Hepatic encephalopathy Cirrhosis Hepatitis C H/O opioid abuse Pertinent family history: Unable to obtain Social History Household Members: Other Household Members Other:: friend's hose Housing: Apartment Do you presently have visiting nurse or other home services: No Comment: Low fall risk Patient Tobacco Use Status: Current everyday Tobacco user Tobacco use type: Cigarette Cigarette Packs Per Day: 0.5 Cigarettes Per Day: 2 e-Cigarette/Vaping Use: Never Used Substance Use Type: IV Drugs Last Used Substance: Days (ago) Advance Directives: No Advance Directives Information Provided: No Do you have a plan to hurt others: No Plan service: No Current occupational status: unemployed Cognitive needs: No Hearing needs: No Vision needs: Yes Meds Allergies Allergy/AdvReac Type Severity Reaction Status Date / Time No Known Allergies Allergy Verified 12/04/23 16:08 [No Known Allergies*] Active Medications: Current Medications Dextrose (D10) 250 mls @ 750 mls/hr IV Q15M PRN PRN Reason: per Hypoglycemia Standing Ord. Last Infusion: 12/05/23 03:14 Dose: Infused Calcium Gluconate (Calcium Gluconate) 2 gm in 100 mls @ 50 mls/hr IV ONCE ONE Stop: 12/05/23 05:24 Last Admin: 12/05/23 03:44 Dose: 50 mls/hr Sodium Bicarbonate 150 meq/ (Dextrose) 1,000 mls @ 100 mls/hr IV .Q10H SHILOH Home Medications ?Medication ?Instructions ?Recorded ?Confirmed ?Last Taken ?Type olanzapine 10 mg tablet (Zyprexa) 5 mg PO BEDTIME 10/25/23 11/03/23 Unknown History prazosin 1 mg capsule 1 mg PO BEDTIME 10/25/23 11/03/23 Unknown History sertraline 50 mg tablet 50 mg PO DAILY 10/25/23 11/03/23 Unknown History methadone 10 mg/mL oral 65 mg PO DAILY 10/26/23 11/03/23 10/25/23 History concentrate (Methadone Intensol) Physical Exam Vital Signs and Narrative: Vital Signs: Last Vital Signs Temp 98.5 F 12/05/23 04:23 Pulse 90 12/05/23 04:23 Resp 11 L 12/05/23 04:23 BP 127/68 12/05/23 04:23 Pulse Ox 95 12/05/23 04:23 O2 Del Method Room Air 12/05/23 04:23 BMI result Body Mass Index 27.1 Middle-aged male lying in bed in no distress Neck supple, no JVD Regular rate and rhythm, S1-S2 heard Regular breath sounds bilaterally, no wheezing or crackles appreciated Abdomen with distention and mild tenderness Patient is lethargic and awakens to verbal stimulus, intermittently answering questions with one-word responses, falls back asleep mid conversation, not following commands Psych: Lethargic Pedal edema present Results Labs 12/05/23 01:14 12/05/23 03:56 Labs: Laboratory Results - last 24 hr 12/05/23 12/05/23 12/05/23 01:14 02:08 02:52 MCV 99.2 H MCH 35.6 H MCHC 35.9 RDW 13.6 Plt Count 115 L D MPV 11.8 Immature Gran % (Auto) 1.7 H Neut % (Auto) 84.3 H Lymph % (Auto) 6.4 L [place] % (Auto) 7.2 Eos % (Auto) 0.1 Baso % (Auto) 0.3 Lymph # (Auto) 1.0 L [place] # (Auto) 1.1 Eos # (Auto) 0.0 Baso # (Auto) 0.0 Abs Immat Gran (auto) 0.26 H Absolute Neuts (auto) 13.2 H Absolute Nucleated RBC 0.000 Nucleated RBC % (auto) 0.0 PT 31.6 H INR 2.7 H VBG pH VBG pCO2 VBG pO2 VBG HCO3 VBG O2 Saturation VBG Base Excess Anion Gap 18 Estim Creat Clear Calc 14.1 Estimated GFR 9 POC Glucose 53 L* Random Glucose 67 Lactic Acid Calcium 7.8 L D Total Bilirubin 12.1 H Direct Bilirubin 9.3 H AST 156 H ALT 52 H Alkaline Phosphatase 134 H Ammonia 119 H B-Natriuretic Peptide 103 H Total Protein 7.4 Albumin 1.7 L Lipase 1481 H Urine Color Urine Appearance Urine pH Ur Specific [place] Urine Protein Urine Glucose (UA) Urine Ketones Urine Blood Urine Nitrite Ur Leukocyte Esterase Urine RBC Urine WBC Ur Squamous Epith Cells Urine Bacteria Hyaline Casts Granular Casts Stool Occult Blood NEGATIVE Ethyl Alcohol < 10 12/05/23 12/05/23 12/05/23 03:09 03:29 03:45 MCV MCH MCHC RDW Plt Count MPV Immature Gran % (Auto) Neut % (Auto) Lymph % (Auto) [place] % (Auto) Eos % (Auto) Baso % (Auto) Lymph # (Auto) [place] # (Auto) Eos # (Auto) Baso # (Auto) Abs Immat Gran (auto) Absolute Neuts (auto) Absolute Nucleated RBC Nucleated RBC % (auto) PT INR VBG pH 7.44 H VBG pCO2 27 VBG pO2 94 VBG HCO3 19 L VBG O2 Saturation 98.0 VBG Base Excess -4.0 Anion Gap Estim Creat Clear Calc Estimated GFR POC Glucose 104 Random Glucose Lactic Acid Calcium Total Bilirubin Direct Bilirubin AST ALT Alkaline Phosphatase Ammonia B-Natriuretic Peptide Total Protein Albumin Lipase Urine Color Dark Yellow Urine Appearance Cloudy Urine pH 5.0 Ur Specific [place] 1.015 Urine Protein 30 (1+) H Urine Glucose (UA) Negative Urine Ketones Trace Urine Blood Large (3+) H Urine Nitrite Negative Ur Leukocyte Esterase Small (1+) H Urine RBC 3-5 H Urine WBC 6-10 Ur Squamous Epith Cells 6-10 Urine Bacteria Trace Hyaline Casts 6-10 Granular Casts Present Stool Occult Blood Ethyl Alcohol 12/05/23 12/05/23 12/05/23 03:56 04:18 04:32 MCV MCH MCHC RDW Plt Count MPV Immature Gran % (Auto) Neut % (Auto) Lymph % (Auto) [place] % (Auto) Eos % (Auto) Baso % (Auto) Lymph # (Auto) [place] # (Auto) Eos # (Auto) Baso # (Auto) Abs Immat Gran (auto) Absolute Neuts (auto) Absolute Nucleated RBC Nucleated RBC % (auto) PT INR VBG pH VBG pCO2 VBG pO2 VBG HCO3 VBG O2 Saturation VBG Base Excess Anion Gap 17 Estim Creat Clear Calc 14.8 Estimated GFR 10 POC Glucose 110 Random Glucose 113 Lactic Acid 3.0 H* Calcium 7.5 L Total Bilirubin Direct Bilirubin AST ALT Alkaline Phosphatase Ammonia B-Natriuretic Peptide Total Protein Albumin Lipase Urine Color Urine Appearance Urine pH Ur Specific [place] Urine Protein Urine Glucose (UA) Urine Ketones Urine Blood Urine Nitrite Ur Leukocyte Esterase Urine RBC Urine WBC Ur Squamous Epith Cells Urine Bacteria Hyaline Casts Granular Casts Stool Occult Blood Ethyl Alcohol Imaging Radiologist's Impressions: Impressions Venous Duplex 12/04/23 21:03 IMPRESSION: No evidence of deep venous thrombosis involving the left lower extremity. Electronically signed by: Henry Parkinson MD 12/04/2023 09:42 PM EDT RP Chest X-Ray 12/05/23 01:05 IMPRESSION: 1. Right central line extending to the lower SVC/right atrial junction. 2. Low lung volumes. 3. Left lung base opacity, likely atelectasis. Electronically signed by: Rudy Sousa MD 12/05/2023 03:40 AM EDT RP Abdomen/Pelvis CT 12/05/23 01:56 IMPRESSION: 1. Diffuse colonic wall thickening consistent with colitis. Consider portal colopathy. 2. The pancreas is normal in appearance. 3. There is evidence of cirrhosis and portal hypertension with splenomegaly. 4. There is soft tissue anasarca. Fleischner guidelines were followed. Electronically signed by: Rudy Sousa MD 12/05/2023 03:49 AM EDT RP Assessment and Plan (1) Acute renal failure: Status: Acute (2) Decompensated hepatic cirrhosis: Status: Acute (3) Acute hepatic encephalopathy: Status: Acute (4) Hypoglycemia: Status: Acute (5) Acute hyperkalemia: Status: Acute (6) Coagulopathy: Status: Acute Plan This is a 48-year-old male with pertinent history of HCV, polysubstance use disorder on methadone, mood disorder, liver cirrhosis who presents to the emergency department for evaluation of abdominal pain and weakness. #. Acute kidney injury stage III: -Monitor creatinine and urine output with colloid and crystalloid resuscitation. Monitor urine output. Hold spironolactone and furosemide. Avoid nephrotoxins. Consulting Nephrology #. Acute decompensated liver cirrhosis with hepatic encephalopathy and conjugated hyperbilirubinemia #. Abdominal pain in a patient with above and leukocytosis -Patient admits he is noncompliant with lactulose. Initiated lactulose and titrate to 2-3 bowel movements per day. -initiated empiric ceftriaxone to cover for SBP. Diagnostic paracentesis in a.m. -consulted Gastroenterology, appreciate assistance -abdominal ultrasound pending #. Acute lactic acidosis due to liver disease #. Metabolic acidosis and hyperkalemia in the setting of MAI -initiated on bicarb fluids. Hyperkalemia improved #. Coagulopathy in the setting of liver injury -defer prophylactic Lovenox for now #. Elevated lipase -likely in the setting of acute renal failure. Pancreas unremarkable on imaging #. Mood disorder -continue home mood stabilizers once able to take p.o. #. Polysubstance use disorder -resume methadone once more awake Med rec pending DVT prophylaxis: Mechanical Full code Admit as inpatient and will require two night minimum hospital stay for close monitoring of renal function, electrolytes, liver function (as above), which is not possible in a lesser acute setting. Specialist consult pending Quality Stroke Does the patient have a stroke diagnosis?: No VTE Prior VTE?: No VTE Risk Level:: Medical - moderate - high VTE Device Contraindication: N/A - Device Ordered VTE Drug Contraindication: Treatment Not Indicated
[2023-12-05 05:42] LABS: Total Protein 6.7 g/dL (6.5-8.0)
[2023-12-05] MEDS: cefTRIAXone sodium 2 GM VIAL IVPUSH (05:53)
[2023-12-05 06:00] LABS: Glucose, Whole Blood 156 mg/dL (60-115)
--- NOTE | 2023-12-05 06:06 | PC.NURSE ---
Delay in administration of Sodium Bicarb 8.4% 150 mEq in D5 1000 mL, pharmacy contacted and they will bring it down to ED.
[2023-12-05 06:25] LABS: Reflex Lactate? Lactic Acid Added
[2023-12-05 06:53] LABS: Glucose, Whole Blood 130 mg/dL (60-115)
[2023-12-05 07:29] LABS: ~Lactic Acid-LAB USE ONLY 2.7 mmol/L (0.5-2.0)
--- NOTE | 2023-12-05 07:32 | HO.SKINPHOTO ---
Location: R foot Category: Stage: Length: Width: Depth: cm Location: Category: Stage: Length: Width: Depth: cm Location: Category: Stage: Length: Width: Depth: cm Location: Category: Stage: Length: Width: Depth: cm Location: Category: Stage: Length: Width: Depth: cm Location: Category: Stage: Length: Width: Depth: cm
--- NOTE | 2023-12-05 07:33 | PC.NURSE ---
assumed care of pt at 0700 this am, noticed what appears to be petechiae on the bottom of his R foot. photo included in note and sent to [facility]
[2023-12-05] MEDS: Sodium Bicarbonate 8.4% 150 MEQ in Dextrose 5 % 850 ML 100 MEQ IV (07:51)
[2023-12-05] MEDS: 0.9 % Sodium Chloride Flush 3 ML SYRINGE IVFLUSH ×3 (07:55→20:36)
--- NOTE | 2023-12-05 07:56 | PC.NURSE ---
wrapped draining wound to R outer AC with non stick adherent and cling wrap. wrapped non draining wound to L forearm with non stick and cling wrap.
--- NOTE | 2023-12-05 08:01 | P.CNGI_ITS ---
History of Present Illness Data of Consult Service Date: 12/05/23 Requesting physician: Vaughn Barragan Primary Care Provider: Unknown Physician HPI Reason for consult: decomp cirrhosis, MAI This is a 48-year-old gentleman with past medical history of chronic hepatitis-C that has led to cirrhosis complicated by portal hypertension, depression, who was recently diagnosed with cirrhosis his last month. He presented to the hospital overnight for abdominal pain and altered mental status. He was found to have severe MAI and lactic acidosis. Patient is able to offer very limited history on bedside evaluation. Drowsy but awakens to verbal stimulus. Knows where he is, but unable to describe what led to his admission. Does report significant abdominal discomfort and chills. Review of Systems 2 Review of Systems: Yes Unobtainable due to mental status PMFSH Past Medical History Medical History Hepatic encephalopathy Cirrhosis Hepatitis C H/O opioid abuse Social History Social History Household Members: Other Household Members Other:: friend's hose Housing: Apartment Do you presently have visiting nurse or other home services: No Comment: Low fall risk Patient Tobacco Use Status: Tobacco use Unknown Tobacco use type: Cigarette Cigarette Packs Per Day: 0.5 Cigarettes Per Day: 2 e-Cigarette/Vaping Use: Never Used Substance Use Type: IV Drugs service: No Current occupational status: unemployed Cognitive needs: No Hearing needs: No Vision needs: Yes Meds Allergies Allergy/AdvReac Type Severity Reaction Status Date / Time No Known Allergies Allergy Verified 12/04/23 16:08 [No Known Allergies*] Active Medications: Current Medications Acetaminophen (Acetaminophen 325 Mg Tablet) 650 mg PO Q6H PRN PRN Reason: Pain, Mild (Pain Scale 1-3), fever or headache Calcium Carbonate (Calcium Carbonate 750 Mg Tab.Chew) 750 mg PO Q4H PRN PRN Reason: Heartburn Ceftriaxone Sodium (Ceftriaxone Sodium 2 Gm Vial) 2 gm IVPUSH Q24H [facility] Last Admin: 12/05/23 05:53 Dose: 2 gm Dextrose (D10) 250 mls @ 750 mls/hr IV Q15M PRN PRN Reason: per Hypoglycemia Standing Ord. Last Infusion: 12/05/23 03:14 Dose: Infused Sodium Bicarbonate 150 meq/ (Dextrose) 1,000 mls @ 100 mls/hr IV .Q10H [facility] Last Admin: 12/05/23 07:51 Dose: 100 mls/hr Albumin Human (Kedbumin 25 %) 100 mls @ 100 mls/hr IV Q6H [facility] Stop: 12/06/23 00:59 Last Infusion: 12/05/23 07:25 Dose: Infused Lactulose (Lactulose 20 Gm/30 Ml Solution) 30 gm PO TID [facility] Magnesium Hydroxide (Milk Of Magnesia 30 Ml Oral.Susp) 30 ml PO DAILY PRN PRN Reason: Constipation Melatonin (Melatonin 3 Mg Tablet) 6 mg PO BEDTIME PRN PRN Reason: Insomnia Ondansetron HCl (Ondansetron Hcl 4 Mg/2 Ml Vial) 4 mg IVPUSH Q8H PRN PRN Reason: Nausea and Vomiting Sodium Chloride (0.9 % Sodium Chloride Flush 3 Ml Syringe) 3 ml IVFLUSH QSHIFT [facility] Last Admin: 12/05/23 07:55 Dose: 3 ml Home Medications ?Medication ?Instructions ?Recorded ?Confirmed ?Last Taken ?Type methadone 10 mg/mL oral 65 mg PO DAILY 10/26/23 11/03/23 10/25/23 History concentrate (Methadone Intensol) Physical Exam 2 Vital Signs: Vital Signs: Last Vital Signs Temp 97.6 F 12/05/23 07:42 Pulse 83 12/05/23 07:42 Resp 14 12/05/23 07:42 BP 112/65 12/05/23 07:42 Pulse Ox 98 12/05/23 07:42 O2 Del Method Room Air 12/05/23 07:42 BMI result Body Mass Index 27.1 Grossly jaundiced malnourished drowsy, able to answer some questions abdomen grossly distended, tender, positive fluid thrill somnolent, oriented x2, asterixis +++ Results Labs 12/05/23 01:14 12/05/23 03:56 Labs: Short CBC 12/05/23 Range/Units 01:14 WBC 15.6 H (4.8-10.8) X10*3/uL Hgb 8.9 L (14.0-18.0) g/dl Hct 24.8 L (42.0-52.0) % Plt Count 115 L D (160-400) X10*3/uL BMP 12/05/23 12/05/23 01:14 03:56 Sodium 129 L 131 L Potassium 6.0 H* D 5.1 Chloride 102 103 Carbon Dioxide 15 L 16 L BUN 78 H 76 H Creatinine 6.59 H* 6.28 H* Calcium 7.8 L D 7.5 L Liver Function 12/05/23 Range/Units 01:14 Total Bilirubin 12.1 H (0.0-1.0) mg/dL Direct Bilirubin 9.3 H (0.0-0.5) mg/dL AST 156 H (5-37) U/L ALT 52 H (0-40) U/L Alkaline Phosphatase 134 H (39-117) U/L Albumin 1.7 L (3.5-5.0) g/dL Urine 12/05/23 Range/Units 03:29 Urine Color Dark Yellow Urine Appearance Cloudy Urine pH 5.0 (5.0-9.0) Ur Specific [place] 1.015 (1.005-1.025) Urine Protein 30 (1+) H (Neg-Trace) mg/dL Urine Glucose (UA) Negative (Negative) mg/dL Assessment and Plan (1) Acute renal failure: Status: Acute (2) Decompensated hepatic cirrhosis: Status: Acute (3) Acute hepatic encephalopathy: Status: Acute (4) Hepatorenal syndrome: Status: Acute (5) Opioid use disorder: Status: Acute (6) Chronic hepatitis C: Status: Acute Plan Overall presentation consistent with acute on chronic liver failure. MELD-Na 40. ACLF grade III with 6-m mortality calculated at 84% based on FLEX score. Will need to rule out underlying infection as a trigger especially SBP and bacteremia from skin source since pt is actively using based on UTox. Would also recommend renal consultation for acute renal failure. Prognosis is guarded at this time and driven by his renal function. Recommendations: -recheck MELD labs -Blood cultures, urine cultures, CXR -DIAGNOSTIC para (pls do not remove more than 500cc) to be sent for cell count, culture and cytology -check UA, urine sodium, potassium and creatinine -Albumin 25% 100 ml QID -Nephrology consultation -lactulose 30ml TID-QID for goal 2-3 BMs. Can utiliz NG tube if pt unable to swallow safely -Rifaximin 550 BID -Vit K 10mg IV once -US Abd with doppler to r/o PV thrombosis -EtOH use not reported by the pt previously, PETH ordered judy given sudden decompensation and AST:ALT -Active polysubstance use noted, but would recommend contacting [facility] transplant hep to check for eligibility for transfer for acute on chronic liver failure Thank you for allowing me to participate in his care. Will follow closely. Procedures Date of Service Date of Service: 12/05/23
[2023-12-05 08:05] LABS: Glucose, Whole Blood 123 mg/dL (60-115)
--- NOTE | 2023-12-05 08:36 | PHA.MEDREC ---
Addendum entered by Kia Dominguez RPh 12/05/23 08:40: Reviewed by [facility] Original Note: Pharmacy Consult ? Medication Reconciliation Pharmacy has completed the medication reconciliation. Patient is a poor historian. Utilized claims to confirm most recent medications. patient was discharge from [facility] [place] on 10/25/23 with medications he should be on.
--- NOTE | 2023-12-05 08:37 | PC.NURSE ---
pt off unit to paracentesis
[2023-12-05 08:49] LABS: Reflex Lactate? 2 Y
--- NOTE | 2023-12-05 09:08 | MHC.CM.PN ---
From chart review, Patient lives with a Friend, takes Methadone, and attends the [facility] W[facility]. Home/resume said services is the tentative plan and CM has initiated and will follow for dc planning. PCP/PA is Diann Ernst. HCP is Daughter/Jose. During recent admission, Patient requested/preferred a bus pass for transport to home.
--- NOTE | 2023-12-05 09:35 | P.CONNP_ITS ---
History of Present Illness Reason for Consult Consult date: 12/05/23 Chief Complaint Chief complaint: weakness History of Present Illness Narrative: 48 y/o male with a medical history of hep C virus, liver cirrhosis, polysubstance abuse on methadone, mood disorder. Came to ED evening of 12/03 with abdominal pain, weakness, altered mental status. Nephrology consulted for MAI. patient's ammonia level elevated at 119, creatinine 6.59, has trended down slightly to 6.28 this a.m. sodium is 129, repeat 131 K was 6.0 on arrival, treated and most recent 5.1 large amount of blood on urine dipstick, though only 6-10 urine RBCs on microscopy Pt had CT scan of his abdomen- no obstructoin, kidneys/ureters unremarkable. + cirrhosis, pHTN, anasarca and ?colitis. today at bedside pt is lethargic, opens eyes to voice but not following commands or responding verbally he has widespread edema and taut abdomen, tender to palpation pitting edema in lower extremities +[address] and had fair amount of dark yellow urine in bag. Had 150mL UOP recorded when tate initially placed. Review of Systems Review of Systems Yes Unobtainable due to mental status PMFSH Past Medical History Medical History Hepatic encephalopathy Cirrhosis Hepatitis C H/O opioid abuse Social History Social History Household Members: Other Household Members Other:: friend's hose Housing: Apartment Do you presently have visiting nurse or other home services: No Comment: Low fall risk Patient Tobacco Use Status: Tobacco use Unknown Tobacco use type: Cigarette Cigarette Packs Per Day: 0.5 Cigarettes Per Day: 2 e-Cigarette/Vaping Use: Never Used Substance Use Type: IV Drugs service: No Current occupational status: unemployed Cognitive needs: No Hearing needs: No Vision needs: Yes Meds Allergies Allergy/AdvReac Type Severity Reaction Status Date / Time No Known Allergies Allergy Verified 12/04/23 16:08 [No Known Allergies*] Active Medications: Current Medications Acetaminophen (Acetaminophen 325 Mg Tablet) 650 mg PO Q6H PRN PRN Reason: Pain, Mild (Pain Scale 1-3), fever or headache Calcium Carbonate (Calcium Carbonate 750 Mg Tab.Chew) 750 mg PO Q4H PRN PRN Reason: Heartburn Ceftriaxone Sodium (Ceftriaxone Sodium 2 Gm Vial) 2 gm IVPUSH Q24H [facility] Last Admin: 12/05/23 05:53 Dose: 2 gm Dextrose (D10) 250 mls @ 750 mls/hr IV Q15M PRN PRN Reason: per Hypoglycemia Standing Ord. Last Infusion: 12/05/23 03:14 Dose: Infused Sodium Bicarbonate 150 meq/ (Dextrose) 1,000 mls @ 100 mls/hr IV .Q10H [facility] Last Admin: 12/05/23 07:51 Dose: 100 mls/hr Albumin Human (Kedbumin 25 %) 100 mls @ 100 mls/hr IV Q6H [facility] Stop: 12/06/23 00:59 Last Infusion: 12/05/23 07:25 Dose: Infused Albumin Human (Kedbumin 25 %) 100 mls @ 100 mls/hr IV Q6H [facility] Stop: 12/06/23 04:29 Lactulose (Lactulose 20 Gm/30 Ml Solution) 30 gm PO TID [facility] Magnesium Hydroxide (Milk Of Magnesia 30 Ml Oral.Susp) 30 ml PO DAILY PRN PRN Reason: Constipation Melatonin (Melatonin 3 Mg Tablet) 6 mg PO BEDTIME PRN PRN Reason: Insomnia Ondansetron HCl (Ondansetron Hcl 4 Mg/2 Ml Vial) 4 mg IVPUSH Q8H PRN PRN Reason: Nausea and Vomiting Sodium Chloride (0.9 % Sodium Chloride Flush 3 Ml Syringe) 3 ml IVFLUSH QSHIFT [facility] Last Admin: 12/05/23 07:55 Dose: 3 ml Home Medications ?Medication ?Instructions ?Recorded ?Confirmed ?Last Taken ?Type methadone 10 mg/mL oral 65 mg PO DAILY 10/26/23 11/03/23 10/25/23 History concentrate (Methadone Intensol) Physical Exam Vital Signs: Last Vital Signs Temp 97.6 F 12/05/23 07:42 Pulse 83 12/05/23 07:42 Resp 14 12/05/23 07:42 BP 112/65 12/05/23 07:42 Pulse Ox 98 12/05/23 07:42 O2 Del Method Room Air 12/05/23 07:42 BMI result Body Mass Index 27.1 Const General: lethargic Nutritional Appearance: Edematous Orientation/consciousness: lethargic Limitations: altered mental status Neck Neck: Yes no JVD Resp Effort & Inspection: normal respiratory effort Auscultation: rhonchi Cardio Jugular venous distension: no JVD Rate: regular rate Rhythm: regular rhythm Heart sounds: S1 normal heart sound present and S2 normal heart sound present GI Inspection: Yes distended Palpation (GI): Tenderness to palpation present (GI) and Ascites present Skin General skin exam: jaundice Extrem General: Yes edema (bilateral lower extremities, pitting +2 ) Results Lab Results 12/05/23 01:14 12/05/23 03:56 Lab results: Chemistry 12/05/23 12/05/23 01:14 03:56 Sodium 129 L 131 L Potassium 6.0 H* D 5.1 Carbon Dioxide 15 L 16 L BUN 78 H 76 H Creatinine 6.59 H* 6.28 H* Calcium 7.8 L D 7.5 L Hematology 12/05/23 01:14 WBC 15.6 H Hgb 8.9 L Plt Count 115 L D Urinalysis 12/05/23 03:29 Urine Color Dark Yellow Urine Appearance Cloudy Urine pH 5.0 Ur Specific [place] 1.015 Urine Protein 30 (1+) H Urine Glucose (UA) Negative Urine Ketones Trace Urine Blood Large (3+) H Urine Nitrite Negative Ur Leukocyte Esterase Small (1+) H Urine RBC 3-5 H Urine WBC 6-10 Ur Squamous Epith Cells 6-10 Hyaline Casts 6-10 Assessment and Plan (1) Acute renal failure: Qualifiers: Acute renal failure type: unspecified Qualified Code(s): N17.9 - Acute kidney failure, unspecified Status: Acute (2) Decompensated hepatic cirrhosis: Status: Acute (3) Acute hepatic encephalopathy: Status: Acute (4) Chronic hepatitis C: Qualifiers: Hepatic coma status: without hepatic coma Qualified Code(s): B18.2 - Chronic viral hepatitis C Status: Acute Plan Acute renal failure most likely secondary to rubular injury from hypoperfusion, workup pending no obstruction seen on CT scan differential also includes hepC-related GN, thrombotic microangiopathy, should also consider abdominal compartment syndrome unlikely AIN given urine with minimal WBCs, no rash/fever will check urine sodium, creatinine, protein, and eosinophils will also check UPEP, SPEP, C3, C4, CPK and cryoglobin recommend d/c serum bicarb recommend close monitoring of intake and output and blood pressure recommend daily electrolyte and renal function labs Will continue to follow Discussed with Dr Contreras Procedures Date of Service Date of Service: 12/05/23
[2023-12-05 09:39] LABS: MN% 26.5 %; PMN% 73.5 %; WBC Peritoneal Fluid 1.086 X10*3/uL
[2023-12-05 09:41] LABS: RBC Peritoneal Fluid < 0.002 X10*6/uL
[2023-12-05] MEDS: Lidocaine HCl 1 % MPF 5 ML VIAL SUBCUT (09:41)
[2023-12-05 09:47] LABS: Amphetamine Screen Urine Not Detected (Not Detect); Barbiturates, Urine Not Detected (Not Detect); Benzodiazepines Screen Urine Not Detected (Not Detect); Buprenorphine Scr Not Detected (Not Detect); Cannabinoid Screen Urine Not Detected (Not Detect); Cocaine Screen Urine POSITIVE (Not Detect); Fentanyl, urine POSITIVE (Not Detect); Methadone Screen, Urine Positive (Not Detect); Opiate Screen Urine POSITIVE (Not Detect); Oxycodone Screen Urine Not Detected (Not Detect); Phencyclidine Screen Urine Not Detected (Not Detect)
[2023-12-05 10:25] LABS: BF Shift QC OK YES; Lymphocyte Peritoneal Fl 4 %; Monocytes Peritoneal Fl 7 %; Neutrophils Peritoneal Fluid 84 %; Other Peritioneal Fl 5 %
--- NOTE | 2023-12-05 10:25 | PM.EVENT ---
Event Note Date of Service: 12/05/23 Event Note: 48-year-old male with pertinent history of HCV, polysubstance use disorder on methadone, mood disorder, liver cirrhosis who presents to the emergency department for evaluation of abdominal pain and weakness. Acute kidney injury stage III Monitor creatinine and urine output s/p colloid and crystalloid resuscitation. Hold spironolactone and furosemide. Avoid nephrotoxins. Nephrology following>rec, Likely ATN, stop bicarb drip, C3, C4, cryo globin, electrophoresis, urine protein Acute decompensated liver cirrhosis with hepatic encephalopathy and conjugated hyperbilirubinemia Patient admits he is noncompliant with lactulose. ammonia 119 lactulose and titrate to 2-3 bowel movements per day. empiric ceftriaxone to cover for SBP Gastroenterology following >rec, albumin 100QID, s/p diagnostic paracentesis cx results pending Acute lactic acidosis due to liver disease Metabolic acidosis and hyperkalemia in the setting of MAI IV bicarb drip stopped as per nephro Hyperkalemia improved Coagulopathy INR 2.7 in the setting of liver injury defer prophylactic Lovenox for now no active bleeding Elevated lipase likely in the setting of acute renal failure. Pancreas unremarkable on imaging Mood disorder continue home mood stabilizers once able to take p.o. Polysubstance use disorder resume methadone once more awake DVT prophylaxis: Mechanical Attending Dr. Valentine Full code Admit as inpatient and will require two night minimum hospital stay for close monitoring of renal function, electrolytes, liver function (as above), which is not possible in a lesser acute setting. Specialist consult pending Time Spent With Patient Time: Total time managing care of this patient today ____ minutes.
[2023-12-05 10:47] LABS: ~Lactic Acid-LAB USE ONLY 1.9 mmol/L (0.5-2.0)
--- NOTE | 2023-12-05 11:42 | PM.PROC ---
Brief Operative Note Date of procedure: 12/05/23 Pre-op diagnosis: Ascites, cirrhosis Post-op diagnosis: same Procedure: US diagnostic paracentesis. 60 cc yellow fluid aspirated and sent for analysis. No immediate complications. Anesthesia: local
[2023-12-05] MEDS: Phytonadione (Vit K1) 10 MG in 0.9 % Sodium Chloride 50 ML 51 MG IV (17:55)
[2023-12-05 18:12] LABS: Creatinine Urine 98.32 mg/dL; Total Protein Urine Random 41 mg/dL (<12)
--- NOTE | 2023-12-05 18:14 | HO.SKINPHOTO ---
Location: right AC Location: left forearm
[2023-12-05] MEDS: vancomycin HCL 1,500 MG in 0.9 % Sodium Chloride 500 ML 333.33 MG IV (18:57)
[2023-12-05] MEDS: rifAXIMin 550 MG TABLET PO (20:33)
[2023-12-06] VITALS (9 sets, daily range): BP systolic 129–140; BP diastolic 64–77; PULSE 88–96; RESP 15–24; TEMP 36.3–36.6; O2SAT 94–98
[2023-12-06] MEDS: Albumin Human 25 % 100 ML IV (00:19)
[2023-12-06] MEDS: HYDROmorphone HCl 0.5 MG/0.5 ML SYRINGE IVPUSH ×5 (01:18→19:58)
[2023-12-06] MEDS: cefTRIAXone sodium 2 GM VIAL IVPUSH (05:17)
[2023-12-06 06:20] LABS: MANUAL DIFF FLAG NO
[2023-12-06 06:24] LABS: Basophils Percent Auto 0.3 % (0-2); Eosinophils Percent Auto 0.1 % (0-4); Hematocrit 21.7 % (42.0-52.0); Hemoglobin 7.5 g/dl (14.0-18.0); Imm Gran Abs Auto 0.18 X10*3/uL (0.00-0.03); Imm Gran Pct Auto 1.6 % (0.0-0.4); Lymphocytes Absolute Auto 0.6 X10*3/uL (1.2-4.9); Lymphocytes Percent Auto 5.1 % (20-40); Mean Corpuscular HGB Conc 34.6 g/dl (31.0-36.0); Mean Corpuscular Hemoglobin 34.6 pg (27.0-33.0); Mean Platelet Volume 11.2 fL (9.4-12.4); Monocytes Absolute Auto 0.7 X10*3/uL (0.1-1.2); Monocytes Percent Auto 6.4 % (2-11); NRBC Pct Auto 0.4 /100WBC (0.0-0.2); Neutrophils Absolute Auto 9.9 x10*3/uL (2.0-8.3); Neutrophils Percent Auto 86.5 % (45-73); Red Blood Count 2.17 X10*6/uL (4.60-5.80); Red Cell Distribution Width 13.7 % (11.0-16.0); White Blood Count 11.4 X10*3/uL (4.8-10.8)
[2023-12-06 06:27] LABS: Platelet Count 65 X10*3/uL (160-400)
[2023-12-06 06:38] LABS: Ammonia 91 umol/L (13-55)
[2023-12-06 06:51] LABS: Alanine Aminotransferase 34 U/L (0-40); Alkaline Phosphatase 101 U/L (39-117); Anion Gap 19 (12-20); Aspartate Amino Transferase 106 U/L (5-37); Bilirubin Direct 8.6 mg/dL (0.0-0.5); Bilirubin Total 12.7 mg/dL (0.0-1.0); Blood Urea Nitrogen 76 mg/dL (9-16); Calcium 8.9 mg/dL (8.4-10.2); Carbon Dioxide 17 mmol/L (22-29); Chloride 106 mmol/L (96-108); Creatinine Clr Calc Pharmacy 21.4; Estimated Glomerular Filt Rate 13; Glucose Random 82 mg/dL (60-115); Potassium 4.8 mmol/L (3.3-5.1); Sodium 137 mmol/L (135-145); Total Protein 7.1 g/dL (6.5-8.0)
--- NOTE | 2023-12-06 07:00 | CA_ITS ---
Transthoracic Echocardiogram Patient (Last, First, Middle): Pj Kay, Gender: Male Date of : 1975 Age: 48 Procedure Date: 12/06/2023 Procedure Type: Transthoracic Echocardiogram Location: [facility] [place] Height: 177.8 cm Weight: 88. kg BSA: 2.06 m2 Heart Rate: bpm BP: 140 / 76 mmHg Business Affairs Manager: JELANI Referring MD: Alix Arroyo NP Symptoms: GPC bacteremia Study Quality: Adequate ECG Rhythm: Sinus Conclusions: - Normal left ventricular size, thickness, systolic function, and wall motion. The visually estimated ejection fraction is between 55-60%. Diastolic function is normal for age. - Normal right ventricular cavity size and systolic function. - No obvious vegetation noted. - Moderate pulmonary hypertension is present. Findings Left Ventricle Normal left ventricular size, thickness, systolic function, and wall motion. The visually estimated ejection fraction is between 55-60%. Diastolic function is normal for age. Right Ventricle Normal right ventricular cavity size and systolic function. Atria The left atrium is normal in size. Aortic Valve Normal aortic valve structure and function. There is no aortic valve stenosis. There is no aortic valve regurgitation. Mitral Valve The mitral valve appears normal. There is trace mitral valve regurgitation. There is no mitral valve stenosis. Pulmonic Valve The pulmonic valve is likely normal. Tricuspid Valve Normal tricuspid valve structure. There is moderate tricuspid valve regurgitation. The right ventricular systolic pressure is 53 mmHg. Normal right atrial pressure. Moderate pulmonary hypertension is present. Great Vessels All visible segments of the aorta are normal in size. The visualized portions of the pulmonary artery and branches are normal. Venous The inferior vena cava is normal in size and collapses greater than 50% with inspiration. Pericardium/Pleural There is no evidence of pericardial effusion. Prior Study Comparison Changes noted compared to prior study dated: 01/02/2018. No obvious vegetation noted. mod TR. Measurements 2D Linear Measurements IVSd: 0.81 0.6-0.9/0.6-1.0 cm LVIDd: 5.05 3.9-5.3/4.2-5.9 cm LVIDd Index: 2.45 2.4-3.2/2.2-3.1 cm/m2 LVIDs: 2.73 2.0-3.6 cm LVPWd: 0.88 0.7-1.1 cm Ao Root: 2.20 2.1-3.5 cm LA Diam: 4.00 2.7-3.8/3.0-4.0 cm LAIDs Index: 1.94 1.5-2.3 cm/m2 LV Mass: 183.92 67-162/88-224 g LV Mass Index: 89.28 43-95/49-115 g/m2 LVOT Diam: 1.80 3.0+(-)1.3 cm Mitral Valve MV VTI: 0.37 MV Pk Wyatt: 1.32 MV Mn Wyatt: 0.94 MV Pk Grad: 7.00 MV Mn Grad: 4.00 MV Pk E: 1.18 MV PK A: 1.24 MV Decel Time: 121.00 E/A: 1.00 E'Lateral: 13.10 E'Medial: 11.90 E/E' Med: 9.90 E/E' Lat: 9.00 PHT: 36.00 MVA PHT: 6.11 MVA Continuity: 1.88 Decel [place]: 9.70 Aortic Valve AoV Pk Wyatt: 2.55 AoV Mn Wyatt: 1.66 AoV VTI: 0.53 AoV Pk Grad: 26.00 Aov Mn Grad: 14.00 ULYSSES Cont.VTI: 1.30 LVOT LVOT Pk Wyatt: 1.35 LVOT Mn Wyatt: 0.92 LVOT VTI: 0.27 LVOT Pk Grad: 7.00 LVOT Mn Grad: 4.00 LVOT Diam: 1.80 LVOT Area: 2.54 Diastolic Function MV Pk E: 1.18 MV Pk A: 1.24 E/A: 1.00 E'Medial: 11.90 E/E' Med: 9.90 E' Laterial: 13.10 E/E' Lat: 9.00 Right Ventricle TAPSE (mm): 47.00 TVS' Wyatt: 19.00 Tricuspid Valve TR Pk Wyatt: 3.54 TR Pk Grad: 50.00 RA Press: 3.00 RVSP: 53.00 Great Vessels Aorta Ao Root-2D: 2.20 2.0-3.7 cm Ao Asc: 2.50 2.1-3.4 cm Pulmonary Valve PV Pk Wyatt: 1.58 Peak PV Grad: 10.00 Updated in Other Vendor System with Status of Final Raf Lang MD electronically signed on 12/08/2023 11:13:38 AM with status of Final
[2023-12-06] MEDS: Lactulose 20 GM/30 ML SOLUTION 30 GM PO ×3 (09:26→19:58)
[2023-12-06] MEDS: Octreotide Acetate 100 MCG/ML AMPUL SUBCUT ×2 (09:26→15:38)
[2023-12-06] MEDS: rifAXIMin 550 MG TABLET PO ×2 (09:26→19:58)
[2023-12-06] MEDS: 0.9 % Sodium Chloride Flush 3 ML SYRINGE IVFLUSH ×3 (09:27→19:59)
[2023-12-06 11:23] LABS: EOS Counted 0 CELLS; EOS QC POS YES; EOS Stain Quality OK YES; WBC, Counted 100 CELLS
--- NOTE | 2023-12-06 11:54 | HO.WOUND ---
Wound Consult: Initial 48yr old? male admitted to [facility] [place] on 12/05/23 - See progress notes and H&P for detailed history.? Wound consult placed for Bilateral Arm IV Drug Use injection sites .? Patient agreeable to assessment and photo documentation.? Magnetic Testing Technician present throughout visit - pt was falling asleep during consultation - however he was able to provide the needed information. Left Forearm Rigt Forearm Etiology: ?IV Injection sites Wound Bed: Right wound bed with circumferential undermining and adherent yellow slough to wound bed with pink mild erythema noted - no induration no fluctauance noted no s/s of infection at these sites at this time Left wound bed with 2 intact stable scabbed wound beds central area with pink moist wound bed - no induration no fluctauance noted no s/s of infection at these sites at this time Drainage / Odor: scant no odor Edges: ?iregualr and unattached Sabhia wound: ? No Induration, Fluctuance or Warmth noted Pain: Denies Goals of Treatment: ? Durafiber ag for antimicrobial properties and moisture management Recommendations: 1. Provide adequate and supplemental nutrition.? 2. When applicable maintain blood glucose levels per Providers order. 3. Bilateral Arms - Cleanse with NS, pat day. Apply skin prep to the periwound. Pack wound bed with cut Durafiber AG cover with dry gauze, and wrap. Change every other day. Re-consult wound care Nurse for wound deterioration or wound changes.
--- NOTE | 2023-12-06 13:28 | HO.PM.IMPN ---
Subjective Subjective Date of Service: 12/06/23 Interval History: This history was taken in [place] from the patient. Knows self/place but not date C/o abd distension, leg swelling History limited by encephalopathy Review of Systems Review of Systems: Yes all other systems are reviewed and are negative Physical Exam Vital Signs: Vital Signs: Last Vital Signs Temp 97.5 F 12/06/23 10:56 Pulse 88 12/06/23 10:56 Resp 20 12/06/23 10:56 BP 130/65 12/06/23 10:56 Pulse Ox 94 12/06/23 10:56 O2 Del Method Room Air 12/06/23 10:56 BMI result Body Mass Index 28.0 Gen: chronically ill-appearing HEENT: sclera icteric, moist mucus membranes Neck: supple Lungs: clear to auscultation bilaterally Heart: regular rate and rhythm, no murmurs Abd: tense, ascites present Ext: 2+ bilateral leg edema Skin: warm/well-perfused Neuro: alert and oriented to self/place, asterixis present Psych: restricted affect Objective Data Active Medications Acetaminophen (Acetaminophen 325 Mg Tablet) 650 mg PO Q6H PRN PRN Reason: Pain, Mild (Pain Scale 1-3), fever or headache Calcium Carbonate (Calcium Carbonate 750 Mg Tab.Chew) 750 mg PO Q4H PRN PRN Reason: Heartburn Ceftriaxone Sodium (Ceftriaxone Sodium 2 Gm Vial) 2 gm IVPUSH Q24H SHILOH Last Admin: 12/06/23 05:17 Dose: 2 gm Documented By: ROHIT Hydromorphone HCl (Hydromorphone Hcl 0.5 Mg/0.5 Ml Syringe) 0.5 mg IVPUSH Q4H PRN; Protocol PRN Reason: Pain, Severe (Pain Scale 7-10) Last Admin: 12/06/23 09:27 Dose: 0.5 mg Documented By: ELISEO Dextrose (D10) 250 mls @ 750 mls/hr IV Q15M PRN PRN Reason: per Hypoglycemia Standing Ord. Last Infusion: 12/05/23 03:14 Dose: Infused Documented By: JACQUELINE Vancomycin HCl 500 mg/ Sodium (Chloride) 110 mls @ 110 mls/hr IV Q24H SHILOH Albumin Human (Kedbumin 25 %) 100 mls @ 100 mls/hr IV Q1H SHILOH Stop: 12/07/23 11:59 Lactulose (Lactulose 20 Gm/30 Ml Solution) 30 gm PO TID [facility] Last Admin: 12/06/23 09:26 Dose: 30 gm Documented By: ELISEO Magnesium Hydroxide (Milk Of Magnesia 30 Ml Oral.Susp) 30 ml PO DAILY PRN PRN Reason: Constipation Melatonin (Melatonin 3 Mg Tablet) 6 mg PO BEDTIME PRN PRN Reason: Insomnia Octreotide Acetate (Octreotide Acetate 100 Mcg/Ml Ampul) 100 mcg SUBCUT Q8H [facility] Last Admin: 12/06/23 09:26 Dose: 100 mcg Documented By: ELISEO Ondansetron HCl (Ondansetron Hcl 4 Mg/2 Ml Vial) 4 mg IVPUSH Q8H PRN PRN Reason: Nausea and Vomiting Pharmacy Consult (Consult Rx Vancomycin Dosing) 1 each MISCELLANE DAILY PRN PRN Reason: Consult order Rifaximin (Rifaximin 550 Mg Tablet) 550 mg PO BID [facility] Last Admin: 12/06/23 09:26 Dose: 550 mg Documented By: ELISEO Sodium Chloride (0.9 % Sodium Chloride Flush 3 Ml Syringe) 3 ml IVFLUSH QSHIFT [facility] Last Admin: 12/06/23 09:27 Dose: 3 ml Documented By: ELISEO Labs 12/06/23 06:13 12/06/23 06:13 Labs: Laboratory Results - last 24 hr 12/05/23 12/06/23 11:15 06:13 MCV 100.0 H MCH 34.6 H MCHC 34.6 RDW 13.7 Plt Count 65 L D MPV 11.2 Immature Gran % (Auto) 1.6 H Neut % (Auto) 86.5 H Lymph % (Auto) 5.1 L [place] % (Auto) 6.4 Eos % (Auto) 0.1 Baso % (Auto) 0.3 Lymph # (Auto) 0.6 L [place] # (Auto) 0.7 Eos # (Auto) 0.0 Baso # (Auto) 0.0 Abs Immat Gran (auto) 0.18 H Absolute Neuts (auto) 9.9 H Absolute Nucleated RBC 0.050 H Nucleated RBC % (auto) 0.4 H Anion Gap 19 Estim Creat Clear Calc 21.4 Estimated GFR 13 Random Glucose 82 Calcium 8.9 D Total Bilirubin 12.7 H Direct Bilirubin 8.6 H AST 106 H ALT 34 Alkaline Phosphatase 101 Ammonia 91 H Total Creatine Kinase 50 Total Protein 7.1 Albumin 3.0 L Urine Eosinophils % 0.0 U Random Total Protein 41 H Ur Random Sodium 32.0 Urine Creatinine 98.32 Microbiology Microbiology Results: Microbiology 12/05/23 04:18 Blood Culture - Preliminary Blood - Venous Staphylococcus aureus 12/05/23 04:18 Blood Culture - Preliminary Blood - Venous Staphylococcus aureus 12/05/23 Unknown Urine Culture - Preliminary Urine clean catch - Clean Catch Midstream Staphylococcus aureus 12/05/23 09:17 Gram Stain - Final Ascites Fluid Routine Culture - Preliminary No growth to date. Anaerobic Culture - Preliminary No growth to date. Assessment and Plan (1) Decompensated cirrhosis: Status: Acute Plan d2 for 48yo M with decompensated HCV cirrhosis, polysubstance abuse disorder on methadone, mood disorder presenting with abd pain/swelling, weakness, and leg swelling found to have SBP + Staph aureus bacteremia ascites/SBP - diagnostic paracentesis 12/04 with 60cc ascites aspirated; 912 PMNs; on ceftriaxone 12/04-; got albumin 12/04 and will give another round 12/06 Staph aureus bacteremia - vancomycin 12/04-, TTE, ID consult, repeat BCx 12/06 MAI - suspect hepatorenal; hold furosemide + spironolactone; albumin as above and will add midodrine and octreotide; Nephrology following; SCr improved hepatic encephalopathy - lactulose + rifaxmin decompensated cirrhosis - GI consulted, does not qualify for transplant due to ongoing substance abuse - abd US with Doppler to r/o PVT acute lactic acidosis - due to liver disease hyperK - due to MAI; K normalized thrombocytopenia - due to cirrhosis; monitor CBC daily anemia - due to cirrhosis; monitor CBC daily; check FOBT; check T+S coagulopathy - given vitamin K; monitor INR daily VTE ppx - SCDs; no heparin given coagulopathy + thrombocytopenia dispo - will need STR for IV ABX, duration TBD In my clinical judgment, the patient requires continued inpatient hospitalization for the following reasons: IV ABX, albumin Total time managing care of this patient today: 50 minutes. Quality Stroke Does the patient have a stroke diagnosis?: No VTE Prior VTE?: No VTE Risk Level:: Medical - moderate - high VTE Device Contraindication: N/A - Device Ordered VTE Drug Contraindication: Treatment Not Indicated
--- NOTE | 2023-12-06 13:56 | HE.PHANOTE ---
Addendum entered by Ely Matute sharad 12/06/23 13:58: WITH TAKE HOMES UNTIL 12/01/23 Original Note: RE METHADONE Patient recieved methadone verification form. [facility] [phone], confirmed with Jenn MCCLAIN that patient gets dosed with 50 mg and was last dosed 11/24/23.
--- NOTE | 2023-12-06 14:01 | PM.PNNEP ---
Subjective Subjective Date of Service: 12/06/23 Interval history: 48 y/o male with a medical history of hep C virus, liver cirrhosis, polysubstance abuse on methadone, mood disorder. Came to ED evening of 12/03 with abdominal pain, weakness, altered mental status. Nephrology consulted for MAI. patients creatinine level has been trending down, 6.59 12/04, today 12/05 is 4.71 electrolytes have normalized large amount of blood on urine dipstick, though only 6-10 urine RBCs on microscopy CK only [address] scan of his abdomen- no obstructoin, kidneys/ureters unremarkable. + cirrhosis, pHTN, anasarca and ?colitis. had diagnostic paracentesis, has SBP, receiving ceftriaxone and albumin for management Urine sodium is 32 blood cultures +staph aureau bacteremia today at bedside pt is lethargic, opens eyes to voice but not following commands, does respond verbally with one-word answers only intermittently pitting edema in lower extremities +[address] and had fair amount of dark yellow urine in bag. Had ~1550mL UOP over last 24 hours Physical Exam Vital Signs: Vital Signs: Last Vital Signs Temp 97.5 F 12/06/23 10:56 Pulse 88 12/06/23 10:56 Resp 20 12/06/23 10:56 BP 130/65 12/06/23 10:56 Pulse Ox 94 12/06/23 10:56 O2 Del Method Room Air 12/06/23 10:56 BMI result Body Mass Index 28.0 Const: General: lethargic Nutritional Appearance: Edematous Orientation/consciousness: lethargic Limitations: altered mental status Neck: Neck: Yes no JVD Resp: Effort & Inspection: normal respiratory effort Auscultation: rhonchi Cardio: Jugular venous distension: no JVD Rate: regular rate Rhythm: regular rhythm Heart sounds: S1 normal heart sound present and S2 normal heart sound present GI: Inspection: Yes distended Palpation (GI): Tenderness to palpation present (GI) and Ascites present Skin: General skin exam: jaundice Extrem: General: Yes edema (bilateral lower extremities, pitting +2 ) Objective Data Labs 12/06/23 06:13 12/06/23 06:13 Labs: Laboratory Results - last 24 hr 12/05/23 12/06/23 11:15 06:13 WBC 11.4 H RBC 2.17 L Hgb 7.5 L Hct 21.7 L MCV 100.0 H MCH 34.6 H MCHC 34.6 RDW 13.7 Plt Count 65 L D MPV 11.2 Immature Gran % (Auto) 1.6 H Neut % (Auto) 86.5 H Lymph % (Auto) 5.1 L [place] % (Auto) 6.4 Eos % (Auto) 0.1 Baso % (Auto) 0.3 Lymph # (Auto) 0.6 L [place] # (Auto) 0.7 Eos # (Auto) 0.0 Baso # (Auto) 0.0 Abs Immat Gran (auto) 0.18 H Absolute Neuts (auto) 9.9 H Absolute Nucleated RBC 0.050 H Nucleated RBC % (auto) 0.4 H Sodium 137 Potassium 4.8 Chloride 106 Carbon Dioxide 17 L Anion Gap 19 BUN 76 H Creatinine 4.71 H* Estim Creat Clear Calc 21.4 Estimated GFR 13 Random Glucose 82 Calcium 8.9 D Total Bilirubin 12.7 H Direct Bilirubin 8.6 H AST 106 H ALT 34 Alkaline Phosphatase 101 Ammonia 91 H Total Creatine Kinase 50 Total Protein 7.1 Albumin 3.0 L Urine Eosinophils % 0.0 U Random Total Protein 41 H Ur Random Sodium 32.0 Urine Creatinine 98.32 Microbiology Microbiology Results: Microbiology 12/05/23 04:18 Blood - Venous Blood Culture - Preliminary Staphylococcus aureus 12/05/23 04:18 Blood - Venous Blood Culture - Preliminary Staphylococcus aureus 12/05/23 Unknown Urine clean catch - Clean Catch Midstream Urine Culture - Preliminary Staphylococcus aureus 12/05/23 09:17 Ascites Fluid Gram Stain - Final 12/05/23 09:17 Ascites Fluid Routine Culture - Preliminary No growth to date. 12/05/23 09:17 Ascites Fluid Anaerobic Culture - Preliminary No growth to date. Procedures Date of Service Date of Service: 12/06/23 Assessment & Plan Assessment and plan (1) Acute renal failure: Status: Acute (2) Chronic hepatitis C: Status: Acute (3) Decompensated hepatic cirrhosis: Status: Acute Plan Acute renal failure most likely secondary to rubular injury from hypoperfusion, may also have component of cocaine-induced ATN differential also includes hepC-related GN, thrombotic microangiopathy, should also consider abdominal compartment syndrome no obstruction seen on CT scan unlikely AIN given urine with minimal WBCs, no rash/fever less likely hepatorenal syndrome given urine sodium level urine creatinine, and eosinophils pendign UPEP, SPEP, C3, C4, CPK and cryoglobin pending recommend close monitoring of intake and output and blood pressure recommend daily electrolyte and renal function labs Will continue to follow Discussed with Dr Contreras Time Spent With Patient Time: Total time managing care of this patient today ____ minutes. Progress Note: Quality Stroke Does the patient have a stroke diagnosis?: No
[2023-12-06 15:03] LABS: OBS Int Ctl Valid YES; OBS1 POSITIVE (NEGATIVE)
--- NOTE | 2023-12-06 16:35 | HO.ADDICTCON ---
History of Present Illness Date of Service: 12/06/2023 Chief Complaint: weakness Reason for Consult: substance use Sources of Information: chart reviewed HPI Narrative: Patient is a 48 year old male medically admitted with acute hepatic encephalopathy and bacteremia. Information obtained from chart review and patient was unable to keep eyes open long enough to participate in interview. He appears comfortable, no restlessness, piloerection, rhinorrhea, yawning, or diaphoreisis noted. Seen by t/w during most recent admission, at that time patient was awake, alert and appropriate. UDS +fentanyl, cocaine and methadone which he is prescribed RN verified methadone with OTP Since admission to [facility] [place] he has not received any methadone, but has been receiving Dilaudid PRN for pain Review of Systems Review of Systems Yes Unobtainable due to mental status Diagnostics Vital Signs (24Hr): Vital Signs - 24 hr 12/05/23 20:25 12/05/23 23:16 12/06/23 01:18 Temperature 98.0 F 97.5 F Pulse Rate 90 90 Respiratory Rate 20 20 20 Blood Pressure 123/73 125/75 Pulse Oximetry 95 95 Oxygen Delivery Method Room Air 12/06/23 01:47 12/06/23 04:00 12/06/23 05:18 Temperature 97.6 F Pulse Rate 90 Respiratory Rate 15 16 22 H Blood Pressure 131/77 Pulse Oximetry 95 Oxygen Delivery Method Room Air 12/06/23 07:08 12/06/23 10:56 12/06/23 15:58 Temperature 97.9 F 97.5 F 97.8 F Pulse Rate 90 88 96 Respiratory Rate 20 20 16 Blood Pressure 140/76 H 130/65 130/69 Pulse Oximetry 95 94 95 Oxygen Delivery Method Room Air Room Air Room Air BMI result Body Mass Index 28.0 Labs 12/06/23 06:13 12/06/23 06:13 Labs: Laboratory Results - last 48 hr 12/05/23 12/05/23 12/05/23 01:14 02:08 02:52 WBC 15.6 H RBC 2.50 L Hgb 8.9 L Hct 24.8 L MCV 99.2 H MCH 35.6 H MCHC 35.9 RDW 13.6 Plt Count 115 L D MPV 11.8 Immature Gran % (Auto) 1.7 H Neut % (Auto) 84.3 H Lymph % (Auto) 6.4 L [place] % (Auto) 7.2 Eos % (Auto) 0.1 Baso % (Auto) 0.3 Lymph # (Auto) 1.0 L [place] # (Auto) 1.1 Eos # (Auto) 0.0 Baso # (Auto) 0.0 Abs Immat Gran (auto) 0.26 H Absolute Neuts (auto) 13.2 H Absolute Nucleated RBC 0.000 Nucleated RBC % (auto) 0.0 PT 31.6 H INR 2.7 H VBG pH VBG pCO2 VBG pO2 VBG HCO3 VBG O2 Saturation VBG Base Excess Sodium 129 L Potassium 6.0 H* D Chloride 102 Carbon Dioxide 15 L Anion Gap 18 BUN 78 H Creatinine 6.59 H* Estim Creat Clear Calc 14.1 Estimated GFR 9 POC Glucose 53 L* Random Glucose 67 Lactic Acid Lactic Acid F/U @ 2Hr Lactic Acid F/U @ 4Hr Calcium 7.8 L D Total Bilirubin 12.1 H Direct Bilirubin 9.3 H AST 156 H ALT 52 H Alkaline Phosphatase 134 H Ammonia 119 H Total Creatine Kinase B-Natriuretic Peptide 103 H Total Protein 7.4 Albumin 1.7 L Lipase 1481 H Urine Color Urine Appearance Urine pH Ur Specific [place] Urine Protein Urine Glucose (UA) Urine Ketones Urine Blood Urine Nitrite Ur Leukocyte Esterase Urine RBC Urine WBC Ur Squamous Epith Cells Urine Bacteria Hyaline Casts Granular Casts Urine Eosinophils % U Random Total Protein Ur Random Sodium Urine Creatinine Peritoneal WBC Peritoneal RBC Periton Neutrophils [place] Lymphocytes Peritoneal Monocytes Peritoneal Other Cells Stool Occult Blood NEGATIVE Urine Opiates Screen Ur Buprenorphine Scrn Ur Oxycodone Screen Urine Methadone Screen Urine Fentanyl Screen Ur Barbiturates Screen Ur Phencyclidine Scrn Ur Amphetamines Screen U Benzodiazepines Scrn Urine Cocaine Screen U Marijuana (THC) Screen Ethyl Alcohol < 10 12/05/23 12/05/23 12/05/23 03:09 03:29 03:45 WBC RBC Hgb Hct MCV MCH MCHC RDW Plt Count MPV Immature Gran % (Auto) Neut % (Auto) Lymph % (Auto) [place] % (Auto) Eos % (Auto) Baso % (Auto) Lymph # (Auto) [place] # (Auto) Eos # (Auto) Baso # (Auto) Abs Immat Gran (auto) Absolute Neuts (auto) Absolute Nucleated RBC Nucleated RBC % (auto) PT INR VBG pH 7.44 H VBG pCO2 27 VBG pO2 94 VBG HCO3 19 L VBG O2 Saturation 98.0 VBG Base Excess -4.0 Sodium Potassium Chloride Carbon Dioxide Anion Gap BUN Creatinine Estim Creat Clear Calc Estimated GFR POC Glucose 104 Random Glucose Lactic Acid Lactic Acid F/U @ 2Hr Lactic Acid F/U @ 4Hr Calcium Total Bilirubin Direct Bilirubin AST ALT Alkaline Phosphatase Ammonia Total Creatine Kinase B-Natriuretic Peptide Total Protein Albumin Lipase Urine Color Dark Yellow Urine Appearance Cloudy Urine pH 5.0 Ur Specific [place] 1.015 Urine Protein 30 (1+) H Urine Glucose (UA) Negative Urine Ketones Trace Urine Blood Large (3+) H Urine Nitrite Negative Ur Leukocyte Esterase Small (1+) H Urine RBC 3-5 H Urine WBC 6-10 Ur Squamous Epith Cells 6-10 Urine Bacteria Trace Hyaline Casts 6-10 Granular Casts Present Urine Eosinophils % U Random Total Protein Ur Random Sodium Urine Creatinine Peritoneal WBC Peritoneal RBC [place] Neutrophils [place] Lymphocytes Peritoneal Monocytes Peritoneal Other Cells Stool Occult Blood Urine Opiates Screen POSITIVE H Ur Buprenorphine Scrn Not Detected Ur Oxycodone Screen Not Detected Urine Methadone Screen Positive H Urine Fentanyl Screen POSITIVE H Ur Barbiturates Screen Not Detected Ur Phencyclidine Scrn Not Detected Ur Amphetamines Screen Not Detected U Benzodiazepines Scrn Not Detected Urine Cocaine Screen POSITIVE H U Marijuana (THC) Screen Not Detected Ethyl Alcohol 12/05/23 12/05/23 12/05/23 03:56 04:18 04:32 WBC RBC Hgb Hct MCV MCH MCHC RDW Plt Count MPV Immature Gran % (Auto) Neut % (Auto) Lymph % (Auto) [place] % (Auto) Eos % (Auto) Baso % (Auto) Lymph # (Auto) [place] # (Auto) Eos # (Auto) Baso # (Auto) Abs Immat Gran (auto) Absolute Neuts (auto) Absolute Nucleated RBC Nucleated RBC % (auto) PT INR VBG pH VBG pCO2 VBG pO2 VBG HCO3 VBG O2 Saturation VBG Base Excess Sodium 131 L Potassium 5.1 Chloride 103 Carbon Dioxide 16 L Anion Gap 17 BUN 76 H Creatinine 6.28 H* Estim Creat Clear Calc 14.8 Estimated GFR 10 POC Glucose 110 Random Glucose 113 Lactic Acid 3.0 H* Lactic Acid F/U @ 2Hr Lactic Acid F/U @ 4Hr Calcium 7.5 L Total Bilirubin Direct Bilirubin AST ALT Alkaline Phosphatase Ammonia Total Creatine Kinase B-Natriuretic Peptide Total Protein 6.7 Albumin Lipase Urine Color Urine Appearance Urine pH Ur Specific [place] Urine Protein Urine Glucose (UA) Urine Ketones Urine Blood Urine Nitrite Ur Leukocyte Esterase Urine RBC Urine WBC Ur Squamous Epith Cells Urine Bacteria Hyaline Casts Granular Casts Urine Eosinophils % U Random Total Protein Ur Random Sodium Urine Creatinine Peritoneal WBC Peritoneal RBC Periton Neutrophils [place] Lymphocytes Peritoneal Monocytes Peritoneal Other Cells Stool Occult Blood Urine Opiates Screen Ur Buprenorphine Scrn Ur Oxycodone Screen Urine Methadone Screen Urine Fentanyl Screen Ur Barbiturates Screen Ur Phencyclidine Scrn Ur Amphetamines Screen U Benzodiazepines Scrn Urine Cocaine Screen U Marijuana (THC) Screen Ethyl Alcohol 12/05/23 12/05/23 12/05/23 05:55 06:44 06:49 WBC RBC Hgb Hct MCV MCH MCHC RDW Plt Count MPV Immature Gran % (Auto) Neut % (Auto) Lymph % (Auto) [place] % (Auto) Eos % (Auto) Baso % (Auto) Lymph # (Auto) [place] # (Auto) Eos # (Auto) Baso # (Auto) Abs Immat Gran (auto) Absolute Neuts (auto) Absolute Nucleated RBC Nucleated RBC % (auto) PT INR VBG pH VBG pCO2 VBG pO2 VBG HCO3 VBG O2 Saturation VBG Base Excess Sodium Potassium Chloride Carbon Dioxide Anion Gap BUN Creatinine Estim Creat Clear Calc Estimated GFR POC Glucose 156 H 130 H Random Glucose Lactic Acid Lactic Acid F/U @ 2Hr 2.7 H* Lactic Acid F/U @ 4Hr Calcium Total Bilirubin Direct Bilirubin AST ALT Alkaline Phosphatase Ammonia Total Creatine Kinase B-Natriuretic Peptide Total Protein Albumin Lipase Urine Color Urine Appearance Urine pH Ur Specific [place] Urine Protein Urine Glucose (UA) Urine Ketones Urine Blood Urine Nitrite Ur Leukocyte Esterase Urine RBC Urine WBC Ur Squamous Epith Cells Urine Bacteria Hyaline Casts Granular Casts Urine Eosinophils % U Random Total Protein Ur Random Sodium Urine Creatinine Peritoneal WBC Peritoneal RBC Periton Neutrophils Per[place] Lymphocytes Peritoneal Monocytes Peritoneal Other Cells Stool Occult Blood Urine Opiates Screen Ur Buprenorphine Scrn Ur Oxycodone Screen Urine Methadone Screen Urine Fentanyl Screen Ur Barbiturates Screen Ur Phencyclidine Scrn Ur Amphetamines Screen U Benzodiazepines Scrn Urine Cocaine Screen U Marijuana (THC) Screen Ethyl Alcohol 12/05/23 12/05/23 12/05/23 07:44 09:17 10:25 WBC RBC Hgb Hct MCV MCH MCHC RDW Plt Count MPV Immature Gran % (Auto) Neut % (Auto) Lymph % (Auto) [place] % (Auto) Eos % (Auto) Baso % (Auto) Lymph # (Auto) [place] # (Auto) Eos # (Auto) Baso # (Auto) Abs Immat Gran (auto) Absolute Neuts (auto) Absolute Nucleated RBC Nucleated RBC % (auto) PT INR VBG pH VBG pCO2 VBG pO2 VBG HCO3 VBG O2 Saturation VBG Base Excess Sodium Potassium Chloride Carbon Dioxide Anion Gap BUN Creatinine Estim Creat Clear Calc Estimated GFR POC Glucose 123 H Random Glucose Lactic Acid Lactic Acid F/U @ 2Hr Lactic Acid F/U @ 4Hr 1.9 Calcium Total Bilirubin Direct Bilirubin AST ALT Alkaline Phosphatase Ammonia Total Creatine Kinase B-Natriuretic Peptide Total Protein Albumin Lipase Urine Color Urine Appearance Urine pH Ur Specific [place] Urine Protein Urine Glucose (UA) Urine Ketones Urine Blood Urine Nitrite Ur Leukocyte Esterase Urine RBC Urine WBC Ur Squamous Epith Cells Urine Bacteria Hyaline Casts Granular Casts Urine Eosinophils % U Random Total Protein Ur Random Sodium Urine Creatinine Peritoneal WBC 1.086 Peritoneal RBC < 0.002 [place] Neutrophils 84 [place]iton Lymphocytes 4 Peritoneal Monocytes 7 Peritoneal Other Cells 5 Stool Occult Blood Urine Opiates Screen Ur Buprenorphine Scrn Ur Oxycodone Screen Urine Methadone Screen Urine Fentanyl Screen Ur Barbiturates Screen Ur Phencyclidine Scrn Ur Amphetamines Screen U Benzodiazepines Scrn Urine Cocaine Screen U Marijuana (THC) Screen Ethyl Alcohol 12/05/23 12/06/23 12/06/23 11:15 06:13 06:13 WBC 11.4 H RBC 2.17 L Hgb 7.5 L Hct 21.7 L MCV 100.0 H MCH 34.6 H MCHC 34.6 RDW 13.7 Plt Count 65 L D MPV 11.2 Immature Gran % (Auto) 1.6 H Neut % (Auto) 86.5 H Lymph % (Auto) 5.1 L [place] % (Auto) 6.4 Eos % (Auto) 0.1 Baso % (Auto) 0.3 Lymph # (Auto) 0.6 L [place] # (Auto) 0.7 Eos # (Auto) 0.0 Baso # (Auto) 0.0 Abs Immat Gran (auto) 0.18 H Absolute Neuts (auto) 9.9 H Absolute Nucleated RBC 0.050 H Nucleated RBC % (auto) 0.4 H PT INR VBG pH VBG pCO2 VBG pO2 VBG HCO3 VBG O2 Saturation VBG Base Excess Sodium 137 Cancelled Potassium 4.8 Chloride Carbon Dioxide Anion Gap BUN Creatinine Estim Creat Clear Calc Estimated GFR POC Glucose Random Glucose Lactic Acid Lactic Acid F/U @ 2Hr Lactic Acid F/U @ 4Hr Calcium Total Bilirubin Direct Bilirubin AST ALT Alkaline Phosphatase Ammonia Total Creatine Kinase B-Natriuretic Peptide Total Protein Albumin Lipase Urine Color Urine Appearance Urine pH Ur Specific [place] Urine Protein Urine Glucose (UA) Urine Ketones Urine Blood Urine Nitrite Ur Leukocyte Esterase Urine RBC Urine WBC Ur Squamous Epith Cells Urine Bacteria Hyaline Casts Granular Casts Urine Eosinophils % 0.0 U Random Total Protein 41 H Ur Random Sodium 32.0 Urine Creatinine 98.32 Peritoneal WBC Peritoneal RBC Periton Neutrophils Per[place] Lymphocytes Peritoneal Monocytes Peritoneal Other Cells Stool Occult Blood Urine Opiates Screen Ur Buprenorphine Scrn Ur Oxycodone Screen Urine Methadone Screen Urine Fentanyl Screen Ur Barbiturates Screen Ur Phencyclidine Scrn Ur Amphetamines Screen U Benzodiazepines Scrn Urine Cocaine Screen U Marijuana (THC) Screen Ethyl Alcohol 12/06/23 12/06/23 12/06/23 06:13 06:13 06:13 WBC RBC Hgb Hct MCV MCH MCHC RDW Plt Count MPV Immature Gran % (Auto) Neut % (Auto) Lymph % (Auto) [place] % (Auto) Eos % (Auto) Baso % (Auto) Lymph # (Auto) [place] # (Auto) Eos # (Auto) Baso # (Auto) Abs Immat Gran (auto) Absolute Neuts (auto) Absolute Nucleated RBC Nucleated RBC % (auto) PT INR VBG pH VBG pCO2 VBG pO2 VBG HCO3 VBG O2 Saturation VBG Base Excess Sodium Potassium Cancelled Chloride 106 Cancelled Carbon Dioxide 17 L Cancelled Anion Gap 19 BUN Creatinine Estim Creat Clear Calc Estimated GFR POC Glucose Random Glucose Lactic Acid Lactic Acid F/U @ 2Hr Lactic Acid F/U @ 4Hr Calcium Total Bilirubin Direct Bilirubin AST ALT Alkaline Phosphatase Ammonia Total Creatine Kinase B-Natriuretic Peptide Total Protein Albumin Lipase Urine Color Urine Appearance Urine pH Ur Specific [place] Urine Protein Urine Glucose (UA) Urine Ketones Urine Blood Urine Nitrite Ur Leukocyte Esterase Urine RBC Urine WBC Ur Squamous Epith Cells Urine Bacteria Hyaline Casts Granular Casts Urine Eosinophils % U Random Total Protein Ur Random Sodium Urine Creatinine Peritoneal WBC Peritoneal RBC Periton Neutrophils Per[place] Lymphocytes Peritoneal Monocytes Peritoneal Other Cells Stool Occult Blood Urine Opiates Screen Ur Buprenorphine Scrn Ur Oxycodone Screen Urine Methadone Screen Urine Fentanyl Screen Ur Barbiturates Screen Ur Phencyclidine Scrn Ur Amphetamines Screen U Benzodiazepines Scrn Urine Cocaine Screen U Marijuana (THC) Screen Ethyl Alcohol 12/06/23 12/06/23 12/06/23 06:13 06:13 06:13 WBC RBC Hgb Hct MCV MCH MCHC RDW Plt Count MPV Immature Gran % (Auto) Neut % (Auto) Lymph % (Auto) [place] % (Auto) Eos % (Auto) Baso % (Auto) Lymph # (Auto) [place] # (Auto) Eos # (Auto) Baso # (Auto) Abs Immat Gran (auto) Absolute Neuts (auto) Absolute Nucleated RBC Nucleated RBC % (auto) PT INR VBG pH VBG pCO2 VBG pO2 VBG HCO3 VBG O2 Saturation VBG Base Excess Sodium Potassium Chloride Carbon Dioxide Anion Gap Cancelled BUN 76 H Cancelled Creatinine 4.71 H* Cancelled Estim Creat Clear Calc 21.4 Estimated GFR POC Glucose Random Glucose Lactic Acid Lactic Acid F/U @ 2Hr Lactic Acid F/U @ 4Hr Calcium Total Bilirubin Direct Bilirubin AST ALT Alkaline Phosphatase Ammonia Total Creatine Kinase B-Natriuretic Peptide Total Protein Albumin Lipase Urine Color Urine Appearance Urine pH Ur Specific [place] Urine Protein Urine Glucose (UA) Urine Ketones Urine Blood Urine Nitrite Ur Leukocyte Esterase Urine RBC Urine WBC Ur Squamous Epith Cells Urine Bacteria Hyaline Casts Granular Casts Urine Eosinophils % U Random Total Protein Ur Random Sodium Urine Creatinine Peritoneal WBC Peritoneal RBC Periton Neutrophils Per[place] Lymphocytes Peritoneal Monocytes Peritoneal Other Cells Stool Occult Blood Urine Opiates Screen Ur Buprenorphine Scrn Ur Oxycodone Screen Urine Methadone Screen Urine Fentanyl Screen Ur Barbiturates Screen Ur Phencyclidine Scrn Ur Amphetamines Screen U Benzodiazepines Scrn Urine Cocaine Screen U Marijuana (THC) Screen Ethyl Alcohol 12/06/23 12/06/23 12/06/23 06:13 06:13 06:13 WBC RBC Hgb Hct MCV MCH MCHC RDW Plt Count MPV Immature Gran % (Auto) Neut % (Auto) Lymph % (Auto) [place] % (Auto) Eos % (Auto) Baso % (Auto) Lymph # (Auto) [place] # (Auto) Eos # (Auto) Baso # (Auto) Abs Immat Gran (auto) Absolute Neuts (auto) Absolute Nucleated RBC Nucleated RBC % (auto) PT INR VBG pH VBG pCO2 VBG pO2 VBG HCO3 VBG O2 Saturation VBG Base Excess Sodium Potassium Chloride Carbon Dioxide Anion Gap BUN Creatinine Estim Creat Clear Calc Cancelled Estimated GFR 13 Cancelled POC Glucose Random Glucose 82 Cancelled Lactic Acid Lactic Acid F/U @ 2Hr Lactic Acid F/U @ 4Hr Calcium 8.9 D Total Bilirubin Direct Bilirubin AST ALT Alkaline Phosphatase Ammonia Total Creatine Kinase B-Natriuretic Peptide Total Protein Albumin Lipase Urine Color Urine Appearance Urine pH Ur Specific [place] Urine Protein Urine Glucose (UA) Urine Ketones Urine Blood Urine Nitrite Ur Leukocyte Esterase Urine RBC Urine WBC Ur Squamous Epith Cells Urine Bacteria Hyaline Casts Granular Casts Urine Eosinophils % U Random Total Protein Ur Random Sodium Urine Creatinine Peritoneal WBC Peritoneal RBC Periton Neutrophils Per[place] Lymphocytes Peritoneal Monocytes Peritoneal Other Cells Stool Occult Blood Urine Opiates Screen Ur Buprenorphine Scrn Ur Oxycodone Screen Urine Methadone Screen Urine Fentanyl Screen Ur Barbiturates Screen Ur Phencyclidine Scrn Ur Amphetamines Screen U Benzodiazepines Scrn Urine Cocaine Screen U Marijuana (THC) Screen Ethyl Alcohol 12/06/23 12/06/23 12/06/23 06:13 06:13 06:13 WBC RBC Hgb Hct MCV MCH MCHC RDW Plt Count MPV Immature Gran % (Auto) Neut % (Auto) Lymph % (Auto) [place] % (Auto) Eos % (Auto) Baso % (Auto) Lymph # (Auto) [place] # (Auto) Eos # (Auto) Baso # (Auto) Abs Immat Gran (auto) Absolute Neuts (auto) Absolute Nucleated RBC Nucleated RBC % (auto) PT INR VBG pH VBG pCO2 VBG pO2 VBG HCO3 VBG O2 Saturation VBG Base Excess Sodium Potassium Chloride Carbon Dioxide Anion Gap BUN Creatinine Estim Creat Clear Calc Estimated GFR POC Glucose Random Glucose Lactic Acid Lactic Acid F/U @ 2Hr Lactic Acid F/U @ 4Hr Calcium Cancelled Total Bilirubin 12.7 H Cancelled Direct Bilirubin 8.6 H AST 106 H Cancelled ALT 34 Alkaline Phosphatase Ammonia Total Creatine Kinase B-Natriuretic Peptide Total Protein Albumin Lipase Urine Color Urine Appearance Urine pH Ur Specific [place] Urine Protein Urine Glucose (UA) Urine Ketones Urine Blood Urine Nitrite Ur Leukocyte Esterase Urine RBC Urine WBC Ur Squamous Epith Cells Urine Bacteria Hyaline Casts Granular Casts Urine Eosinophils % U Random Total Protein Ur Random Sodium Urine Creatinine Peritoneal WBC Peritoneal RBC Periton Neutrophils Per[place] Lymphocytes Peritoneal Monocytes Peritoneal Other Cells Stool Occult Blood Urine Opiates Screen Ur Buprenorphine Scrn Ur Oxycodone Screen Urine Methadone Screen Urine Fentanyl Screen Ur Barbiturates Screen Ur Phencyclidine Scrn Ur Amphetamines Screen U Benzodiazepines Scrn Urine Cocaine Screen U Marijuana (THC) Screen Ethyl Alcohol 12/06/23 12/06/23 12/06/23 06:13 06:13 06:13 WBC RBC Hgb Hct MCV MCH MCHC RDW Plt Count MPV Immature Gran % (Auto) Neut % (Auto) Lymph % (Auto) [place] % (Auto) Eos % (Auto) Baso % (Auto) Lymph # (Auto) [place] # (Auto) Eos # (Auto) Baso # (Auto) Abs Immat Gran (auto) Absolute Neuts (auto) Absolute Nucleated RBC Nucleated RBC % (auto) PT INR VBG pH VBG pCO2 VBG pO2 VBG HCO3 VBG O2 Saturation VBG Base Excess Sodium Potassium Chloride Carbon Dioxide Anion Gap BUN Creatinine Estim Creat Clear Calc Estimated GFR POC Glucose Random Glucose Lactic Acid Lactic Acid F/U @ 2Hr Lactic Acid F/U @ 4Hr Calcium Total Bilirubin Direct Bilirubin AST ALT Cancelled Alkaline Phosphatase 101 Cancelled Ammonia 91 H Total Creatine Kinase 50 B-Natriuretic Peptide Total Protein 7.1 Cancelled Albumin 3.0 L Lipase Urine Color Urine Appearance Urine pH Ur Specific [place] Urine Protein Urine Glucose (UA) Urine Ketones Urine Blood Urine Nitrite Ur Leukocyte Esterase Urine RBC Urine WBC Ur Squamous Epith Cells Urine Bacteria Hyaline Casts Granular Casts Urine Eosinophils % U Random Total Protein Ur Random Sodium Urine Creatinine Peritoneal WBC Peritoneal RBC Periton Neutrophils Per[place] Lymphocytes Peritoneal Monocytes Peritoneal Other Cells Stool Occult Blood Urine Opiates Screen Ur Buprenorphine Scrn Ur Oxycodone Screen Urine Methadone Screen Urine Fentanyl Screen Ur Barbiturates Screen Ur Phencyclidine Scrn Ur Amphetamines Screen U Benzodiazepines Scrn Urine Cocaine Screen U Marijuana (THC) Screen Ethyl Alcohol 12/06/23 12/06/23 06:13 14:45 WBC RBC Hgb Hct MCV MCH MCHC RDW Plt Count MPV Immature Gran % (Auto) Neut % (Auto) Lymph % (Auto) [place] % (Auto) Eos % (Auto) Baso % (Auto) Lymph # (Auto) [place] # (Auto) Eos # (Auto) Baso # (Auto) Abs Immat Gran (auto) Absolute Neuts (auto) Absolute Nucleated RBC Nucleated RBC % (auto) PT INR VBG pH VBG pCO2 VBG pO2 VBG HCO3 VBG O2 Saturation VBG Base Excess Sodium Potassium Chloride Carbon Dioxide Anion Gap BUN Creatinine Estim Creat Clear Calc Estimated GFR POC Glucose Random Glucose Lactic Acid Lactic Acid F/U @ 2Hr Lactic Acid F/U @ 4Hr Calcium Total Bilirubin Direct Bilirubin AST ALT Alkaline Phosphatase Ammonia Total Creatine Kinase B-Natriuretic Peptide Total Protein Albumin Cancelled Lipase Urine Color Urine Appearance Urine pH Ur Specific [place] Urine Protein Urine Glucose (UA) Urine Ketones Urine Blood Urine Nitrite Ur Leukocyte Esterase Urine RBC Urine WBC Ur Squamous Epith Cells Urine Bacteria Hyaline Casts Granular Casts Urine Eosinophils % U Random Total Protein Ur Random Sodium Urine Creatinine Peritoneal WBC Peritoneal RBC Periton Neutrophils Periton Lymphocytes Peritoneal Monocytes Peritoneal Other Cells Stool Occult Blood POSITIVE Urine Opiates Screen Ur Buprenorphine Scrn Ur Oxycodone Screen Urine Methadone Screen Urine Fentanyl Screen Ur Barbiturates Screen Ur Phencyclidine Scrn Ur Amphetamines Screen U Benzodiazepines Scrn Urine Cocaine Screen U Marijuana (THC) Screen Ethyl Alcohol Imaging Radiology Impressions: ITS Impressions Venous Duplex 12/04/23 21:03 IMPRESSION: No evidence of deep venous thrombosis involving the left lower extremity. Electronically signed by: Henry Parkinson MD 12/04/2023 09:42 PM EDT RP Chest X-Ray 12/05/23 01:05 IMPRESSION: 1. Right central line extending to the lower SVC/right atrial junction. 2. Low lung volumes. 3. Left lung base opacity, likely atelectasis. Electronically signed by: Rudy Sousa MD 12/05/2023 03:40 AM EDT RP Abdomen/Pelvis CT 12/05/23 01:56 IMPRESSION: 1. Diffuse colonic wall thickening consistent with colitis. Consider portal colopathy. 2. The pancreas is normal in appearance. 3. There is evidence of cirrhosis and portal hypertension with splenomegaly. 4. There is soft tissue anasarca. Fleischner guidelines were followed. Electronically signed by: Rudy Sousa MD 12/05/2023 03:49 AM EDT RP Abdomen Ultrasound 12/05/23 09:27 IMPRESSION: 1. Hydropic gallbladder with sludge or thickened bile seen. Findings may be related to gallbladder dyskinesia. The gallbladder wall edema and thickening seen is nonspecific in the setting of liver disease and ascites. Close clinical correlation is requested to exclude acute inflammation. 2. Common bile duct is mildly dilated. No choledocholithiasis in the visualized portions of the CBD. 3. Nodular cirrhotic liver with small volume ascites in the right side of the abdomen. 4. Incompletely visualized pancreas as discussed above. Electronically signed by: Macie Reese MD 12/05/2023 11:22 AM EDT Mental Status Exam Mental Status Exam Level of Consciousness: Drowsy and Lethargic Medications Medications Current Medications Acetaminophen (Acetaminophen 325 Mg Tablet) 650 mg PO Q6H PRN PRN Reason: Pain, Mild (Pain Scale 1-3), fever or headache Calcium Carbonate (Calcium Carbonate 750 Mg Tab.Chew) 750 mg PO Q4H PRN PRN Reason: Heartburn Ceftriaxone Sodium (Ceftriaxone Sodium 2 Gm Vial) 2 gm IVPUSH Q24H [facility] Last Admin: 12/06/23 05:17 Dose: 2 gm Hydromorphone HCl (Hydromorphone Hcl 0.5 Mg/0.5 Ml Syringe) 0.5 mg IVPUSH Q4H PRN; Protocol PRN Reason: Pain, Severe (Pain Scale 7-10) Last Admin: 12/06/23 15:38 Dose: 0.5 mg Dextrose (D10) 250 mls @ 750 mls/hr IV Q15M PRN PRN Reason: per Hypoglycemia Standing Ord. Last Infusion: 12/05/23 03:14 Dose: Infused Vancomycin HCl 500 mg/ Sodium (Chloride) 110 mls @ 110 mls/hr IV Q24H [facility] Albumin Human (Kedbumin 25 %) 100 mls @ 100 mls/hr IV Q1H [facility] Stop: 12/07/23 11:59 Lactulose (Lactulose 20 Gm/30 Ml Solution) 30 gm PO TID [facility] Last Admin: 12/06/23 15:37 Dose: 30 gm Magnesium Hydroxide (Milk Of Magnesia 30 Ml Oral.Susp) 30 ml PO DAILY PRN PRN Reason: Constipation Melatonin (Melatonin 3 Mg Tablet) 6 mg PO BEDTIME PRN PRN Reason: Insomnia Octreotide Acetate (Octreotide Acetate 100 Mcg/Ml Ampul) 100 mcg SUBCUT Q8H [facility] Last Admin: 12/06/23 15:38 Dose: 100 mcg Ondansetron HCl (Ondansetron Hcl 4 Mg/2 Ml Vial) 4 mg IVPUSH Q8H PRN PRN Reason: Nausea and Vomiting Pharmacy Consult (Consult Rx Vancomycin Dosing) 1 each MISCELLANE DAILY PRN PRN Reason: Consult order Rifaximin (Rifaximin 550 Mg Tablet) 550 mg PO BID [facility] Last Admin: 12/06/23 09:26 Dose: 550 mg Sodium Chloride (0.9 % Sodium Chloride Flush 3 Ml Syringe) 3 ml IVFLUSH QSHIFT [facility] Last Admin: 12/06/23 15:38 Dose: 3 ml Allergies Allergies Allergy/AdvReac Type Severity Reaction Status Date / Time No Known Allergies Allergy Verified 12/04/23 16:08 [No Known Allergies*] Assessment & Plan Assessment & Plan (1) Opioid use disorder: Status: Acute Code(s): F11.90 - Opioid use, unspecified, uncomplicated Assessment and Plan: methadone dose verified not appropriate to restart at home dose due to level of sedation withdrawal sx likely being mitigated by PRN Dilaudid will order methadone 10mg PRN should more acute withdrawal sx start to present --dose will be titrated as appropriate Total time managing care of this patient today _35___ minutes. PMFSH Past Medical History Medical History Hepatic encephalopathy Cirrhosis Hepatitis C H/O opioid abuse Social History Social History Household Members: Other Household Members Other:: friend's hose Housing: Apartment Do you presently have visiting nurse or other home services: No Comment: Low fall risk Patient Tobacco Use Status: Tobacco use Unknown Tobacco use type: Cigarette e-Cigarette/Vaping Use: Never Used Substance Use Type: IV Drugs service: No Current occupational status: unemployed Cognitive needs: No Hearing needs: No Vision needs: Yes
[2023-12-06 18:32] LABS: Vancomycin Random 15.1 mcg/mL (15-20)
--- NOTE | 2023-12-06 18:41 | HE.PHANOTE ---
Re: Kailee Renal function is poor but has improved. Trough returned at 15.1. Continue dose at 500mg q25 hours and watch renal function. Predicted AUC 446, predicted trough 15.3. Next trough 12/06 @ 1800.
[2023-12-06] MEDS: vancomycin HCL 500 MG in 0.9 % Sodium Chloride 100 ML 110 MG IV (19:58)
--- NOTE | 2023-12-06 22:25 | W.PM.IDCN ---
History of Present Illness Data of Consult Service Date: 12/06/23 Requesting physician: Joe Shaw Primary Care Provider: Diann Ernst PA-C HPI Reason for consult: MRSA bacteremia,sepsis,ESLD,hepatitis C He presents with weakness and confusion ,worse last day. He has tachycardia and leukocytosis on admission. He was in last month with anasarca. He also last month had viral load Hepatitis C of 82,200 on 10/26/2023. Now he has leg discomfort He currently has right neck line. Review of Systems Review of Systems: Yes Unobtainable due to mental condition [facility] Past Medical History Medical History (Updated 12/06/23 @ 22:32 by Sally Daniels MD) MRSA bacteremia Sepsis Hepatic encephalopathy Cirrhosis Hepatitis C H/O opioid abuse Family History Family history: reviewed and not pertinent Social History Social History Household Members: Other Household Members Other:: friend's hose Housing: Apartment Do you presently have visiting nurse or other home services: No Comment: Low fall risk Patient Tobacco Use Status: Tobacco use Unknown Tobacco use type: Cigarette e-Cigarette/Vaping Use: Never Used Substance Use Type: IV Drugs service: No Current occupational status: unemployed Cognitive needs: No Hearing needs: No Vision needs: Yes Meds Allergies Allergy/AdvReac Type Severity Reaction Status Date / Time No Known Allergies Allergy Verified 12/04/23 16:08 [No Known Allergies*] Active Medications: Current Medications Acetaminophen (Acetaminophen 325 Mg Tablet) 650 mg PO Q6H PRN PRN Reason: Pain, Mild (Pain Scale 1-3), fever or headache Calcium Carbonate (Calcium Carbonate 750 Mg Tab.Chew) 750 mg PO Q4H PRN PRN Reason: Heartburn Ceftriaxone Sodium (Ceftriaxone Sodium 2 Gm Vial) 2 gm IVPUSH Q24H [facility] Last Admin: 12/06/23 05:17 Dose: 2 gm Hydromorphone HCl (Hydromorphone Hcl 0.5 Mg/0.5 Ml Syringe) 0.5 mg IVPUSH Q4H PRN; Protocol PRN Reason: Pain, Severe (Pain Scale 7-10) Last Admin: 12/06/23 19:58 Dose: 0.5 mg Dextrose (D10) 250 mls @ 750 mls/hr IV Q15M PRN PRN Reason: per Hypoglycemia Standing Ord. Last Infusion: 12/05/23 03:14 Dose: Infused Vancomycin HCl 500 mg/ Sodium (Chloride) 110 mls @ 110 mls/hr IV Q24H [facility] Last Infusion: 12/06/23 21:21 Dose: Infused Albumin Human (Kedbumin 25 %) 100 mls @ 100 mls/hr IV Q1H [facility] Stop: 12/07/23 11:59 Lactulose (Lactulose 20 Gm/30 Ml Solution) 30 gm PO TID [facility] Last Admin: 12/06/23 19:58 Dose: 30 gm Magnesium Hydroxide (Milk Of Magnesia 30 Ml Oral.Susp) 30 ml PO DAILY PRN PRN Reason: Constipation Melatonin (Melatonin 3 Mg Tablet) 6 mg PO BEDTIME PRN PRN Reason: Insomnia Methadone HCl (Methadone Hcl 20 Mg/2 Ml Oral.Conc) 10 mg PO ONCE PRN PRN Reason: Opiate Withdrawal Octreotide Acetate (Octreotide Acetate 100 Mcg/Ml Ampul) 100 mcg SUBCUT Q8H [facility] Last Admin: 12/06/23 15:38 Dose: 100 mcg Ondansetron HCl (Ondansetron Hcl 4 Mg/2 Ml Vial) 4 mg IVPUSH Q8H PRN PRN Reason: Nausea and Vomiting Pharmacy Consult (Consult Rx Vancomycin Dosing) 1 each MISCELLANE DAILY PRN PRN Reason: Consult order Rifaximin (Rifaximin 550 Mg Tablet) 550 mg PO BID [facility] Last Admin: 12/06/23 19:58 Dose: 550 mg Sodium Chloride (0.9 % Sodium Chloride Flush 3 Ml Syringe) [facility] Last Admin: 12/06/23 19:59 Dose: 3 ml Home Medications ?Medication ?Instructions ?Recorded ?Confirmed ?Last Taken ?Type methadone 10 mg/mL oral 50 mg PO DAILY 10/26/23 12/06/23 12/01/23 History concentrate (Methadone Intensol) Physical Exam Vital Signs: Vital Signs: Last Vital Signs Temp 97.4 F 12/06/23 19:49 Pulse 92 12/06/23 19:49 Resp 24 H 12/06/23 19:49 BP 131/65 12/06/23 19:49 Pulse Ox 98 12/06/23 19:49 O2 Del Method Room Air 12/06/23 19:49 BMI result Body Mass Index 28.0 Const: General: cooperative HEENT: Head: Yes normal to inspection Face and sinus: Yes normal facial exam Mouth: Normal oral and palatal mucosa present Teeth and gingiva: dentition normal Eyes: General: appearance normal, both eyes and all related structures Pupils: Equal, round and reactive pupils present Resp: Effort & Inspection: normal respiratory effort Cardio: Rate: regular rate Rhythm: regular rhythm GI: Other: distended abdomen,cirrhotic Palpation (GI): Soft to palpation and nontender : General: Yes no CVA tenderness Back/Spine/Pelvis: Back: no CVA tenderness Skin: General skin exam: no rashes or lesions noted and jaundice Neuro: General: moves all extremities Cranial nerves: Yes Equal, round and reactive pupils present Extrem: Other: plus 3 edema lower extremities Psych: Appearance: grossly normal Results Labs 12/06/23 06:13 12/06/23 06:13 Labs: Short CBC 12/06/23 Range/Units 06:13 WBC 11.4 H (4.8-10.8) X10*3/uL Hgb 7.5 L (14.0-18.0) g/dl Hct 21.7 L (42.0-52.0) % Plt Count 65 L D (160-400) X10*3/uL BMP 12/06/23 12/06/23 12/06/23 06:13 06:13 06:13 Sodium 137 Cancelled Potassium 4.8 Cancelled Chloride 106 Carbon Dioxide BUN Creatinine Calcium 12/06/23 12/06/23 12/06/23 06:13 06:13 06:13 Sodium Potassium Chloride Cancelled Carbon Dioxide 17 L Cancelled BUN 76 H Cancelled Creatinine 4.71 H* Calcium 12/06/23 12/06/23 06:13 06:13 Sodium Potassium Chloride Carbon Dioxide BUN Creatinine Cancelled Calcium 8.9 D Cancelled Cardiac Enzymes 12/06/23 Range/Units 06:13 Total Creatine Kinase 50 (38-174) U/L Liver Function 12/06/23 12/06/23 12/06/23 Range/Units 06:13 06:13 06:13 Total Bilirubin 12.7 H Cancelled (0.0-1.0) mg/dL Direct Bilirubin 8.6 H (0.0-0.5) mg/dL AST 106 H Cancelled (5-37) U/L ALT 34 (0-40) U/L Alkaline Phosphatase (39-117) U/L Albumin (3.5-5.0) g/dL 12/06/23 12/06/23 12/06/23 Range/Units 06:13 06:13 06:13 Total Bilirubin (0.0-1.0) mg/dL Direct Bilirubin (0.0-0.5) mg/dL AST (5-37) U/L ALT Cancelled (0-40) U/L Alkaline Phosphatase 101 Cancelled (39-117) U/L Albumin 3.0 L Cancelled (3.5-5.0) g/dL Microbiology Microbiology Results: Microbiology 12/05/23 04:18 Blood - Venous Blood Culture - Preliminary Staphylococcus aureus 12/05/23 04:18 Blood - Venous Blood Culture - Preliminary Staphylococcus aureus 12/05/23 Unknown Urine clean catch - Clean Catch Midstream Urine Culture - Preliminary Staphylococcus aureus 12/05/23 09:17 Ascites Fluid Gram Stain - Final 12/05/23 09:17 Ascites Fluid Routine Culture - Preliminary No growth to date. 12/05/23 09:17 Ascites Fluid Anaerobic Culture - Preliminary No growth to date. Assessment and Plan (1) Acute on chronic alcoholic liver disease: Status: Acute (2) Chronic hepatitis C: Qualifiers: Hepatic coma status: without hepatic coma Qualified Code(s): B18.2 - Chronic viral hepatitis C Status: Acute (3) Acute renal failure: Qualifiers: Acute renal failure type: unspecified Qualified Code(s): N17.9 - Acute kidney failure, unspecified Status: Acute (4) Decompensated hepatic cirrhosis: Status: Acute (5) Sepsis: Status: Acute (6) MRSA bacteremia: Status: Acute Plan He has sepsis,MRSA,probably from skin or possible SBP (Dr Meraz of GI following). He should have four weeks of IV Vancomycin or Daptomycin from first negative blood culture. GI investigating SBP. He should have echo. Even if isnt liver transplant candidate GI will determine whether Hepatitis C should be treated with direct acting antivirals,
--- NOTE | 2023-12-06 22:41 | PM.EVENT ---
Event Note Date of Service: 12/06/23 Event Note: less likely source urine,low colony count Time Spent With Patient Time: Total time managing care of this patient today ____ minutes.
[2023-12-07] VITALS (14 sets, daily range): BP systolic 109–138; BP diastolic 59–79; PULSE 76–103; RESP 13–20; TEMP 36.1–36.8; O2SAT 93–96
[2023-12-07] MEDS: Octreotide Acetate 100 MCG/ML AMPUL SUBCUT ×4 (00:40→23:06)
[2023-12-07 07:01] LABS: Mean Corpuscular HGB Conc 34.7 g/dl (31.0-36.0); Mean Corpuscular Hemoglobin 35.4 pg (27.0-33.0); Mean Corpuscular Volume 102.1 fL (80.0-98.0); Red Blood Count 1.92 X10*6/uL (4.60-5.80); Red Cell Distribution Width 13.9 % (11.0-16.0); White Blood Count 13.9 X10*3/uL (4.8-10.8)
[2023-12-07 07:04] LABS: Platelet Count 71 X10*3/uL (160-400)
[2023-12-07 07:05] LABS: Ammonia 72 umol/L (13-55)
[2023-12-07 07:11] LABS: Hematocrit 19.6 % (42.0-52.0); Hemoglobin 6.8 g/dl (14.0-18.0)
[2023-12-07 07:15] LABS: INTERNATIONAL NORM RATIO 3.8 (0.9-1.1); Prothrombin Time 44.2 SEC (10.9-12.4)
[2023-12-07 07:22] LABS: Alanine Aminotransferase 35 U/L (0-40); Albumin Level 2.6 g/dL (3.5-5.0); Alkaline Phosphatase 105 U/L (39-117); Anion Gap 18 (12-20); Aspartate Amino Transferase 101 U/L (5-37); Bilirubin Direct 10.2 mg/dL (0.0-0.5); Bilirubin Total 15.6 mg/dL (0.0-1.0); Blood Urea Nitrogen 73 mg/dL (9-16); Calcium 8.8 mg/dL (8.4-10.2); Carbon Dioxide 18 mmol/L (22-29); Chloride 106 mmol/L (96-108); Creatinine Clr Calc Pharmacy 23.5; Estimated Glomerular Filt Rate 15; Glucose Random 72 mg/dL (60-115); Potassium 4.7 mmol/L (3.3-5.1); Sodium 137 mmol/L (135-145); Total Protein 6.7 g/dL (6.5-8.0)
[2023-12-07] MEDS: Albumin Human 25 % 100 ML IV ×4 (08:02→11:22)
[2023-12-07] MEDS: rifAXIMin 550 MG TABLET PO ×2 (08:03→20:36)
[2023-12-07] MEDS: Lactulose 20 GM/30 ML SOLUTION 30 GM PO ×3 (08:04→20:35)
[2023-12-07] MEDS: 0.9 % Sodium Chloride Flush 3 ML SYRINGE IVFLUSH ×2 (08:04→20:36)
[2023-12-07] MEDS: methADONE HCl 20 MG/2 ML ORAL.CONC 10 MG PO ×2 (08:13→15:53)
[2023-12-07 08:44] LABS: Total Protein Peritoneal Fluid 0.7
[2023-12-07 08:45] LABS: Albumin Peritoneal Fluid 0.3
[2023-12-07 08:48] LABS: Prot Elec - Albumin 2.8 g/dL (3.8-4.8); Prot Elec - Alpha1 0.3 g/dL (0.2-0.3); Prot Elec - Alpha2 0.3 g/dL (0.5-0.9); Prot Elec - Beta 1 0.1 g/dL (0.4-0.6); Prot Elec - Beta 2 0.4 g/dL (0.2-0.5); Prot Elec - Total Protein 6.9 g/dL (6.1-8.1)
--- NOTE | 2023-12-07 08:56 | P.PNNP_ITS ---
Subjective Subjective Date of Service: 12/07/23 Interval history: 48 y/o male with a medical history of hep C virus, liver cirrhosis, polysubstance abuse on methadone, mood disorder. Came to ED evening of 12/03 with abdominal pain, weakness, altered mental status. Nephrology consulted for MAI. patients creatinine level has been trending down, 6.59 12/04, 12/05 is 4.71, 12/06 is 4.29 electrolytes have normalized large amount of blood on urine dipstick, though only 6-10 urine RBCs on microscopy CK only [address] scan of his abdomen- no obstruction, kidneys/ureters unremarkable. + cirrhosis, portal HTN, anasarca and ?colitis. had diagnostic paracentesis, has SBP, receiving ceftriaxone and albumin for management Urine sodium is 32 blood cultures +staph aureaus bacteremia, receiving abx treatment Today patient is alert and conversant in bed, oriented He states he has pain in his abdomen, denies other pain states his breathing is comfortable pitting edema in lower extremities- L>R, US ruled out DVT tate in place and had concentrated dark yellow urine in bag. Had ~600mL UOP over last 24 hours Physical Exam 2 Vital Signs: Vital Signs: Last Vital Signs Temp 96.9 F 12/07/23 07:10 Pulse 76 12/07/23 07:10 Resp 20 12/07/23 07:10 BP 131/72 12/07/23 07:10 Pulse Ox 95 12/07/23 07:10 O2 Del Method Room Air 12/07/23 07:10 BMI result Body Mass Index 28.0 Const: General: lethargic Nutritional Appearance: Edematous O rientation/consciousness: lethargic Limitations: altered mental status Neck: Neck: Yes no JVD Resp: Effort & Inspection: normal respiratory effort Auscultation: rhonchi Cardio: Jugular venous distension: no JVD Rate: regular rate Rhythm: r egular rhythm Heart sounds: S1 normal heart sound present and S2 normal heart sound present GI: Inspection: Yes distended Palpation (GI): Tenderness to palpation present (GI) and Ascites present Skin: General skin exam: jaundice Extrem: General: Yes edema (pitting L>R, US ruled out DVT ) Objective Data Labs 12/07/23 06:43 12/07/23 06:43 Labs: Laboratory Results - last 24 hr 12/05/23 12/05/23 12/05/23 09:17 10:25 11:15 WBC RBC Hgb Hct MCV MCH MCHC RDW Plt Count MPV Absolute Nucleated RBC Nucleated RBC % (auto) PT INR Sodium Potassium Chloride Carbon Dioxide Anion Gap BUN Creatinine Estim Creat Clear Calc Estimated GFR Random Glucose Calcium Total Bilirubin Direct Bilirubin AST ALT Alkaline Phosphatase Ammonia Total Protein Total Protein (PEP) 6.9 Albumin Albumin (PEP) 2.8 L Hcfhs-7-Trglbjqpn 0.3 Xksgd-7-Ykyzehmcu 0.3 L Hnpi-1-Sfkfozep 0.1 L Zekz-4-Zqoqfmin 0.4 Gamma Globulins 3.0 H PEP Interpretation SEE NOTE Urine Eosinophils % 0.0 Peritoneal Tot Protein 0.7 Peritoneal Albumin 0.3 Stool Occult Blood Random Vancomycin Blood Type Antibody Screen Crossmatch 12/06/23 12/06/23 12/06/23 06:13 06:13 06:13 WBC RBC Hgb Hct MCV MCH MCHC RDW Plt Count MPV Absolute Nucleated RBC Nucleated RBC % (auto) PT INR Sodium 137 Cancelled Potassium 4.8 Cancelled Chloride 106 Carbon Dioxide Anion Gap BUN Creatinine Estim Creat Clear Calc Estimated GFR Random Glucose Calcium Total Bilirubin Direct Bilirubin AST ALT Alkaline Phosphatase Ammonia Total Protein Total Protein (PEP) Albumin Albumin (PEP) Csjqe-4-Gqcewoxcn Dyurn-8-Zojrkrtzx Etsw-7-Nlanoqhy Jkle-4-Vunhbddt Gamma Globulins PEP Interpretation Urine Eosinophils % Peritoneal Tot Protein Peritoneal Albumin Stool Occult Blood Random Vancomycin Blood Type Antibody Screen Crossmatch 12/06/23 12/06/23 12/06/23 06:13 06:13 06:13 WBC RBC Hgb Hct MCV MCH MCHC RDW Plt Count MPV Absolute Nucleated RBC Nucleated RBC % (auto) PT INR Sodium Potassium Chloride Cancelled Carbon Dioxide 17 L Cancelled Anion Gap 19 Cancelled BUN 76 H Creatinine Estim Creat Clear Calc Estimated GFR Random Glucose Calcium Total Bilirubin Direct Bilirubin AST ALT Alkaline Phosphatase Ammonia Total Protein Total Protein (PEP) Albumin Albumin (PEP) Kmhjj-1-Egxatpupb Tddyz-1-Mdcgfzbeq Zalb-0-Unyowfnl Jbcc-1-Cvzigkdn Gamma Globulins PEP Interpretation Urine Eosinophils % Peritoneal Tot Protein Peritoneal Albumin Stool Occult Blood Random Vancomycin Blood Type Antibody Screen Crossmatch 12/06/23 12/06/23 12/06/23 06:13 06:13 06:13 WBC RBC Hgb Hct MCV MCH MCHC RDW Plt Count MPV Absolute Nucleated RBC Nucleated RBC % (auto) PT INR Sodium Potassium Chloride Carbon Dioxide Anion Gap BUN Cancelled Creatinine 4.71 H* Cancelled Estim Creat Clear Calc 21.4 Cancelled Estimated GFR 13 Random Glucose Calcium Total Bilirubin Direct Bilirubin AST ALT Alkaline Phosphatase Ammonia Total Protein Total Protein (PEP) Albumin Albumin (PEP) Jnypq-0-Yduhgufdv Suzoa-9-Pkpoqdcoe Korz-2-Vrpinfdh Jcxh-2-Ousbnrbb Gamma Globulins PEP Interpretation Urine Eosinophils % Peritoneal Tot Protein Peritoneal Albumin Stool Occult Blood Random Vancomycin Blood Type Antibody Screen Crossmatch 12/06/23 12/06/23 12/06/23 06:13 06:13 06:13 WBC RBC Hgb Hct MCV MCH MCHC RDW Plt Count MPV Absolute Nucleated RBC Nucleated RBC % (auto) PT INR Sodium Potassium Chloride Carbon Dioxide Anion Gap BUN Creatinine Estim Creat Clear Calc Estimated GFR Cancelled Random Glucose 82 Cancelled Calcium 8.9 D Cancelled Total Bilirubin 12.7 H Direct Bilirubin AST ALT Alkaline Phosphatase Ammonia Total Protein Total Protein (PEP) Albumin Albumin (PEP) Qahmb-8-Mdncwvown Benzi-3-Sxoxumjeu Zjzp-2-Geqjzsje Yglu-5-Drqakezj Gamma Globulins PEP Interpretation Urine Eosinophils % Peritoneal Tot Protein Peritoneal Albumin Stool Occult Blood Random Vancomycin Blood Type Antibody Screen Crossmatch 12/06/23 12/06/23 12/06/23 06:13 06:13 06:13 WBC RBC Hgb Hct MCV MCH MCHC RDW Plt Count MPV Absolute Nucleated RBC Nucleated RBC % (auto) PT INR Sodium Potassium Chloride Carbon Dioxide Anion Gap BUN Creatinine Estim Creat Clear Calc Estimated GFR Random Glucose Calcium Total Bilirubin Cancelled Direct Bilirubin AST 106 H Cancelled ALT 34 Cancelled Alkaline Phosphatase 101 Ammonia Total Protein Total Protein (PEP) Albumin Albumin (PEP) Rmjeh-5-Sdxwkhgur Clxuo-1-Ushtzqcps Orsz-0-Xtuhxhgt Oqen-4-Laxfqhyi Gamma Globulins PEP Interpretation Urine Eosinophils % Peritoneal Tot Protein Peritoneal Albumin Stool Occult Blood Random Vancomycin Blood Type Antibody Screen Crossmatch 12/06/23 12/06/23 12/06/23 06:13 06:13 06:13 WBC RBC Hgb Hct MCV MCH MCHC RDW Plt Count MPV Absolute Nucleated RBC Nucleated RBC % (auto) PT INR Sodium Potassium Chloride Carbon Dioxide Anion Gap BUN Creatinine Estim Creat Clear Calc Estimated GFR Random Glucose Calcium Total Bilirubin Direct Bilirubin AST ALT Alkaline Phosphatase Cancelled Ammonia Total Protein 7.1 Cancelled Total Protein (PEP) Albumin 3.0 L Cancelled Albumin (PEP) Gmmhx-6-Ynvfgmtno Yiytq-7-Jmaultehc Ekkf-9-Zcbertmk Qfdo-9-Bvctioyl Gamma Globulins PEP Interpretation Urine Eosinophils % Peritoneal Tot Protein Peritoneal Albumin Stool Occult Blood Random Vancomycin Blood Type Antibody Screen Crossmatch 12/06/23 12/06/23 12/07/23 14:45 18:09 06:43 WBC 13.9 H RBC 1.92 L Hgb 6.8 L* Hct 19.6 L* MCV 102.1 H MCH 35.4 H MCHC 34.7 RDW 13.9 Plt Count 71 L MPV 11.0 Absolute Nucleated RBC 0.000 Nucleated RBC % (auto) 0.0 PT 44.2 H D INR 3.8 H Sodium 137 Potassium 4.7 Chloride 106 Carbon Dioxide 18 L Anion Gap 18 BUN 73 H Creatinine 4.29 H* Estim Creat Clear Calc 23.5 Estimated GFR 15 Random Glucose 72 Calcium 8.8 Total Bilirubin 15.6 H Direct Bilirubin 10.2 H AST 101 H ALT 35 Alkaline Phosphatase 105 Ammonia 72 H Total Protein 6.7 Total Protein (PEP) Albumin 2.6 L Albumin (PEP) Uxdmb-6-Uapjnvnti Iuuze-7-Iqcsiqszu Edkg-1-Zjlshyxp Zdtg-0-Ssgjoqqg Gamma Globulins PEP Interpretation Urine Eosinophils % Peritoneal Tot Protein Peritoneal Albumin Stool Occult Blood POSITIVE Random Vancomycin 15.1 Blood Type B Positive Antibody Screen NEGATIVE Crossmatch See Detail Microbiology Microbiology Results: Microbiology 12/05/23 04:18 Blood - Venous Blood Culture - Final Methicillin Res Staph Aureus 12/05/23 04:18 Blood - Venous Blood Culture - Final Methicillin Res Staph Aureus 12/05/23 09:17 Ascites Fluid Gram Stain - Final 12/05/23 09:17 Ascites Fluid Routine Culture - Final No growth after 2 days 12/05/23 09:17 Ascites Fluid Anaerobic Culture - Preliminary No growth to date. 12/05/23 Unknown Urine clean catch - Clean Catch Midstream Urine Culture - Final Methicillin Res Staph Aureus Procedures Date of Service Date of Service: 12/07/23 Assessment & Plan Assessment and plan (1) Acute renal failure: Status: Acute (2) Chronic hepatitis C: Status: Acute (3) Decompensated hepatic cirrhosis: Status: Acute Plan Acute renal failure most likely secondary to rubular injury from hypoperfusion, may also have component of cocaine-induced ATN renal function has started to slowly improve though remains significantly impaired differential also includes hepC-related GN, thrombotic microangiopathy, should also consider abdominal compartment syndrome no obstruction seen on CT scan unlikely AIN given urine with minimal WBCs, no rash/fever less likely hepatorenal syndrome given urine sodium level UPEP, SPEP, C3, C4, CPK and cryoglobin pending recommend close monitoring of intake and output and blood pressure recommend daily electrolyte and renal function labs Will continue to follow Discussed with Dr Contreras Time Spent With Patient Time: Total time managing care of this patient today ____ minutes. Progress Note: Quality Stroke Does the patient have a stroke diagnosis?: No
--- NOTE | 2023-12-07 10:07 | MHC.RECOVRN ---
Met with pt in 445 after receiving 10 mg methadone this morning. Pt laying in bed, awake, answers questions appropriately but very slow to respond, appears comfortable. Pt denies current withdrawal symptoms, denies symptoms prior to methadone administration. Pt reports prior to admission he was using heroin/fentanyl when he was unable to make it to the [facility], 2 bags daily, IV. Reports he does well when he is able to receive 50 mg methadone daily. Pt denies questions or concerns at this time. Discussed with Mary Jensen APRN.
--- NOTE | 2023-12-07 13:25 | MHC.CM.PN ---
RIZWANA received a call from Patient's Alternate HCP/Sister/Beena @ [phone], who had a question regarding a blood transfusion; RIZWANA has asked MD to call Beena. RIZWANA will follow.
--- NOTE | 2023-12-07 13:46 | P.PNIM_ITS ---
Subjective Subjective Date of Service: 12/07/23 Interval History: BCx growing MRSA No hematemesis, hematochezia, or melena though HB down to 6.8 Abd pain improved SCr improved This history was taken in Chinese from the patient. Review of Systems Review of Systems: Yes all other systems are reviewed and are negative Physical Exam 2 Vital Signs: Vital Signs: Last Vital Signs Temp 97.6 F 12/07/23 13:39 Pulse 92 12/07/23 13:39 Resp 20 12/07/23 13:39 BP 123/62 12/07/23 13:39 Pulse Ox 93 12/07/23 11:09 O2 Del Method Room Air 12/07/23 11:09 BMI result Body Mass Index 28.0 Gen: chronically ill-appearing HEENT: sclera icteric, moist mucus membranes Neck: supple Lungs: clear to auscultation bilaterally Heart: regular rate and rhythm, systolic murmur along LSB Abd: tense, ascites present Ext: 2+ bilateral leg edema Skin: warm/well-perfused, jaundiced with purpura and petechiae Neuro: alert and oriented to self/place, asterixis present Psych: restricted affect Objective Data Active Medications Acetaminophen (Acetaminophen 325 Mg Tablet) 650 mg PO Q6H PRN PRN Reason: Pain, Mild (Pain Scale 1-3), fever or headache Calcium Carbonate (Calcium Carbonate 750 Mg Tab.Chew) 750 mg PO Q4H PRN PRN Reason: Heartburn Hydromorphone HCl (Hydromorphone Hcl 0.5 Mg/0.5 Ml Syringe) 0.5 mg IVPUSH Q4H PRN; Protocol PRN Reason: Pain, Severe (Pain Scale 7-10) Last Admin: 12/06/23 19:58 Dose: 0.5 mg Documented By: JULIETTE Dextrose (D10) 250 mls @ 750 mls/hr IV Q15M PRN PRN Reason: per Hypoglycemia Standing Ord. Last Infusion: 12/05/23 03:14 Dose: Infused Documented By: JACQUELINE Vancomycin HCl 500 mg/ Sodium (Chloride) 110 mls @ 110 mls/hr IV Q24H [facility] Last Infusion: 12/06/23 21:21 Dose: Infused Documented By: JULIETTE Lactulose (Lactulose 20 Gm/30 Ml Solution) 30 gm PO TID [facility] Last Admin: 12/07/23 08:04 Dose: 30 gm Documented By: ELISEO Magnesium Hydroxide (Milk Of Magnesia 30 Ml Oral.Susp) 30 ml PO DAILY PRN PRN Reason: Constipation Melatonin (Melatonin 3 Mg Tablet) 6 mg PO BEDTIME PRN PRN Reason: Insomnia Methadone HCl (Methadone Hcl 20 Mg/2 Ml Oral.Conc) 10 mg PO ONCE PRN PRN Reason: Opiate Withdrawal Last Admin: 12/07/23 08:13 Dose: 10 mg Documented By: ELISEO Co-signed By: GUI Octreotide Acetate (Octreotide Acetate 100 Mcg/Ml Ampul) 100 mcg SUBCUT Q8H [facility] Last Admin: 12/07/23 08:03 Dose: 100 mcg Documented By: ELISEO Ondansetron HCl (Ondansetron Hcl 4 Mg/2 Ml Vial) 4 mg IVPUSH Q8H PRN PRN Reason: Nausea and Vomiting Pharmacy Consult (Consult Rx Vancomycin Dosing) 1 each MISCELLANE DAILY PRN PRN Reason: Consult order Rifaximin (Rifaximin 550 Mg Tablet) 550 mg PO BID [facility] Last Admin: 12/07/23 08:03 Dose: 550 mg Documented By: ELISEO Sodium Chloride (0.9 % Sodium Chloride Flush 3 Ml Syringe) 3 ml IVFLUSH QSHIFT [facility] Last Admin: 12/07/23 08:04 Dose: 3 ml Documented By: ELISEO Labs 12/07/23 06:43 12/07/23 06:43 Labs: Laboratory Results - last 24 hr 12/05/23 12/05/23 12/06/23 09:17 10:25 06:13 MCV MCH MCHC RDW Plt Count MPV Absolute Nucleated RBC Nucleated RBC % (auto) Smear Path Review PT INR Anion Gap 19 Estim Creat Clear Calc Estimated GFR Random Glucose Calcium Total Bilirubin Direct Bilirubin AST ALT Alkaline Phosphatase Ammonia Total Protein Total Protein (PEP) 6.9 Albumin Albumin (PEP) 2.8 L Btrtu-6-Llwfvfvbj 0.3 Dpvqd-2-Bwsjcvbcd 0.3 L Vnhx-6-Jmglmmwm 0.1 L Ltme-6-Fugxjcvv 0.4 Gamma Globulins 3.0 H PEP Interpretation SEE NOTE Peritoneal Tot Protein 0.7 Peritoneal Albumin 0.3 Stool Occult Blood Random Vancomycin Blood Type Antibody Screen Crossmatch 1012/06/23 12/06/23 06:13 06:13 06:13 MCV MCH MCHC RDW Plt Count MPV Absolute Nucleated RBC Nucleated RBC % (auto) Smear Path Review PT INR Anion Gap Cancelled Estim Creat Clear Calc 21.4 Cancelled Estimated GFR 13 Cancelled Random Glucose 82 Calcium Total Bilirubin Direct Bilirubin AST ALT Alkaline Phosphatase Ammonia Total Protein Total Protein (PEP) Albumin Albumin (PEP) Aqlew-2-Bhpuapbps Sxnqq-9-Axinzjpyz Zuey-1-Zocsynww Ndyt-2-Yopbpbpo Gamma Globulins PEP Interpretation Peritoneal Tot Protein Peritoneal Albumin Stool Occult Blood Random Vancomycin Blood Type Antibody Screen Crossmatch 12/06/23 12/06/23 12/06/23 06:13 06:13 06:13 MCV MCH MCHC RDW Plt Count MPV Absolute Nucleated RBC Nucleated RBC % (auto) Smear Path Review PT INR Anion Gap Estim Creat Clear Calc Estimated GFR Random Glucose Cancelled Calcium 8.9 D Cancelled Total Bilirubin 12.7 H Cancelled Direct Bilirubin AST 106 H ALT Alkaline Phosphatase Ammonia Total Protein Total Protein (PEP) Albumin Albumin (PEP) Cmhmw-3-Cxtixsafy Wxeho-8-Wmizkobhi Tmnp-5-Nqwrpnlf Uskv-2-Pzptsuwx Gamma Globulins PEP Interpretation Peritoneal Tot Protein Peritoneal Albumin Stool Occult Blood Random Vancomycin Blood Type Antibody Screen Crossmatch 12/06/23 12/06/23 12/06/23 06:13 06:13 06:13 MCV MCH MCHC RDW Plt Count MPV Absolute Nucleated RBC Nucleated RBC % (auto) Smear Path Review PT INR Anion Gap Estim Creat Clear Calc Estimated GFR Random Glucose Calcium Total Bilirubin Direct Bilirubin AST Cancelled ALT 34 Cancelled Alkaline Phosphatase 101 Cancelled Ammonia Total Protein 7.1 Total Protein (PEP) Albumin Albumin (PEP) Hxgfw-6-Easjiwbxs Aigyp-6-Lvcktalgi Iqvz-3-Neyzdgut Ihzc-6-Ynzloedb Gamma Globulins PEP Interpretation Peritoneal Tot Protein Peritoneal Albumin Stool Occult Blood Random Vancomycin Blood Type Antibody Screen Crossmatch 12/06/23 12/06/23 12/06/23 06:13 06:13 14:45 MCV MCH MCHC RDW Plt Count MPV Absolute Nucleated RBC Nucleated RBC % (auto) Smear Path Review PT INR Anion Gap Estim Creat Clear Calc Estimated GFR Random Glucose Calcium Total Bilirubin Direct Bilirubin AST ALT Alkaline Phosphatase Ammonia Total Protein Cancelled Total Protein (PEP) Albumin 3.0 L Cancelled Albumin (PEP) Nkkvg-2-Exdxtydzt Axkbp-1-Gwqtviydp Nlkk-4-Aofvefbr Vwiz-3-Fzyqsqvi Gamma Globulins PEP Interpretation Peritoneal Tot Protein Peritoneal Albumin Stool Occult Blood POSITIVE Random Vancomycin Blood Type Antibody Screen Crossmatch 12/06/23 12/07/23 18:09 06:43 MCV 102.1 H MCH 35.4 H MCHC 34.7 RDW 13.9 Plt Count 71 L MPV 11.0 Absolute Nucleated RBC 0.000 Nucleated RBC % (auto) 0.0 Smear Path Review SEE NOTE PT 44.2 H D INR 3.8 H Anion Gap 18 Estim Creat Clear Calc 23.5 Estimated GFR 15 Random Glucose 72 Calcium 8.8 Total Bilirubin 15.6 H Direct Bilirubin 10.2 H AST 101 H ALT 35 Alkaline Phosphatase 105 Ammonia 72 H Total Protein 6.7 Total Protein (PEP) Albumin 2.6 L Albumin (PEP) Xwbqh-3-Ggoolkivo Fjjrr-2-Qlbfxzslg Lbiu-1-Tiervbjy Mpzd-5-Wtqqcxdr Gamma Globulins PEP Interpretation Peritoneal Tot Protein Peritoneal Albumin Stool Occult Blood Random Vancomycin 15.1 Blood Type B Positive Antibody Screen NEGATIVE Crossmatch See Detail Impressions Abdomen Ultrasound 12/05/23 17:42 IMPRESSION: Findings as above. Electronically signed by: Robin Constantino MD 12/06/2023 04:42 PM EDT RP Microbiology Microbiology Results: Microbiology 12/05/23 04:18 Blood Culture - Final Blood - Venous Methicillin Res Staph Aureus 12/05/23 04:18 Blood Culture - Final Blood - Venous Methicillin Res Staph Aureus 12/05/23 09:17 Gram Stain - Final Ascites Fluid Routine Culture - Final No growth after 2 days Anaerobic Culture - Preliminary No growth to date. 12/05/23 Unknown Urine Culture - Final Urine clean catch - Clean Catch Midstream Methicillin Res Staph Aureus Assessment and Plan (1) Decompensated cirrhosis: Status: Acute Plan d3 for 48yo M with decompensated HCV cirrhosis, polysubstance abuse disorder on methadone, mood disorder presenting with abd pain/swelling, weakness, and leg swelling found to have SBP + Staph aureus bacteremia ascites/SBP - diagnostic paracentesis 12/04 with 60cc ascites aspirated; 912 PMNs; on ceftriaxone 12/04-; got albumin 12/04 and will give another round today; culture negative to date Staph aureus bacteremia - vancomycin 12/04-, TTE from 12/05 read pending, ID consulted, plan 4 wk of IV vancomycin or daptomycin from 1st negative BCx, repeat BCx today [12/06] MAI - suspect hepatorenal vs cocaine-induced vasoconstriction; hold furosemide + spironolactone; albumin as above and added midodrine and octreotide; Nephrology following; SCr improved hepatic encephalopathy - lactulose + rifaxmin decompensated cirrhosis - GI consulted, does not qualify for transplant due to ongoing substance abuse - abd US with Doppler to r/o PVT negative acute lactic acidosis - due to liver disease hyperK - due to MAI; K normalized thrombocytopenia - due to cirrhosis; monitor CBC daily anemia - due to cirrhosis; monitor CBC daily; FOBT positive; will give 2u pRBCs and discuss with GI whether he should have EGD; will give IV PPI coagulopathy - given vitamin K without correction; monitor INR daily polysubstance abuse - Addiction Medicine consulted, getting single doses of methadone for now given encephalopathy VTE ppx - SCDs; no heparin given coagulopathy + thrombocytopenia dispo - will need STR for IV ABX, duration 4 wk from clearance I updated patient's alternate HCP, his sister Beena @ [phone] In my clinical judgment, the patient requires continued inpatient hospitalization for the following reasons: IV ABX, albumin Total time managing care of this patient today: 50 minutes. Quality Stroke Does the patient have a stroke diagnosis?: No VTE Prior VTE?: No VTE Risk Level:: Medical - moderate - high VTE Device Contraindication: N/A - Device Ordered VTE Drug Contraindication: Treatment Not Indicated
--- NOTE | 2023-12-07 13:52 | P.PNADD_ITS ---
Subjective Subjective Date of Service: 12/07/23 Reason For Visit: weakness Interim History: Patient seen in follow up with flower cutter Patient awake, alert and engaged in interview Oriented X3 (unaware of date) Answering questions related to OUD appropriately. Knows dose and last time he picked up bottles. Is reporting chills and was noted to be covered in blankets up to his neck He denies any other withdrawal sx, but would like to resume methadone when possible Review of Systems Constitutional: Reports chills, Reports lethargy and Reports malaise Mental Status Exam Mental Status Exam Patient Orientation: Person, Place and Situation Level of Consciousness: Awake and Appropriate Patient Behavior: Appropriate Mood Description: Calm Speech Pattern: Clear Diagnostics Vital Signs (24Hr): Vital Signs - 24 hr 12/06/23 15:58 12/06/23 19:49 12/06/23 23:30 Temperature 97.8 F 97.4 F 97.8 F Pulse Rate 96 92 90 Respiratory Rate 16 24 H 19 Blood Pressure 130/69 131/65 129/64 Pulse Oximetry 95 98 96 Oxygen Delivery Method Room Air Room Air Room Air 12/07/23 03:24 12/07/23 07:10 12/07/23 09:54 Temperature 96.9 F 97.2 F Pulse Rate 96 76 93 Respiratory Rate 19 20 20 Blood Pressure 128/69 131/72 130/66 Pulse Oximetry 96 95 Oxygen Delivery Method Room Air Room Air 12/07/23 10:09 12/07/23 11:09 12/07/23 13:39 Temperature 97.2 F 97.0 F 97.6 F Pulse Rate 92 93 92 Respiratory Rate 16 16 20 Blood Pressure 130/63 126/74 123/62 Pulse Oximetry 93 Oxygen Delivery Method Room Air BMI result Body Mass Index 28.0 Labs 12/07/23 06:43 12/07/23 06:43 Labs: Laboratory Results - last 48 hr 12/05/23 12/05/23 12/05/23 09:17 10:25 11:15 WBC RBC Hgb Hct MCV MCH MCHC RDW Plt Count MPV Immature Gran % (Auto) Neut % (Auto) Lymph % (Auto) [place] % (Auto) Eos % (Auto) Baso % (Auto) Lymph # (Auto) [place] # (Auto) Eos # (Auto) Baso # (Auto) Abs Immat Gran (auto) Absolute Neuts (auto) Absolute Nucleated RBC Nucleated RBC % (auto) Smear Path Review PT INR Sodium Potassium Chloride Carbon Dioxide Anion Gap BUN Creatinine Estim Creat Clear Calc Estimated GFR Random Glucose Calcium Total Bilirubin Direct Bilirubin AST ALT Alkaline Phosphatase Ammonia Total Creatine Kinase Total Protein Total Protein (PEP) 6.9 Albumin Albumin (PEP) 2.8 L Mgsyb-9-Xtxotqswr 0.3 Dfeny-0-Ebbgivitm 0.3 L Fmyb-8-Ujvwxvcc 0.1 L Qnsz-6-Gtwrwdmj 0.4 Gamma Globulins 3.0 H PEP Interpretation SEE NOTE Urine Eosinophils % 0.0 U Random Total Protein 41 H Ur Random Sodium 32.0 Urine Creatinine 98.32 Peritoneal Tot Protein 0.7 Peritoneal Albumin 0.3 Stool Occult Blood Random Vancomycin Blood Type Antibody Screen Crossmatch 12/06/23 12/06/23 12/06/23 06:13 06:13 06:13 WBC 11.4 H RBC 2.17 L Hgb 7.5 L Hct 21.7 L MCV 100.0 H MCH 34.6 H MCHC 34.6 RDW 13.7 Plt Count 65 L D MPV 11.2 Immature Gran % (Auto) 1.6 H Neut % (Auto) 86.5 H Lymph % (Auto) 5.1 L [place] % (Auto) 6.4 Eos % (Auto) 0.1 Baso % (Auto) 0.3 Lymph # (Auto) 0.6 L [place] # (Auto) 0.7 Eos # (Auto) 0.0 Baso # (Auto) 0.0 Abs Immat Gran (auto) 0.18 H Absolute Neuts (auto) 9.9 H Absolute Nucleated RBC 0.050 H Nucleated RBC % (auto) 0.4 H Smear Path Review PT INR Sodium 137 Cancelled Potassium 4.8 Cancelled Chloride 106 Carbon Dioxide Anion Gap BUN Creatinine Estim Creat Clear Calc Estimated GFR Random Glucose Calcium Total Bilirubin Direct Bilirubin AST ALT Alkaline Phosphatase Ammonia Total Creatine Kinase Total Protein Total Protein (PEP) Albumin Albumin (PEP) Wvitd-8-Lacarcofl Mzrnf-6-[place]wmd[place]u Bzba-8-Hzqkxaee Ghhu-2-Qlmbdguo Gamma Globulins PEP Interpretation Urine Eosinophils % U Random Total Protein Ur Random Sodium Urine Creatinine Peritoneal Tot Protein Peritoneal Albumin Stool Occult Blood Random Vancomycin Blood Type Antibody Screen Crossmatch 12/06/23 12/06/23 12/06/23 06:13 06:13 06:13 WBC RBC Hgb Hct MCV MCH MCHC RDW Plt Count MPV Immature Gran % (Auto) Neut % (Auto) Lymph % (Auto) [place] % (Auto) Eos % (Auto) Baso % (Auto) Lymph # (Auto) [place] # (Auto) Eos # (Auto) Baso # (Auto) Abs Immat Gran (auto) Absolute Neuts (auto) Absolute Nucleated RBC Nucleated RBC % (auto) Smear Path Review PT INR Sodium Potassium Chloride Cancelled Carbon Dioxide 17 L Cancelled Anion Gap 19 Cancelled BUN 76 H Creatinine Estim Creat Clear Calc Estimated GFR Random Glucose Calcium Total Bilirubin Direct Bilirubin AST ALT Alkaline Phosphatase Ammonia Total Creatine Kinase Total Protein Total Protein (PEP) Albumin Albumin (PEP) Khurc-7-Gkwjmmfpi Zwagx-0-Bjaiphhql Togm-2-Rzoczxjc Ubuh-0-Ybtykmqb Gamma Globulins PEP Interpretation Urine Eosinophils % U Random Total Protein Ur Random Sodium Urine Creatinine Peritoneal Tot Protein Peritoneal Albumin Stool Occult Blood Random Vancomycin Blood Type Antibody Screen Crossmatch 12/06/23 12/06/23 12/06/23 06:13 06:13 06:13 WBC RBC Hgb Hct MCV MCH MCHC RDW Plt Count MPV Immature Gran % (Auto) Neut % (Auto) Lymph % (Auto) [place] % (Auto) Eos % (Auto) Baso % (Auto) Lymph # (Auto) [place] # (Auto) Eos # (Auto) Baso # (Auto) Abs Immat Gran (auto) Absolute Neuts (auto) Absolute Nucleated RBC Nucleated RBC % (auto) Smear Path Review PT INR Sodium Potassium Chloride Carbon Dioxide Anion Gap BUN Cancelled Creatinine 4.71 H* Cancelled Estim Creat Clear Calc 21.4 Cancelled Estimated GFR 13 Random Glucose Calcium Total Bilirubin Direct Bilirubin AST ALT Alkaline Phosphatase Ammonia Total Creatine Kinase Total Protein Total Protein (PEP) Albumin Albumin (PEP) Awfuc-9-Avavjlmsg Ewgbw-6-Kbsxpuzyv Scar-2-Thuipexc Hxan-3-Ussswkbx Gamma Globulins PEP Interpretation Urine Eosinophils % U Random Total Protein Ur Random Sodium Urine Creatinine Peritoneal Tot Protein Peritoneal Albumin Stool Occult Blood Random Vancomycin Blood Type Antibody Screen Crossmatch 12/06/23 12/06/23 12/06/23 06:13 06:13 06:13 WBC RBC Hgb Hct MCV MCH MCHC RDW Plt Count MPV Immature Gran % (Auto) Neut % (Auto) Lymph % (Auto) [place] % (Auto) Eos % (Auto) Baso % (Auto) Lymph # (Auto) [place] # (Auto) Eos # (Auto) Baso # (Auto) Abs Immat Gran (auto) Absolute Neuts (auto) Absolute Nucleated RBC Nucleated RBC % (auto) Smear Path Review PT INR Sodium Potassium Chloride Carbon Dioxide Anion Gap BUN Creatinine Estim Creat Clear Calc Estimated GFR Cancelled Random Glucose 82 Cancelled Calcium 8.9 D Cancelled Total Bilirubin 12.7 H Direct Bilirubin AST ALT Alkaline Phosphatase Ammonia Total Creatine Kinase Total Protein Total Protein (PEP) Albumin Albumin (PEP) Ybgdg-7-Ttqvknjtn Xerhs-5-Buemarkct Yyqv-9-Hdajcefj Xpdw-7-Ibrkakre Gamma Globulins PEP Interpretation Urine Eosinophils % U Random Total Protein Ur Random Sodium Urine Creatinine Peritoneal Tot Protein Peritoneal Albumin Stool Occult Blood Random Vancomycin Blood Type Antibody Screen Crossmatch 12/06/23 12/06/23 12/06/23 06:13 06:13 06:13 WBC RBC Hgb Hct MCV MCH MCHC RDW Plt Count MPV Immature Gran % (Auto) Neut % (Auto) Lymph % (Auto) [place] % (Auto) Eos % (Auto) Baso % (Auto) Lymph # (Auto) [place] # (Auto) Eos # (Auto) Baso # (Auto) Abs Immat Gran (auto) Absolute Neuts (auto) Absolute Nucleated RBC Nucleated RBC % (auto) Smear Path Review PT INR Sodium Potassium Chloride Carbon Dioxide Anion Gap BUN Creatinine Estim Creat Clear Calc Estimated GFR Random Glucose Calcium Total Bilirubin Cancelled Direct Bilirubin 8.6 H AST 106 H Cancelled ALT 34 Cancelled Alkaline Phosphatase 101 Ammonia Total Creatine Kinase Total Protein Total Protein (PEP) Albumin Albumin (PEP) Irbiy-3-Mswawfonp Fgmwd-5-Xjbrvduvq Cnmj-6-Kqihxzxk Dcsz-8-Clejjpdf Gamma Globulins PEP Interpretation Urine Eosinophils % U Random Total Protein Ur Random Sodium Urine Creatinine Peritoneal Tot Protein Peritoneal Albumin Stool Occult Blood Random Vancomycin Blood Type Antibody Screen Crossmatch 12/06/23 12/06/23 12/06/23 06:13 06:13 06:13 WBC RBC Hgb Hct MCV MCH MCHC RDW Plt Count MPV Immature Gran % (Auto) Neut % (Auto) Lymph % (Auto) [place] % (Auto) Eos % (Auto) Baso % (Auto) Lymph # (Auto) [place] # (Auto) Eos # (Auto) Baso # (Auto) Abs Immat Gran (auto) Absolute Neuts (auto) Absolute Nucleated RBC Nucleated RBC % (auto) Smear Path Review PT INR Sodium Potassium Chloride Carbon Dioxide Anion Gap BUN Creatinine Estim Creat Clear Calc Estimated GFR Random Glucose Calcium Total Bilirubin Direct Bilirubin AST ALT Alkaline Phosphatase Cancelled Ammonia 91 H Total Creatine Kinase 50 Total Protein 7.1 Cancelled Total Protein (PEP) Albumin 3.0 L Cancelled Albumin (PEP) Qermm-1-Rkifrzsqs Hdusp-2-Wsqcullip Zbih-5-Irlvgbft Bisf-3-Aqyagyij Gamma Globulins PEP Interpretation Urine Eosinophils % U Random Total Protein Ur Random Sodium Urine Creatinine Peritoneal Tot Protein Peritoneal Albumin Stool Occult Blood Random Vancomycin Blood Type Antibody Screen Crossmatch 12/06/23 12/06/23 12/07/23 14:45 18:09 06:43 WBC 13.9 H RBC 1.92 L Hgb 6.8 L* Hct 19.6 L* MCV 102.1 H MCH 35.4 H MCHC 34.7 RDW 13.9 Plt Count 71 L MPV 11.0 Immature Gran % (Auto) Neut % (Auto) Lymph % (Auto) [place] % (Auto) Eos % (Auto) Baso % (Auto) Lymph # (Auto) [place] # (Auto) Eos # (Auto) Baso # (Auto) Abs Immat Gran (auto) Absolute Neuts (auto) Absolute Nucleated RBC 0.000 Nucleated RBC % (auto) 0.0 Smear Path Review SEE NOTE PT 44.2 H D INR 3.8 H Sodium 137 Potassium 4.7 Chloride 106 Carbon Dioxide 18 L Anion Gap 18 BUN 73 H Creatinine 4.29 H* Estim Creat Clear Calc 23.5 Estimated GFR 15 Random Glucose 72 Calcium 8.8 Total Bilirubin 15.6 H Direct Bilirubin 10.2 H AST 101 H ALT 35 Alkaline Phosphatase 105 Ammonia 72 H Total Creatine Kinase Total Protein 6.7 Total Protein (PEP) Albumin 2.6 L Albumin (PEP) Wnsdq-4-Yopahtnyi Lthwc-1-Fylqujiey Rfsc-7-Kxobtsjt Qjoq-6-Syeitaym Gamma Globulins PEP Interpretation Urine Eosinophils % U Random Total Protein Ur Random Sodium Urine Creatinine Peritoneal Tot Protein Peritoneal Albumin Stool Occult Blood POSITIVE Random Vancomycin 15.1 Blood Type B Positive Antibody Screen NEGATIVE Crossmatch See Detail Imaging Radiology Impressions: ITS Impressions Venous Duplex 12/04/23 21:03 IMPRESSION: No evidence of deep venous thrombosis involving the left lower extremity. Electronically signed by: Henry Parkinson MD 12/04/2023 09:42 PM EDT RP Chest X-Ray 12/05/23 01:05 IMPRESSION: 1. Right central line extending to the lower SVC/right atrial junction. 2. Low lung volumes. 3. Left lung base opacity, likely atelectasis. Electronically signed by: Rudy Sousa MD 12/05/2023 03:40 AM EDT RP Abdomen/Pelvis CT 12/05/23 01:56 IMPRESSION: 1. Diffuse colonic wall thickening consistent with colitis. Consider portal colopathy. 2. The pancreas is normal in appearance. 3. There is evidence of cirrhosis and portal hypertension with splenomegaly. 4. There is soft tissue anasarca. Fleischner guidelines were followed. Electronically signed by: Rudy Sousa MD 12/05/2023 03:49 AM EDT RP Abdomen Ultrasound 12/05/23 09:27 IMPRESSION: 1. Hydropic gallbladder with sludge or thickened bile seen. Findings may be related to gallbladder dyskinesia. The gallbladder wall edema and thickening seen is nonspecific in the setting of liver disease and ascites. Close clinical correlation is requested to exclude acute inflammation. 2. Common bile duct is mildly dilated. No choledocholithiasis in the visualized portions of the CBD. 3. Nodular cirrhotic liver with small volume ascites in the right side of the abdomen. 4. Incompletely visualized pancreas as discussed above. Electronically signed by: Macie Reese MD 12/05/2023 11:22 AM EDT RP Abdomen Ultrasound 12/05/23 17:42 IMPRESSION: Findings as above. Electronically signed by: Robin Constantino MD 12/06/2023 04:42 PM EDT RP Medications Medications Current Medications Acetaminophen (Acetaminophen 325 Mg Tablet) 650 mg PO Q6H PRN PRN Reason: Pain, Mild (Pain Scale 1-3), fever or headache Calcium Carbonate (Calcium Carbonate 750 Mg Tab.Chew) 750 mg PO Q4H PRN PRN Reason: Heartburn Hydromorphone HCl (Hydromorphone Hcl 0.5 Mg/0.5 Ml Syringe) 0.5 mg IVPUSH Q4H PRN; Protocol PRN Reason: Pain, Severe (Pain Scale 7-10) Last Admin: 12/06/23 19:58 Dose: 0.5 mg Dextrose (D10) 250 mls @ 750 mls/hr IV Q15M PRN PRN Reason: per Hypoglycemia Standing Ord. Last Infusion: 12/05/23 03:14 Dose: Infused Vancomycin HCl 500 mg/ Sodium (Chloride) 110 mls @ 110 mls/hr IV Q24H [facility] Last Infusion: 12/06/23 21:21 Dose: Infused Lactulose (Lactulose 20 Gm/30 Ml Solution) 30 gm PO TID [facility] Last Admin: 12/07/23 08:04 Dose: 30 gm Magnesium Hydroxide (Milk Of Magnesia 30 Ml Oral.Susp) 30 ml PO DAILY PRN PRN Reason: Constipation Melatonin (Melatonin 3 Mg Tablet) 6 mg PO BEDTIME PRN PRN Reason: Insomnia Methadone HCl (Methadone Hcl 20 Mg/2 Ml Oral.Conc) 10 mg PO ONCE PRN PRN Reason: Opiate Withdrawal Last Admin: 12/07/23 08:13 Dose: 10 mg Octreotide Acetate (Octreotide Acetate 100 Mcg/Ml Ampul) 100 mcg SUBCUT Q8H [facility] Last Admin: 12/07/23 08:03 Dose: 100 mcg Ondansetron HCl (Ondansetron Hcl 4 Mg/2 Ml Vial) 4 mg IVPUSH Q8H PRN PRN Reason: Nausea and Vomiting Pharmacy Consult (Consult Rx Vancomycin Dosing) 1 each MISCELLANE DAILY PRN PRN Reason: Consult order Rifaximin (Rifaximin 550 Mg Tablet) 550 mg PO BID [facility] Last Admin: 12/07/23 08:03 Dose: 550 mg Sodium Chloride (0.9 % Sodium Chloride Flush 3 Ml Syringe) 3 ml IVFLUSH QSHIFT [facility] Last Admin: 12/07/23 08:04 Dose: 3 ml Allergies Allergies Allergy/AdvReac Type Severity Reaction Status Date / Time No Known Allergies Allergy Verified 12/04/23 16:08 [No Known Allergies*] Assessment & Plan Assessment & Plan (1) Opioid use disorder: Status: Acute Code(s): F11.90 - Opioid use, unspecified, uncomplicated Assessment and Plan: * restart methadone -20mg today * 30mg tomorrow and increase as tolerated without sedation Total time managing care of this patient today _25___ minutes.
--- NOTE | 2023-12-07 14:11 | P.PNGI_ITS ---
Subjective Subjective Date of Service: 12/07/23 Interval History: Patient seen and evaluated at bedside. Awake and interacting appropriately. Does not report abd pain. Remains on Vanc for MRSA and ceftriaxone 2g for SBP. Critical Care Time (minutes): 0 Physical Exam 2 Vital Signs: Vital Signs: Last Vital Signs Temp 97.6 F 12/07/23 13:39 Pulse 92 12/07/23 13:39 Resp 20 12/07/23 13:39 BP 123/62 12/07/23 13:39 Pulse Ox 93 12/07/23 11:09 O2 Del Method Room Air 12/07/23 11:09 BMI result Body Mass Index 28.0 Grossly icteric abd distended, nontender asterixis ++ Objective Data Labs 12/07/23 06:43 12/07/23 06:43 Labs: Laboratory Results - last 24 hr 12/05/23 12/05/23 12/06/23 09:17 10:25 14:45 WBC RBC Hgb Hct MCV MCH MCHC RDW Plt Count MPV Absolute Nucleated RBC Nucleated RBC % (auto) Smear Path Review PT INR Sodium Potassium Chloride Carbon Dioxide Anion Gap BUN Creatinine Estim Creat Clear Calc Estimated GFR Random Glucose Calcium Total Bilirubin Direct Bilirubin AST ALT Alkaline Phosphatase Ammonia Total Protein Total Protein (PEP) 6.9 Albumin Albumin (PEP) 2.8 L Qutqy-6-Wshwnyphk 0.3 Ulguz-7-Pukiroxqb 0.3 L Wzct-3-Tcrunhgp 0.1 L Mdqx-1-Murkhvsl 0.4 Gamma Globulins 3.0 H PEP Interpretation SEE NOTE Peritoneal Tot Protein 0.7 Peritoneal Albumin 0.3 Stool Occult Blood POSITIVE Random Vancomycin Blood Type Antibody Screen Crossmatch 12/06/23 12/07/23 18:09 06:43 WBC 13.9 H RBC 1.92 L Hgb 6.8 L* Hct 19.6 L* MCV 102.1 H MCH 35.4 H MCHC 34.7 RDW 13.9 Plt Count 71 L MPV 11.0 Absolute Nucleated RBC 0.000 Nucleated RBC % (auto) 0.0 Smear Path Review SEE NOTE PT 44.2 H D INR 3.8 H Sodium 137 Potassium 4.7 Chloride 106 Carbon Dioxide 18 L Anion Gap 18 BUN 73 H Creatinine 4.29 H* Estim Creat Clear Calc 23.5 Estimated GFR 15 Random Glucose 72 Calcium 8.8 Total Bilirubin 15.6 H Direct Bilirubin 10.2 H AST 101 H ALT 35 Alkaline Phosphatase 105 Ammonia 72 H Total Protein 6.7 Total Protein (PEP) Albumin 2.6 L Albumin (PEP) Peaxg-3-Zqokwmaqz Qyobf-5-Gnvbznwkg Hohl-9-Qrxfrkqq Faod-5-Vpjoiprl Gamma Globulins PEP Interpretation Peritoneal Tot Protein Peritoneal Albumin Stool Occult Blood Random Vancomycin 15.1 Blood Type B Positive Antibody Screen NEGATIVE Crossmatch See Detail Microbiology Microbiology Results: Microbiology 12/05/23 04:18 Blood - Venous Blood Culture - Final Methicillin Res Staph Aureus 12/05/23 04:18 Blood - Venous Blood Culture - Final Methicillin Res Staph Aureus 12/05/23 09:17 Ascites Fluid Gram Stain - Final 12/05/23 09:17 Ascites Fluid Routine Culture - Final No growth after 2 days 12/05/23 09:17 Ascites Fluid Anaerobic Culture - Preliminary No growth to date. 12/05/23 Unknown Urine clean catch - Clean Catch Midstream Urine Culture - Final Methicillin Res Staph Aureus Procedures Date of Service Date of Service: 12/07/23 Progress Note: A&P Assessment and plan (1) MRSA bacteremia: Status: Acute (2) Sepsis: Status: Acute (3) Chronic hepatitis C: Status: Acute (4) Decompensated hepatic cirrhosis: Status: Acute (5) Acute hepatic encephalopathy: Status: Acute (6) Spontaneous bacterial peritonitis: Status: Acute (7) Hepatorenal syndrome: Status: Acute (8) Opioid use disorder: Status: Acute Plan Overall presentation consistent with acute on chronic liver failure. MELD-Na 40. ACLF grade III with 6-m mortality calculated at 84% based on FLEX score. Likely precipitated by sepsis 2/2 MRSA bacteremia and SBP. Unfortunately, liver function continues to decline. His INR is now 3.8, from 2.7. Bili has risen to 15.6 from 12.7 on admission. Renal function has improved somewhat. Creatinine is 4.29. However urine output remains minimal - only had 600 cc of urine yesterday as per charting so suspect Cr may be unchanged or worse tmrw. H&H trend noted. No overt bleeding. Suspect this is multifactorial from inflammatory anemia, versus scant oozing from CSPH related changes such as PHG/GAVE etc. Low suspicion for PUD or variceal bleeding at this time based on clinical assessment. Prognosis remains guarded. Recommendations: -Daily MELD labs -No indication for emergent EGD at this time -Add octreotide and midodrine as per HRS protocol -Cont Albumin 25% 100 ml QID -Repeat Vit K 10mg IV once -Echo done - read pending. -Unfortunately not a transplant candidate due to ongoing ilicit substance use disorder -Consider palliative care consultation Time Spent With Patient Time: Total time managing care of this patient today ____ minutes. Quality Stroke Does the patient have a stroke diagnosis?: No VTE Prior VTE?: No VTE Risk Level:: Medical - moderate - high VTE Device Contraindication: N/A - Device Ordered VTE Drug Contraindication: Treatment Not Indicated
[2023-12-07] MEDS: Pantoprazole Sodium 40 MG/10 ML VIAL IVPUSH (14:53)
[2023-12-07] MEDS: Phytonadione (Vit K1) 10 MG in 0.9 % Sodium Chloride 50 ML 51 MG IV (16:08)
[2023-12-07 18:31] LABS: Vancomycin Trough 15.1 mcg/mL (10.0-20.0)
[2023-12-07] MEDS: HYDROmorphone HCl 0.5 MG/0.5 ML SYRINGE IVPUSH (20:36)
[2023-12-07] MEDS: vancomycin HCL 500 MG in 0.9 % Sodium Chloride 100 ML 110 MG IV (20:36)
[2023-12-07] MEDS: ondansetron HCL 4 MG/2 ML VIAL IVPUSH (23:56)
[2023-12-08] VITALS (7 sets, daily range): BP systolic 120–137; BP diastolic 67–90; PULSE 93–101; RESP 18–20; TEMP 36.3–37.3; O2SAT 93–95
[2023-12-08] MEDS: Pantoprazole Sodium 40 MG/10 ML VIAL IVPUSH ×2 (05:08→17:32)
[2023-12-08 06:56] LABS: Hematocrit 24.2 % (42.0-52.0); Hemoglobin 8.2 g/dl (14.0-18.0); Mean Corpuscular HGB Conc 33.9 g/dl (31.0-36.0); Mean Corpuscular Hemoglobin 32.9 pg (27.0-33.0); Mean Corpuscular Volume 97.2 fL (80.0-98.0); Mean Platelet Volume 11.9 fL (9.4-12.4); Red Blood Count 2.49 X10*6/uL (4.60-5.80); Red Cell Distribution Width 18.7 % (11.0-16.0); White Blood Count 14.5 X10*3/uL (4.8-10.8)
[2023-12-08 07:03] LABS: Alanine Aminotransferase 33 U/L (0-40); Albumin Level 3.1 g/dL (3.5-5.0); Alkaline Phosphatase 100 U/L (39-117); Anion Gap 13 (12-20); Aspartate Amino Transferase 83 U/L (5-37); Bilirubin Total 16.2 mg/dL (0.0-1.0); Blood Urea Nitrogen 69 mg/dL (9-16); Calcium 8.8 mg/dL (8.4-10.2); Carbon Dioxide 19 mmol/L (22-29); Chloride 108 mmol/L (96-108); Creatinine Clr Calc Pharmacy 26.5; Estimated Glomerular Filt Rate 17; Glucose Random 142 mg/dL (60-115); Magnesium 2.3 mg/dL (1.6-2.6); Potassium 4.1 mmol/L (3.3-5.1); Sodium 136 mmol/L (135-145); Total Protein 6.7 g/dL (6.5-8.0)
[2023-12-08 07:05] LABS: INTERNATIONAL NORM RATIO 3.8 (0.9-1.1); Platelet Count 67 X10*3/uL (160-400)
[2023-12-08 07:34] LABS: Ammonia 71 umol/L (13-55)
--- NOTE | 2023-12-08 08:35 | P.PNNP_ITS ---
Subjective Subjective Date of Service: 12/08/23 Interval history: 48 y/o male with a medical history of hep C virus, liver cirrhosis, polysubstance abuse on methadone, mood disorder. Came to ED evening of 12/03 with abdominal pain, weakness, altered mental status. Nephrology consulted for MAI. patients creatinine level has been trending down, 6.59 12/04, 12/05 is 4.71, 12/06 is 4.29, 12/07 is 3.81 electrolytes have normalized large amount of blood on urine dipstick, though only 6-10 urine RBCs on microscopy CK only [address] scan of his abdomen- no obstruction, kidneys/ureters unremarkable. + cirrhosis, portal HTN, anasarca and ?colitis. had diagnostic paracentesis, has SBP, receiving ceftriaxone and albumin for management Urine sodium is 32 receiving octreotide and midodrine for HRS protocol per GI, albumin IV as well unfortunately not a liver candidate due to ongoing ROSS blood cultures +staph aureaus bacteremia, receiving abx treatment Today patient is lethargic in bed, responds to questions with one-word responses He states he has some pain in his left leg, states he does have pain in his abdomen but does not point to area of pain today states his breathing is comfortable pitting edema left lower extremity- US has ruled out DVT; pt reports ongoing pain tate in place and had concentrated dark yellow urine in bag. Had ~1000mL UOP over last 24 hours Physical Exam 2 Vital Signs: Vital Signs: Last Vital Signs Temp 99.1 F 12/08/23 07:07 Pulse 99 12/08/23 07:07 Resp 18 12/08/23 07:07 BP 130/74 12/08/23 07:07 Pulse Ox 94 12/08/23 07:07 O2 Del Method Room Air 12/08/23 07:07 BMI result Body Mass Index 28.0 Const: General: lethargic Nutritional Appearance: Edematous O rientation/consciousness: lethargic Limitations: altered mental status Neck: Neck: Yes no JVD Resp: Effort & Inspection: normal respiratory effort Auscultation: rhonchi Cardio: Jugular venous distension: no JVD Rate: regular rate Rhythm: r egular rhythm Heart sounds: S1 normal heart sound present and S2 normal heart sound present GI: Inspection: Yes distended Palpation (GI): Tenderness to palpation present (GI) and Ascites present Skin: General skin exam: jaundice Extrem: General: Yes edema (pitting LLE, US ruled out DVT ) Objective Data Labs 12/08/23 05:25 12/08/23 05:25 Labs: Laboratory Results - last 24 hr 12/05/23 12/05/23 12/07/23 09:17 10:25 06:43 WBC RBC Hgb Hct MCV MCH MCHC RDW Plt Count MPV Absolute Nucleated RBC Nucleated RBC % (auto) Smear Path Review SEE NOTE PT 44.2 H D INR 3.8 H Sodium Potassium Chloride Carbon Dioxide Anion Gap BUN Creatinine Estim Creat Clear Calc Estimated GFR Random Glucose Calcium Magnesium Total Bilirubin AST ALT Alkaline Phosphatase Ammonia Total Protein Total Protein (PEP) 6.9 Albumin Albumin (PEP) 2.8 L Fgkyx-6-Mpnwzkdsh 0.3 Ekgph-4-Zcbjupqaz 0.3 L Rnub-7-Mholgeom 0.1 L Lzmk-2-Numgvwvn 0.4 Gamma Globulins 3.0 H PEP Interpretation SEE NOTE Peritoneal Tot Protein 0.7 Peritoneal Albumin 0.3 Vancomycin Trough Blood Type B Positive Antibody Screen NEGATIVE Crossmatch See Detail 12/07/23 12/08/23 12/08/23 18:12 05:25 07:26 WBC 14.5 H RBC 2.49 L D Hgb 8.2 L D Hct 24.2 L D MCV 97.2 MCH 32.9 MCHC 33.9 RDW 18.7 H Plt Count 67 L MPV 11.9 Absolute Nucleated RBC 0.000 Nucleated RBC % (auto) 0.0 Smear Path Review PT 44.0 H INR 3.8 H Sodium 136 Potassium 4.1 Chloride 108 Carbon Dioxide 19 L Anion Gap 13 BUN 69 H Creatinine 3.81 H Estim Creat Clear Calc 26.5 Estimated GFR 17 Random Glucose 142 H Calcium 8.8 Magnesium 2.3 Total Bilirubin 16.2 H AST 83 H ALT 33 Alkaline Phosphatase 100 Ammonia 71 H Total Protein 6.7 Total Protein (PEP) Albumin 3.1 L Albumin (PEP) Sgbks-2-Lgprnexex Qphir-9-Qojhqtgwu Unqv-6-Jyoswsct Scxr-4-Cehemasd Gamma Globulins PEP Interpretation Peritoneal Tot Protein Peritoneal Albumin Vancomycin Trough 15.1 Blood Type Antibody Screen Crossmatch Microbiology Microbiology Results: Microbiology 12/05/23 09:17 Ascites Fluid Gram Stain - Final 12/05/23 09:17 Ascites Fluid Routine Culture - Final No growth after 2 days 12/05/23 09:17 Ascites Fluid Anaerobic Culture - Preliminary No growth to date. 12/07/23 06:43 Blood - Venous Blood Culture - Preliminary Prelim: GPC Gram Stain only 12/07/23 06:43 Blood - Venous Blood Culture - Preliminary Prelim: GPC Gram Stain only 12/05/23 04:18 Blood - Venous Blood Culture - Final Methicillin Res Staph Aureus 12/05/23 04:18 Blood - Venous Blood Culture - Final Methicillin Res Staph Aureus 12/05/23 Unknown Urine clean catch - Clean Catch Midstream Urine Culture - Final Methicillin Res Staph Aureus Procedures Date of Service Date of Service: 12/08/23 Assessment & Plan Assessment and plan (1) Acute renal failure: Status: Acute (2) Chronic hepatitis C: Status: Acute (3) Decompensated hepatic cirrhosis: Status: Acute Plan Acute renal failure most likely secondary to rubular injury from hypoperfusion, may also have component of cocaine-induced ATN renal function continues to slowly improve though remains significantly impaired differential also includes hepC-related GN, thrombotic microangiopathy, should also consider abdominal compartment syndrome no obstruction seen on CT scan unlikely AIN given urine with minimal WBCs, no rash/fever less likely hepatorenal syndrome given urine sodium level, lack of hypotension, lack of oliguria UPEP, SPEP, C3, C4, CPK and cryoglobin pending recommend close monitoring of intake and output and blood pressure recommend daily electrolyte and renal function labs Will continue to follow Discussed with Dr Contreras Time Spent With Patient Time: Total time managing care of this patient today ____ minutes. Progress Note: Quality Stroke Does the patient have a stroke diagnosis?: No
[2023-12-08] MEDS: Lactulose 20 GM/30 ML SOLUTION 30 GM PO (09:09)
[2023-12-08] MEDS: rifAXIMin 550 MG TABLET PO ×2 (09:10→21:38)
[2023-12-08] MEDS: Octreotide Acetate 100 MCG/ML AMPUL SUBCUT ×2 (09:11→17:32)
[2023-12-08] MEDS: methADONE HCl 20 MG/2 ML ORAL.CONC 30 MG PO (09:11)
[2023-12-08] MEDS: 0.9 % Sodium Chloride Flush 3 ML SYRINGE IVFLUSH ×3 (09:23→21:38)
--- NOTE | 2023-12-08 10:17 | MHC.CM.PN ---
Per ROUNDS discussion, Patient is not yet medically cleared for dc (IV Dilaudid, IV Protonix, IV Vanco); home is the goal and CM will continue to follow.
--- NOTE | 2023-12-08 11:14 | HO.PM.IMPN ---
Subjective Subjective Date of Service: 12/08/23 Interval History: has wattery diarrhea, no other complaint at this time Physical Exam Vital Signs: Vital Signs: Last Vital Signs Temp 98.3 F 12/08/23 11:06 Pulse 93 12/08/23 11:06 Resp 20 12/08/23 11:06 BP 124/90 H 12/08/23 11:06 Pulse Ox 93 12/08/23 11:06 O2 Del Method Room Air 12/08/23 11:06 BMI result Body Mass Index 28.0 Const: Other: Gen: chronically ill-appearing HEENT: sclera icteric, moist mucus membranes Neck: supple Lungs: clear to auscultation bilaterally Heart: regular rate and rhythm, systolic murmur along LSB Abd: tense, ascites present Ext: 2+ bilateral leg edema Skin: warm/well-perfused, jaundiced with purpura and petechiae Neuro: alert and oriented to self/place, asterixis present Psych: restricted affect Objective Data Active Medications Acetaminophen (Acetaminophen 325 Mg Tablet) 650 mg PO Q6H PRN PRN Reason: Pain, Mild (Pain Scale 1-3), fever or headache Calcium Carbonate (Calcium Carbonate 750 Mg Tab.Chew) 750 mg PO Q4H PRN PRN Reason: Heartburn Hydromorphone HCl (Hydromorphone Hcl 0.5 Mg/0.5 Ml Syringe) 0.5 mg IVPUSH Q4H PRN; Protocol PRN Reason: Pain, Severe (Pain Scale 7-10) Last Admin: 12/07/23 20:36 Dose: 0.5 mg Documented By: HARLEY Dextrose (D10) 250 mls @ 750 mls/hr IV Q15M PRN PRN Reason: per Hypoglycemia Standing Ord. Last Infusion: 12/05/23 03:14 Dose: Infused Documented By: JACQUELINE Vancomycin HCl 500 mg/ Sodium (Chloride) 110 mls @ 110 mls/hr IV Q24H [facility] Last Infusion: 12/07/23 21:50 Dose: Infused Documented By: HARLEY Lactulose (Lactulose 20 Gm/30 Ml Solution) 30 gm PO TID [facility] Last Admin: 12/08/23 09:09 Dose: 30 gm Documented By: FANY Magnesium Hydroxide (Milk Of Magnesia 30 Ml Oral.Susp) 30 ml PO DAILY PRN PRN Reason: Constipation Melatonin (Melatonin 3 Mg Tablet) 6 mg PO BEDTIME PRN PRN Reason: Insomnia Methadone HCl (Methadone Hcl 20 Mg/2 Ml Oral.Conc) 30 mg PO DAILY@0800 [facility] Last Admin: 12/08/23 09:11 Dose: 30 mg Documented By: FANY Co-signed By: GUI Octreotide Acetate (Octreotide Acetate 100 Mcg/Ml Ampul) 100 mcg SUBCUT Q8H [facility] [place] Last Admin: 12/08/23 09:11 Dose: 100 mcg Documented By: FANY Ondansetron HCl (Ondansetron Hcl 4 Mg/2 Ml Vial) 4 mg IVPUSH Q8H PRN PRN Reason: Nausea and Vomiting Last Admin: 12/07/23 23:56 Dose: 4 mg Documented By: HARLEY Comments: c/o nausea Pantoprazole Sodium (Pantoprazole Sodium 40 Mg/10 Ml Vial) 40 mg IVPUSH BID@0630,1630 [facility] Last Admin: 12/08/23 05:08 Dose: 40 mg Documented By: HARLEY Pharmacy Consult (Consult Rx Vancomycin Dosing) 1 each MISCELLANE DAILY PRN PRN Reason: Consult order Rifaximin (Rifaximin 550 Mg Tablet) 550 mg PO BID [facility] Last Admin: 12/08/23 09:10 Dose: 550 mg Documented By: FANY Sodium Chloride (0.9 % Sodium Chloride Flush 3 Ml Syringe) 3 ml IVFLUSH QSHIFT [facility] Last Admin: 12/08/23 09:23 Dose: 3 ml Documented By: FANY Labs 12/08/23 05:25 12/08/23 05:25 Labs: Laboratory Results - last 24 hr 12/05/23 12/07/23 12/07/23 10: 06:43 18:12 MCV MCH MCHC RDW Plt Count MPV Absolute Nucleated RBC Nucleated RBC % (auto) PT 44.2 H D INR 3.8 H Anion Gap Estim Creat Clear Calc Estimated GFR Random Glucose Calcium Magnesium Total Bilirubin AST ALT Alkaline Phosphatase Ammonia Total Protein Albumin Abnorm Protein Band 1 TNP Abnorm Protein Band 2 TNP Abnorm Protein Band 3 TNP Vancomycin Trough 15.1 Blood Type B Positive Antibody Screen NEGATIVE Crossmatch See Detail 12/08/23 12/08/23 05:25 07:26 MCV 97.2 MCH 32.9 MCHC 33.9 RDW 18.7 H Plt Count 67 L MPV 11.9 Absolute Nucleated RBC 0.000 Nucleated RBC % (auto) 0.0 PT 44.0 H INR 3.8 H Anion Gap 13 Estim Creat Clear Calc 26.5 Estimated GFR 17 Random Glucose 142 H Calcium 8.8 Magnesium 2.3 Total Bilirubin 16.2 H AST 83 H ALT 33 Alkaline Phosphatase 100 Ammonia 71 H Total Protein 6.7 Albumin 3.1 L Abnorm Protein Band 1 Abnorm Protein Band 2 Abnorm Protein Band 3 Vancomycin Trough Blood Type Antibody Screen Crossmatch Microbiology Microbiology Results: Microbiology 12/07/23 06:43 Blood Culture - Preliminary Blood - Venous Prelim: GPC Gram Stain only 12/07/23 06:43 Blood Culture - Preliminary Blood - Venous Prelim: GPC Gram Stain only 12/05/23 09:17 Gram Stain - Final Ascites Fluid Routine Culture - Final No growth after 2 days Anaerobic Culture - Preliminary No growth to date. 12/05/23 04:18 Blood Culture - Final Blood - Venous Methicillin Res Staph Aureus 12/05/23 04:18 Blood Culture - Final Blood - Venous Methicillin Res Staph Aureus 12/05/23 Unknown Urine Culture - Final Urine clean catch - Clean Catch Midstream Methicillin Res Staph Aureus Assessment and Plan (1) Decompensated cirrhosis: Status: Acute Plan 48yo M with decompensated HCV cirrhosis, polysubstance abuse disorder on methadone, mood disorder presenting with abd pain/swelling, weakness, and leg swelling found to have SBP + Staph aureus bacteremia ascites/SBP - diagnostic paracentesis 12/04 with 60cc ascites aspirated; 912 PMNs; on ceftriaxone 12/04-; got albumin 12/04 and 12/06, culture negative to date Staph aureus bacteremia - vancomycin 12/04-, TTE from 12/05 read pending, ID consulted, plan 4 wk of IV vancomycin or daptomycin from 1st negative BCx, repeat BCx today [12/06] MAI - suspect hepatorenal vs cocaine-induced vasoconstriction; hold furosemide + spironolactone; albumin as above and added midodrine and octreotide; Nephrology following; SCr improved hepatic encephalopathy - lactulose + rifaxmin decompensated cirrhosis - GI consulted, does not qualify for transplant due to ongoing substance abuse - abd US with Doppler to r/o PVT negative acute lactic acidosis - due to liver disease hyperK - due to MAI; K normalized thrombocytopenia - due to cirrhosis; monitor CBC daily anemia - due to cirrhosis; monitor CBC daily; FOBT positive; will give 2u pRBCs and discuss with GI whether he should have EGD; will give IV PPI coagulopathy - given vitamin K without correction; monitor INR daily polysubstance abuse - Addiction Medicine consulted, getting single doses of methadone for now given encephalopathy VTE ppx - SCDs; no heparin given coagulopathy + thrombocytopenia dispo - will need STR for IV ABX, duration 4 wk from clearance I updated patient's alternate HCP, his sister Beena @ [phone] In my clinical judgment, the patient requires continued inpatient hospitalization for the following reasons: IV ABX, albumin Total time managing care of this patient today: 50 minutes. Quality Stroke Does the patient have a stroke diagnosis?: No VTE Prior VTE?: No VTE Risk Level:: Medical - moderate - high VTE Device Contraindication: N/A - Device Ordered VTE Drug Contraindication: Treatment Not Indicated
[2023-12-08] MEDS: ondansetron HCL 4 MG/2 ML VIAL IVPUSH (11:30)
[2023-12-08 11:44] LABS: Complement C3 35 mg/dL (82-185)
--- NOTE | 2023-12-08 14:09 | MHC.CM.PN ---
Per Thony from [facility], wound vac should be delivered here later this afternoon.
--- NOTE | 2023-12-08 14:25 | MHC.RECOVRN ---
Attempted to meet with pt to follow up after receiving 30 mg methadone this morning. Pt asleep, wakes to touch, very quickly falls back to sleep, does not engage in conversation. Pts RN reports pt was recently up to the commode and had family visiting, attempted to speak to pt with t/w, pt reported he is just very tired but feels okay. Will continue to follow.
[2023-12-08] MEDS: ceFAZolin Sodium 1 GM VIAL IVPUSH (17:33)
[2023-12-08 19:19] LABS: Vancomycin Random 13.9 mcg/mL (15-20)
--- NOTE | 2023-12-08 19:57 | HE.PHANOTE ---
VANCO DOSE ADJUSTMENT BASED ON SCR AND TROUGH OF 13.9 DOSE INCREASED TO 750 Q 12H. NEXT LEVEL 12/08 @ 1600
[2023-12-08] MEDS: vancomycin HCL 750 MG in 0.9 % Sodium Chloride 250 ML 265 MG IV (21:38)
[2023-12-09] VITALS (9 sets, daily range): BP systolic 132–167; BP diastolic 73–87; PULSE 93–105; RESP 16–20; TEMP 36.4–37.1; O2SAT 94–96
[2023-12-09] MEDS: Octreotide Acetate 100 MCG/ML AMPUL SUBCUT ×4 (00:04→23:40)
[2023-12-09] MEDS: ceFAZolin Sodium 1 GM VIAL IVPUSH ×2 (04:05→16:12)
[2023-12-09] MEDS: Pantoprazole Sodium 40 MG/10 ML VIAL IVPUSH ×2 (06:36→16:12)
[2023-12-09] MEDS: vancomycin HCL 750 MG in 0.9 % Sodium Chloride 250 ML 265 MG IV (07:26)
[2023-12-09] MEDS: 0.9 % Sodium Chloride Flush 3 ML SYRINGE IVFLUSH ×3 (07:27→20:52)
[2023-12-09] MEDS: rifAXIMin 550 MG TABLET PO ×2 (07:27→20:52)
[2023-12-09] MEDS: methADONE HCl 20 MG/2 ML ORAL.CONC 30 MG PO (07:27)
[2023-12-09 08:47] LABS: Creatinine Clr Calc Pharmacy 33.2; Estimated Glomerular Filt Rate 22
--- NOTE | 2023-12-09 09:39 | MHC.RECOVRN ---
Met with patient in 445-1 for a check in. Patient is alert and oriented, soft, quiet voice, not making good eye contact. Pupils round and reactive, skin is moist, yawning while talking. States 7/10 back pain, endorses nausea, and a hard time sleeping at night. Spoke with Dr Morgan about giving a 10mg one time dose of methadone to see if that helps, and addressing an increase tomorrow if it does.
[2023-12-09] MEDS: ondansetron HCL 4 MG/2 ML VIAL IVPUSH (10:04)
[2023-12-09] MEDS: methADONE HCl 20 MG/2 ML ORAL.CONC 10 MG PO (11:05)
--- NOTE | 2023-12-09 13:18 | P.PNIM_ITS ---
Subjective Subjective Date of Service: 12/09/23 Interval History: His mental status seems better, serum creatine is better Physical Exam 2 Vital Signs: Vital Signs: Last Vital Signs Temp 98.4 F 12/09/23 11:42 Pulse 101 H 12/09/23 11:42 Resp 20 12/09/23 11:42 BP 159/74 H 12/09/23 11:42 Pulse Ox 94 12/09/23 11:42 O2 Del Method Room Air 12/09/23 11:42 BMI result Body Mass Index 28.0 Const: Other: Gen: chronically ill-appearing HEENT: sclera icteric, moist mucus membranes Neck: supple Lungs: clear to auscultation bilaterally Heart: regular rate and rhythm, systolic murmur along LSB Abd: tense, ascites present Ext: 2+ bilateral leg edema Skin: warm/well-perfused, jaundiced with purpura and petechiae Neuro: alert and oriented to self/place, asterixis present Psych: restricted affect Objective Data Active Medications Acetaminophen (Acetaminophen 325 Mg Tablet) 650 mg PO Q6H PRN PRN Reason: Pain, Mild (Pain Scale 1-3), fever or headache Calcium Carbonate (Calcium Carbonate 750 Mg Tab.Chew) 750 mg PO Q4H PRN PRN Reason: Heartburn Cefazolin Sodium (Cefazolin Sodium 1 Gm Vial) 1 gm IVPUSH Q12H [facility] Last Admin: 12/09/23 04:05 Dose: 1 gm Documented By: CECILIA Hydromorphone HCl (Hydromorphone Hcl 0.5 Mg/0.5 Ml Syringe) 0.5 mg IVPUSH Q4H PRN; Protocol PRN Reason: Pain, Severe (Pain Scale 7-10) Last Admin: 12/07/23 20:36 Dose: 0.5 mg Documented By: HARLEY Dextrose ([id number]) 250 mls @ 750 mls/hr IV Q15M PRN PRN Reason: per Hypoglycemia Standing Ord. Last Infusion: 12/05/23 03:14 Dose: Infused Documented By: JACQUELINE Vancomycin HCl 750 mg/ Sodium (Chloride) 265 mls @ 265 mls/hr IV Q12H [facility] Last Infusion: 12/09/23 08:26 Dose: Infused Documented By: NIKKI Lactulose (Lactulose 20 Gm/30 Ml Solution) 30 gm PO TID [facility] Last Admin: 12/09/23 07:28 Dose: Not Given Documented By: NIKKI Non-Admin Reason: multiple loose liquid stools > 10 times Magnesium Hydroxide (Milk Of Magnesia 30 Ml Oral.Susp) 30 ml PO DAILY PRN PRN Reason: Constipation Melatonin (Melatonin 3 Mg Tablet) 6 mg PO BEDTIME PRN PRN Reason: Insomnia Methadone HCl (Methadone Hcl 20 Mg/2 Ml Oral.Conc) 30 mg PO DAILY@0800 [facility] Last Admin: 12/09/23 07:27 Dose: 30 mg Documented By: NIKKI Co-signed By: AGUSTO Octreotide Acetate (Octreotide Acetate 100 Mcg/Ml Ampul) 100 mcg SUBCUT Q8H [facility] Last Admin: 12/09/23 07:26 Dose: 100 mcg Documented By: NIKKI Ondansetron HCl (Ondansetron Hcl 4 Mg/2 Ml Vial) 4 mg IVPUSH Q8H PRN PRN Reason: Nausea and Vomiting Last Admin: 12/09/23 10:04 Dose: 4 mg Documented By: NIKKI Pantoprazole Sodium (Pantoprazole Sodium 40 Mg/10 Ml Vial) 40 mg IVPUSH BID@0630,1630 [facility] Last Admin: 12/09/23 06:36 Dose: 40 mg Documented By: CECILIA Pharmacy Consult (Consult Rx Vancomycin Dosing) 1 each MISCELLANE DAILY PRN PRN Reason: Consult order Rifaximin (Rifaximin 550 Mg Tablet) 550 mg PO BID [facility] Last Admin: 12/09/23 07:27 Dose: 550 mg Documented By: NIKKI Sodium Chloride (0.9 % Sodium Chloride Flush 3 Ml Syringe) 3 ml IVFLUSH QSHIFT [facility] Last Admin: 12/09/23 07:27 Dose: 3 ml Documented By: NIKKI Labs 12/08/23 05:25 12/09/23 07:55 Labs: Laboratory Results - last 24 hr 12/07/23 12/08/23 12/09/23 06:43 18:05 07:55 Hold Purple Top SEE NOTE PT 44.2 H D INR 3.8 H Estim Creat Clear Calc 33.2 Estimated GFR 22 Random Vancomycin 13.9 L Microbiology Microbiology Results: Microbiology 12/05/23 09:17 Gram Stain - Final Ascites Fluid Routine Culture - Final No growth after 2 days Anaerobic Culture - Preliminary No growth to date. 12/07/23 06:43 Blood Culture - Final Blood - Venous Methicillin Res Staph Aureus 12/07/23 06:43 Blood Culture - Final Blood - Venous Methicillin Res Staph Aureus Assessment and Plan (1) Decompensated cirrhosis: Status: Acute Plan 48yo M with decompensated HCV cirrhosis, polysubstance abuse disorder on methadone, mood disorder presenting with abd pain/swelling, weakness, and leg swelling found to have SBP + Staph aureus bacteremia ascites/SBP - diagnostic paracentesis 12/04 with 60cc ascites aspirated; 912 PMNs; on ceftriaxone 12/04-; got albumin 12/04 and 12/06, culture negative to date Staph aureus bacteremia - vancomycin 12/04-, TTE from 12/05 read pending, ID consulted, plan 4 wk of IV vancomycin or daptomycin from 1st negative BCx, repeat BCx 12/06, positive, repeat cultures today MAI - suspect hepatorenal vs cocaine-induced vasoconstriction; hold furosemide + spironolactone; albumin as above and added midodrine and octreotide; Nephrology following; SCr improved hepatic encephalopathy--more clear - lactulose + rifaxmin decompensated cirrhosis - GI consulted, does not qualify for transplant due to ongoing substance abuse - abd US with Doppler to r/o PVT negative acute lactic acidosis - due to liver disease hyperK - due to MAI; K normalized, recheck potassium thrombocytopenia - due to cirrhosis; monitor CBC daily anemia - due to cirrhosis; monitor CBC daily; FOBT positive; will give 2u pRBCs and discuss with GI whether he should have EGD; will give IV PPI coagulopathy - given vitamin K without correction; monitor INR daily polysubstance abuse - Addiction Medicine consulted, getting single doses of methadone for now given encephalopathy VTE ppx - SCDs; no heparin given coagulopathy + thrombocytopenia dispo - will need STR for IV ABX, duration 4 wk from clearance I updated patient's alternate HCP, his sister Beena @ [phone] In my clinical judgment, the patient requires continued inpatient hospitalization for the following reasons: IV ABX, albumin Total time managing care of this patient today: 50 minutes. Quality Stroke Does the patient have a stroke diagnosis?: No VTE Prior VTE?: No VTE Risk Level:: Medical - moderate - high VTE Device Contraindication: N/A - Device Ordered VTE Drug Contraindication: Treatment Not Indicated
[2023-12-09 13:28] LABS: MANUAL DIFF FLAG NO
[2023-12-09 13:35] LABS: Basophils Absolute Auto 0.1 X10*3/uL (0.0-0.2); Basophils Percent Auto 0.5 % (0-2); Eosinophils Absolute Auto 0.1 X10*3/uL (0.0-0.4); Eosinophils Percent Auto 0.7 % (0-4); Hematocrit 24.6 % (42.0-52.0); Hemoglobin 8.2 g/dl (14.0-18.0); Lymphocytes Absolute Auto 1.2 X10*3/uL (1.2-4.9); Mean Corpuscular HGB Conc 33.3 g/dl (31.0-36.0); Mean Corpuscular Hemoglobin 33.2 pg (27.0-33.0); Mean Corpuscular Volume 99.6 fL (80.0-98.0); Mean Platelet Volume 11.3 fL (9.4-12.4); Monocytes Absolute Auto 0.8 X10*3/uL (0.1-1.2); Monocytes Percent Auto 3.8 % (2-11); NRBC Pct Auto 0.1 /100WBC (0.0-0.2); Neutrophils Absolute Auto 17.7 x10*3/uL (2.0-8.3); Platelet Count 72 X10*3/uL (160-400); Red Blood Count 2.47 X10*6/uL (4.60-5.80); Red Cell Distribution Width 18.2 % (11.0-16.0); White Blood Count 20.4 X10*3/uL (4.8-10.8)
[2023-12-09 14:31] LABS: Anion Gap 14 (12-20); Carbon Dioxide 17 mmol/L (22-29); Chloride 105 mmol/L (96-108); Potassium 4.4 mmol/L (3.3-5.1); Sodium 132 mmol/L (135-145)
[2023-12-09] MEDS: HYDROmorphone HCl 0.5 MG/0.5 ML SYRINGE IVPUSH ×2 (16:12→20:51)
--- NOTE | 2023-12-09 16:43 | PM.EVENT ---
Event Note Date of Service: 12/09/23 Event Note: Seen by specialty sales consultant in AM patient reporting withdrawal sx additional 10mg methadone ordered--total of 40mg today Plan: -resume home dose of 50mg in AM -methadone 5mg daily PRN as needed for withdrawal sx Time Spent With Patient Time: Total time managing care of this patient today ____ minutes.
[2023-12-09 18:50] LABS: Vancomycin Random 26.1 mcg/mL (15-20)
--- NOTE | 2023-12-09 18:58 | HE.PHANOTE ---
Vancomycin addendum: Dose was increased to 750 mg q 12 hours and patient received 2 doses only. Level was increased to 26.1. Will hold next dose and get anoyher level before restarting, we predict a dose of 750 mg q 24 hours
[2023-12-09] MEDS: Melatonin 3 MG TABLET 6 MG PO (20:51)
[2023-12-10] VITALS (10 sets, daily range): BP systolic 125–162; BP diastolic 54–84; PULSE 90–99; RESP 16–20; TEMP 36.1–36.9; O2SAT 94–98
[2023-12-10] MEDS: HYDROmorphone HCl 0.5 MG/0.5 ML SYRINGE IVPUSH ×2 (02:26→20:06)
[2023-12-10] MEDS: ceFAZolin Sodium 1 GM VIAL IVPUSH ×2 (03:19→16:00)
[2023-12-10] MEDS: Pantoprazole Sodium 40 MG/10 ML VIAL IVPUSH (06:01)
[2023-12-10 07:18] LABS: Anion Gap 15 (12-20); Blood Urea Nitrogen 76 mg/dL (9-16); Calcium 8.9 mg/dL (8.4-10.2); Carbon Dioxide 17 mmol/L (22-29); Chloride 103 mmol/L (96-108); Creatinine Clr Calc Pharmacy 31.6; Estimated Glomerular Filt Rate 21; Glucose Random 108 mg/dL (60-115); Potassium 4.8 mmol/L (3.3-5.1); Sodium 130 mmol/L (135-145); Vancomycin Random 20.6 mcg/mL (15-20)
--- NOTE | 2023-12-10 07:26 | HE.PHANOTE ---
Re Vanc Level came back at 20.6 this morning. Will adjust to 750mg q24h and schedule next dose for 1300 today. Projected AUC is 560 mg/L with a trough of 18.6 mg/L.
[2023-12-10] MEDS: 0.9 % Sodium Chloride Flush 3 ML SYRINGE IVFLUSH ×3 (08:19→23:59)
[2023-12-10] MEDS: rifAXIMin 550 MG TABLET PO ×2 (08:20→20:05)
[2023-12-10] MEDS: methADONE HCl 20 MG/2 ML ORAL.CONC 50 MG PO (08:20)
[2023-12-10] MEDS: Octreotide Acetate 100 MCG/ML AMPUL SUBCUT ×3 (08:21→23:59)
--- NOTE | 2023-12-10 10:37 | P.PNIM_ITS ---
Subjective Subjective Date of Service: 12/10/23 Interval History: f/u on liver failure, MRSA bacteremia, renal failure mental status seems better, no fever, abd distended Physical Exam 2 Vital Signs: Vital Signs: Last Vital Signs Temp 97.6 F 12/10/23 08:00 Pulse 99 12/10/23 08:00 Resp 18 12/10/23 08:00 BP 144/76 H 12/10/23 08:00 Pulse Ox 95 12/10/23 08:00 O2 Del Method Room Air 12/10/23 08:00 BMI result Body Mass Index 28.0 Const: Other: Gen: chronically ill-appearing HEENT: sclera icteric, moist mucus membranes Neck: supple Lungs: clear to auscultation bilaterally Heart: regular rate and rhythm, systolic murmur along LSB Abd: tense, ascites present, no tenderness Ext: 2+ bilateral leg edema Skin: warm/well-perfused, jaundiced with purpura and petechiae Neuro: alert and oriented to self/place,- asterixis Psych: restricted affect Objective Data Active Medications Acetaminophen (Acetaminophen 325 Mg Tablet) 650 mg PO Q6H PRN PRN Reason: Pain, Mild (Pain Scale 1-3), fever or headache Calcium Carbonate (Calcium Carbonate 750 Mg Tab.Chew) 750 mg PO Q4H PRN PRN Reason: Heartburn Cefazolin Sodium (Cefazolin Sodium 1 Gm Vial) 1 gm IVPUSH Q12H [facility] Last Admin: 12/10/23 03:19 Dose: 1 gm Documented By: CECILIA Hydromorphone HCl (Hydromorphone Hcl 0.5 Mg/0.5 Ml Syringe) 0.5 mg IVPUSH Q4H PRN; Protocol PRN Reason: Pain, Severe (Pain Scale 7-10) Last Admin: 12/10/23 02:26 Dose: 0.5 mg Documented By: CECILIA Dextrose (D10) 250 mls @ 750 mls/hr IV Q15M PRN PRN Reason: per Hypoglycemia Standing Ord. Last Infusion: 12/05/23 03:14 Dose: Infused Documented By: JACQUELINE Vancomycin HCl 750 mg/ Sodium (Chloride) 265 mls @ 265 mls/hr IV Q24H [facility] Lactulose (Lactulose 20 Gm/30 Ml Solution) 30 gm PO TID [facility] Last Admin: 12/10/23 08:38 Dose: Not Given Documented By: TAURUS Non-Admin Reason: Physician Approved Magnesium Hydroxide (Milk Of Magnesia 30 Ml Oral.Susp) 30 ml PO DAILY PRN PRN Reason: Constipation Melatonin (Melatonin 3 Mg Tablet) 6 mg PO BEDTIME PRN PRN Reason: Insomnia Last Admin: 12/09/23 20:51 Dose: 6 mg Documented By: CECILIA Methadone HCl (Methadone Hcl 20 Mg/2 Ml Oral.Conc) 50 mg PO DAILY@0800 [facility] Last Admin: 12/10/23 08:20 Dose: 50 mg Documented By: TAURUS Co-signed By: TRACI Methadone HCl (Methadone Hcl 20 Mg/2 Ml Oral.Conc) 5 mg PO DAILY PRN PRN Reason: Opiate Withdrawal Octreotide Acetate (Octreotide Acetate 100 Mcg/Ml Ampul) 100 mcg SUBCUT Q8H [facility] Last Admin: 12/10/23 08:21 Dose: 100 mcg Documented By: TAURUS Ondansetron HCl (Ondansetron Hcl 4 Mg/2 Ml Vial) 4 mg IVPUSH Q8H PRN PRN Reason: Nausea and Vomiting Last Admin: 12/09/23 10:04 Dose: 4 mg Documented By: NIKKI Pantoprazole Sodium (Pantoprazole Sodium 40 Mg/10 Ml Vial) 40 mg IVPUSH BID@0630,1630 [facility] Last Admin: 12/10/23 06:01 Dose: 40 mg Documented By: CECILIA Pharmacy Consult (Consult Rx Vancomycin Dosing) 1 each MISCELLANE DAILY PRN PRN Reason: Consult order Rifaximin (Rifaximin 550 Mg Tablet) 550 mg PO BID [facility] Last Admin: 12/10/23 08:20 Dose: 550 mg Documented By: TAURUS Sodium Chloride (0.9 % Sodium Chloride Flush 3 Ml Syringe) 3 ml IVFLUSH QSHIFT [facility] Last Admin: 12/10/23 08:19 Dose: 3 ml Documented By: TAURUS Labs 12/09/23 07:55 12/10/23 06:03 Labs: Laboratory Results - last 24 hr 12/07/23 12/09/23 12/09/23 06:43 07:55 18:07 MCV 99.6 H MCH 33.2 H MCHC 33.3 RDW 18.2 H Plt Count 72 L MPV 11.3 Immature Gran % (Auto) 2.0 H Neut % (Auto) 87.0 H Lymph % (Auto) 6.0 L [place] % (Auto) 3.8 Eos % (Auto) 0.7 Baso % (Auto) 0.5 Lymph # (Auto) 1.2 [place] # (Auto) 0.8 Eos # (Auto) 0.1 Baso # (Auto) 0.1 Abs Immat Gran (auto) 0.40 H Absolute Neuts (auto) 17.7 H Absolute Nucleated RBC 0.020 H Nucleated RBC % (auto) 0.1 PT 44.2 H D INR 3.8 H Anion Gap 14 Estim Creat Clear Calc Estimated GFR Random Glucose Calcium Random Vancomycin 26.1 H* 12/10/23 06:03 MCV MCH MCHC RDW Plt Count MPV Immature Gran % (Auto) Neut % (Auto) Lymph % (Auto) [place] % (Auto) Eos % (Auto) Baso % (Auto) Lymph # (Auto) [place] # (Auto) Eos # (Auto) Baso # (Auto) Abs Immat Gran (auto) Absolute Neuts (auto) Absolute Nucleated RBC Nucleated RBC % (auto) PT INR Anion Gap 15 Estim Creat Clear Calc 31.6 Estimated GFR 21 Random Glucose 108 Calcium 8.9 Random Vancomycin 20.6 H Microbiology Microbiology Results: Microbiology 12/05/23 09:17 Gram Stain - Final Ascites Fluid Routine Culture - Final No growth after 2 days Anaerobic Culture - Final NO GROWTH AFTER 5 DAYS 12/07/23 06:43 Blood Culture - Final Blood - Venous Methicillin Res Staph Aureus 12/07/23 06:43 Blood Culture - Final Blood - Venous Methicillin Res Staph Aureus Assessment and Plan (1) Decompensated cirrhosis: Status: Acute Plan 48yo M with decompensated HCV cirrhosis, polysubstance abuse disorder on methadone, mood disorder presenting with abd pain/swelling, weakness, and leg swelling found to have SBP + Staph aureus bacteremia ascites/SBP - diagnostic paracentesis 12/04 with 60cc ascites aspirated; 912 PMNs; on ceftriaxone 12/04-; got albumin 12/04 and 12/06, culture negative to date. Therapeutic paracentesis tomorrow Staph aureus bacteremia - vancomycin 12/04-, TTE from 12/05 read pending, ID consulted, plan 4 wk of IV vancomycin or daptomycin from 1st negative BCx, repeat BCx 12/06, positive, repeat cultures 12/08 pending--Vancomycin level is therapeutic MAI - suspect hepatorenal vs cocaine-induced vasoconstriction; hold furosemide + spironolactone; continue octreotide; midodrine if bp on low side, Nephrology following; SCr slightly higher today hepatic encephalopathy--more clear - lactulose + rifaxmin decompensated cirrhosis - GI consulted, does not qualify for transplant due to ongoing substance abuse - abd US with Doppler to r/o Portal vein thrombosis (PVT) is negative acute lactic acidosis - due to liver disease hyperK - due to MAI; K normalized, recheck potassium thrombocytopenia - due to cirrhosis; monitor CBC daily anemia - due to cirrhosis; monitor CBC daily; FOBT positive; will give 2u pRBCs and discuss with GI whether he should have EGD; will give IV PPI coagulopathy - given vitamin K without correction; monitor INR daily polysubstance abuse - Addiction Medicine consulted, continue methadone per addiction med VTE ppx - SCDs; no heparin given coagulopathy + thrombocytopenia dispo - will need STR for IV ABX, duration 4 wk from clearance I updated patient's alternate HCP, his sister Beena @ [phone] In my clinical judgment, the patient requires continued inpatient hospitalization for the following reasons: IV ABX, albumin Total time managing care of this patient today: 50 minutes. Quality Stroke Does the patient have a stroke diagnosis?: No VTE Prior VTE?: No VTE Risk Level:: Medical - moderate - high VTE Device Contraindication: N/A - Device Ordered VTE Drug Contraindication: Treatment Not Indicated
[2023-12-10] MEDS: vancomycin HCL 750 MG in 0.9 % Sodium Chloride 250 ML 265 MG IV (12:51)
[2023-12-10] MEDS: Acetaminophen 325 MG TABLET 650 MG PO (17:23)
[2023-12-11] VITALS (9 sets, daily range): BP systolic 128–148; BP diastolic 59–78; PULSE 85–98; RESP 16–20; TEMP 36–36.8; O2SAT 96–98
[2023-12-11] MEDS: ceFAZolin Sodium 1 GM VIAL IVPUSH ×2 (03:21→15:07)
[2023-12-11] MEDS: HYDROmorphone HCl 0.5 MG/0.5 ML SYRINGE IVPUSH (04:00)
[2023-12-11 06:04] LABS: Hematocrit 23.6 % (42.0-52.0); Mean Corpuscular HGB Conc 33.9 g/dl (31.0-36.0); Mean Corpuscular Hemoglobin 33.5 pg (27.0-33.0); Mean Corpuscular Volume 98.7 fL (80.0-98.0); Mean Platelet Volume 11.9 fL (9.4-12.4); Red Blood Count 2.39 X10*6/uL (4.60-5.80); Red Cell Distribution Width 17.3 % (11.0-16.0); White Blood Count 20.8 X10*3/uL (4.8-10.8)
[2023-12-11 06:05] LABS: Platelet Count 69 X10*3/uL (160-400)
[2023-12-11 06:50] LABS: Anion Gap 15 (12-20); Blood Urea Nitrogen 86 mg/dL (9-16); Calcium 8.9 mg/dL (8.4-10.2); Carbon Dioxide 17 mmol/L (22-29); Chloride 103 mmol/L (96-108); Glucose Random 84 mg/dL (60-115); Potassium 5.1 mmol/L (3.3-5.1); Sodium 130 mmol/L (135-145)
[2023-12-11 07:21] LABS: Creatinine Clr Calc Pharmacy 24.4; Estimated Glomerular Filt Rate 16
[2023-12-11] MEDS: Octreotide Acetate 100 MCG/ML AMPUL SUBCUT ×2 (08:12→15:07)
[2023-12-11] MEDS: rifAXIMin 550 MG TABLET PO ×2 (08:12→20:46)
[2023-12-11] MEDS: methADONE HCl 20 MG/2 ML ORAL.CONC 50 MG PO (08:12)
[2023-12-11] MEDS: 0.9 % Sodium Chloride Flush 3 ML SYRINGE IVFLUSH ×2 (08:12→15:07)
[2023-12-11] MEDS: ondansetron HCL 4 MG/2 ML VIAL IVPUSH (08:12)
[2023-12-11 09:49] LABS: PEU-Protein Creat Ratio Rand 0.774 (0.025-0.148); PEU-Rand. Prot/Creat Ratio 774 mg/g creat (25-148); PEU-Random Ur. Gamma Globulin 42 %; PEU-Random Urine A1 Globulin 3 %; PEU-Random Urine A2 Globulin 7 %; PEU-Random Urine Albumin 29 %; PEU-Random Urine Beta Globulin 20 %; PEU-Random Urine Creatinine 93 mg/dL (20-320); PEU-Random Urine Protein 72 mg/dL (5-25)
--- NOTE | 2023-12-11 10:20 | MHC.CM.PN ---
Per ROUNDS discussion, Patient is not yet medically cleared for dc (kidneys are worsening/? goals of care conversation at some point); DC plan is TBD and CM will follow.
--- NOTE | 2023-12-11 10:28 | P.PNNP_ITS ---
Subjective Subjective Date of Service: 12/11/23 Interval history: 48 y/o male with a medical history of hep C virus, liver cirrhosis, polysubstance abuse on methadone, mood disorder. Came to ED evening of 12/03 with abdominal pain, weakness, altered mental status. Nephrology consulted for MAI. patients creatinine level has been trending down, 6.59 12/04, 12/05 is 4.71, 12/06 is 4.29, 12/07 is 3.81; 12/08 3.04, 12/09 3.20, 12/10 4.13 sodium level remains mildly low from 12/08-12/10, 130 large amount of blood on urine dipstick, though only 6-10 urine RBCs on microscopy CK only [address] scan of his abdomen- no obstruction, kidneys/ureters unremarkable. + cirrhosis, portal HTN, anasarca and ?colitis. had diagnostic paracentesis, has SBP, receiving ceftriaxone and albumin for management Urine sodium is 32 receiving octreotide and midodrine for HRS protocol per GI, albumin IV as well unfortunately not a liver candidate due to ongoing ROSS blood cultures +staph aureaus bacteremia, receiving abx treatment Today patient is awake in bed, lethargic He states he has some pain in his left leg and in his abdomen states his breathing is comfortable pitting edema left lower extremity- US has ruled out DVT; pt reports ongoing pain tate in place and had concentrated dark yellow urine in bag. Had ~500mL UOP over last 24 hours, dropped from 950mL previous day. Physical Exam 2 Vital Signs: Vital Signs: Last Vital Signs Temp 97.0 F 12/11/23 07:19 Pulse 86 12/11/23 07:19 Resp 17 12/11/23 07:19 BP 129/72 12/11/23 07:19 Pulse Ox 96 12/11/23 07:19 O2 Del Method Room Air 12/11/23 07:19 BMI result Body Mass Index 28.0 Const: General: lethargic Nutritional Appearance: Edematous O rientation/consciousness: lethargic Limitations: altered mental status Neck: Neck: Yes no JVD Resp: Effort & Inspection: normal respiratory effort Auscultation: rhonchi Cardio: Jugular venous distension: no JVD Rate: regular rate Rhythm: r egular rhythm Heart sounds: S1 normal heart sound present and S2 normal heart sound present GI: Inspection: Yes distended Palpation (GI): Tenderness to palpation present (GI) and Ascites present Skin: General skin exam: jaundice Extrem: General: Yes edema (pitting LLE, US ruled out DVT ) Objective Data Labs 12/11/23 05:32 12/11/23 05:32 Labs: Laboratory Results - last 24 hr 12/07/23 12/11/23 14:15 05:32 WBC 20.8 H RBC 2.39 L Hgb 8.0 L Hct 23.6 L MCV 98.7 H MCH 33.5 H MCHC 33.9 RDW 17.3 H Plt Count 69 L MPV 11.9 Absolute Nucleated RBC 0.000 Nucleated RBC % (auto) 0.0 Sodium 130 L Potassium 5.1 Chloride 103 Carbon Dioxide 17 L Anion Gap 15 BUN 86 H Creatinine 4.13 H* Estim Creat Clear Calc 24.4 Estimated GFR 16 Random Glucose 84 Calcium 8.9 U [place] Prot/Creat Ratio 0.774 H Ur Creatinine mg/dL 93 U Total Protein mg/dL 72 H Protein/Creatinin Ratio 774 H Urine Albumin (%) 29 U [id number] (%) 3 U [id number] (%) 7 U Beta Globulin (%) 20 U Gamma Globulin (%) 42 Urine PEP Interpret Microbiology Microbiology Results: Microbiology 12/09/23 13:43 Blood - Venous Blood Culture - Preliminary No growth after 24 hours. 12/09/23 13:43 Blood - Venous Blood Culture - Preliminary No growth after 24 hours. 12/05/23 09:17 Ascites Fluid Gram Stain - Final 12/05/23 09:17 Ascites Fluid Routine Culture - Final No growth after 2 days 12/05/23 09:17 Ascites Fluid Anaerobic Culture - Final NO GROWTH AFTER 5 DAYS 12/07/23 06:43 Blood - Venous Blood Culture - Final Methicillin Res Staph Aureus 12/07/23 06:43 Blood - Venous Blood Culture - Final Methicillin Res Staph Aureus 12/05/23 04:18 Blood - Venous Blood Culture - Final Methicillin Res Staph Aureus 12/05/23 04:18 Blood - Venous Blood Culture - Final Methicillin Res Staph Aureus 12/05/23 Unknown Urine clean catch - Clean Catch Midstream Urine Culture - Final Methicillin Res Staph Aureus Procedures Date of Service Date of Service: 12/11/23 Assessment & Plan Assessment and plan (1) Acute renal failure: Status: Acute (2) Chronic hepatitis C: Status: Acute (3) Decompensated hepatic cirrhosis: Status: Acute Plan Acute renal failure most likely secondary to rubular injury from hypoperfusion, may also have component of cocaine-induced ATN renal function had been improving, now has second MAI second MAI corresponds to elevated vancomycin troughs in blood- recommend discontinuing vancomycin HRS also on differential though continues to have intermittently elevated blood pressures which makes this less likely; though patient is developing oliguria differential also includes hepC-related GN, thrombotic microangiopathy no obstruction seen on CT scan unlikely AIN given urine with minimal WBCs, no rash/fever UPEP, SPEP, and cryoglobin pending; complements low recommend close monitoring of intake and output and blood pressure recommend daily electrolyte and renal function labs Will continue to follow Discussed with Dr Contreras Time Spent With Patient Time: Total time managing care of this patient today ____ minutes. Progress Note: Quality Stroke Does the patient have a stroke diagnosis?: No
--- NOTE | 2023-12-11 11:33 | P.PNADD_ITS ---
Subjective Subjective Date of Service: 12/11/23 Reason For Visit: weakness Interim History: Patient seen in follow up Methadone dose back to home dose of 50mg daily 5mg PRN ordered over the weekend, but not utilized, so will d/c Patient appears comfortable (with regards to withdrawal)--no diaphoresis, restlessness, moaning or grimacing noted. He does appear quite weak. Minimally engaged in interview, as he would would quickly fall asleep. Review of Systems Review of Systems Yes Unobtainable due to mental condition (very sleepy/weak) Mental Status Exam Mental Status Exam Level of Consciousness: Drowsy Diagnostics Vital Signs (24Hr): Vital Signs - 24 hr 12/10/23 11:43 12/10/23 15:51 12/10/23 19:01 Temperature 97.7 F 98.5 F 97.8 F Pulse Rate 94 96 90 Respiratory Rate 16 18 18 Blood Pressure 157/84 H 125/54 L 135/63 Pulse Oximetry 96 96 97 Oxygen Delivery Method Room Air Room Air Room Air 12/11/23 00:00 12/11/23 03:09 12/11/23 07:19 Temperature 97.1 F 97.3 F 97.0 F Pulse Rate 90 85 86 Respiratory Rate 18 18 17 Blood Pressure 128/78 148/73 H 129/72 Pulse Oximetry 97 98 96 Oxygen Delivery Method Room Air Room Air Room Air BMI result Body Mass Index 28.0 Labs 12/11/23 05:32 12/13/23 06:57 Labs: Laboratory Results - last 48 hr 12/07/23 12/09/23 12/09/23 14:15 07:55 18:07 WBC 20.4 H RBC 2.47 L Hgb 8.2 L Hct 24.6 L MCV 99.6 H MCH 33.2 H MCHC 33.3 RDW 18.2 H Plt Count 72 L MPV 11.3 Immature Gran % (Auto) 2.0 H Neut % (Auto) 87.0 H Lymph % (Auto) 6.0 L [place] % (Auto) 3.8 Eos % (Auto) 0.7 Baso % (Auto) 0.5 Lymph # (Auto) 1.2 [place] # (Auto) 0.8 Eos # (Auto) 0.1 Baso # (Auto) 0.1 Abs Immat Gran (auto) 0.40 H Absolute Neuts (auto) 17.7 H Absolute Nucleated RBC 0.020 H Nucleated RBC % (auto) 0.1 Sodium 132 L Potassium 4.4 Chloride 105 Carbon Dioxide 17 L Anion Gap 14 BUN Creatinine Estim Creat Clear Calc Estimated GFR Random Glucose Calcium U [place] Prot/Creat Ratio 0.774 H Ur Creatinine mg/dL 93 U Total Protein mg/dL 72 H Protein/Creatinin Ratio 774 H Urine Albumin (%) 29 U Vaqpy-5-Pavgojyv (%) 3 U Czwdz-2-Cldpisaw (%) 7 U Beta Globulin (%) 20 U Gamma Globulin (%) 42 Urine PEP Interpret Random Vancomycin 26.1 H* 12/10/23 12/11/23 06:03 05:32 WBC 20.8 H RBC 2.39 L Hgb 8.0 L Hct 23.6 L MCV 98.7 H MCH 33.5 H MCHC 33.9 RDW 17.3 H Plt Count 69 L MPV 11.9 Immature Gran % (Auto) Neut % (Auto) Lymph % (Auto) [place] % (Auto) Eos % (Auto) Baso % (Auto) Lymph # (Auto) [place] # (Auto) Eos # (Auto) Baso # (Auto) Abs Immat Gran (auto) Absolute Neuts (auto) Absolute Nucleated RBC 0.000 Nucleated RBC % (auto) 0.0 Sodium 130 L 130 L Potassium 4.8 5.1 Chloride 103 103 Carbon Dioxide 17 L 17 L Anion Gap 15 15 BUN 76 H 86 H Creatinine 3.20 H 4.13 H* Estim Creat Clear Calc 31.6 24.4 Estimated GFR 21 16 Random Glucose 108 84 Calcium 8.9 8.9 U [place] Prot/Creat Ratio Ur Creatinine mg/dL U Total Protein mg/dL Protein/Creatinin Ratio Urine Albumin (%) U Mcfsh-2-Bjgxnria (%) U Qpzof-0-Gulhnbxu (%) U Beta Globulin (%) U Gamma Globulin (%) Urine PEP Interpret Random Vancomycin 20.6 H Imaging Radiology Impressions: ITS Impressions Venous Duplex 12/04/23 21:03 IMPRESSION: No evidence of deep venous thrombosis involving the left lower extremity. Electronically signed by: Henry Parkinson MD 12/04/2023 09:42 PM EDT Chest X-Ray 12/05/23 01:05 IMPRESSION: 1. Right central line extending to the lower SVC/right atrial junction. 2. Low lung volumes. 3. Left lung base opacity, likely atelectasis. Electronically signed by: Rudy Sousa MD 12/05/2023 03:40 AM EDT RP Abdomen/Pelvis CT 12/05/23 01:56 IMPRESSION: 1. Diffuse colonic wall thickening consistent with colitis. Consider portal colopathy. 2. The pancreas is normal in appearance. 3. There is evidence of cirrhosis and portal hypertension with splenomegaly. 4. There is soft tissue anasarca. Fleischner guidelines were followed. Electronically signed by: Rudy Sousa MD 12/05/2023 03:49 AM EDT RP Paracentesis Ultrasound 12/05/23 09:01 IMPRESSION: Ultrasound-guided diagnostic paracentesis as described above. No immediate complications Electronically signed by: Hussein Polanco MD 12/08/2023 01:49 PM EDT RP Abdomen Ultrasound 12/05/23 09:27 IMPRESSION: 1. Hydropic gallbladder with sludge or thickened bile seen. Findings may be related to gallbladder dyskinesia. The gallbladder wall edema and thickening seen is nonspecific in the setting of liver disease and ascites. Close clinical correlation is requested to exclude acute inflammation. 2. Common bile duct is mildly dilated. No choledocholithiasis in the visualized portions of the CBD. 3. Nodular cirrhotic liver with small volume ascites in the right side of the abdomen. 4. Incompletely visualized pancreas as discussed above. Electronically signed by: Macie Reese MD 12/05/2023 11:22 AM EDT RP Abdomen Ultrasound 12/05/23 17:42 IMPRESSION: Findings as above. Electronically signed by: Robin Constantino MD 12/06/2023 04:42 PM EDT RP Medications Medications Current Medications Acetaminophen (Acetaminophen 325 Mg Tablet) 650 mg PO Q6H PRN PRN Reason: Pain, Mild (Pain Scale 1-3), fever or headache Last Admin: 12/10/23 17:23 Dose: 650 mg Calcium Carbonate (Calcium Carbonate 750 Mg Tab.Chew) 750 mg PO Q4H PRN PRN Reason: Heartburn Cefazolin Sodium (Cefazolin Sodium 1 Gm Vial) 1 gm IVPUSH Q12H [facility] Last Admin: 12/11/23 03:21 Dose: 1 gm Dextrose (D10) 250 mls @ 750 mls/hr IV Q15M PRN PRN Reason: per Hypoglycemia Standing Ord. Last Infusion: 12/05/23 03:14 Dose: Infused Daptomycin 530 mg/ Sodium (Chloride) 60.6 mls @ 99.982 mls/hr IV Q48H [facility] Lactulose (Lactulose 20 Gm/30 Ml Solution) 30 gm PO TID [facility] Last Admin: 12/11/23 08:13 Dose: Not Given Magnesium Hydroxide (Milk Of Magnesia 30 Ml Oral.Susp) 30 ml PO DAILY PRN PRN Reason: Constipation Melatonin (Melatonin 3 Mg Tablet) 6 mg PO BEDTIME PRN PRN Reason: Insomnia Last Admin: 12/09/23 20:51 Dose: 6 mg Methadone HCl (Methadone Hcl 20 Mg/2 Ml Oral.Conc) 50 mg PO DAILY@0800 [facility] Last Admin: 12/11/23 08:12 Dose: 50 mg Methadone HCl (Methadone Hcl 20 Mg/2 Ml Oral.Conc) 5 mg PO DAILY PRN PRN Reason: Opiate Withdrawal Octreotide Acetate (Octreotide Acetate 100 Mcg/Ml Ampul) 100 mcg SUBCUT Q8H [facility] Last Admin: 12/11/23 08:12 Dose: 100 mcg Ondansetron HCl (Ondansetron Hcl 4 Mg/2 Ml Vial) 4 mg IVPUSH Q8H PRN PRN Reason: Nausea and Vomiting Last Admin: 12/11/23 08:12 Dose: 4 mg Pharmacy Consult (Consult Rx Vancomycin Dosing) 1 each MISCELLANE DAILY PRN PRN Reason: Consult order Rifaximin (Rifaximin 550 Mg Tablet) 550 mg PO BID [facility] Last Admin: 12/11/23 08:12 Dose: 550 mg Sodium Chloride (0.9 % Sodium Chloride Flush 3 Ml Syringe) 3 ml IVFLUSH QSHIFT [facility] Last Admin: 12/11/23 08:12 Dose: 3 ml Allergies Allergies Allergy/AdvReac Type Severity Reaction Status Date / Time No Known Allergies Allergy Verified 12/04/23 16:08 [No Known Allergies*] Assessment & Plan Assessment & Plan (1) Opioid use disorder: Status: Acute Code(s): F11.90 - Opioid use, unspecified, uncomplicated Assessment and Plan: * continue methadone at 50mg daily * no additional follow up necessary from addiciton medicine unless requested Total time managing care of this patient today __15__ minutes.
[2023-12-11 12:04] LABS: Vancomycin Random 27.2 mcg/mL (15-20)
--- NOTE | 2023-12-11 12:35 | P.PNIM_ITS ---
Subjective Subjective Date of Service: 12/12/23 Interval History: f/u on liver failure, MRSA bacteremia, renal failure mental status seems better, no fever, abd distended Physical Exam 2 Vital Signs: Vital Signs: Last Vital Signs Temp 96.8 F 12/11/23 12:00 Pulse 86 12/11/23 12:00 Resp 16 12/11/23 12:00 BP 132/66 12/11/23 12:00 Pulse Ox 96 12/11/23 12:00 O2 Del Method Room Air 12/11/23 12:00 BMI result Body Mass Index 28.0 Const: Other: Gen: chronically ill-appearing HEENT: sclera icteric, moist mucus membranes Neck: supple Lungs: clear to auscultation bilaterally Heart: regular rate and rhythm, systolic murmur along LSB Abd: tense, ascites present, no tenderness Ext: 2+ bilateral leg edema Skin: warm/well-perfused, jaundiced with purpura and petechiae Neuro: alert and oriented to self/place,- asterixis Psych: restricted affect Objective Data Active Medications Acetaminophen (Acetaminophen 325 Mg Tablet) 650 mg PO Q6H PRN PRN Reason: Pain, Mild (Pain Scale 1-3), fever or headache Last Admin: 12/10/23 17:23 Dose: 650 mg Documented By: TAURUS Calcium Carbonate (Calcium Carbonate 750 Mg Tab.Chew) 750 mg PO Q4H PRN PRN Reason: Heartburn Cefazolin Sodium (Cefazolin Sodium 1 Gm Vial) 1 gm IVPUSH Q12H [facility] Last Admin: 12/11/23 03:21 Dose: 1 gm Documented By: ALLYSON Dextrose (D10) 250 mls @ 750 mls/hr IV Q15M PRN PRN Reason: per Hypoglycemia Standing Ord. Last Infusion: 12/05/23 03:14 Dose: Infused Documented By: JACQUELINE Daptomycin 530 mg/ Sodium (Chloride) 60.6 mls @ 99.982 mls/hr IV Q48H [facility] Lactulose (Lactulose 20 Gm/30 Ml Solution) 30 gm PO TID [facility] Last Admin: 12/11/23 08:13 Dose: Not Given Documented By: NIKKI Non-Admin Reason: Multiple loose stools Magnesium Hydroxide (Milk Of Magnesia 30 Ml Oral.Susp) 30 ml PO DAILY PRN PRN Reason: Constipation Melatonin (Melatonin 3 Mg Tablet) 6 mg PO BEDTIME PRN PRN Reason: Insomnia Last Admin: 12/09/23 20:51 Dose: 6 mg Documented By: CECILIA Methadone HCl (Methadone Hcl 20 Mg/2 Ml Oral.Conc) 50 mg PO DAILY@0800 [facility] Last Admin: 12/11/23 08:12 Dose: 50 mg Documented By: NIKKI Co-signed By: HENNY Methadone HCl (Methadone Hcl 20 Mg/2 Ml Oral.Conc) 5 mg PO DAILY PRN PRN Reason: Opiate Withdrawal Octreotide Acetate (Octreotide Acetate 100 Mcg/Ml Ampul) 100 mcg SUBCUT Q8H [facility] Last Admin: 12/11/23 08:12 Dose: 100 mcg Documented By: NIKKI Ondansetron HCl (Ondansetron Hcl 4 Mg/2 Ml Vial) 4 mg IVPUSH Q8H PRN PRN Reason: Nausea and Vomiting Last Admin: 12/11/23 08:12 Dose: 4 mg Documented By: NIKKI Rifaximin (Rifaximin 550 Mg Tablet) 550 mg PO BID [facility] Last Admin: 12/11/23 08:12 Dose: 550 mg Documented By: NIKKI Sodium Chloride (0.9 % Sodium Chloride Flush 3 Ml Syringe) 3 ml IVFLUSH QSHIFT [facility] Last Admin: 12/11/23 08:12 Dose: 3 ml Documented By: NIKKI Labs 12/11/23 05:32 12/12/23 05:40 Labs: Laboratory Results - last 24 hr 12/07/23 12/11/23 12/11/23 14:15 05:32 11:16 MCV 98.7 H MCH 33.5 H MCHC 33.9 RDW 17.3 H Plt Count 69 L MPV 11.9 Absolute Nucleated RBC 0.000 Nucleated RBC % (auto) 0.0 Anion Gap 15 Estim Creat Clear Calc 24.4 Estimated GFR 16 Random Glucose 84 Calcium 8.9 U [place] Prot/Creat Ratio 0.774 H Ur Creatinine mg/dL 93 U Total Protein mg/dL 72 H Protein/Creatinin Ratio 774 H Urine Albumin (%) 29 U Oahbf-2-Hqsbbxtf (%) 3 U Jzlqn-9-Jxkzkhjr (%) 7 U Beta Globulin (%) 20 U Gamma Globulin (%) 42 Urine PEP Interpret Random Vancomycin 27.2 H* Microbiology Microbiology Results: Microbiology 12/09/23 13:43 Blood Culture - Preliminary Blood - Venous No growth after 24 hours. 12/09/23 13:43 Blood Culture - Preliminary Blood - Venous No growth after 24 hours. 12/05/23 09:17 Gram Stain - Final Ascites Fluid Routine Culture - Final No growth after 2 days Anaerobic Culture - Final NO GROWTH AFTER 5 DAYS Assessment and Plan (1) Decompensated cirrhosis: Status: Acute Plan 48yo M with decompensated HCV cirrhosis, polysubstance abuse disorder on methadone, mood disorder presenting with abd pain/swelling, weakness, and leg swelling found to have SBP + Staph aureus bacteremia ascites/SBP - diagnostic paracentesis 12/04 with 60cc ascites aspirated; 912 PMNs; on ceftriaxone 12/04-; got albumin 12/04 and 12/06, culture negative to date. Therapeutic paracentesis tomorrow Staph aureus bacteremia - vancomycin 12/04-, TTE from 12/05 no vegetations. - ID consulted, plan 4 wk of IV daptomycin from 1st negative BCx, repeat BCx 12/06, positive, repeat cultures 12/08 negative at 24 hours. -Stoping Vanco today d/t worsening renal failure and high Vanco levels. Starting renally adjusted Dapto today -continue Kefzol which will cover synergistic MRSA coverage and SBP coverage MAI..DDX: hepatorenal vs cocaine-induced vasoconstriction, aggravated toxic vanco level. hold diuretics. continue octreotide; midodrine if bp on low side, Nephrology following; SCr slightly higher today, possibly d/t toxic vanco level. holding vanco hepatic encephalopathy--more clear - lactulose + rifaxmin decompensated cirrhosis - GI consulted, does not qualify for transplant due to ongoing substance abuse - abd US with Doppler to r/o Portal vein thrombosis (PVT) is negative acute lactic acidosis - due to liver disease hyperK - due to MAI; K normalized, recheck potassium thrombocytopenia - due to cirrhosis; monitor CBC daily anemia - due to cirrhosis; monitor CBC daily; FOBT positive; will give 2u pRBCs and discuss with GI whether he should have EGD; will give IV PPI coagulopathy - given vitamin K without correction; monitor INR daily Leukocytosis? reactive vs d/t underlying infection? polysubstance abuse - Addiction Medicine consulted, continue methadone per addiction med VTE ppx - SCDs; no heparin given coagulopathy + thrombocytopenia dispo - will need STR for IV ABX, duration 4 wk from clearance I updated patient's alternate HCP, his sister Beena @ [phone], and brought up code status and fact that he is very ill with poor prognosis and not candidate for liver transplant, she will discuss with patient's daughter and brother and to come with a decision regarding code status In my clinical judgment, the patient requires continued inpatient hospitalization for the following reasons: IV ABX, albumin Total time managing care of this patient today: 50 minutes. Quality Stroke Does the patient have a stroke diagnosis?: No VTE Prior VTE?: No VTE Risk Level:: Medical - moderate - high VTE Device Contraindication: N/A - Device Ordered VTE Drug Contraindication: Treatment Not Indicated
[2023-12-11 12:54] LABS: Alanine Aminotransferase 12 U/L (0-40); Albumin Level 2.7 g/dL (3.5-5.0); Alkaline Phosphatase 106 U/L (39-117); Aspartate Amino Transferase 80 U/L (5-37); Total Protein 7.1 g/dL (6.5-8.0)
[2023-12-11 13:02] LABS: Bilirubin Total 32.8 mg/dL (0.0-1.0)
[2023-12-11 13:09] LABS: Bilirubin Direct 19.5 mg/dL (0.0-0.5)
[2023-12-11 14:31] LABS: pH Peritoneal Fluid 7.2
[2023-12-11 14:55] LABS: Phosphatidylethanol 16:0-18:1 NEGATIVE
[2023-12-11 14:56] LABS: Phosphatidylethanol 16:0-18:2 NEGATIVE
[2023-12-11] MEDS: SODIUM CHLORIDE 0.9% IV (15:07)
[2023-12-11] MEDS: DAPTOMYCIN IV (15:07)
--- NOTE | 2023-12-11 15:21 | PM.PROC ---
Brief Operative Note Date of procedure: 12/11/23 Pre-op diagnosis: Ascites Post-op diagnosis: same Procedure: US paracentesis 2.0L yellow fluid removed. No immediate complications. Anesthesia: local
[2023-12-12] VITALS (7 sets, daily range): BP systolic 117–151; BP diastolic 52–81; PULSE 89–95; RESP 15–20; TEMP 36.1–36.4; O2SAT 94–98
[2023-12-12] MEDS: 0.9 % Sodium Chloride Flush 3 ML SYRINGE IVFLUSH ×4 (00:05→19:53)
[2023-12-12] MEDS: Octreotide Acetate 100 MCG/ML AMPUL SUBCUT ×3 (00:06→16:55)
[2023-12-12] MEDS: ceFAZolin Sodium 1 GM VIAL IVPUSH ×2 (05:05→17:43)
[2023-12-12 07:40] LABS: Anion Gap 18 (12-20); Blood Urea Nitrogen 100 mg/dL (9-16); Calcium 8.7 mg/dL (8.4-10.2); Carbon Dioxide 15 mmol/L (22-29); Chloride 103 mmol/L (96-108); Creatinine Clr Calc Pharmacy 18.4; Estimated Glomerular Filt Rate 11; Glucose Random 58 mg/dL (60-115); Potassium 5.9 mmol/L (3.3-5.1); Sodium 130 mmol/L (135-145)
[2023-12-12 07:51] LABS: Glucose, Whole Blood 60 mg/dL (60-115)
[2023-12-12] MEDS: methADONE HCl 20 MG/2 ML ORAL.CONC 50 MG PO (08:28)
[2023-12-12] MEDS: rifAXIMin 550 MG TABLET PO ×2 (08:33→20:41)
[2023-12-12] MEDS: Sodium Zirconium Cyclosilicate 10 GM POWD.PACK PO ×3 (08:33→21:00)
[2023-12-12] MEDS: Albumin Human 25 % 100 ML IV ×3 (08:33→19:52)
--- NOTE | 2023-12-12 10:00 | P.PNNP_ITS ---
Subjective Subjective Date of Service: 12/12/23 Interval history: 48 y/o male with a medical history of hep C virus, liver cirrhosis, polysubstance abuse on methadone, mood disorder. Came to ED evening of 12/03 with abdominal pain, weakness, altered mental status. Nephrology consulted for MAI. patients creatinine level has been trending down, 6.59 12/04, 12/05 is 4.71, 12/06 is 4.29, 12/07 is 3.81; 12/08 3.04, 12/09 3.20, 12/10 4.13 sodium level remains mildly low from 12/08-12/10, 130 large amount of blood on urine dipstick, though only 6-10 urine RBCs on microscopy CK only [address] scan of his abdomen- no obstruction, kidneys/ureters unremarkable. + cirrhosis, portal HTN, anasarca and ?colitis. had diagnostic paracentesis, has SBP, receiving ceftriaxone and albumin for management Urine sodium is 32 receiving octreotide and midodrine for HRS protocol per GI, albumin IV as well unfortunately not a liver candidate due to ongoing ROSS blood cultures +staph aureaus bacteremia, receiving abx treatment Physical Exam 2 Vital Signs: Vital Signs: Last Vital Signs Temp 97.2 F 12/12/23 07:45 Pulse 95 12/12/23 07:45 Resp 15 12/12/23 07:45 BP 148/78 H 12/12/23 07:45 Pulse Ox 98 12/12/23 07:45 O2 Del Method Room Air 12/12/23 07:45 BMI result Body Mass Index 28.0 Const: General: lethargic Nutritional Appearance: Edematous O rientation/consciousness: lethargic Limitations: altered mental status Neck: Neck: Yes no JVD Resp: Effort & Inspection: normal respiratory effort Auscultation: rhonchi Cardio: Jugular venous distension: no JVD Rate: regular rate Rhythm: r egular rhythm Heart sounds: S1 normal heart sound present and S2 normal heart sound present GI: Inspection: Yes distended Palpation (GI): Tenderness to palpation present (GI) and Ascites present Skin: General skin exam: jaundice Extrem: General: Yes edema (pitting LLE, US ruled out DVT ) Objective Data Labs 12/11/23 05:32 12/12/23 05:40 Labs: Laboratory Results - last 24 hr 12/05/23 12/05/23 12/07/23 09:17 16:59 14:15 Sodium Potassium Chloride Carbon Dioxide Anion Gap BUN Creatinine Estim Creat Clear Calc Estimated GFR POC Glucose Random Glucose Calcium Total Bilirubin Direct Bilirubin AST ALT Alkaline Phosphatase Total Protein Albumin U Abnormal Prot Band 1 TNP U Abnormal Prot Band 2 TNP U Abnormal Prot Band 3 TNP Peritoneal pH 7.2 Random Vancomycin PEth 16:0/18.1 (POPEth) NEGATIVE PEth 16:0/18.2 (PLPEth) NEGATIVE PEth Interpretation SEE NOTE 12/11/23 12/11/23 12/12/23 05:32 11:16 05:40 Sodium 130 L Potassium 5.9 H Chloride 103 Carbon Dioxide 15 L Anion Gap 18 BUN 100 H Creatinine 5.47 H* Estim Creat Clear Calc 18.4 Estimated GFR 11 POC Glucose Random Glucose 58 L* Calcium 8.7 Total Bilirubin 32.8 H Direct Bilirubin 19.5 H AST 80 H ALT 12 Alkaline Phosphatase 106 Total Protein 7.1 Albumin 2.7 L U Abnormal Prot Band 1 U Abnormal Prot Band 2 U Abnormal Prot Band 3 Peritoneal pH Random Vancomycin 27.2 H* PEth 16:0/18.1 (POPEth) PEth 16:0/18.2 (PLPEth) PEth Interpretation 12/12/23 07:43 Sodium Potassium Chloride Carbon Dioxide Anion Gap BUN Creatinine Estim Creat Clear Calc Estimated GFR POC Glucose 60 Random Glucose Calcium Total Bilirubin Direct Bilirubin AST ALT Alkaline Phosphatase Total Protein Albumin U Abnormal Prot Band 1 U Abnormal Prot Band 2 U Abnormal Prot Band 3 Peritoneal pH Random Vancomycin PEth 16:0/18.1 (POPEth) PEth 16:0/18.2 (PLPEth) PEth Interpretation Microbiology Microbiology Results: Microbiology 12/09/23 13:43 Blood - Venous Blood Culture - Preliminary Prelim: GPC Gram Stain only 12/09/23 13:43 Blood - Venous Blood Culture - Preliminary Prelim: GPC Gram Stain only 12/05/23 09:17 Ascites Fluid Gram Stain - Final 12/05/23 09:17 Ascites Fluid Routine Culture - Final No growth after 2 days 12/05/23 09:17 Ascites Fluid Anaerobic Culture - Final NO GROWTH AFTER 5 DAYS 12/07/23 06:43 Blood - Venous Blood Culture - Final Methicillin Res Staph Aureus 12/07/23 06:43 Blood - Venous Blood Culture - Final Methicillin Res Staph Aureus 12/05/23 04:18 Blood - Venous Blood Culture - Final Methicillin Res Staph Aureus 12/05/23 04:18 Blood - Venous Blood Culture - Final Methicillin Res Staph Aureus 12/05/23 Unknown Urine clean catch - Clean Catch Midstream Urine Culture - Final Methicillin Res Staph Aureus Procedures Date of Service Date of Service: 12/12/23 Assessment & Plan Assessment and plan (1) Acute renal failure: Status: Acute (2) Chronic hepatitis C: Status: Acute (3) Decompensated hepatic cirrhosis: Status: Acute Plan Acute renal failure most, initially secondary to tubular injury from hypoperfusion, may also have component of cocaine-induced ATN renal function had been improving, now has second MAI, likely due to vancomycin Patient now oliguric, acidotic, hyperkalemic, may have component of HRS as well Long discussion today with patient at bedside (director of retail analytics present at bedside for communication) due to worsening renal function. Discussed with patient that he is nearing the point where he will need dialysis in order to sustain life as his renal function is failing (acidosis worsening, hyperkalemic, oliguria, GFR now 11). Patient answers in yes/no answers today states yes he is aware of his poor liver prognosis, and understands his kidney function is failing and would need dialysis in order to prevent . I discussed that I have concerns that he will not tolerate dialysis in the setting of his liver failure, though it is an option but will likely only be a temporary fix. Discussed various quality of life concerns in setting of liver failure. I discussed option to forgo dialysis and opt for hospice care, and that this is something he may discuss further with hospitalist. Patient answers yes he understands, but is unable to confirm or state back to me what his options are. At times he is staring off into space and stating he is in pain. Patient did make a decision regarding HD vs hospice care, so advised to please take time think but please notify us if he comes to a decision, as this is something that is somewhat time sensitive, as if he chooses dialysis this would need to be soon as his health may worsen quickly. I let him know I would be in touch with his sister/HCP regarding updates. Called sister, Beena, HCP. Spoke with her on the telephone and discussed above information. She verbalizes understanding and would like to take a few hours to consider. recommend close monitoring of intake and output and blood pressure recommend daily electrolyte and renal function labs Will continue to follow Discussed with Dr Contreras Time Spent With Patient Time: Total time managing care of this patient today ____ minutes. Progress Note: Quality Stroke Does the patient have a stroke diagnosis?: No
[2023-12-12] MEDS: traMADoL HCL 50 MG TABLET 25 MG PO ×2 (10:39→17:12)
[2023-12-12 11:05] LABS: Glucose, Whole Blood 93 mg/dL (60-115)
--- NOTE | 2023-12-12 13:49 | P.CDIM_ITS ---
PROVIDER RESPONSE TEXT: To clarify, the appropriate diagnosis supported by the clinical indicators: Sepsis is/was present and is a clinical diagnosis based on QUERY TEXT: PHYSICIAN'S DOCUMENTATION REQUEST Date of Query: 12/11/2023 01:50 PM EDT Patient Name: DAYDAY VORA Admit Date: 12/05/2023 Dear Lon Morgan MD, A review of the medical record indicates additional documentation may be needed. Please review below and update the documentation accordingly. Documentation on ID consultation 12/06/23 and GI note dated 12/07/23 and the ID note dated included t he diagnosis of sepsis. The patient's infectious clinical indicators include: P 90s WBC 15.6 LA 3.0 ID: He has sepsis ,MRSA, probably from skin or possible SBP GI: sepsis 2/2 MRSA bacteremia and SBP Recognized standard criteria for this condition and other infectious definitions includes: Bacteremia Abnormal laboratory test - does not indicate a clinically ill patient Sepsis Systemic manifestations of infection, with 2 or more SIRS criteria which include: Fever > 100.4?F or hypothermia < 96.8?F Leukocytosis - WBC > 12,000 or leukopenia, WBC < 4,000, or > 10% bands Tachycardia- > 90 beats/minute Tachypnea- RR > 20 breaths/minute or PaCO2 < 32mmHg Source: [employer] Manual 2013 Documentation should include the known or suspected organism, and the underlying infection, such as U TI or pneumonia Severe Sepsis Sepsis with associated acute organ dysfunction, such as renal or respiratory failure Documentation should indicate the association between the sepsis and the organ dysfunction Septic Shock Severe sepsis with associated with circulatory failure, evidenced by hypotension and hypoperfusion Based on the above information and the recognized standard for sepsis, could you please clarify if th is diagnoses is still accurate and reflective of the patient's condition to ensure quality of the medical record. Sepsis is/was present and is a clinical diagnosis based on After study (the condition) has been ruled out Other (explain) Clinically unable to determine (explain) Thank you, Tamar Cobb RN Use of terms such as suspected, likely, concern for, or probable (associated with a specific diagnosi s that is being evaluated, monitored, or treated as if it exists) are acceptable and can be coded in the inpatient se tting, when documented at the time of discharge. Please use your independent medical judgment in providing your response. THIS QUERY IS PART OF THE PERMANENT MEDICAL RECORD
--- NOTE | 2023-12-12 16:42 | P.PNIM_ITS ---
Subjective Subjective Date of Service: 12/12/23 Interval History: f/u on liver failure, MRSA bacteremia, renal failure Review of Systems no fevers renal function worsening has hyperkalemia Physical Exam 2 Vital Signs: Vital Signs: Last Vital Signs Temp 97.4 F 12/12/23 15:08 Pulse 94 12/12/23 15:08 Resp 18 12/12/23 15:08 BP 134/81 12/12/23 15:08 Pulse Ox 97 12/12/23 15:08 O2 Del Method Room Air 12/12/23 15:08 BMI result Body Mass Index 28.0 Gen: chronically ill-appearing Lungs: clear to auscultation bilaterally Heart: regular rate and rhythm, systolic murmur along LSB Abd: tense, ascites present, no tenderness Ext: 2+ bilateral leg edema Skin: warm/well-perfused, jaundiced with purpura and petechiae Neuro: alert and oriented to self/place,- asterixis Psych: restricted affect Objective Data Active Medications Calcium Carbonate (Calcium Carbonate 750 Mg Tab.Chew) 750 mg PO Q4H PRN PRN Reason: Heartburn Cefazolin Sodium (Cefazolin Sodium 1 Gm Vial) 1 gm IVPUSH Q12H [facility] Last Admin: 12/12/23 05:05 Dose: 1 gm Documented By: DWAYNEOIC Dextrose (D10) 250 mls @ 750 mls/hr IV Q15M PRN PRN Reason: per Hypoglycemia Standing Ord. Last Infusion: 12/05/23 03:14 Dose: Infused Documented By: JACQUELINE Daptomycin 530 mg/ Sodium (Chloride) 60.6 mls @ 99.982 mls/hr IV Q48H [facility] Last Infusion: 12/11/23 15:44 Dose: Infused Documented By: NIKKI Albumin Human (Kedbumin 25 %) 100 mls @ 100 mls/hr IV Q6H [facility] Stop: 12/13/23 02:44 Last Infusion: 12/12/23 16:05 Dose: Infused Documented By: JULIA Lactulose (Lactulose 20 Gm/30 Ml Solution) 30 gm PO TID [facility] Last Admin: 12/12/23 14:27 Dose: Not Given Documented By: JULIA Non-Admin Reason: multiple loose BMs Magnesium Hydroxide (Milk Of Magnesia 30 Ml Oral.Susp) 30 ml PO DAILY PRN PRN Reason: Constipation Melatonin (Melatonin 3 Mg Tablet) 6 mg PO BEDTIME PRN PRN Reason: Insomnia Last Admin: 12/09/23 20:51 Dose: 6 mg Documented By: CECILIA Methadone HCl (Methadone Hcl 20 Mg/2 Ml Oral.Conc) 50 mg PO DAILY@0800 [facility] Last Admin: 12/12/23 08:28 Dose: 50 mg Documented By: JULIA Co-signed By: REJI Methadone HCl (Methadone Hcl 20 Mg/2 Ml Oral.Conc) 5 mg PO DAILY PRN PRN Reason: Opiate Withdrawal Octreotide Acetate (Octreotide Acetate 100 Mcg/Ml Ampul) 100 mcg SUBCUT Q8H [facility] Last Admin: 12/12/23 08:34 Dose: 100 mcg Documented By: JULIA Ondansetron HCl (Ondansetron Hcl 4 Mg/2 Ml Vial) 4 mg IVPUSH Q8H PRN PRN Reason: Nausea and Vomiting Last Admin: 12/11/23 08:12 Dose: 4 mg Documented By: NIKKI Rifaximin (Rifaximin 550 Mg Tablet) 550 mg PO BID [facility] Last Admin: 12/12/23 08:33 Dose: 550 mg Documented By: JULIA Sodium Chloride (0.9 % Sodium Chloride Flush 3 Ml Syringe) [facility] Last Admin: 12/12/23 08:33 Dose: 3 ml Documented By: JULIA Tramadol HCl (Tramadol Hcl 50 Mg Tablet) 25 mg PO Q6H PRN PRN Reason: Pain, Mild (Pain Scale 1-3) Last Admin: 12/12/23 10:39 Dose: 25 mg Documented By: JULIA Labs 12/11/23 05:32 12/12/23 05:40 Labs: Laboratory Results - last 24 hr 12/06/23 12/12/23 12/12/23 10:22 05:40 07:43 Anion Gap 18 Estim Creat Clear Calc 18.4 Estimated GFR 11 POC Glucose 60 Random Glucose 58 L* Calcium 8.7 Cryoglobulin TNP 12/12/23 11:02 Anion Gap Estim Creat Clear Calc Estimated GFR POC Glucose 93 Random Glucose Calcium Cryoglobulin Microbiology Microbiology Results: Microbiology 12/09/23 13:43 Blood Culture - Preliminary Blood - Venous Prelim: GPC Gram Stain only 12/09/23 13:43 Blood Culture - Preliminary Blood - Venous Prelim: GPC Gram Stain only Assessment and Plan (1) MRSA bacteremia: Status: Acute (2) Sepsis: Status: Acute (3) Acute renal failure: Status: Acute Plan 48yo M with decompensated HCV cirrhosis, polysubstance abuse disorder on methadone, mood disorder presenting with abd pain/swelling, weakness, and leg swelling found to have SBP + Staph aureus bacteremia ascites/SBP- diagnostic paracentesis 12/04 with 60cc ascites aspirated; 912 PMNs; on ceftriaxone 12/04-; got albumin 12/04 and 12/06, culture negative to date. Therapeutic paracentesis 12/10-2 liter fluid removed. Staph aureus bacteremia: vancomycin 12/04, TTE from 12/05 no vegetations. ID consulted, plan 4 wk of IV daptomycin from 1st negative BCx, repeat BCx 12/06, positive, repeat cultures 12/08-positive for gram positive cocci. Stoping Vanco today d/t worsening renal failure and high Vanco levels. on Dapto and Kefzol which will cover synergistic MRSA coverage and SBP coverage MAI..DDX: hepatorenal vs cocaine-induced vasoconstriction, aggravated toxic vanco level. hold diuretics. continue octreotide; midodrine if bp on low side, Nephrology following; SCr slightly higher today, possibly d/t toxic vanco level. holding vanco hyperK- due to MAI-added loklema repeat potassium in evening hepatic encephalopathy-similar to yesterday - lactulose + rifaxmin decompensated cirrhosis - GI consulted, does not qualify for transplant due to ongoing substance abuse - abd US with Doppler to r/o Portal vein thrombosis (PVT) is negative acute lactic acidosis - due to liver disease thrombocytopenia- due to cirrhosis; monitor CBC daily anemia - due to cirrhosis; monitor CBC daily; FOBT positive; will give 2u pRBCs and discuss with GI whether he should have EGD; will give IV PPI coagulopathy - given vitamin K without correction; monitor INR daily Leukocytosis? reactive vs d/t underlying infection? polysubstance abuse - Addiction Medicine consulted, continue methadone per addiction med VTE ppx - SCDs; no heparin given coagulopathy + thrombocytopenia dispo - will need STR for IV ABX, duration 4 wk from clearance updated patient's alternate HCP, his sister Beena @ [phone], and brought up code status and fact that he is very ill with poor prognosis and not candidate for liver transplant and worsening renal function , she will discuss with patient's daughter and brother and to come with a decision regarding code status In my clinical judgment, the patient requires continued inpatient hospitalization for the following reasons: IV ABX, albumin overall prognosis seems very poor. nephrology and myself spoke to daughter hcp Miss Hargrove-patient dnr/dni , family still deciding about hospice/palliative care Quality Stroke Does the patient have a stroke diagnosis?: No VTE Prior VTE?: No VTE Risk Level:: Medical - moderate - high VTE Device Contraindication: N/A - Device Ordered VTE Drug Contraindication: Treatment Not Indicated
[2023-12-12] MEDS: Calcium Carbonate 750 MG TAB.CHEW PO (17:14)
[2023-12-12] MEDS: Sodium Bicarbonate 650 MG TABLET PO ×2 (17:43→20:41)
[2023-12-12] MEDS: Dextrose 5 % and 0.9 % NaCl 1,000 ML 70 ML IVCONT (19:52)
[2023-12-12 20:13] LABS: Potassium 6.2 mmol/L (3.3-5.1)
--- NOTE | 2023-12-12 20:15 | PM.EVENT ---
Event Note Date of Service: 12/12/23 Event Note: Noted high potassium at 6.2 Ordered calcium gluconate, IV insulin, dextrose, albuterol and Lokelma. Closely monitor potassium Time Spent With Patient Time: Total time managing care of this patient today ____ minutes.
[2023-12-12] MEDS: Albuterol Sulfate 7.5 MG, Albuterol Sulfate (0.083%) 2.5 MG 10 MG INHALE (20:28)
[2023-12-12] MEDS: HYDROmorphone HCl 2 MG TABLET 1 MG PO (20:42)
[2023-12-12] MEDS: Lactulose 20 GM/30 ML SOLUTION 30 GM PO (20:43)
[2023-12-12] MEDS: Dextrose 10 % 250 ML 750 ML IV (21:28)
[2023-12-12] MEDS: Insulin Regular, Human 100 UNIT/ML 10 ML VIAL IVPUSH (22:00)
[2023-12-12] MEDS: Sodium Bicarbonate 8.4% 50 MEQ/50 ML VIAL IVPUSH (22:02)
[2023-12-12] MEDS: Calcium Gluconate/NaCl,Iso-Osm 2 GM/100 ML PLAST..BAG IV (22:03)
[2023-12-13] VITALS: BP 124/60; PULSE 93; RESP 20; TEMP 36.1; O2SAT 95
[2023-12-13] MEDS: Octreotide Acetate 100 MCG/ML AMPUL SUBCUT ×3 (00:03→15:53)
[2023-12-13] MEDS: Dextrose 5 % and 0.9 % NaCl 1,000 ML 70 ML IVCONT (00:20)
[2023-12-13] MEDS: Albumin Human 25 % 100 ML IV ×4 (01:17→21:34)
[2023-12-13 03:49] VITALS: BP 126/69; PULSE 92; RESP 20; TEMP 36.1; O2SAT 94
[2023-12-13] MEDS: ceFAZolin Sodium 1 GM VIAL IVPUSH ×2 (03:58→15:53)
--- NOTE | 2023-12-13 07:06 | PC.NURSE ---
ordered to straight cath patient. Told MD patient has tate. ordered not to straight cath.
[2023-12-13 07:56] LABS: Anion Gap 21 (12-20); Blood Urea Nitrogen 105 mg/dL (9-16); Carbon Dioxide 13 mmol/L (22-29); Chloride 101 mmol/L (96-108); Creatinine Clr Calc Pharmacy 16.5; Estimated Glomerular Filt Rate 10; Glucose Random 96 mg/dL (60-115); Potassium 5.6 mmol/L (3.3-5.1); Sodium 129 mmol/L (135-145)
[2023-12-13 08:00] VITALS: BP 129/66; PULSE 91; RESP 20; TEMP 36.2; O2SAT 96
[2023-12-13] MEDS: Lactulose 20 GM/30 ML SOLUTION 30 GM PO ×3 (09:09→15:53)
[2023-12-13] MEDS: Sodium Bicarbonate 650 MG TABLET PO ×3 (09:09→15:53)
[2023-12-13] MEDS: rifAXIMin 550 MG TABLET PO (09:09)
[2023-12-13] MEDS: methADONE HCl 20 MG/2 ML ORAL.CONC 50 MG PO (09:10)
[2023-12-13] MEDS: Sodium Zirconium Cyclosilicate 10 GM POWD.PACK PO ×2 (09:30→11:44)
--- NOTE | 2023-12-13 10:57 | P.PNNP_ITS ---
Subjective Subjective Date of Service: 12/13/23 Interval history: 48 y/o male with a medical history of hep C virus, liver cirrhosis, polysubstance abuse on methadone, mood disorder. Came to ED evening of 12/03 with abdominal pain, weakness, altered mental status. Nephrology consulted for MAI. patient's creatinine level initially 6.59 on 12/04/admission, previously 0.73 at baseline had been trending down, vancomycin trough elevation correlated with recent uptrending creatinine creatinine today 12/12 is 6.12, up from 5.47 yesterday; GFR 10 urine protein/cr ratio 0.77 12/06 blood in urine (3-5) on 12/04 hyponatremia (129), potassium 6.2 overnight, lokelma and insulin/D50 for treatment and improved to 5.6 this a.m. serum bicarb is trending down, today [address] scan of his abdomen- no obstruction, kidneys/ureters unremarkable. + cirrhosis, portal HTN, anasarca and ?colitis. had diagnostic paracentesis, has SBP, receiving abx, and albumin for management Urine sodium is 32 on 12/04 receiving octreotide for HRS protocol per GI, albumin IV as well unfortunately not a liver candidate due to active illicit drug use blood cultures +staph aureaus bacteremia, receiving abx treatment (daptomycin and ceazolin currently) No obvious vegetation noted on TTE Physical Exam 2 Vital Signs: Vital Signs: Last Vital Signs Temp 97.1 F 12/13/23 08:00 Pulse 91 12/13/23 08:00 Resp 20 12/13/23 08:00 BP 129/66 12/13/23 08:00 Pulse Ox 96 12/13/23 08:00 O2 Del Method Room Air 12/13/23 03:49 BMI result Body Mass Index 28.0 Const: General: lethargic Nutritional Appearance: Edematous O rientation/consciousness: lethargic Limitations: altered mental status Neck: Neck: Yes no JVD Resp: Effort & Inspection: normal respiratory effort Auscultation: rhonchi Cardio: Rate: regular rate Rhythm: regular rhythm Heart sounds: S1 normal heart sound present and S2 normal heart sound present GI: Inspection: Yes distended Palpation (GI): Tenderness to palpation present (GI) and Ascites present Skin: General skin exam: jaundice Extrem: General: Yes edema (pitting LLE, US ruled out DVT ) Objective Data Labs 12/13/23 12:34 12/13/23 06:57 Labs: Laboratory Results - last 24 hr 12/06/23 12/12/23 12/12/23 10:22 11:02 19:16 Sodium Potassium 6.2 H* Chloride Carbon Dioxide Anion Gap BUN Creatinine Estim Creat Clear Calc Estimated GFR POC Glucose 93 Random Glucose Calcium Cryoglobulin TNP Cryoglobulin Cryocrit TNP 12/13/23 06:57 Sodium 129 L Potassium 5.6 H Chloride 101 Carbon Dioxide 13 L Anion Gap 21 H BUN 105 H Creatinine 6.12 H* Estim Creat Clear Calc 16.5 Estimated GFR 10 POC Glucose Random Glucose 96 Calcium 9.0 Cryoglobulin Cryoglobulin Cryocrit Microbiology Microbiology Results: Microbiology 12/09/23 13:43 Blood - Venous Blood Culture - Preliminary Methicillin Res Staph Aureus 12/09/23 13:43 Blood - Venous Blood Culture - Final Methicillin Res Staph Aureus 12/05/23 09:17 Ascites Fluid Gram Stain - Final 12/05/23 09:17 Ascites Fluid Routine Culture - Final No growth after 2 days 12/05/23 09:17 Ascites Fluid Anaerobic Culture - Final NO GROWTH AFTER 5 DAYS 12/07/23 06:43 Blood - Venous Blood Culture - Final Methicillin Res Staph Aureus 12/07/23 06:43 Blood - Venous Blood Culture - Final Methicillin Res Staph Aureus 12/05/23 04:18 Blood - Venous Blood Culture - Final Methicillin Res Staph Aureus 12/05/23 04:18 Blood - Venous Blood Culture - Final Methicillin Res Staph Aureus 12/05/23 Unknown Urine clean catch - Clean Catch Midstream Urine Culture - Final Methicillin Res Staph Aureus Procedures Date of Service Date of Service: 12/13/23 Assessment & Plan Assessment and plan (1) Acute renal failure: Status: Acute (2) Chronic hepatitis C: Status: Acute (3) Decompensated hepatic cirrhosis: Status: Acute Plan Acute renal failure most, initially secondary to tubular injury from hypoperfusion, may also have component of cocaine-induced vasoconstriction/ATN renal function had been improving, now has second MAI, likely due to vancomycin Patient now oliguric, acidotic, hyperkalemic, may have component of HRS as well spoke with patient's sister, Beena, HCP, this a.m. via telephone. She stated she no longer wishes to be HCP and would like us to speak with other HCP, patient's daughter, Jose Kay (who is also listed as HCP) Spoke with GASPER Boyer this a.m. via telephone, #[phone]. Discussed that the patient's kidney function has been acutely worsening in the setting of other very serious health problems (acute on chronic liver failure and not candidate for liver transplant, ongoing blood stream infection, and others). Discussed that if we don't address his renal failure with dialysis it may be fatal. Discussed we are treating his other medical problems aggressively, and recommend treating his kidney failure with hemodyalisis. Discussed if kidneys improve (may or may not with HD, we will have to see with treatment), he may or may not come out of HD, and that dialysis will not treat his liver failure. Discussed there is a chance of acute complications during dialysis that may be fatal in the setting of his fragile state and liver failure. Discussed if HCP feels that her father (pt) would not wish to do this treatment, we will also respect that decision as well. Per GASPER Boyer, will not pursue HD as treatment- she feels this will cause more suffering and she states her father would not want this. recommend close monitoring of intake and output and blood pressure recommend daily electrolyte and renal function labs Will continue to follow Discussed with Dr Martinez Time Spent With Patient Time: Total time managing care of this patient today ____ minutes. Progress Note: Quality Stroke Does the patient have a stroke diagnosis?: No
[2023-12-13 11:15] VITALS: BP 139/69; PULSE 90; RESP 20; TEMP 36.1; O2SAT 96
[2023-12-13 11:16] LABS: Alanine Aminotransferase < 6 U/L (0-40); Albumin Level 3.1 g/dL (3.5-5.0); Alkaline Phosphatase 97 U/L (39-117); Aspartate Amino Transferase 84 U/L (5-37); Bilirubin Total 32.2 mg/dL (0.0-1.0); Total Protein 6.9 g/dL (6.5-8.0)
--- NOTE | 2023-12-13 11:24 | P.CONCC_ITS ---
History of Present Illness Data of Consult Service Date: 12/13/23 Primary Care Provider: Diann Ernst PA-C HPI Reason for consult: Liver cirrhosis 48-year-old male with past medical history of drug abuse, alcohol abuse, cirrhosis presents to the hospital with MRSA bacteremia leading to worsening acute kidney injury in the setting of advanced liver disease. Patient's renal function continues to worsen, however his blood pressures are stable, patient is alert and is talking Review of Systems 2 Constitutional: Constitutional: Reports body ache(s) and Reports chills Eyes: Eyes: Denies exophthalmos and Denies change in vision ENT: Reports Normal hearing present and Denies bleeding gums Cardiovascular: Cardiovascular: Denies Abdominal Cramping after Meds and Denies Abdominal Distension Gastrointestinal: Gastrointestinal: Denies abdominal pain and Denies melena Genitourinary: Genitourinary: Denies change in libido and Denies hematuria Neurologic: Reports Normal hearing present and Denies Neuro-related abnormal movements Psychiatric: Psychiatric: Denies change in libido Endocrine: Endocrine: Denies change in libido [facility] Past Medical History Medical History (Updated 12/07/23 @ 14:16 by Mariya Lindo MD) MRSA bacteremia Sepsis Hepatic encephalopathy Cirrhosis Hepatitis C H/O opioid abuse Family History Family history: reviewed and not pertinent Social History Social History Household Members: Other Household Members Other:: friend's hose Housing: Apartment Do you presently have visiting nurse or other home services: No Comment: Low fall risk Patient Tobacco Use Status: Tobacco use Unknown Tobacco use type: Cigarette e-Cigarette/Vaping Use: Never Used Substance Use Type: IV Drugs service: No Current occupational status: unemployed Cognitive needs: No Hearing needs: No Vision needs: Yes Meds Allergies Allergy/AdvReac Type Severity Reaction Status Date / Time No Known Allergies Allergy Verified 12/04/23 16:08 [No Known Allergies*] Active Medications: Current Medications Calcium Carbonate (Calcium Carbonate 750 Mg Tab.Chew) 750 mg PO Q4H PRN PRN Reason: Heartburn Last Admin: 12/12/23 17:14 Dose: 750 mg Cefazolin Sodium (Cefazolin Sodium 1 Gm Vial) 1 gm IVPUSH Q12H [facility] Last Admin: 12/13/23 03:58 Dose: 1 gm Dextrose (D10) 250 mls @ 750 mls/hr IV Q15M PRN PRN Reason: per Hypoglycemia Standing Ord. Last Infusion: 12/05/23 03:14 Dose: Infused Daptomycin 530 mg/ Sodium (Chloride) 60.6 mls @ 99.982 mls/hr IV Q48H [facility] Last Infusion: 12/11/23 15:44 Dose: Infused Albumin Human (Kedbumin 25 %) 100 mls @ 100 mls/hr IV Q6H [facility] Stop: 12/14/23 04:59 Last Admin: 12/13/23 10:42 Dose: 100 mls/hr Lactulose (Lactulose 20 Gm/30 Ml Solution) 30 gm PO QID [facility] Magnesium Hydroxide (Milk Of Magnesia 30 Ml Oral.Susp) 30 ml PO DAILY PRN PRN Reason: Constipation Melatonin (Melatonin 3 Mg Tablet) 6 mg PO BEDTIME PRN PRN Reason: Insomnia Last Admin: 12/09/23 20:51 Dose: 6 mg Methadone HCl (Methadone Hcl 20 Mg/2 Ml Oral.Conc) 50 mg PO DAILY@0800 [facility] Last Admin: 12/13/23 09:10 Dose: 50 mg Octreotide Acetate (Octreotide Acetate 100 Mcg/Ml Ampul) 100 mcg SUBCUT Q8H [facility] Last Admin: 12/13/23 09:18 Dose: 100 mcg Ondansetron HCl (Ondansetron Hcl 4 Mg/2 Ml Vial) 4 mg IVPUSH Q8H PRN PRN Reason: Nausea and Vomiting Last Admin: 12/11/23 08:12 Dose: 4 mg Rifaximin (Rifaximin 550 Mg Tablet) 550 mg PO BID [facility] Last Admin: 12/13/23 09:09 Dose: 550 mg Sodium Bicarbonate (Sodium Bicarbonate 650 Mg Tablet) 650 mg PO QID [facility] Last Admin: 12/13/23 09:09 Dose: 650 mg Sodium Chloride (0.9 % Sodium Chloride Flush 3 Ml Syringe) [facility] Last Admin: 12/13/23 09:10 Dose: Not Given Tramadol HCl (Tramadol Hcl 50 Mg Tablet) 25 mg PO Q6H PRN PRN Reason: Pain, Mild (Pain Scale 1-3) Last Admin: 12/12/23 17:12 Dose: 25 mg Home Medications ?Medication ?Instructions ?Recorded ?Confirmed ?Last Taken ?Type methadone 10 mg/mL oral 50 mg PO DAILY 10/26/23 12/06/23 12/01/23 History concentrate (Methadone Intensol) Physical Exam 2 Vital Signs: Vital Signs: Last Vital Signs Temp 97.0 F 12/13/23 11:15 Pulse 90 12/13/23 11:15 Resp 20 12/13/23 11:15 BP 139/69 12/13/23 11:15 Pulse Ox 96 12/13/23 11:15 O2 Del Method Room Air 12/13/23 11:15 BMI result Body Mass Index 28.0 General: Icteric, ill appearing and tired appearing Nutritional Appearance: Chronic malnourishment, underweight Eyes: appearance normal, both eyes and all related structures; Alignment and Position: alignment normal and position normal Neck: No lymphadenopathy, no thyromegaly Resp: bilateral air entry equal, occasional added sounds present Cardio: Regular rate, regular rhythm; Heart sounds: S1 normal heart sound present and S2 normal heart sound present, GI: soft, distended nontender, no guarding, no hepatosplenomegaly : bladder normal to inspection, bladder normal to palpation, no renal angle tenderness Skin: no rashes or lesions noted and elasticity normal Neuro: oriented to person, oriented to place, oriented to time and moves all extremities Neuro: Cranial nerves: Yes Normal hearing present Results Labs 12/11/23 05:32 12/13/23 06:57 Labs: BMP 12/12/23 12/13/23 19:16 06:57 Sodium 129 L Potassium 6.2 H* 5.6 H Chloride 101 Carbon Dioxide 13 L BUN 105 H Creatinine 6.12 H* Calcium 9.0 Liver Function 12/13/23 Range/Units 06:57 Total Bilirubin 32.2 H (0.0-1.0) mg/dL AST 84 H (5-37) U/L ALT < 6 (0-40) U/L Alkaline Phosphatase 97 (39-117) U/L Albumin 3.1 L (3.5-5.0) g/dL Microbiology Microbiology Results: Microbiology 12/09/23 13:43 Blood - Venous Blood Culture - Preliminary Methicillin Res Staph Aureus 12/09/23 13:43 Blood - Venous Blood Culture - Final Methicillin Res Staph Aureus 12/05/23 09:17 Ascites Fluid Gram Stain - Final 12/05/23 09:17 Ascites Fluid Routine Culture - Final No growth after 2 days 12/05/23 09:17 Ascites Fluid Anaerobic Culture - Final NO GROWTH AFTER 5 DAYS 12/07/23 06:43 Blood - Venous Blood Culture - Final Methicillin Res Staph Aureus 12/07/23 06:43 Blood - Venous Blood Culture - Final Methicillin Res Staph Aureus 12/05/23 04:18 Blood - Venous Blood Culture - Final Methicillin Res Staph Aureus 12/05/23 04:18 Blood - Venous Blood Culture - Final Methicillin Res Staph Aureus 12/05/23 Unknown Urine clean catch - Clean Catch Midstream Urine Culture - Final Methicillin Res Staph Aureus Assessment and Plan (1) Acute hepatic encephalopathy: Status: Acute (2) Decompensated hepatic cirrhosis: Status: Acute (3) Chronic hepatitis C: Qualifiers: Hepatic coma status: without hepatic coma Qualified Code(s): B18.2 - Chronic viral hepatitis C Status: Acute (4) Spontaneous bacterial peritonitis: Status: Acute (5) Pancreatitis: Status: Acute (6) Decompensated cirrhosis: Status: Acute Plan This patient is very sick due to advanced liver disease and not a transplant candidate due to current drug use various urinary drug screen was positive for opiate, fentanyl, cocaine and methadone; so there is not a definitive treatment for his underlying disorder. Continue aggressive lactulose to have 3-4 bowel movements per day. Can try ursodeoxycholic acid to decrease bilirubinemia. Has acute kidney injury possibly due to glomerular nephritis given low complement levels in the setting of drug abuse. However his kidney disease has been progressive and we will be getting renal replacement therapy. His electrolyte abnormalities and uremic symptoms he will be addressed with renal replacement therapy and it can be done in dialysis unit. His blood pressures are stable, his mentation is okay. Stop IV fluids as the patient is edematous. Although he has advanced liver disease at this point he does not need any additional support that needs ICU transfer. Can be managed at floor. Total time managing care of this patient today: 40 minutes.
[2023-12-13 11:37] LABS: Bilirubin Direct 18.4 mg/dL (0.0-0.5)
[2023-12-13] MEDS: SODIUM CHLORIDE 0.9% IV (11:51)
[2023-12-13] MEDS: DAPTOMYCIN IV (11:51)
[2023-12-13 12:46] LABS: VBG Base Excess -10.3 mmol/L; VBG HCO3 13 mmol/L (22-26); VBG pCO2 22 mmHg; VBG pH 7.37 (7.32-7.43); VBG pO2 105 mmHg
[2023-12-13 12:47] LABS: Venous Blood Gas Refer to POC result
[2023-12-13 12:49] LABS: Hematocrit 22.8 % (42.0-52.0); Hemoglobin 7.7 g/dl (14.0-18.0); Mean Corpuscular HGB Conc 33.8 g/dl (31.0-36.0); Mean Corpuscular Hemoglobin 34.4 pg (27.0-33.0); Mean Corpuscular Volume 101.8 fL (80.0-98.0); Mean Platelet Volume 12.1 fL (9.4-12.4); NRBC Pct Auto 0.2 /100WBC (0.0-0.2); Red Blood Count 2.24 X10*6/uL (4.60-5.80); Red Cell Distribution Width 17.7 % (11.0-16.0); White Blood Count 17.8 X10*3/uL (4.8-10.8)
[2023-12-13 12:50] LABS: Platelet Count 68 X10*3/uL (160-400)
--- NOTE | 2023-12-13 14:00 | MHC.CM.PN ---
Per MD rounds patient is not medically cleared for discharge. ICU consult was obtained. The patient does not require a higher level of care. Lytes will be replaced in HD. DP Goals of care discussion, HD started 12/11, Wound clinic and Methadone program. CM will follow.
--- NOTE | 2023-12-13 15:04 | P.PNGI_ITS ---
Subjective Subjective Date of Service: 12/13/23 Interval History: 48-year-old gentleman with ESLD related to chronic hepatitis-C complicated by portal hypertension, depression admitted to [facility] [place] on 12/04/23 with abdominal pain and altered mental status, severe MAI and lactic acidosis and found to have SBP + Staph aureus bacteremia Pt was seen on 12/05/[address] Lindo. GI re-consulted due to acute on chronic anemia and FOBT positive regarding further evaluation with EGD. Pt was started on IV PPI and transfused 2u pRBCs Physical Exam 2 Vital Signs: Vital Signs: Last Vital Signs Temp 97.0 F 12/13/23 11:15 Pulse 90 12/13/23 11:15 Resp 20 12/13/23 11:15 BP 139/69 12/13/23 11:15 Pulse Ox 96 12/13/23 11:15 O2 Del Method Room Air 12/13/23 11:15 BMI result Body Mass Index 28.0 Objective Data Labs 12/13/23 12:34 12/13/23 06:57 Labs: Laboratory Results - last 24 hr 12/06/23 12/12/23 12/13/23 10:22 19:16 06:57 WBC RBC Hgb Hct MCV MCH MCHC RDW Plt Count MPV Absolute Nucleated RBC Nucleated RBC % (auto) VBG pH VBG pCO2 VBG pO2 VBG HCO3 VBG O2 Saturation VBG Base Excess Sodium 129 L Potassium 6.2 H* 5.6 H Chloride 101 Carbon Dioxide 13 L Anion Gap 21 H BUN 105 H Creatinine 6.12 H* Estim Creat Clear Calc 16.5 Estimated GFR 10 Random Glucose 96 Calcium 9.0 Total Bilirubin 32.2 H Direct Bilirubin 18.4 H AST 84 H ALT < 6 Alkaline Phosphatase 97 Total Protein 6.9 Albumin 3.1 L Cryoglobulin Cryocrit TNP 12/13/23 12/13/23 12:34 12:41 WBC 17.8 H RBC 2.24 L Hgb 7.7 L Hct 22.8 L MCV 101.8 H MCH 34.4 H MCHC 33.8 RDW 17.7 H Plt Count 68 L MPV 12.1 Absolute Nucleated RBC 0.030 H Nucleated RBC % (auto) 0.2 VBG pH 7.37 VBG pCO2 22 VBG pO2 105 VBG HCO3 13 L VBG O2 Saturation TNP VBG Base Excess -10.3 Sodium Potassium Chloride Carbon Dioxide Anion Gap BUN Creatinine Estim Creat Clear Calc Estimated GFR Random Glucose Calcium Total Bilirubin Direct Bilirubin AST ALT Alkaline Phosphatase Total Protein Albumin Cryoglobulin Cryocrit Microbiology Microbiology Results: Microbiology 12/09/23 13:43 Blood - Venous Blood Culture - Preliminary Methicillin Res Staph Aureus 12/09/23 13:43 Blood - Venous Blood Culture - Final Methicillin Res Staph Aureus 12/05/23 09:17 Ascites Fluid Gram Stain - Final 12/05/23 09:17 Ascites Fluid Routine Culture - Final No growth after 2 days 12/05/23 09:17 Ascites Fluid Anaerobic Culture - Final NO GROWTH AFTER 5 DAYS 12/07/23 06:43 Blood - Venous Blood Culture - Final Methicillin Res Staph Aureus 12/07/23 06:43 Blood - Venous Blood Culture - Final Methicillin Res Staph Aureus 12/05/23 04:18 Blood - Venous Blood Culture - Final Methicillin Res Staph Aureus 12/05/23 04:18 Blood - Venous Blood Culture - Final Methicillin Res Staph Aureus 12/05/23 Unknown Urine clean catch - Clean Catch Midstream Urine Culture - Final Methicillin Res Staph Aureus Procedures Date of Service Date of Service: 12/13/23 Progress Note: A&P Time Spent With Patient Time: Total time managing care of this patient today ____ minutes. Quality Stroke Does the patient have a stroke diagnosis?: No VTE Prior VTE?: No VTE Risk Level:: Medical - moderate - high VTE Device Contraindication: N/A - Device Ordered VTE Drug Contraindication: Treatment Not Indicated
[2023-12-13 15:26] VITALS: BP 128/63; PULSE 94; RESP 16; TEMP 36.3; O2SAT 96
--- NOTE | 2023-12-13 15:50 | HO.PM.IMPN ---
Subjective Subjective Date of Service: 12/13/23 Interval History: encephalopathy advanced liver disease /renal function Review of Systems seems similar to yesterday feels weak Physical Exam Vital Signs: Vital Signs: Last Vital Signs Temp 97.4 F 12/13/23 15:26 Pulse 94 12/13/23 15:26 Resp 16 12/13/23 15:26 BP 128/63 12/13/23 15:26 Pulse Ox 96 12/13/23 15:26 O2 Del Method Room Air 12/13/23 11:15 BMI result Body Mass Index 28.0 Gen: chronically ill-appearing Lungs: clear to auscultation bilaterally Heart: regular rate and rhythm,systolic murmur along LSB Abd: tense, ascites present, no tenderness Ext: 2+ bilateral leg edema Skin: warm/well-perfused, jaundiced with purpura and petechiae Neuro: alert and oriented to self/place,- asterixis Psych: restricted affect Objective Data Active Medications Calcium Carbonate (Calcium Carbonate 750 Mg Tab.Chew) 750 mg PO Q4H PRN PRN Reason: Heartburn Last Admin: 12/12/23 17:14 Dose: 750 mg Documented By: JULIA Cefazolin Sodium (Cefazolin Sodium 1 Gm Vial) 1 gm IVPUSH Q12H [facility] Last Admin: 12/13/23 03:58 Dose: 1 gm Documented By: OBED Dextrose (D10) 250 mls @ 750 mls/hr IV Q15M PRN PRN Reason: per Hypoglycemia Standing Ord. Last Infusion: 12/05/23 03:14 Dose: Infused Documented By: JACQUELINE Daptomycin 530 mg/ Sodium (Chloride) 60.6 mls @ 99.982 mls/hr IV Q48H [facility] Last Infusion: 12/13/23 12:28 Dose: Infused Documented By: FIDELINA Albumin Human (Kedbumin 25 %) 100 mls @ 100 mls/hr IV Q6H [facility] Stop: 12/14/23 04:59 Last Infusion: 12/13/23 11:42 Dose: Infused Documented By: FIDELINA Lactulose (Lactulose 20 Gm/30 Ml Solution) 30 gm PO QID [facility] Last Admin: 12/13/23 11:44 Dose: 30 gm Documented By: FIDELINA Magnesium Hydroxide (Milk Of Magnesia 30 Ml Oral.Susp) 30 ml PO DAILY PRN PRN Reason: Constipation Melatonin (Melatonin 3 Mg Tablet) 6 mg PO BEDTIME PRN PRN Reason: Insomnia Last Admin: 12/09/23 20:51 Dose: 6 mg Documented By: CECILIA Methadone HCl (Methadone Hcl 20 Mg/2 Ml Oral.Conc) 50 mg PO DAILY@0800 [facility] Last Admin: 12/13/23 09:10 Dose: 50 mg Documented By: FIDELINA Co-signed By: SCOOBY Octreotide Acetate (Octreotide Acetate 100 Mcg/Ml Ampul) 100 mcg SUBCUT Q8H [facility] Last Admin: 12/13/23 09:18 Dose: 100 mcg Documented By: IFDELINA Ondansetron HCl (Ondansetron Hcl 4 Mg/2 Ml Vial) 4 mg IVPUSH Q8H PRN PRN Reason: Nausea and Vomiting Last Admin: 12/11/23 08:12 Dose: 4 mg Documented By: NIKKI Rifaximin (Rifaximin 550 Mg Tablet) 550 mg PO BID [facility] Last Admin: 12/13/23 09:09 Dose: 550 mg Documented By: FIDELINA Sodium Bicarbonate (Sodium Bicarbonate 650 Mg Tablet) 650 mg PO QID [facility] Last Admin: 12/13/23 11:44 Dose: 650 mg Documented By: FIDELINA Sodium Chloride (0.9 % Sodium Chloride Flush 3 Ml Syringe) 3 ml IVFLUSH QSHIFT [facility] Last Admin: 12/13/23 09:10 Dose: Not Given Documented By: FIDELINA Non-Admin Reason: IV Running Tramadol HCl (Tramadol Hcl 50 Mg Tablet) 25 mg PO Q6H PRN PRN Reason: Pain, Mild (Pain Scale 1-3) Last Admin: 12/12/23 17:12 Dose: 25 mg Documented By: BELSITC Labs 12/13/23 12:34 12/13/23 06:57 Labs: Laboratory Results - last 24 hr 12/06/23 12/13/23 12/13/23 10:22 06:57 12:34 MCV 101.8 H MCH 34.4 H MCHC 33.8 RDW 17.7 H Plt Count 68 L MPV 12.1 Absolute Nucleated RBC 0.030 H Nucleated RBC % (auto) 0.2 VBG pH VBG pCO2 VBG pO2 VBG HCO3 VBG O2 Saturation VBG Base Excess Anion Gap 21 H Estim Creat Clear Calc 16.5 Estimated GFR 10 Random Glucose 96 Calcium 9.0 Total Bilirubin 32.2 H Direct Bilirubin 18.4 H AST 84 H ALT < 6 Alkaline Phosphatase 97 Total Protein 6.9 Albumin 3.1 L Cryoglobulin Cryocrit TNP 12/13/23 12:41 MCV MCH MCHC RDW Plt Count MPV Absolute Nucleated RBC Nucleated RBC % (auto) VBG pH 7.37 VBG pCO2 22 VBG pO2 105 VBG HCO3 13 L VBG O2 Saturation TNP VBG Base Excess -10.3 Anion Gap Estim Creat Clear Calc Estimated GFR Random Glucose Calcium Total Bilirubin Direct Bilirubin AST ALT Alkaline Phosphatase Total Protein Albumin Cryoglobulin Cryocrit Microbiology Microbiology Results: Microbiology 12/09/23 13:43 Blood Culture - Preliminary Blood - Venous Methicillin Res Staph Aureus 12/09/23 13:43 Blood Culture - Final Blood - Venous Methicillin Res Staph Aureus Assessment and Plan (1) MRSA bacteremia: Status: Acute (2) Sepsis: Status: Acute (3) Acute renal failure: Status: Acute Plan 48yo M with decompensated HCV cirrhosis, polysubstance abuse disorder on methadone, mood disorder presenting with abd pain/swelling, weakness, and leg swelling found to have SBP + Staph aureus bacteremia Patient was treated for: ascites/SBP- diagnostic paracentesis 12/04 with 60cc ascites aspirated; 912 PMNs; on ceftriaxone 12/04-; got albumin 12/04 and 12/06, culture negative to date. Therapeutic paracentesis 12/10-2 liter fluid removed. Staph aureus bacteremia: vancomycin 12/04, TTE from 12/05 no vegetations. ID consulted, plan 4 wk of IV daptomycin from 1st negative BCx, repeat BCx 12/06, positive, repeat cultures 12/08-positive for gram positive cocci. Stoping Vanco today d/t worsening renal failure and high Vanco levels. on Dapto and Kefzol which will cover synergistic MRSA coverage and SBP coverage MAI..DDX: hepatorenal vs cocaine-induced vasoconstriction, aggravated toxic vanco level. hold diuretics. continue octreotide; midodrine if bp on low side, Nephrology following; SCr slightly higher today, possibly d/t toxic vanco level. holding vanco MAI worsening, urinary output also progressively declining Nephro discussed with the family currently family defers hemodialysis hepatic encephalopathy-similar to yesterday - lactulose + rifaxmin decompensated cirrhosis-worsening - GI consulted, does not qualify for transplant due to ongoing substance abuse acute lactic acidosis - due to liver disease thrombocytopenia- due to cirrhosis; monitor CBC daily anemia - due to cirrhosis; monitor CBC daily; FOBT positive slightly down ,but seems similar to last few days coagulopathy - given vitamin K without correction; monitor INR daily Leukocytosis? reactive vs d/t underlying infection? polysubstance abuse - Addiction Medicine consulted, continue methadone per addiction med VTE ppx - SCDs; no heparin given coagulopathy + thrombocytopenia updated patient's both HCP Patient daughter Miss Garcia and sister Beena -poor prognosis -considering advanced liver dis not candidate for liver transplant and worsening renal function. patient dnr/dni , family still deciding about hospice/palliative care. Quality Stroke Does the patient have a stroke diagnosis?: No VTE Prior VTE?: No VTE Risk Level:: Medical - moderate - high VTE Device Contraindication: N/A - Device Ordered VTE Drug Contraindication: Treatment Not Indicated
--- NOTE | 2023-12-13 15:53 | P.PNID_ITS ---
Subjective Subjective Date of Service: 12/13/23 Critical Care Time (minutes): 15 Comment: He has persistent bacteremia MRSA. This is 12/04,12/06 and 12/08. Objective Data Labs 12/13/23 12:34 12/13/23 06:57 Labs: Laboratory Results - last 24 hr 12/06/23 12/12/23 12/13/23 10:22 19:16 06:57 WBC RBC Hgb Hct MCV MCH MCHC RDW Plt Count MPV Absolute Nucleated RBC Nucleated RBC % (auto) VBG pH VBG pCO2 VBG pO2 VBG HCO3 VBG O2 Saturation VBG Base Excess Sodium 129 L Potassium 6.2 H* 5.6 H Chloride 101 Carbon Dioxide 13 L Anion Gap 21 H BUN 105 H Creatinine 6.12 H* Estim Creat Clear Calc 16.5 Estimated GFR 10 Random Glucose 96 Calcium 9.0 Total Bilirubin 32.2 H Direct Bilirubin 18.4 H AST 84 H ALT < 6 Alkaline Phosphatase 97 Total Protein 6.9 Albumin 3.1 L Cryoglobulin Cryocrit TNP 12/13/23 12/13/23 12:34 12:41 WBC 17.8 H RBC 2.24 L Hgb 7.7 L Hct 22.8 L MCV 101.8 H MCH 34.4 H MCHC 33.8 RDW 17.7 H Plt Count 68 L MPV 12.1 Absolute Nucleated RBC 0.030 H Nucleated RBC % (auto) 0.2 VBG pH 7.37 VBG pCO2 22 VBG pO2 105 VBG HCO3 13 L VBG O2 Saturation TNP VBG Base Excess -10.3 Sodium Potassium Chloride Carbon Dioxide Anion Gap BUN Creatinine Estim Creat Clear Calc Estimated GFR Random Glucose Calcium Total Bilirubin Direct Bilirubin AST ALT Alkaline Phosphatase Total Protein Albumin Cryoglobulin Cryocrit Microbiology Microbiology Results: Microbiology 12/09/23 13:43 Blood - Venous Blood Culture - Preliminary Methicillin Res Staph Aureus 12/09/23 13:43 Blood - Venous Blood Culture - Final Methicillin Res Staph Aureus 12/05/23 09:17 Ascites Fluid Gram Stain - Final 12/05/23 09:17 Ascites Fluid Routine Culture - Final No growth after 2 days 12/05/23 09:17 Ascites Fluid Anaerobic Culture - Final NO GROWTH AFTER 5 DAYS 12/07/23 06:43 Blood - Venous Blood Culture - Final Methicillin Res Staph Aureus 12/07/23 06:43 Blood - Venous Blood Culture - Final Methicillin Res Staph Aureus 12/05/23 04:18 Blood - Venous Blood Culture - Final Methicillin Res Staph Aureus 12/05/23 04:18 Blood - Venous Blood Culture - Final Methicillin Res Staph Aureus 12/05/23 Unknown Urine clean catch - Clean Catch Midstream Urine Culture - Final Methicillin Res Staph Aureus Physical Exam 2 Vital Signs: Vital Signs: Last Vital Signs Temp 97.4 F 12/13/23 15:26 Pulse 94 12/13/23 15:26 Resp 16 12/13/23 15:26 BP 128/63 12/13/23 15:26 Pulse Ox 96 12/13/23 15:26 O2 Del Method Room Air 12/13/23 11:15 BMI result Body Mass Index 28.0 Const: General: cooperative HEENT: Head: Yes normal to inspection Face and sinus: Yes normal facial exam Mouth: Normal oral and palatal mucosa present Teeth and gingiva: d entition normal Eyes: General: appearance normal, both eyes and all related structures P upils: Equal, round and reactive pupils present Resp: Effort & Inspection: normal respiratory effort Cardio: Rate: regular rate Rhythm: regular rhythm GI: Palpation (GI): Soft to palpation and nontender : General: Yes no CVA tenderness Back/Spine/Pelvis: Back: no CVA tenderness Skin: General skin exam: no rashes or lesions noted Neuro: General: moves all extremities Cranial nerves: Yes Equal, round and reactive pupils present Extrem: General: Yes normal to inspection Psych: Appearance: grossly normal Assessment and Plan Assessment and plan (1) MRSA bacteremia: Status: Acute Time Spent With Patient Time: Total time managing care of this patient today ____ minutes.
[2023-12-13] MEDS: 0.9 % Sodium Chloride Flush 3 ML SYRINGE IVFLUSH ×2 (15:55→21:35)
--- NOTE | 2023-12-13 16:03 | PM.EVENT ---
Event Note Date of Service: 12/13/23 Event Note: 2 MYRTLE He should recheck blood cultures 12/14,probable line source. JAGUAR. Prognosis guarded Time Spent With Patient Time: Total time managing care of this patient today ____ minutes.
[2023-12-13 20:00] VITALS: BP 140/65; PULSE 99; RESP 20; TEMP 36.8; O2SAT 94
[2023-12-14] VITALS: BP 137/66; PULSE 100; PULSE 105; RESP 20; TEMP 36.8; O2SAT 94
[2023-12-14] MEDS: Octreotide Acetate 100 MCG/ML AMPUL SUBCUT (00:58)
[2023-12-14] MEDS: Albumin Human 25 % 100 ML IV (03:04)
[2023-12-14] MEDS: ceFAZolin Sodium 1 GM VIAL IVPUSH (03:57)
--- NOTE | 2023-12-14 04:16 | PC.NURSE ---
Approx 0400 this RN and viscose cellar charge hand entered pt's room for a boost at daughter's request. Pt was agonally breathing at this time and shortly after . MD called bedside and pronounced pt.
--- NOTE | 2023-12-14 06:20 | PM.EVENT ---
Event Note Date of Service: 12/14/23 Event Note: note I was contacted to patient's bedside to pronounce that patient, Pj Kay, has . No spontaneous movements were present. There was no respond to verbal or tactile stimuli. Pupils were mid-dilated and fixed. No breathing sounds were appreciated over either lung field. No carotid pulses were palpable. No heart sounds were auscultated over entire precordium. Patient pronounced 12/14/2023 at 4:05 AM. Family/daughter was at bedside and aware of patient's . ME was not contacted and autopsy was not requested. Patient was DNR/DNI. SARAHI Nelson was at bedside at the time the patient was pronounced . Time Spent With Patient Time: Total time managing care of this patient today ____ minutes.
--- NOTE | 2023-12-14 07:26 | PM.DS ---
DS: Providers Provider Date of Service: 12/14/23 Date of admission: 12/05/23 04:52 Date of discharge: 12/14/23 Primary care physician: Diann Ernst PA-C Consults: 12/05/23 05:23 Consult to Nephrology Routine Consulting Provider: [facility] Reason for consultation: MAI 12/05/23 05:26 Consult to Gastroenterology Routine Consulting Provider: Mariya Lindo Reason for consultation: Decompensated liver cirrhosis, hepatic encephalopathy, conjugated hyperbili 12/05/23 14:02 Consult to Wound Care Routine Reason for consultation: BL arms wounds 12/05/23 18:18 Consult to Infectious Diseases Routine Consulting Provider: [facility] Reason for consultation: gpc bacteremia 12/06/23 11:18 Addiction Medicine Routine Consulting Provider: [facility] Reason for consultation: Iv drug use 12/13/23 09:55 Consult to Infectious Diseases Routine Consulting Provider: [facility] Reason for consultation: perssitent mrsa bacteremia Has provider been notified: No 12/13/23 10:51 Consult to Critical Care Routine Consulting Provider: Federico Meeks Reason for consultation: goal of care Has provider been notified: No Attending physician on discharge: Apollo Mallory Discharging clinician: Apollo Mlalory DS: Diagnosis Discharge Diagnosis (1) MRSA bacteremia: Status: Acute (2) Sepsis: Status: Acute (3) Acute renal failure: Status: Acute DS: Summary Hospital Course Hospital Course: HPI:48-year-old male with pertinent history of HCV, polysubstance use disorder on methadone, mood disorder, liver cirrhosis who presents to the emergency department for evaluation of abdominal pain and weakness. History was obtained with the help of wide area network administrator. Patient is drowsy but awakens to verbal stimulus. Intermittently answering questions. States he has been having belly pain for the last few days. Also noticed pain and swelling of his lower extremities. Patient's brother called ambulance as he looked yellow and was weak. He was also noticed to be confused. Unable to obtain review of systems. In the emergency department, creatinine found to be 5.9, potassium 6, total bilirubin found to be 12.1 and imaging with anasarca. Patient was given IV crystalloids, IV antibiotics, calcium gluconate and IV serum bicarb in the ER. Hospital course: 48yo M with decompensated HCV cirrhosis, polysubstance abuse disorder on methadone, mood disorder presenting with abd pain/swelling, weakness, and leg swelling: patient had advanced liver disease , also had HRS with progressive found to have SBP + Staph aureus bacteremia possible line source -started on broad spectrum antibiotics Patient was treated for: ascites/SBP- diagnostic paracentesis 12/04 with 60cc ascites aspirated; 912 PMNs; on ceftriaxone 12/04-; got albumin 12/04 and 12/06, culture negative to date. Therapeutic paracentesis 12/10-2 liter fluid removed. Staph aureus bacteremia: vancomycin 12/04, TTE from 12/05 no vegetations. ID consulted, plan 4 wk of IV daptomycin from 1st negative BCx, repeat BCx 12/06, positive, repeat cultures 12/08-positive for gram positive cocci. Stoping Vanco today d/t worsening renal failure and high Vanco levels. on Dapto and Kefzol which will cover synergistic MRSA coverage and SBP coverage MAI..DDX: hepatorenal vs cocaine-induced vasoconstriction, aggravated toxic vanco level. hold diuretics. continue octreotide; midodrine if bp on low side, Nephrology following; SCr slightly higher today, possibly d/t toxic vanco level. holding vanco MAI worsening, urinary output also progressively declining Nephro discussed with the family currently family defers hemodialysis hepatic encephalopathy-similar to yesterday - lactulose + rifaxmin decompensated cirrhosis-worsening - GI consulted, does not qualify for transplant due to ongoing substance abuse acute lactic acidosis - due to liver disease thrombocytopenia- due to cirrhosis; monitor CBC daily anemia - due to cirrhosis; monitor CBC daily; FOBT positive slightly down ,but seems similar to last few days coagulopathy - given vitamin K without correction; monitor INR daily Leukocytosis? reactive vs d/t underlying infection? polysubstance abuse - Addiction Medicine consulted, continue methadone per addiction med VTE ppx - SCDs; no heparin given coagulopathy + thrombocytopenia updated patient's both HCP Patient daughter Miss Garcia and sister Beena -poor prognosis -considering advanced liver dis not candidate for liver transplant and worsening renal function. patient dnr/dni , family still deciding about hospice/palliative care. Physical Exam Vital Signs: Vital Signs: Last Vital Signs Temp 98.3 F 12/14/23 00:00 Pulse 105 H 12/14/23 00:00 Resp 20 12/14/23 00:00 BP 137/66 12/14/23 00:00 Pulse Ox 94 12/14/23 00:00 O2 Del Method Room Air 12/14/23 00:00 BMI result Body Mass Index 28.0 DS: Data Data Completed and Pending Completed studies during hospitalization [Text1]: Procedures Transfusion of Nonautologous Frozen Plasma into Peripheral Vein, Percutaneous Approach (10/25/23) Transfusion of Nonautologous Red Blood Cells into Peripheral Vein, Percutaneous Approach (10/25/23) Labs on day of discharge: Laboratory Results - last 24 hr 12/06/23 12/13/23 12/13/23 10:22 06:57 12:34 WBC 17.8 H RBC 2.24 L Hgb 7.7 L Hct 22.8 L MCV 101.8 H MCH 34.4 H MCHC 33.8 RDW 17.7 H Plt Count 68 L MPV 12.1 Absolute Nucleated RBC 0.030 H Nucleated RBC % (auto) 0.2 VBG pH VBG pCO2 VBG pO2 VBG HCO3 VBG O2 Saturation VBG Base Excess Sodium 129 L Potassium 5.6 H Chloride 101 Carbon Dioxide 13 L Anion Gap 21 H BUN 105 H Creatinine 6.12 H* Estim Creat Clear Calc 16.5 Estimated GFR 10 Random Glucose 96 Calcium 9.0 Total Bilirubin 32.2 H Direct Bilirubin 18.4 H AST 84 H ALT < 6 Alkaline Phosphatase 97 Total Protein 6.9 Albumin 3.1 L Cryoglobulin Cryocrit TNP 12/13/23 12:41 WBC RBC Hgb Hct MCV MCH MCHC RDW Plt Count MPV Absolute Nucleated RBC Nucleated RBC % (auto) VBG pH 7.37 VBG pCO2 22 VBG pO2 105 VBG HCO3 13 L VBG O2 Saturation TNP VBG Base Excess -10.3 Sodium Potassium Chloride Carbon Dioxide Anion Gap BUN Creatinine Estim Creat Clear Calc Estimated GFR Random Glucose Calcium Total Bilirubin Direct Bilirubin AST ALT Alkaline Phosphatase Total Protein Albumin Cryoglobulin Cryocrit Preliminary micro results at discharge 12/09/23 13:43 Blood Culture - Preliminary Blood - Venous Methicillin Res Staph Aureus Discharge Plan Discharge Referrals: Diann Ernst PA-C [Primary Care Provider] - 1 Week Discharge Medications: No Action methadone [Methadone Intensol] 10 mg/mL Concentrate 50 mg PO DAILY lactulose 20 gram/30 mL Solution 20 g PO BID Qty: 1800 0RF spironolactone 50 mg tablet 50 mg PO DAILY Qty: 30 0RF furosemide 20 mg tablet 20 mg PO DAILY Qty: 30 0RF Print Language: Occitan
--- NOTE | 2023-12-14 07:58 | PM.DDS ---
Discharge Sum: Prov Provider Primary care physician: Diann Ernst PA-C Admitting clinician: Vaughn Barragan Attending physician on admission: Vaughn Barragan Consults: 12/05/23 05:23 Consult to Nephrology Routine Consulting Provider: [facility] Reason for consultation: MAI 12/05/23 05:26 Consult to Gastroenterology Routine Consulting Provider: Mariya Lindo Reason for consultation: Decompensated liver cirrhosis, hepatic encephalopathy, conjugated hyperbili 12/05/23 14:02 Consult to Wound Care Routine Reason for consultation: BL arms wounds 12/05/23 18:18 Consult to Infectious Diseases Routine Consulting Provider: [facility] Reason for consultation: gpc bacteremia 12/06/23 11:18 Addiction Medicine Routine Consulting Provider: [facility] Reason for consultation: Iv drug use 12/13/23 09:55 Consult to Infectious Diseases Routine Consulting Provider: [facility] Reason for consultation: perssitent mrsa bacteremia Has provider been notified: No 12/13/23 10:51 Consult to Critical Care Routine Consulting Provider: Federico Meeks Reason for consultation: goal of care Has provider been notified: No Pronouncing clinician: Felecia Palacios Discharge Sum: Diag Contributing Factors (1) MRSA bacteremia: (2) Sepsis: (3) Acute renal failure: Discharge Sum: Summary Date and Time Date of admission: 12/05/23 04:52 Summary Details: HPI:48-year-old male with pertinent history of HCV, polysubstance use disorder on methadone, mood disorder, liver cirrhosis who presents to the emergency department for evaluation of abdominal pain and weakness. History was obtained with the help of lacquer spray booth operator. Patient is drowsy but awakens to verbal stimulus. Intermittently answering questions. States he has been having belly pain for the last few days. Also noticed pain and swelling of his lower extremities. Patient's brother called ambulance as he looked yellow and was weak. He was also noticed to be confused. Unable to obtain review of systems. In the emergency department, creatinine found to be 5.9, potassium 6, total bilirubin found to be 12.1 and imaging with anasarca. Patient was given IV crystalloids, IV antibiotics, calcium gluconate and IV serum bicarb in the ER. Hospital course: 48yo M with decompensated HCV cirrhosis, polysubstance abuse disorder on methadone, mood disorder presenting with abd pain/swelling, weakness, and leg swelling:patient found to have sbp and mrsa bactermia ,in addition advanced liver disease with acute on chronic liver failure and hepatic encephalopathy , also had HRS /renal failure ,anemia ,coagulopathy,polysubstance abuse:patient received paracentesis ,lactulose/rifixamine ,albumin and also seen by GI -patient had high aclf score and overall progressive worsening liver disease and renal fialure ,also Unfortunately not a transplant candidate due to ongoing ilicit substance use disorder, so overall prognosis poor .in addition for MRSA bacteremia- received broad spectrum antibiotics( was intially on vancomycin/kefzol then switched to daptomycin/kefzol ) ,TTE from 12/05 no vegetations.MAI -multifactorial and worsening- Nephro discussed with the family currently family multiple times family defered hemodialysis. above d/w in detail with family mutiple times -prognosis extremely poor ,family decided for dnr/dni, deffered HD and considering about hospice/palliative care. patient passed last night -please see note from night physician for further details(patient pronounced at 4:05 am on 12/14/23.daughter was at bedside). Additional Data Attending physician: Apollo Mallory MD
--- NOTE | 2023-12-15 19:52 | PC.NURSE ---
Received positive blood culture result from lab clerk Ruth: Gram + cocci in clusters from 2nd aerobic bottle. Pt yesterday, MD Lawrence Palacios made aware. 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
== END 2023-12-14 04:05 | disposition expired | DRG 720 ==
LOC: HO.ED 12-05 03:47 → HO.EDOVER 12-05 05:34 → HO.IMC 12-05 07:48
PROVIDERS: Family Medicine; Internal Medicine; Nurse Practitioner Acute Care; Nurse Practitioner Family; Admitting Provider Student in an Organized Health Care Education/Training Program; Emergency Provider Emergency Medicine; Visit Provider Internal Medicine
DX: A41.9 Sepsis, unspecified organism (principal); K72.00 Acute and subacute hepatic failure without coma; N17.0 Acute kidney failure with tubular necrosis; K76.7 Hepatorenal syndrome; E87.21 Acute metabolic acidosis; K65.2 Spontaneous bacterial peritonitis; D68.4 Acquired coagulation factor deficiency; D63.8 Anemia in other chronic diseases classified elsewhere; T40.5X1A Poisoning by cocaine, accidental (unintentional), initial encounter; I27.20 Pulmonary hypertension, unspecified; K72.10 Chronic hepatic failure without coma; B95.62 Methicillin resistant Staphylococcus aureus infection as the cause of diseases classified elsewhere; K76.82 Hepatic encephalopathy; E87.5 Hyperkalemia; K76.6 Portal hypertension; K31.89 Other diseases of stomach and duodenum; F11.23 Opioid dependence with withdrawal; B18.2 Chronic viral hepatitis C; Z66 Do not resuscitate; K74.69 Other cirrhosis of liver; D69.59 Other secondary thrombocytopenia; R18.8 Other ascites; N17.9 Acute kidney failure, unspecified; F19.90 Other psychoactive substance use, unspecified, uncomplicated; F39 Unspecified mood [affective] disorder; Z79.899 Other long term (current) drug therapy
CPT/HCPCS: 36415; 49083; 71045; 74176; 76705; 80048; 80051; 80053; 80076; 80202; 80307; 80321; 81001; 82042; 82140; 82272; 82550; 82565; 82570; 82595; 82803; 82947; 83605; 83690; 83735; 83880; 83986; 84132; 84155; 84156; 84157; 84165; 84166; 84300; 85025; 85027; 85610; 85999; 86160; 86850; 86900; 86901; 86923; 87040; 87070; 87073; 87077; 87086; 87088; 87147; 87186; 87205; 89051; 93005; 93306; 93971; 94640; 99285; C1758; J0131; J0613; J0690; J0692; J0696; J0878; J1171; J2003; J2354; J2405; J2470; J3370; J3371; J3430; P9016; P9047; Q9957

== ENCOUNTER → 2023-12-05 01:46 | Outpatient (BNV) | payer OTHER, SELFPAY | PROVIDERS: Admitting Provider Student in an Organized Health Care Education/Training Program; Emergency Provider Emergency Medicine; Visit Provider Internal Medicine Cardiovascular Disease | DX: R94.31 Abnormal electrocardiogram [ECG] [EKG] (principal) | CPT/HCPCS: 93010 ==

== ENCOUNTER 2023-12-05 04:52 | Outpatient (BNV) | payer OTHER, SELFPAY | END 2023-12-06 07:00 | PROVIDERS: Admitting Provider Student in an Organized Health Care Education/Training Program; Emergency Provider Emergency Medicine; Visit Provider Internal Medicine Cardiovascular Disease | DX: I27.20 Pulmonary hypertension, unspecified (principal); I36.1 Nonrheumatic tricuspid (valve) insufficiency | CPT/HCPCS: 93306 ==

== ENCOUNTER 2023-12-05 04:52 | Outpatient (BNV) | payer OTHER, SELFPAY | END 2023-12-11 08:00 | PROVIDERS: Admitting Provider Student in an Organized Health Care Education/Training Program; Emergency Provider Emergency Medicine; Visit Provider Physician Assistant Surgical | DX: R18.8 Other ascites (principal) | CPT/HCPCS: 49083 ==

== ENCOUNTER → 2023-12-05 04:52 | Outpatient (BNV) | payer OTHER, SELFPAY | PROVIDERS: Admitting Provider Student in an Organized Health Care Education/Training Program; Emergency Provider Emergency Medicine; Visit Provider Physician Assistant Surgical | DX: R18.8 Other ascites (principal) | CPT/HCPCS: 49083 ==

== ENCOUNTER → 2023-12-05 04:52 | Outpatient (BNV) | payer OTHER, SELFPAY | PROVIDERS: Admitting Provider Student in an Organized Health Care Education/Training Program; Emergency Provider Emergency Medicine; Visit Provider Internal Medicine Critical Care Medicine | DX: B18.2 Chronic viral hepatitis C (principal); K74.60 Unspecified cirrhosis of liver; K72.90 Hepatic failure, unspecified without coma; K76.82 Hepatic encephalopathy | CPT/HCPCS: 99232 ==

== ENCOUNTER → 2023-12-05 04:52 | Outpatient (BNV) | payer OTHER, SELFPAY | PROVIDERS: Admitting Provider Student in an Organized Health Care Education/Training Program; Emergency Provider Emergency Medicine; Visit Provider Internal Medicine | DX: R78.81 Bacteremia (principal); B95.62 Methicillin resistant Staphylococcus aureus infection as the cause of diseases classified elsewhere | CPT/HCPCS: 99222; 99232; 99499 ==

== ENCOUNTER → 2023-12-05 04:52 | Outpatient (BNV) | payer OTHER, SELFPAY | PROVIDERS: Admitting Provider Student in an Organized Health Care Education/Training Program; Emergency Provider Emergency Medicine; Visit Provider Internal Medicine | DX: K72.90 Hepatic failure, unspecified without coma (principal); K74.60 Unspecified cirrhosis of liver; R78.81 Bacteremia; B95.62 Methicillin resistant Staphylococcus aureus infection as the cause of diseases classified elsewhere; A41.9 Sepsis, unspecified organism; B18.2 Chronic viral hepatitis C; K76.82 Hepatic encephalopathy; K65.2 Spontaneous bacterial peritonitis; K76.7 Hepatorenal syndrome; F11.90 Opioid use, unspecified, uncomplicated | CPT/HCPCS: 99223; 99233 ==

== ENCOUNTER → 2023-12-05 04:52 | Outpatient (BNV) | payer OTHER, SELFPAY | PROVIDERS: Admitting Provider Student in an Organized Health Care Education/Training Program; Emergency Provider Emergency Medicine; Visit Provider Student in an Organized Health Care Education/Training Program | DX: A41.01 Sepsis due to Methicillin susceptible Staphylococcus aureus (principal); N17.9 Acute kidney failure, unspecified | CPT/HCPCS: 99223; 99232; 99233; 99239; 99499 ==

== ENCOUNTER → 2023-12-05 04:52 | Outpatient (BNV) | payer OTHER, SELFPAY | PROVIDERS: Admitting Provider Student in an Organized Health Care Education/Training Program; Emergency Provider Emergency Medicine; Visit Provider Nurse Practitioner Family | DX: N17.9 Acute kidney failure, unspecified (principal); B18.2 Chronic viral hepatitis C; K72.90 Hepatic failure, unspecified without coma; K74.60 Unspecified cirrhosis of liver | CPT/HCPCS: 99223; 99232; 99233 ==

== ENCOUNTER → 2023-12-05 04:52 | Outpatient (BNV) | payer OTHER, SELFPAY | PROVIDERS: Admitting Provider Student in an Organized Health Care Education/Training Program; Emergency Provider Emergency Medicine; Visit Provider Nurse Practitioner Psychiatric/Mental Health | DX: F11.90 Opioid use, unspecified, uncomplicated (principal) | CPT/HCPCS: 99231; 99232; 99499 ==